=== PATIENT | female | born 1985 | race Caucasian/White ===

== ENCOUNTER 2016-06-05 04:33 | Inpatient (IN) ==
[2016-06-05] MEDS ORDERED: Acetaminophen 325 MG TABLET PO ONE (04:44)
[2016-06-05] MEDS ORDERED: 0.9 % Sodium Chloride 1,000 ML IVC ONE ×2 (04:44→07:28)
[2016-06-05 04:54] LABS: Basophils # 0.1 K/mcL (0.0-0.2); Basophils % 0.6 %; Eosinophils % 0.2 %; Hematocrit 38.6 % (35.3-44.9); Hemoglobin 12.6 g/dL (11.5-15.4); Immature Granulocytes % 1.6 % (0-4); Lymphocytes # 2.2 K/mcL (0.6-4.6); Lymphocytes % 21.2 %; Mean Corpuscular HGB Conc 32.6 g/dL (31.6-35.5); Mean Corpuscular Hemoglobin 31.1 pg (28.0-33.3); Mean Corpuscular Volume 95.3 fL (83.0-100.0); Mean Platelet Volume 9.2 fL (9.4-12.4); Monocytes # 0.6 K/mcL (0.0-1.3); Monocytes % 5.5 %; Neutrophils # 7.3 K/mcL (1.6-8.9); Platelet Count 260 K/mcL (140-400); Red Blood Count 4.05 M/mcL (3.82-4.97); Red Cell Distribution Width 15.5 % (11.5-14.5); Segmented Neutrophils % 70.9 %
[2016-06-05] MEDS ORDERED: Ipratropium/Albuterol Neb 3 ML IH ONE (04:54)
[2016-06-05 05:07] LABS: Alanine Aminotransferase 18 Units/L (0-55); Albumin 2.6 g/dL (3.5-5.0); Albumin/Globulin Ratio 0.6 (1.1-2.2); Alkaline Phosphatase 59 Units/L (38-126); Aspartate Amino Transferase 16 Units/L (5-34); BUN/Creatinine Ratio 14 (6-26); Bilirubin,Direct 0.2 mg/dL (0.0-0.5); Bilirubin,Total 0.2 mg/dL (0.2-1.2); Blood Urea Nitrogen 11 mg/dL (7-20); Calcium 8.3 mg/dL (8.6-10.8); Carbon Dioxide 30 mEq/L (19-29); Chloride 105 mEq/L (98-109); Globulin 4.3 g/dL (2.4-3.5); Glucose 148 mg/dL (70-99); Osmolality,Calculated 296 (280-300); Potassium 4.2 mEq/L (3.5-4.5); Sodium 142 mEq/L (136-145); Total Protein 6.9 g/dL (6.0-8.3); eGFR For African Americans > 60 (> 60); eGFR For Non-African Americans > 60 (> 60)
[2016-06-05] MEDS ORDERED: Azithromycin 500 MG in D5% in Water 250 ML IVPB ONE (05:22)
--- NOTE | 2016-06-05 05:33 | Emergency Department Note ---
Disposition Clinical Impression: Hypoxia, Down syndrome Pneumonia Qualifiers: Pneumonia type: due to unspecified organism Laterality: unspecified laterality Lung location: unspecified part of lung Qualified Code(s): J18.9 - Pneumonia, unspecified organism Disposition: Admitted As Inpatient Abdominal Pain HPI - General Chief Complaint: ED Abdominal Pain Stated Complaint: Abd Pain/SOB Time Seen by Provider: 06/05/16 05:29 Source: patient Mode of arrival: ambulatory Limitations: no limitations Nursing Notes Reviewed: Yes Vital Signs Reviewed: Yes - History of Present Illness HPI Narrative: 31 year old female with downs syndrome and mother at bedside states that she has been treating fevers of 101F at home and dusty is goes to adult daycare. Dusty states that she has been complaining of upper abodminal pain and woke up at 0300 crying and complaining of pain. Upon arrival to the home, EMS states her pulse ox was in the lows 80s and she was tachycaardic. Dusty has not vomitted, and is not complaing of chest pain. Mother staes that last time she presented like this is was pneumonia and did not need admission to the hospital then. Upon arrival here she is on a non-rebreather and in the uppper 90s but appears to be in respirtaory distress, tachypneic and tachycardic. Mulu mother states that she has been couhgin but has had difficulty coughing anything up. Pain Scale: 4 - Related Data Home Medications Medication Instructions Recorded Confirmed Citalopram [CeleXA] 40 mg PO DAILY 10/12/14 06/05/16 CloNIDine HCl [CloNIDine HCl] 0.1 mg PO BID 10/12/14 06/05/16 Divalproex (12 HR) [Depakote (12 500 mg PO BID 10/12/14 06/05/16 HR)] Fluticasone Propionate Nasal 1 spray NS BID 10/12/14 06/05/16 [Flonase] Multivitamin [Flintstones] 1 tab PO DAILY 10/12/14 06/05/16 Nystatin POWDER [Nystop] 1 appl TP BID PRN 10/12/14 06/05/16 Hydrocortisone [Anusol-Hc] 1 appl TP BID PRN 06/05/16 06/05/16 Ketoconazole 2% CRM [Nizoral Cream] 1 appl TP BID PRN 06/05/16 06/05/16 Ketoconazole Shampoo [Nizoral 1 appl TP QWEEK 06/05/16 06/05/16 Shampoo] Levothyroxine Sodium [Levo-T] 75 mcg PO DAILY 06/05/16 06/05/16 Allergies Allergy/AdvReac Type Severity Reaction Status Date / Time No Known Allergies Allergy Verified 10/12/14 15:50 Constitutional: Reports: fever, chills, weakness. Denies: weight change Eyes: Denies: eye pain, eye discharge, vision change ENT ED: Denies: ear pain, throat pain, dental pain, hearing loss, epistaxis, congestion, dysphagia Cardiovascular: Reports: palpitations. Denies: chest pain, dyspnea on exertion , edema, syncope Respiratory: Reports: cough, dyspnea, wheezes. Denies: hemoptysis, stridor Gastrointestinal: Reports: abdominal pain, nausea. Denies: vomiting, diarrhea, constipation, hematemesis, melena, hematochezia Genitourinary: Denies: dysuria, frequency, hematuria, discharge Musculoskeletal: Denies: back pain, neck pain, arthralgia, myalgia Integumentary: Denies: rash, abrasion, lesions Neurological: Denies: headache, weakness, numbness, paresthesias, confusion, abnormal gait, vertigo Psychiatric: Denies: anxiety, depression, suicidal thoughts, homicidal thoughts , auditory hallucinations, visual hallucinations Endocrine: Denies: fatigue Hematological/Lymphatic: Denies: easy bleeding, easy bruising Allergic/Immunologic: Denies: facial swelling, urticaria Abdominal Pain PMH - Past Medical History Medical history: Reports: no medical history, thyroid disease Female Surgical History: Reports: no surgical history Psychiatric history: Reports: no psych history - Social History Smoking status: Never smoker Alcohol use: Reports: none Drug use: Reports: none Physical Exam - General Limitations: other (down syndrome) General appearance: alert - Head Head exam: atraumatic, normocephalic, normal inspection - Eye Eye exam: Present: normal appearance, PERRL, EOMI - Expanded Eye Exam Pupils: Left: reactive - ENT ENT exam: normal exam, normal oropharynx, mucous membranes moist - Expanded ENT Exam External ear exam: Present: normal external inspection Mouth exam: Present: normal external inspection Teeth exam: Present: normal inspection Throat exam: Present: normal inspection - Neck Neck exam: Present: normal inspection, full ROM, trachea midline - Chest Chest inspection: Present: normal inspection, symmetric chest wall rise - Respiratory Respiratory exam: Present: respiratory distress, wheezes - Cardiovascular Cardiovascular exam: Present: normal rhythm, tachycardia, normal heart sounds - Abdominal Exam Abdominal exam: Present: soft, Non-Tender. Absent: tenderness, distention, guarding, rebound, rigidity - Extremities Exam Extremities exam: Present: normal inspection, full ROM. Absent: tenderness, pedal edema - Expanded Upper Extremity Exam Shoulder exam: Present: normal inspection, full ROM Arm exam: Present: normal inspection, full ROM Elbow exam: Present: normal inspection, full ROM Forearm/Wrist exam: Present: normal inspection, full ROM Hand exam: Present: normal inspection, full ROM Vascular exam: Normal: capillary refill, radial pulse - Expanded Lower Extremity Exam Hip/Pelvis exam: Present: normal inspection, full ROM Upper leg exam: Present: normal inspection, full ROM Knee exam: Present: normal inspection, full ROM Lower leg exam: Present: normal inspection, full ROM Ankle exam: Present: normal inspection, full ROM Foot/toe exam: Present: normal inspection, full ROM Neurovascular/Tendon exam: Absent: motor deficit, sensory deficit, tendon deficit - Back Exam Back exam: Present: normal inspection, full ROM. Absent: tenderness - Neurological Exam Neurological exam: Present: alert, oriented X3 - Expanded Neurological Exam Patient oriented to: Present: person, place, time Coma Scale Eye Opening: Spontaneous Coma Scale Motor Response: Obeys Commands Coma Scale Verbal Response: Oriented Coma Scale Total: 15 - Psychiatric Psychiatric exam: Present: normal affect, normal mood - Skin Skin exam: Present: warm, dry, intact, normal color Course Course Narrative: we will place patient on bipap in addition to treat with brathing treatments and start with empiric ABX for pnuemoina. Vital Signs Temperature 101.6 F H 06/05/16 04:36 Pulse Rate 115 06/05/16 04:36 Respiratory Rate 18 06/05/16 04:36 Blood Pressure 107/97 06/05/16 04:36 O2 Sat by Pulse Oximetry 91 06/05/16 04:36 Temperature 97.7 F 06/05/16 21:05 Pulse Rate 93 06/05/16 21:05 Respiratory Rate 18 06/05/16 21:05 Blood Pressure 100/55 06/05/16 21:05 O2 Sat by Pulse Oximetry 96 06/05/16 21:05 Oxygen Delivery Oxygen Delivery Non Rebreather Mask Abdominal Pain - Lab Data Result diagrams: 06/05/16 04:45 06/05/16 04:45 Lab Results 06/05/16 06/05/16 06/05/16 Range/Units 04:45 04:45 04:45 WBC 10.4 (4.3-11.1) K/mcL RBC 4.05 (3.82-4.97) M/mcL Hgb 12.6 (11.5-15.4) g/dL Hct 38.6 (35.3-44.9) % MCV 95.3 (83.0-100.0) fL MCH 31.1 (28.0-33.3) pg MCHC 32.6 (31.6-35.5) g/dL RDW 15.5 H (11.5-14.5) % Plt Count 260 (140-400) K/mcL MPV 9.2 L (9.4-12.4) fL Immature Gran % 1.6 (0-4) % Seg Neutrophils % 70.9 % Lymphocytes % 21.2 % Monocytes % 5.5 % Eosinophils % 0.2 % Basophils % 0.6 % Neutrophils # 7.3 (1.6-8.9) K/mcL Lymphocytes # 2.2 (0.6-4.6) K/mcL Monocytes # 0.6 (0.0-1.3) K/mcL Eosinophils # 0.0 (0.0-0.6) K/mcL Basophils # 0.1 (0.0-0.2) K/mcL VBG pH (7.32-7.42) pH Units VBG pCO2 (41-51) mmHg VBG pO2 (25-40) mmHg VBG HCO3 (21-27) mEq/L Sodium 142 (136-145) mEq/L Potassium 4.2 (3.5-4.5) mEq/L Chloride 105 (98-109) mEq/L Carbon Dioxide 30 H (19-29) mEq/L BUN 11 (7-20) mg/dL Creatinine 0.80 (0.57-1.11) mg/dL Est GFR ( Amer) > 60 (> 60) Est GFR (Non-Af Amer) > 60 (> 60) BUN/Creatinine Ratio 14 (6-26) Glucose 148 H (70-99) mg/dL Calculated Osmolality 296 (280-300) Lactic Acid 1.5 (0.5-2.2) mmol/L Calcium 8.3 L (8.6-10.8) mg/dL Total Bilirubin 0.2 (0.2-1.2) mg/dL Direct Bilirubin 0.2 (0.0-0.5) mg/dL Indirect Bilirubin 0.0 (0.0-1.2) mg/dL AST 16 (5-34) Units/L ALT 18 (0-55) Units/L Alkaline Phosphatase 59 (38-126) Units/L Troponin I (0-0.03) ng/mL B-Natriuretic Peptide (0-100) pg/mL Serum Total Protein 6.9 (6.0-8.3) g/dL Albumin 2.6 L (3.5-5.0) g/dL Globulin 4.3 H (2.4-3.5) g/dL Albumin/Globulin Ratio 0.6 L (1.1-2.2) Urine Color (Yellow) Urine Clarity (Clear) Urine pH (5.0-8.0) pH Units Ur Specific [place] (1.010-1.025) Urine Protein (Neg-Trace) mg/dL Urine Glucose (UA) (Normal) mg/dL Urine Ketones (Negative) mg/dL Urine Blood (Negative) Urine Nitrite (Negative) Urine Bilirubin (Negative) Urine Urobilinogen (Normal) mg/dL Ur Leukocyte Esterase (Negative) Urine Microscopic RBC (0-3) per hpf Urine Microscopic WBC (0-3) per hpf Ur Squamous Epith Cells (None-Few) per lpf Urine Bacteria (None-Few) per hpf Hyaline Casts (None-Few) per lpf Ur Culture Indicated? (NO) 06/05/16 06/05/16 06/05/16 Range/Units 04:45 04:45 06:06 WBC (4.3-11.1) K/mcL RBC (3.82-4.97) M/mcL Hgb (11.5-15.4) g/dL Hct (35.3-44.9) % MCV (83.0-100.0) fL MCH (28.0-33.3) pg MCHC (31.6-35.5) g/dL RDW (11.5-14.5) % Plt Count (140-400) K/mcL MPV (9.4-12.4) fL Immature Gran % (0-4) % Seg Neutrophils % % Lymphocytes % % Monocytes % % Eosinophils % % Basophils % % Neutrophils # (1.6-8.9) K/mcL Lymphocytes # (0.6-4.6) K/mcL Monocytes # (0.0-1.3) K/mcL Eosinophils # (0.0-0.6) K/mcL Basophils # (0.0-0.2) K/mcL VBG pH 7.48 H (7.32-7.42) pH Units VBG pCO2 37 L (41-51) mmHg VBG pO2 167 H (25-40) mmHg VBG HCO3 27.6 H (21-27) mEq/L Sodium (136-145) mEq/L Potassium (3.5-4.5) mEq/L Chloride (98-109) mEq/L Carbon Dioxide (19-29) mEq/L BUN (7-20) mg/dL Creatinine (0.57-1.11) mg/dL Est GFR ( Amer) (> 60) Est GFR (Non-Af Amer) (> 60) BUN/Creatinine Ratio (6-26) Glucose (70-99) mg/dL Calculated Osmolality (280-300) Lactic Acid (0.5-2.2) mmol/L Calcium (8.6-10.8) mg/dL Total Bilirubin (0.2-1.2) mg/dL Direct Bilirubin (0.0-0.5) mg/dL Indirect Bilirubin (0.0-1.2) mg/dL AST (5-34) Units/L ALT (0-55) Units/L Alkaline Phosphatase (38-126) Units/L Troponin I 0.02 (0-0.03) ng/mL B-Natriuretic Peptide 66 (0-100) pg/mL Serum Total Protein (6.0-8.3) g/dL Albumin (3.5-5.0) g/dL Globulin (2.4-3.5) g/dL Albumin/Globulin Ratio (1.1-2.2) Urine Color (Yellow) Urine Clarity (Clear) Urine pH (5.0-8.0) pH Units Ur Specific [place] (1.010-1.025) Urine Protein (Neg-Trace) mg/dL Urine Glucose (UA) (Normal) mg/dL Urine Ketones (Negative) mg/dL Urine Blood (Negative) Urine Nitrite (Negative) Urine Bilirubin (Negative) Urine Urobilinogen (Normal) mg/dL Ur Leukocyte Esterase (Negative) Urine Microscopic RBC (0-3) per hpf Urine Microscopic WBC (0-3) per hpf Ur Squamous Epith Cells (None-Few) per lpf Urine Bacteria (None-Few) per hpf Hyaline Casts (None-Few) per lpf Ur Culture Indicated? (NO) 06/05/16 Range/Units 07:16 WBC (4.3-11.1) K/mcL RBC (3.82-4.97) M/mcL Hgb (11.5-15.4) g/dL Hct (35.3-44.9) % MCV (83.0-100.0) fL MCH (28.0-33.3) pg MCHC (31.6-35.5) g/dL RDW (11.5-14.5) % Plt Count (140-400) K/mcL MPV (9.4-12.4) fL Immature Gran % (0-4) % Seg Neutrophils % % Lymphocytes % % Monocytes % % Eosinophils % % Basophils % % Neutrophils # (1.6-8.9) K/mcL Lymphocytes # (0.6-4.6) K/mcL Monocytes # (0.0-1.3) K/mcL Eosinophils # (0.0-0.6) K/mcL Basophils # (0.0-0.2) K/mcL VBG pH (7.32-7.42) pH Units VBG pCO2 (41-51) mmHg VBG pO2 (25-40) mmHg VBG HCO3 (21-27) mEq/L Sodium (136-145) mEq/L Potassium (3.5-4.5) mEq/L Chloride (98-109) mEq/L Carbon Dioxide (19-29) mEq/L BUN (7-20) mg/dL Creatinine (0.57-1.11) mg/dL Est GFR ( Amer) (> 60) Est GFR (Non-Af Amer) (> 60) BUN/Creatinine Ratio (6-26) Glucose (70-99) mg/dL Calculated Osmolality (280-300) Lactic Acid (0.5-2.2) mmol/L Calcium (8.6-10.8) mg/dL Total Bilirubin (0.2-1.2) mg/dL Direct Bilirubin (0.0-0.5) mg/dL Indirect Bilirubin (0.0-1.2) mg/dL AST (5-34) Units/L ALT (0-55) Units/L Alkaline Phosphatase (38-126) Units/L Troponin I (0-0.03) ng/mL B-Natriuretic Peptide (0-100) pg/mL Serum Total Protein (6.0-8.3) g/dL Albumin (3.5-5.0) g/dL Globulin (2.4-3.5) g/dL Albumin/Globulin Ratio (1.1-2.2) Urine Color Yellow (Yellow) Urine Clarity Clear (Clear) Urine pH 5.5 (5.0-8.0) pH Units Ur Specific [place] > 1.030 H (1.010-1.025) Urine Protein 30 H (Neg-Trace) mg/dL Urine Glucose (UA) Normal (Normal) mg/dL Urine Ketones Negative (Negative) mg/dL Urine Blood Negative (Negative) Urine Nitrite Negative (Negative) Urine Bilirubin Negative (Negative) Urine Urobilinogen Normal (Normal) mg/dL Ur Leukocyte Esterase Negative (Negative) Urine Microscopic RBC 0-3 (0-3) per hpf Urine Microscopic WBC 3-5 H (0-3) per hpf Ur Squamous Epith Cells Many H (None-Few) per lpf Urine Bacteria Few (None-Few) per hpf Hyaline Casts None Seen (None-Few) per lpf Ur Culture Indicated? NO (NO) - EKG Data EKG attestation: Yes I reviewed and interpreted this EKG. EKG results narrative: sinus tachycardia with rate of 114. NO STEMI. normal intervals. no old ekg. 0440 Critical Care Time Critical Care Time: Yes Total Critical Care Time: 35 Attestation: The high probability of a clinically significant, sudden or life threatening deterioration of the [resp] system(s) required my full and direct attention, intervention and personal management. The aggregate critical care time was [35] minutes. This time is in addition to time spent performing reported procedures but includes the following: [X] Data Review and interpretation [X] Patient assessment and monitoring of vital signs [X] Documentation [X] Medication orders and management Attestation Statement - Attestation Attestation: I personally examined this patient and my medical decision-making was reviewed with the ED Resident Physician, Dr. Zamora. I agree with the documented findings , disposition and treatment plan as described except to the extent set forth below. She is a 31-year-old white female with a history of Down syndrome who presents to the emergency department by EMS today for respiratory distress. Patient was found at home significantly hypoxic with difficulty breathing and a history of gradually worsening URI symptoms cough over the past 48 hours. Patient has no significant pulmonary or cardiac history. Pt has not had any recent infections or treatment with antibiotics as an outpatient. Patient had a portable chest x-ray shot on arrival to the ED as we were obtaining IV access and administering supplement oxygen by nonrebreather, which showed extensive bilateral infiltrates. Patient was placed on BiPAP due to ongoing hypoxia and is tolerating this well and significant improvement in her oxygen saturation at this time. Patient's labs were obtained cultures were obtained, IV antibiotics were initiated for community-acquired pneumonia. Remainder of labs including troponin and BNP are negative. Patient does have a mild elevation in her blood sugar at 148. At this time patient is doing well on BiPAP in condition and improved at this point and will admit the patient to the ICU for continued close evaluation and management.
[2016-06-05 06:11] LABS: VBG HCO3 27.6 mEq/L (21-27); VBG PH 7.48 pH Units (7.32-7.42)
[2016-06-05 07:24] LABS: Bilirubin,Urine Negative (Negative); Blood,Urine Negative (Negative); Clarity,Urine Clear (Clear); Color,Urine Yellow (Yellow); Glucose,Urine (UA) Normal (Normal); Ketones,Urine Negative (Negative); Leukocyte Esterase,Urine Negative (Negative); Nitrite,Urine Negative (Negative); PH,Urine 5.5 pH Units (5.0-8.0); Protein,Urine 30 mg/dL (Neg-Trace); Specific Gravity,Urine > 1.030 (1.010-1.025); Urobilinogen,Urine Normal (Normal)
--- NOTE | 2016-06-05 07:25 | Emergency Department Note ---
Disposition Clinical Impression: Hypoxia, Pneumonia, Down syndrome Disposition: Admitted As Inpatient General Adult HPI - General Chief complaint: ED Abdominal Pain Stated complaint: Abd Pain/SOB Source: patient Mode of arrival: ambulatory Limitations: other (down syndrome) Nursing Notes Reviewed: Yes Vital Signs Reviewed: Yes - History of Present Illness HPI Narrative: This is a continuation of the prior documentation. Please refer to prior providers note for complete history and physical. Pain Scale: 4 - Related Data Home Medications Medication Instructions Recorded Confirmed Citalopram [CeleXA] 40 mg PO DAILY 10/12/14 06/05/16 CloNIDine HCl [CloNIDine HCl] 0.1 mg PO BID 10/12/14 06/05/16 Divalproex (12 HR) [Depakote (12 500 mg PO BID 10/12/14 06/05/16 HR)] Fluticasone Propionate Nasal 1 spray NS BID 10/12/14 06/05/16 [Flonase] Multivitamin [Flintstones] 1 tab PO DAILY 10/12/14 06/05/16 Nystatin POWDER [Nystop] 1 appl TP BID PRN 10/12/14 06/05/16 Hydrocortisone [Anusol-Hc] 1 appl TP BID PRN 06/05/16 06/05/16 Ketoconazole 2% CRM [Nizoral Cream] 1 appl TP BID PRN 06/05/16 06/05/16 Ketoconazole Shampoo [Nizoral 1 appl TP QWEEK 06/05/16 06/05/16 Shampoo] Levothyroxine Sodium [Levo-T] 75 mcg PO DAILY 06/05/16 06/05/16 Allergies Allergy/AdvReac Type Severity Reaction Status Date / Time No Known Allergies Allergy Verified 10/12/14 15:50 Constitutional: Reports: fever, chills, weakness. Denies: weight change Eyes: Denies: eye pain, eye discharge, vision change ENT ED: Denies: ear pain, throat pain, dental pain, hearing loss, epistaxis, congestion, dysphagia Cardiovascular: Reports: palpitations. Denies: chest pain, dyspnea on exertion , edema, syncope Respiratory: Reports: cough, dyspnea, wheezes. Denies: hemoptysis, stridor Gastrointestinal: Reports: abdominal pain, nausea. Denies: vomiting, diarrhea, constipation, hematemesis, melena, hematochezia Genitourinary: Denies: dysuria, frequency, hematuria, discharge Musculoskeletal: Denies: back pain, neck pain, arthralgia, myalgia Integumentary: Denies: rash, abrasion, lesions Neurological: Denies: headache, weakness, numbness, paresthesias, confusion, abnormal gait, vertigo Psychiatric: Denies: anxiety, depression, suicidal thoughts, homicidal thoughts , auditory hallucinations, visual hallucinations Endocrine: Denies: fatigue Hematological/Lymphatic: Denies: easy bleeding, easy bruising Allergic/Immunologic: Denies: facial swelling, urticaria Past Medical History - Past Medical History Medical history: Reports: no medical history, thyroid disease Surgical history: Reports: other Psychiatric history: Reports: no psych history - Social History Smoking Status: Never smoker Smokeless Tobacco Status: No Alcohol use: Reports: none Drug use: Reports: none Physical Exam - General Limitations: other (down syndrome) General appearance: alert Course Course Narrative: Patient seen and examined upon arrival. Workup initiated by prior provider. Patient is a 31-year-old female with history of Down syndrome who this morning with abdominal pain. Patient history is provided by the mother bedside. Has been spiking fevers to 101. Clinically similar to prior symptoms when she was diagnosed with pneumonia. - Reevaluation(s) Reevaluation #1: Patient seen and examined. Patient's BiPAP was removed and the patient's oxygen saturation dropped into the upper 70s or 80s. Patient's does not appear to be in respiratory distress. Patient is mildly tachycardic. Given the patient's chest x-ray findings and her hypoxia and persistent tachycardia the patient will get a CTA of the chest prior to admission to the hospitalist service. Time: 07:33 Vital Signs Temperature 101.6 F H 06/05/16 04:36 Pulse Rate 115 06/05/16 04:36 Respiratory Rate 18 06/05/16 04:36 Blood Pressure 107/97 06/05/16 04:36 O2 Sat by Pulse Oximetry 91 06/05/16 04:36 Temperature 100.0 F H 06/05/16 06:19 Pulse Rate 99 06/05/16 10:11 Respiratory Rate 24 06/05/16 07:37 Blood Pressure 108/63 06/05/16 10:11 O2 Sat by Pulse Oximetry 86 06/05/16 10:11 Oxygen Delivery Oxygen Delivery Nasal Cannula Medical Decision Making - Lab Data Result diagrams: 06/05/16 04:45 06/05/16 04:45 Lab Results 06/05/16 06/05/16 06/05/16 Range/Units 04:45 04:45 04:45 WBC 10.4 (4.3-11.1) K/mcL RBC 4.05 (3.82-4.97) M/mcL Hgb 12.6 (11.5-15.4) g/dL Hct 38.6 (35.3-44.9) % MCV 95.3 (83.0-100.0) fL MCH 31.1 (28.0-33.3) pg MCHC 32.6 (31.6-35.5) g/dL RDW 15.5 H (11.5-14.5) % Plt Count 260 (140-400) K/mcL MPV 9.2 L (9.4-12.4) fL Immature Gran % 1.6 (0-4) % Seg Neutrophils % 70.9 % Lymphocytes % 21.2 % Monocytes % 5.5 % Eosinophils % 0.2 % Basophils % 0.6 % Neutrophils # 7.3 (1.6-8.9) K/mcL Lymphocytes # 2.2 (0.6-4.6) K/mcL Monocytes # 0.6 (0.0-1.3) K/mcL Eosinophils # 0.0 (0.0-0.6) K/mcL Basophils # 0.1 (0.0-0.2) K/mcL VBG pH (7.32-7.42) pH Units VBG pCO2 (41-51) mmHg VBG pO2 (25-40) mmHg VBG HCO3 (21-27) mEq/L Sodium 142 (136-145) mEq/L Potassium 4.2 (3.5-4.5) mEq/L Chloride 105 (98-109) mEq/L Carbon Dioxide 30 H (19-29) mEq/L BUN 11 (7-20) mg/dL Creatinine 0.80 (0.57-1.11) mg/dL Est GFR ( Amer) > 60 (> 60) Est GFR (Non-Af Amer) > 60 (> 60) BUN/Creatinine Ratio 14 (6-26) Glucose 148 H (70-99) mg/dL Calculated Osmolality 296 (280-300) Lactic Acid 1.5 (0.5-2.2) mmol/L Calcium 8.3 L (8.6-10.8) mg/dL Total Bilirubin 0.2 (0.2-1.2) mg/dL Direct Bilirubin 0.2 (0.0-0.5) mg/dL Indirect Bilirubin 0.0 (0.0-1.2) mg/dL AST 16 (5-34) Units/L ALT 18 (0-55) Units/L Alkaline Phosphatase 59 (38-126) Units/L Troponin I (0-0.03) ng/mL B-Natriuretic Peptide (0-100) pg/mL Serum Total Protein 6.9 (6.0-8.3) g/dL Albumin 2.6 L (3.5-5.0) g/dL Globulin 4.3 H (2.4-3.5) g/dL Albumin/Globulin Ratio 0.6 L (1.1-2.2) Urine Color (Yellow) Urine Clarity (Clear) Urine pH (5.0-8.0) pH Units Ur Specific [place] (1.010-1.025) Urine Protein (Neg-Trace) mg/dL Urine Glucose (UA) (Normal) mg/dL Urine Ketones (Negative) mg/dL Urine Blood (Negative) Urine Nitrite (Negative) Urine Bilirubin (Negative) Urine Urobilinogen (Normal) mg/dL Ur Leukocyte Esterase (Negative) Urine Microscopic RBC (0-3) per hpf Urine Microscopic WBC (0-3) per hpf Ur Squamous Epith Cells (None-Few) per lpf Urine Bacteria (None-Few) per hpf Hyaline Casts (None-Few) per lpf Ur Culture Indicated? (NO) 06/05/16 06/05/16 06/05/16 Range/Units 04:45 04:45 06:06 WBC (4.3-11.1) K/mcL RBC (3.82-4.97) M/mcL Hgb (11.5-15.4) g/dL Hct (35.3-44.9) % MCV (83.0-100.0) fL MCH (28.0-33.3) pg MCHC (31.6-35.5) g/dL RDW (11.5-14.5) % Plt Count (140-400) K/mcL MPV (9.4-12.4) fL Immature Gran % (0-4) % Seg Neutrophils % % Lymphocytes % % Monocytes % % Eosinophils % % Basophils % % Neutrophils # (1.6-8.9) K/mcL Lymphocytes # (0.6-4.6) K/mcL Monocytes # (0.0-1.3) K/mcL Eosinophils # (0.0-0.6) K/mcL Basophils # (0.0-0.2) K/mcL VBG pH 7.48 H (7.32-7.42) pH Units VBG pCO2 37 L (41-51) mmHg VBG pO2 167 H (25-40) mmHg VBG HCO3 27.6 H (21-27) mEq/L Sodium (136-145) mEq/L Potassium (3.5-4.5) mEq/L Chloride (98-109) mEq/L Carbon Dioxide (19-29) mEq/L BUN (7-20) mg/dL Creatinine (0.57-1.11) mg/dL Est GFR ( Amer) (> 60) Est GFR (Non-Af Amer) (> 60) BUN/Creatinine Ratio (6-26) Glucose (70-99) mg/dL Calculated Osmolality (280-300) Lactic Acid (0.5-2.2) mmol/L Calcium (8.6-10.8) mg/dL Total Bilirubin (0.2-1.2) mg/dL Direct Bilirubin (0.0-0.5) mg/dL Indirect Bilirubin (0.0-1.2) mg/dL AST (5-34) Units/L ALT (0-55) Units/L Alkaline Phosphatase (38-126) Units/L Troponin I 0.02 (0-0.03) ng/mL B-Natriuretic Peptide 66 (0-100) pg/mL Serum Total Protein (6.0-8.3) g/dL Albumin (3.5-5.0) g/dL Globulin (2.4-3.5) g/dL Albumin/Globulin Ratio (1.1-2.2) Urine Color (Yellow) Urine Clarity (Clear) Urine pH (5.0-8.0) pH Units Ur Specific [place] (1.010-1.025) Urine Protein (Neg-Trace) mg/dL Urine Glucose (UA) (Normal) mg/dL Urine Ketones (Negative) mg/dL Urine Blood (Negative) Urine Nitrite (Negative) Urine Bilirubin (Negative) Urine Urobilinogen (Normal) mg/dL Ur Leukocyte Esterase (Negative) Urine Microscopic RBC (0-3) per hpf Urine Microscopic WBC (0-3) per hpf Ur Squamous Epith Cells (None-Few) per lpf Urine Bacteria (None-Few) per hpf Hyaline Casts (None-Few) per lpf Ur Culture Indicated? (NO) 06/05/16 Range/Units 07:16 WBC (4.3-11.1) K/mcL RBC (3.82-4.97) M/mcL Hgb (11.5-15.4) g/dL Hct (35.3-44.9) % MCV (83.0-100.0) fL MCH (28.0-33.3) pg MCHC (31.6-35.5) g/dL RDW (11.5-14.5) % Plt Count (140-400) K/mcL MPV (9.4-12.4) fL Immature Gran % (0-4) % Seg Neutrophils % % Lymphocytes % % Monocytes % % Eosinophils % % Basophils % % Neutrophils # (1.6-8.9) K/mcL Lymphocytes # (0.6-4.6) K/mcL Monocytes # (0.0-1.3) K/mcL Eosinophils # (0.0-0.6) K/mcL Basophils # (0.0-0.2) K/mcL VBG pH (7.32-7.42) pH Units VBG pCO2 (41-51) mmHg VBG pO2 (25-40) mmHg VBG HCO3 (21-27) mEq/L Sodium (136-145) mEq/L Potassium (3.5-4.5) mEq/L Chloride (98-109) mEq/L Carbon Dioxide (19-29) mEq/L BUN (7-20) mg/dL Creatinine (0.57-1.11) mg/dL Est GFR ( Amer) (> 60) Est GFR (Non-Af Amer) (> 60) BUN/Creatinine Ratio (6-26) Glucose (70-99) mg/dL Calculated Osmolality (280-300) Lactic Acid (0.5-2.2) mmol/L Calcium (8.6-10.8) mg/dL Total Bilirubin (0.2-1.2) mg/dL Direct Bilirubin (0.0-0.5) mg/dL Indirect Bilirubin (0.0-1.2) mg/dL AST (5-34) Units/L ALT (0-55) Units/L Alkaline Phosphatase (38-126) Units/L Troponin I (0-0.03) ng/mL B-Natriuretic Peptide (0-100) pg/mL Serum Total Protein (6.0-8.3) g/dL Albumin (3.5-5.0) g/dL Globulin (2.4-3.5) g/dL Albumin/Globulin Ratio (1.1-2.2) Urine Color Yellow (Yellow) Urine Clarity Clear (Clear) Urine pH 5.5 (5.0-8.0) pH Units Ur Specific [place] > 1.030 H (1.010-1.025) Urine Protein 30 H (Neg-Trace) mg/dL Urine Glucose (UA) Normal (Normal) mg/dL Urine Ketones Negative (Negative) mg/dL Urine Blood Negative (Negative) Urine Nitrite Negative (Negative) Urine Bilirubin Negative (Negative) Urine Urobilinogen Normal (Normal) mg/dL Ur Leukocyte Esterase Negative (Negative) Urine Microscopic RBC 0-3 (0-3) per hpf Urine Microscopic WBC 3-5 H (0-3) per hpf Ur Squamous Epith Cells Many H (None-Few) per lpf Urine Bacteria Few (None-Few) per hpf Hyaline Casts None Seen (None-Few) per lpf Ur Culture Indicated? NO (NO) S.B.A.R. - S.B.A.RPauline Situation: Demographics Background: Presenting Complaint Assessment: Vital Signs, Course and respsone to treatment, Exam Concerns, Patient/Family Expectation Recommendation: Barrier(s) to disposition, Recommendation based on pending studies, treatments, or consults S.B.A.R. Report Given to: Dr. Dale ArmstrongAMarycruz Repor Time: 07:32 Attestation Statement - Attestation Attestation: I examined this patient and my medical decision-making was reviewed with the AUTOMOTIVE DESIGN DRAFTER/PA/Advanced Practice Nurse/Resident Physician. I agree with the documented findings, disposition and treatment plan as described except to the extent set forth below. Patient signed out pending admission. We elected to check a CTA which shows multifocal airspace disease. Patient is admitted. 30 minutes of critical care exclusive of separately billable procedures.
[2016-06-05 07:27] LABS: Bacteria,Urine Few per hpf (None-Few); Hyaline Casts,Urine None Seen per lpf (None-Few); RBC,Urine 0-3 per hpf (0-3); Squamous Epithelial Cell,Urine Many per lpf (None-Few)
[2016-06-05] MEDS ORDERED: Naloxone 0.4 MG/ML INJ IVP PRN (07:43)
--- NOTE | 2016-06-05 09:34 | Internal Med History&Physical ---
Date of Encounter: 06/05/16 Time of Encounter: 08:10 Assessment and Plan (1) Multifocal pneumonia Current visit: Yes Status: Acute Patient with bilateral multifocal pneumonia. Will admit inpatient. IV antibiotics. Follow blood cultures and sputum cultures. High risk for complications including ARDS. (2) Acute respiratory failure with hypoxia Current visit: Yes Status: Acute Due to multifocal pneumonia. Continue O2 supplementation to keep sats greater than 88%. BiPAP as needed. Respiratory therapy consult. (3) Pneumonia Current visit: Yes Status: Suspected Community-acquired. Will treat with Rocephin and azithromycin. Follow blood cultures. High risk for complications. Qualifiers: Pneumonia type: due to Pneumococcus Laterality: bilateral Lung location: unspecified part of lung Qualified Code(s): J13 - Pneumonia due to Streptococcus pneumoniae (4) Down syndrome Current visit: Yes Status: Chronic (5) Sepsis Current visit: Yes Status: Suspected From pneumonia. Lactic acid within normal limits Qualifiers: Sepsis type: Pneumococcus Qualified Code(s): A40.3 - Sepsis due to Streptococcus pneumoniae Internal Medicine - H&P: HPI Chief complaint: Shortness of breath and cough Admitted From: Emergency Dept Plans for Post Hospital Care: Home History of present illness: Ms. Gilmore is a 31 year old female with history of Down syndrome and congenital heart disease associated with that presented to the ER complaining of shortness of breath and cough going on for about 3 days. She has had decrease in appetite and malaise. The patient's mother is at bedside and has provided much of the history. She has had similar kind of symptoms during her prior bouts of pneumonia. She was never hospitalized for pneumonia but received antibiotics as outpatient for that. She has fever at home. Denies any chest pain. No nausea or vomiting. No hemoptysis. Patient does complain of some stomach pain, 4 out of 10 in severity. No aggravating or relieving factors. It is intermittent. Nonradiating. According to the ER records, the patient was hypoxic when the EMS arrived and tachycardic. Past Med Surg Social Fam HX - Past Medical History Attestation: Yes The following information was validated with the patient. Source: old records reviewed, obtained from family Medical history: thyroid disease, other (Down syndrome) Psychiatric history: no psych history - Past Surgical History Surgical History: other - Social History Smoking Status: Never smoker Smokeless Tobacco Status: No Alcohol use: none Drug use: none Internal Medicine - H&P: Meds Citalopram [CeleXA] 40 mg PO DAILY 10/12/14 [History] CloNIDine HCl [CloNIDine HCl] 0.1 mg PO BID 10/12/14 [History] Divalproex (12 HR) [Depakote (12 HR)] 500 mg PO BID 10/12/14 [History] Fluticasone Propionate Nasal [Flonase] 1 spray NS BID 10/12/14 [History] Multivitamin [Flintstones] 1 tab PO DAILY 10/12/14 [History] Nystatin POWDER [Nystop] 1 appl TP BID PRN 10/12/14 [History] Hydrocortisone [Anusol-Hc] 1 appl TP BID PRN 06/05/16 [History] Ketoconazole 2% CRM [Nizoral Cream] 1 appl TP BID PRN 06/05/16 [History] Ketoconazole Shampoo [Nizoral Shampoo] 1 appl TP QWEEK 06/05/16 [History] Levothyroxine Sodium [Levo-T] 75 mcg PO DAILY 06/05/16 [History] Allergies No Known Allergies Allergy (Verified 10/12/14 15:50) All Systems PM: A 10-system review of systems was performed and is negative for pertinent findings except as documented above in the HPI. - Constitutional Constitutional: fever(s), malaise, no chills, no night sweats - EENT Eyes: no change in vision, no discharge, no pain, no photophobia Ears: no ear discharge, no ear pain, no tinnitus Nose, mouth and throat: no dysphagia, no nasal discharge, no neck pain, no sore throat - Cardiovascular Cardiovascular ROS IM: no chest pain, no diaphoresis, no dyspnea, no lightheadedness, no palpitations, no syncope - Respiratory Respiratory: cough, dyspnea, no hemoptysis, no wheezing, no excessive phlegm production - Gastrointestinal Gastrointestinal: abdominal pain, no diarrhea, no hematemesis, no hematochezia, no melena, no nausea, no vomiting - Genitourinary Genitourinary: no change in urinary stream, no dysuria, no flank pain, no hematuria - Musculoskeletal Musculoskeletal ROS IM: no numbness, no tingling - Integumentary Integumentary IM: no rash, no unusual bruising - Neurological Neurological ROS: no confusion, no convulsions, no focal weakness, no numbness, no tingling, no tremor(s) - Hematologic/Lymphatic Hematologic/Lymphatic: no easy bruising - Constitutional Vitals: Temp Pulse Resp BP Pulse Ox 100.0 F H 101 24 96/62 87 06/05/16 06:19 06/05/16 08:35 06/05/16 07:37 06/05/16 08:35 06/05/16 08:35 General appearance: Present: cooperative, pleasant, no acute distress, answers questions appropriately Exam: Patient is awake and alert - Head Head exam: Present: atraumatic - Eye Eye exam: Present: EOMI, PERRL, conjuntiva pink, sclera anicteric - Neck Neck exam general surgery: Present: supple, trachea midline. Absent: lymphadenopathy - Respiratory Respiratory exam: Absent: accessory muscle use, rales, rhonchi, wheezes Additional comments: Coarse breath sounds bilaterally - Cardiovascular Cardiovascular exam: Present: RRR, +S1, +S2. Absent: diastolic murmur, gallop, rubs, systolic murmur - GI/Abdominal GI/Abdominal exam: Present: normal bowel sounds, soft, no peritoneal signs. Absent: distended, tenderness - Extremities Exam Extremities exam: Present: warm, radial pulses palpable and symetrical. Absent : calf tenderness, cyanotic, pedal edema - Neurological Exam Neurological exam: Present: alert, no focal deficits, strengths equal and symetr throughout. Absent: facial droop, speech deficit - Skin Skin exam: Present: dry, intact Internal Med - H&P Results - Labs CBC & Chem 7: 06/05/16 04:45 06/05/16 04:45 Labs: Short CBC 06/05/16 Range/Units 04:45 WBC 10.4 (4.3-11.1) K/mcL Hgb 12.6 (11.5-15.4) g/dL Hct 38.6 (35.3-44.9) % Plt Count 260 (140-400) K/mcL Neutrophils # 7.3 (1.6-8.9) K/mcL BMP 06/05/16 04:45 Sodium 142 Potassium 4.2 Chloride 105 Carbon Dioxide 30 H BUN 11 Creatinine 0.80 Glucose 148 H Calcium 8.3 L Cardiac Enzymes 06/05/16 Range/Units 04:45 Troponin I 0.02 (0-0.03) ng/mL Liver Function 06/05/16 Range/Units 04:45 Total Bilirubin 0.2 (0.2-1.2) mg/dL Direct Bilirubin 0.2 (0.0-0.5) mg/dL AST 16 (5-34) Units/L ALT 18 (0-55) Units/L Alkaline Phosphatase 59 (38-126) Units/L Albumin 2.6 L (3.5-5.0) g/dL Urine 06/05/16 Range/Units 07:16 Urine Color Yellow (Yellow) Urine Clarity Clear (Clear) Urine pH 5.5 (5.0-8.0) pH Units Ur Specific [place] > 1.030 H (1.010-1.025) Urine Protein 30 H (Neg-Trace) mg/dL Urine Glucose (UA) Normal (Normal) mg/dL - ABG Interpretation ABG results: 06/05/16 06:06 VBG pH 7.48 H VBG pCO2 37 L VBG pO2 167 H VBG HCO3 27.6 H - Impressions ITS Impressions Chest X-Ray 06/05/16 04:40 IMPRESSION: Bilateral airspace disease, either pneumonia or pulmonary edema D/ / Mauro Orantes MD / Mauro Orantes MD Interpreting Provider: Mauro Orantes MD Chest CTA 06/05/16 07:30 IMPRESSION: 1. No evidence of pulmonary embolism. 2. Extensive multifocal bilateral pneumonia. Continued radiographic follow-up is recommended. 3. Mediastinal lymphadenopathy is likely reactive in nature from pneumonia. 4. Fatty infiltration of the liver. D/ / Feliz Howard MD / Feliz Howard MD Interpreting Provider: Feliz Howard MD - Attending Attestation This document has been at least partially created by [employer] recognition technology by Dr. Hunter. Errors in grammar, wording or other phrases may exist. If errors are found after the documentation is signed, they will be addressed individually in the addendum section of this document when appropriate.
[2016-06-05] MEDS ORDERED: Ketoconazole 2% CRM 15 GM TUBE TP PRN (09:46)
[2016-06-05] MEDS ORDERED: Hydrocortisone Rectal 2.5% CRM 28 GM TUBE RC PRN (09:46)
[2016-06-05] MEDS ORDERED: Nystatin POWDER 30 GM BOTTLE TP PRN (09:46)
[2016-06-05] MEDS: 0.9 % Sodium Chloride 1,000 ML IVC SCH ×2 (14:00→23:19)
[2016-06-05 15:37] LABS: Adenovirus Not Detected (Not Detect); Bordetella Pertussis Not Detected (Not Detect); Chlamydophila pneumoniae Not Detected (Not Detect); Coronavirus 229E Not Detected (Not Detect); Coronavirus HKU1 Not Detected (Not Detect); Coronavirus NL63 Not Detected (Not Detect); Coronavirus OC43 Not Detected (Not Detect); Human Metapneumovirus ***DETECTED*** (Not Detect); Human Rhinovirus/Enterovirus Not Detected (Not Detect); Influenza A Subtype 2009 H1 Not Detected (Not Detect); Influenza A Untypeable Not Detected (Not Detect); Influenza B Not Detected (Not Detect); Mycoplasma pneumoniae Not Detected (Not Detect); Parainfluenza Virus 1 Not Detected (Not Detect); Parainfluenza Virus 2 Not Detected (Not Detect); Parainfluenza Virus 3 Not Detected (Not Detect); Parainfluenza Virus 4 Not Detected (Not Detect); Respiratory Syncytial Virus Not Detected (Not Detect)
[2016-06-05] MEDS: *HR* Heparin 5,000 UNIT/ML VIAL SQ SCH (18:20)
--- NOTE | 2016-06-05 18:39 | Electrocardiograph Report ---
[address] [address] Test Date: 2016-06-05 Pat Name: Carina Gilmore Department: 102 Room: 2N3 Gender: F Solution Lead: Sammy : 1985 Requested By: Michael Parker Order Number: [id number] Reading MD: Hussain Mack MD Measurements Intervals [place] Rate: 114 P: 55 SC: 108 QRS: 42 QRSD: 90 T: 20 QT: 330 QTc: 397 Interpretive Statements SINUS TACHYCARDIA WITH SHORT SC INTERVAL BASELINE ARTIFACT Electronically Signed On 06-05-2016 18:38:24 EDT by Hussain Mack MD
[2016-06-05] MEDS: Divalproex (12 HR) 500 MG TABLET PO SCH (19:59)
[2016-06-05] MEDS: Fluticasone Propionate Nasal 50 MCG/SPRAY BOTTLE NS SCH (20:02)
[2016-06-06] MEDS: *HR* LORazepam 2 MG/ML VIAL IVP PRN ×2 (02:13→23:32)
--- NOTE | 2016-06-06 03:10 | Event Note ---
<Jonas Merritt - Last Filed: 06/06/16 06:32> Date of Encounter: 06/06/16 Time of Encounter: 01:30 Page concerning agitated patient, refusing to wear oxygen, o2 60-70% Down Syndrome Patient yelling loudly in anger, she want to go home. Mother at bedside.States this is normal when she gets agitated and she is upset being here. Mother would like something "to calm her down". While on Room air, Patient sitting up in bed, normal breathing, no signs of respiratory distress- lips and finger tips normal color, lungs have mild wheezing, RR 16, non labored , heart RRR, no murmurs. Spoke with patient, able to get her to wear Nasal canella briefly. Because of cardiac history and no signs of respiratory distress despite finger 02 monitor 60-70% (patient refuses to have it placed for another reading) ativan ordered. Patient later removed NC and refused to put it back on and started acting agitated. Again, reevaluation showed no respiratory distress. .5mg Ativan ordered and administered. Patient still agitated. Roughly 30-45min later, Patient calmed down, agreed to wear oxygen and is now resting comfortably in bed. BMP showed hyperkalemia (hemolysis?)-redrawing. Not enough blood for CBC. Instructed that if patient becomes too agitated to hold off on redrawing blood labs. [place] it was more important to have patient compliant with abx, oxygen, etc. <Abelino Diamond - Last Filed: 06/12/16 01:20> Date of Encounter: 06/06/16 My signature below is to certify that this patient is under my care and that I, or the Resident Physician, Dr. Merritt, working with me, has had a face-to- face encounter with this patient.
[2016-06-06] MEDS: Ipratropium/Albuterol Neb 3 ML IH SCH ×6 (04:09→23:06)
[2016-06-06 05:26] LABS: BUN/Creatinine Ratio 12 (6-26); Blood Urea Nitrogen 7 mg/dL (7-20); Carbon Dioxide 22 mEq/L (19-29); Chloride 110 mEq/L (98-109); Glucose 115 mg/dL (70-99); Osmolality,Calculated 289 (280-300); Potassium 5.2 mEq/L (3.5-4.5); Sodium 140 mEq/L (136-145); eGFR For African Americans > 60 (> 60); eGFR For Non-African Americans > 60 (> 60)
[2016-06-06] MEDS: *HR* Heparin 5,000 UNIT/ML VIAL SQ SCH ×2 (06:22→18:47)
[2016-06-06] MEDS: Multivit/Ca/Min/Fe/FA 1 TAB TABLET PO SCH (08:46)
[2016-06-06] MEDS: Divalproex (12 HR) 500 MG TABLET PO SCH ×2 (08:46→19:44)
[2016-06-06] MEDS: Fluticasone Propionate Nasal 50 MCG/SPRAY BOTTLE NS SCH ×2 (09:00→23:46)
[2016-06-06] MEDS: 0.9 % Sodium Chloride 1,000 ML IVC SCH ×2 (09:30→19:43)
[2016-06-06] MEDS: Acetaminophen 325 MG TABLET PO PRN ×2 (09:31→19:44)
[2016-06-06] MEDS: Azithromycin 500 MG in D5% in Water 250 ML IVPB SCH (09:31)
[2016-06-06 09:56] LABS: Basophils # 0.1 K/mcL (0.0-0.2); Basophils % 0.5 %; Eosinophils % 0.3 %; Hematocrit 35.3 % (35.3-44.9); Hemoglobin 11.4 g/dL (11.5-15.4); Immature Granulocytes % 1.7 % (0-4); Immature Platelets 6.7 % (1.1-6.1); Lymphocytes # 2.2 K/mcL (0.6-4.6); Lymphocytes % 20.8 %; Mean Corpuscular HGB Conc 32.3 g/dL (31.6-35.5); Mean Corpuscular Hemoglobin 31.2 pg (28.0-33.3); Mean Corpuscular Volume 96.7 fL (83.0-100.0); Mean Platelet Volume 10.7 fL (9.4-12.4); Monocytes # 0.5 K/mcL (0.0-1.3); Monocytes % 4.4 %; Neutrophils # 7.7 K/mcL (1.6-8.9); Platelet Count 216 K/mcL (140-400); Red Blood Count 3.65 M/mcL (3.82-4.97); Red Cell Distribution Width 15.7 % (11.5-14.5); Segmented Neutrophils % 72.3 %
[2016-06-06 11:34] LABS: Platelet Estimate Normal (Normal); Reactive Lymphocytes Present (Not Present)
[2016-06-06] MEDS ORDERED: Hydrocortisone Rectal 2.5% CRM 28 GM TUBE RC PRN (14:53)
--- NOTE | 2016-06-06 18:16 | Internal Med Progress Note ---
Date of Encounter: 06/06/16 Time of Encounter: 18:12 - Assessment and plan (1) Multifocal pneumonia Current Visit: Yes Status: Acute Assessment and plan: Noted that patient has a multifocal pneumonia. Oxygen requirement is presently stable. Patient is on Ventimask. Patient refuses/not cooperative with keeping the Ventimask. Ceftriaxone/azithromycin: Day 2 (2) Pneumonia Current Visit: Yes Status: Suspected Assessment and plan: In the pneumonia gets worse then we will transfer patient to ICU. Qualifiers: Pneumonia type: due to Pneumococcus Laterality: bilateral Lung location: unspecified part of lung Qualified Code(s): J13 - Pneumonia due to Streptococcus pneumoniae (3) Down syndrome Current Visit: Yes Status: Chronic Assessment and plan: Known to have Down syndrome. Family at bedside. - Subjective Interval history: Seen and examined. Chart reviewed. Patient is comfortably sitting in the bed. Patient has occasional short of breath. Patient denies chest pain, palpitation, dizziness, abdominal pain and diarrhea - Constitutional Vitals: Temp Pulse Resp BP Pulse Ox 97.4 F L 102 20 80/64 92 06/06/16 15:00 06/06/16 15:00 06/06/16 16:22 06/06/16 15:00 06/06/16 16:22 General appearance: Present: cooperative, pleasant, no acute distress, answers questions appropriately - Head Head exam: Present: atraumatic, normocephalic - Eye Eye exam: Present: PERRL, conjuntiva pink, sclera anicteric Pupils: Present: PERRL - Neck Neck exam general surgery: Present: supple, trachea midline. Absent: lymphadenopathy - Respiratory Respiratory exam: Present: CTAB. Absent: accessory muscle use, rales, rhonchi, wheezes - Cardiovascular Cardiovascular exam: Present: RRR, +S1, +S2. Absent: diastolic murmur, gallop, rubs, systolic murmur - GI/Abdominal GI/Abdominal exam: Present: normal bowel sounds, soft, no peritoneal signs. Absent: distended, tenderness - Extremities Exam Extremities exam: Present: warm, radial pulses palpable and symetrical. Absent : calf tenderness, cyanotic, pedal edema - Neurological Exam Neurological exam: Present: CN II-XII intact, oriented X3, no focal deficits. Absent: pronater drift, facial droop, speech deficit - Skin Skin exam: Present: dry, intact Internal Medicine: Result - Labs CBC & Chem 7: 06/06/16 09:32 06/06/16 10:20 Labs: Short CBC 06/06/16 Range/Units 09:32 WBC 10.6 (4.3-11.1) K/mcL Hgb 11.4 L (11.5-15.4) g/dL Hct 35.3 (35.3-44.9) % Plt Count 216 (140-400) K/mcL Neutrophils # 7.7 (1.6-8.9) K/mcL BMP 06/06/16 06/06/16 04:57 10:20 Sodium 140 Potassium 5.2 H D 4.8 H Chloride 110 H Carbon Dioxide 22 BUN 7 Creatinine 0.59 Glucose 115 H Calcium 8.0 L Consult Discharge Plan - Plan Referrals: Manish Sheth MD [Primary Care Provider] -
[2016-06-07] MEDS: Ipratropium/Albuterol Neb 3 ML IH SCH ×6 (03:25→19:54)
[2016-06-07] MEDS ORDERED: *HR* LORazepam 2 MG/ML VIAL IVP PRN ×3 (05:17→07:00)
[2016-06-07] MEDS ORDERED: Acetaminophen 650 MG RECTAL SUPP RC PRN (05:47)
[2016-06-07] MEDS ORDERED: Ondansetron 4 MG/2 ML VIAL IVP PRN (05:47)
[2016-06-07] MEDS ORDERED: *HR* Morphine 2 MG/ML SYRINGE IVP PRN ×2 (05:47→07:05)
[2016-06-07] MEDS ORDERED: *HR* LORazepam 2 MG/ML VIAL ONE (06:10)
[2016-06-07 06:20] LABS: ABG Base Excess 4.7 mEq/L (-2.0 to 3.0); ABG HCO3 30.8 mEQ/L (21-27); ABG Oxygen Saturation 88 % (95-98); ABG PCO2 52 mmHg (35-45); ABG PH 7.38 pH Units (7.32-7.45); ABG PO2 56 mmHg (85-104); ABG TCO2 32.4 mEq/L (20-26)
[2016-06-07 06:21] LABS: Blood Gas FiO2 100 %
[2016-06-07] MEDS ORDERED: *HR* LORazepam 2 MG/ML VIAL IVP ONE (06:33)
[2016-06-07 06:34] LABS: Basophils # 0.1 K/mcL (0.0-0.2); Basophils % 0.9 %; Eosinophils % 0.3 %; Hematocrit 33.9 % (35.3-44.9); Hemoglobin 10.6 g/dL (11.5-15.4); Immature Granulocytes % 4.2 % (0-4); Lymphocytes # 1.9 K/mcL (0.6-4.6); Lymphocytes % 16.5 %; Mean Corpuscular HGB Conc 31.3 g/dL (31.6-35.5); Mean Corpuscular Hemoglobin 30.7 pg (28.0-33.3); Mean Corpuscular Volume 98.3 fL (83.0-100.0); Mean Platelet Volume 10.2 fL (9.4-12.4); Monocytes # 0.6 K/mcL (0.0-1.3); Monocytes % 5.2 %; Neutrophils # 8.5 K/mcL (1.6-8.9); Nucleated Red Blood Cells 0.3 /100 WBC (0); Platelet Count 255 K/mcL (140-400); Red Blood Count 3.45 M/mcL (3.82-4.97); Red Cell Distribution Width 15.6 % (11.5-14.5); Segmented Neutrophils % 72.9 %
--- NOTE | 2016-06-07 06:34 | Event Note ---
<Jonas Merritt - Last Filed: 06/07/16 09:48> Date of Encounter: 06/07/16 Time of Encounter: 06:34 Acute on Chronic respiratory failure requiring bipap and possible intubation Transfer to the ICU for management. Paged that the patient was in respiratory distress. Increase RR and oxygen saturation declining. 31F, Downs Syndrome, admitted for bilateral pneumonia. Patient has been on non rebreather for >24 hours. Choice was made to put patient on bipap. However, patient refused and would not wear bipap. Thought was to place patient in restraints and put on bipap. Mother refused. Throughout course patient became increasing fatigue. RR >40 with signs of fatigue. At one point 02 stats <40 when patient removed non rebreather. Extensive amount of time in discussion with mother to place patient in restraint vs intubation-knowning that Downs patients have a more difficult time being extubated and often times require a trach. Mother refused to make decision and "have to wait on my to make the decision". Father not present and had to drive to [place]. Patient continued to have increase work of breathing. ABG obtained showing compensation, but increase CO2 and decreased O2. Patient becoming more somnolent, falling asleep while sitting up and showing increasing signs of fatigue. Decision made to place patient in ICU. Father eventually showed up and treatment options discussed at great length with the attending. Patient requires more one on one attention due to her mental status/Downs syndrome and unable to comprehend the necessity of bipap/keep the non rebreather on. Patient would become agitated, confused and would yell loudly. Throughout course would require healthcare professionals to hold her hand and involving much of the staff on 2NE. Patient would benefit from ICU admission and possible intubation based on increasing CO2 , decrease O2, worrisome CXR of bilateral pneumonia, poor O2 saturation, one on one attention and non compliance with current medical management. <Abelino Diamond - Last Filed: 06/12/16 05:56> Date of Encounter: 06/07/16 The patient was visited and interviewed and examined in the company of her parents. I examined this patient and my medical decision-making was reviewed with the Resident Physician, Dr. Jonas Geosling. For this encounter, I have reviewed the documentation, treatment plan, and medical decision making. I have had face to face time with this patient. I agree with the documented findings, disposition and treatment plan as described.
[2016-06-07 06:37] LABS: INR 1.2; Prothrombin Time 12.9 Seconds (9.4-12.1)
[2016-06-07 06:50] LABS: Alanine Aminotransferase 23 Units/L (0-55); Albumin 2.2 g/dL (3.5-5.0); Albumin/Globulin Ratio 0.5 (1.1-2.2); Alkaline Phosphatase 61 Units/L (38-126); Aspartate Amino Transferase 20 Units/L (5-34); BUN/Creatinine Ratio 8 (6-26); Bilirubin,Total 0.3 mg/dL (0.2-1.2); Calcium 8.2 mg/dL (8.6-10.8); Carbon Dioxide 26 mEq/L (19-29); Chloride 108 mEq/L (98-109); Globulin 4.5 g/dL (2.4-3.5); Glucose 112 mg/dL (70-99); Osmolality,Calculated 294 (280-300); Phosphorous 2.7 mg/dL (2.3-4.7); Potassium 4.8 mEq/L (3.5-4.5); Sodium 143 mEq/L (136-145); Total Protein 6.7 g/dL (6.0-8.3); eGFR For African Americans > 60 (> 60); eGFR For Non-African Americans > 60 (> 60)
[2016-06-07 06:51] LABS: Blood Urea Nitrogen 5 mg/dL (7-20)
[2016-06-07] MEDS ORDERED: Albuterol 2.5 MG/3 ML NEBULIZER IH PRN (07:00)
[2016-06-07] MEDS ORDERED: Benzonatate 100 MG CAPSULE PO PRN (07:06)
[2016-06-07] MEDS ORDERED: Dexmedetomidine HCl 400 MCG/100 ML MLS IVC ONE (08:38)
[2016-06-07] MEDS ORDERED: *HR* Midazolam HCl 5 MG/5 ML VIAL IVP ONE ×2 (08:57→12:15)
[2016-06-07] MEDS ORDERED: *HR* Rocuronium Bromide 100 MG/10 ML VIAL IVC ONE (08:57)
[2016-06-07] MEDS ORDERED: *HR* Midazolam HCl 2 MG/2 ML VIAL IV ONE (08:57)
[2016-06-07] MEDS ORDERED: *HR* Etomidate 20 MG/10 ML AMPUL IVP ONE ×2 (08:57→12:14)
[2016-06-07] MEDS: Piperacillin/Tazobactam 3.375 GM in D5% in Water (Mini-Bag+) 100 ML IVPB SCH (09:04)
[2016-06-07] MEDS: Pantoprazole 40 MG VIAL IVPB SCH (09:06)
[2016-06-07] MEDS: Metoclopramide 10 MG/2 ML VIAL IVP SCH (09:06)
[2016-06-07] MEDS: Azithromycin 500 MG in D5% in Water 250 ML IVPB SCH (09:06)
[2016-06-07] MEDS: 0.9 % Sodium Chloride 1,000 ML IVC SCH (09:07)
[2016-06-07] MEDS: Dexmedetomidine HCl 400 MCG/100 ML MLS IVC SCH (10:00)
[2016-06-07] MEDS: Furosemide 40 MG/4 ML VIAL IVP SCH ×2 (10:17→17:51)
[2016-06-07] MEDS ORDERED: 0.9 % Sodium Chloride 500 ML ONE (10:53)
[2016-06-07] MEDS: FentaNYL (PF) 1,000 MCG in 0.9 % Sodium Chloride 80 ML IVC SCH (11:25)
[2016-06-07] MEDS: Vecuronium 50 MG in 0.9 % Sodium Chloride 150 ML IVC SCH ×2 (11:30→19:34)
[2016-06-07] MEDS ORDERED: *HR* Rocuronium Bromide 50 MG/5 ML VIAL IVP ONE (12:15)
--- NOTE | 2016-06-07 13:19 | Procedure Note ---
Date of procedure: 06/07/16 Pre-op diagnosis: acute respiratory failure Post-op diagnosis: same Procedure: A time-out was completed verifying correct patient, procedure, site, positioning , and equipment. The patient was placed in a flat position. Sedation was obtained using Versed 7mg, Etomidate 20mg, and already running Precedex drip at 0.35mcg/min. The patient was on BiPap prior to intubation. The Glidescope with MAC 3 blade was used and inserted into the oropharynx with posteriorly directed cricoid pressure at which time there was a Grade 3 view of the vocal cords. A 7.0-faroese endotracheal tube was inserted and visualized going through the vocal cords. The stylette was removed. Colorimetric change was visualized on the CO2 meter. Breath sounds were heard in both lung pierre with no epigastric sounds. The endotracheal tube was placed at 22 cm, measured at the lip. Dr. Cameron was present for the entire procedure. A chest x-ray was ordered to assess for pneumothorax and verify endotrachealtube placement. No pneumothorax was seen. ET tube was seen in the right mainstem bronchus, withdrawn 3cm. ARDS network lung protective ventilator settings: Predicted body weight = 45.5 + 2.5[59-60] = 43 kg Tidal volume = 6 mL/kg * 43kg = 258 mL Note: Ventilator's lowest tidal volume is 300mL; will use 300mL tidal volume. Estimated Blood Loss: 3mL The patient tolerated the procedure well and there were no complications. Anesthesia: IV sedation Surgeon: Palomo Mabry Estimated blood loss (cc): 3 IV fluids (cc): 0 Urine output (cc): 0 Pathology: none sent Condition: critical Disposition: ICU
--- NOTE | 2016-06-07 13:33 | Procedure Note ---
Date of procedure: 06/07/16 Pre-op diagnosis: hypotension, difficult venous access Post-op diagnosis: same Procedure: A time-out was completed verifying correct patient, procedure, site, positioning , and equipment. The patient was placed in a dependent position appropriate for central line placement based on the right IJ vein to be cannulated. The patient s right neck and shoulder were prepped and draped in sterile fashion. No lidocaine was used as patient was sedated and ventilated. Prior to placement, each lumen of the catheter was evacuated of air and flushed with sterile saline. Venous access was visualized under ultrasound. Wire placement was confirmed under ultrasound. A triple lumen 9Fr catheter was introduced into the the right internal jugular vein using the Seldinger technique. The catheter was threaded smoothly over the guide wire and appropriate blood return was obtained. The catheter was then sutured in place to the skin and a sterile dressing applied. Perfusion to the extremity distal to the point of catheter insertion was checked and found to be adequate. Dr. Cameron was present for the entire procedure. Post-procedure x-ray confirmed appropriate placement and the line was cleared for use by nursing. Estimated Blood Loss: 5mL The patient tolerated the procedure well and there were no complications. Anesthesia: IV sedation Surgeon: Palomo Mabry Estimated blood loss (cc): 5 IV fluids (cc): 0 Urine output (cc): 0 Pathology: none sent Condition: stable Disposition: ICU
--- NOTE | 2016-06-07 13:36 | Procedure Note ---
Date of procedure: 06/07/16 Pre-op diagnosis: Hypotension, difficult achieving reliable non-invasive BP measurements Post-op diagnosis: same Procedure: A time-out was completed verifying correct patient, procedure, site, positioning , and equipment. The patients right inguinal crease was prepped and draped in sterile fashion. Under ultrasound guidance, an 18g Arrow arterial line was introduced into the right femoral artery. Guide wire location confirmed to be in the arterial lumen under ultrasound. The catheter was threaded over the guide wire and the needle was removed with appropriate pulsatile blood return. The catheter was then sutured in place to the skin and a sterile dressing applied. Perfusion to the extremity distal to the point of catheter insertion was checked and found to be adequate. Dr. Cameron was present for the entire procedure. Estimated Blood Loss: 3mL The patient tolerated the procedure well and there were no complications. Anesthesia: IV sedation Surgeon: Palomo Mabry Wet Process Operator: Loy Cameron Estimated blood loss (cc): 3 IV fluids (cc): 0 Urine output (cc): 0 Pathology: none sent Condition: stable Disposition: ICU
[2016-06-07 13:39] LABS: ABG Base Excess 2.6 mEq/L (-2.0 to 3.0); ABG HCO3 31.9 mEQ/L (21-27); ABG Oxygen Saturation 90 % (95-98); ABG PH 7.22 pH Units (7.32-7.45); ABG PO2 69 mmHg (85-104); ABG TCO2 34.3 mEq/L (20-26)
[2016-06-07 13:40] LABS: ABG PCO2 78 mmHg (35-45)
[2016-06-07 13:41] LABS: Blood Gas FiO2 100 %; Blood Gas Respiration Rate 18; Blood Gas VT 300 cc
[2016-06-07 13:42] LABS: Blood Gas PEEP 12 cm H2O
--- NOTE | 2016-06-07 13:49 | Pulmonology Consult Note ---
<Palomo Mabry - Last Filed: 06/07/16 13:52> Date of Encounter: 06/07/16 Time of Encounter: 09:00 Assessment and Plan (1) Acute respiratory failure with hypoxia and hypercapnia Current Visit: Yes Status: Acute 1. Acute respiratory failure with hypoxia and hypercapnia Suspected secondary to community acquired pneumonia. Patient has not been hospitalized, per [facility] records, in 2+ years. Intubated 06/07/16 Right IJ central line 06/07/16 Right femoral arterial line 06/07/16 2. Adult respiratory distress syndrome - Follow ARDS protocol - Prone patient 3. Sepsis 4. Pneumonia 5. Obesity 6. Down syndrome (2) ARDS (adult respiratory distress syndrome) Current Visit: Yes Status: Acute (3) Sepsis Current Visit: Yes Status: Suspected Qualifiers: Sepsis type: Pneumococcus Qualified Code(s): A40.3 - Sepsis due to Streptococcus pneumoniae (4) Pneumonia Current Visit: Yes Status: Acute Qualifiers: Pneumonia type: due to unspecified organism Laterality: unspecified laterality Lung location: unspecified part of lung Qualified Code(s): J18.9 - Pneumonia, unspecified organism (5) Obesity Current Visit: Yes Status: Acute (6) Down syndrome Current Visit: Yes Status: Chronic History of Present Illness Consult date: 06/07/16 Requesting physician: Ladarius Hunter Reason for consult: dyspnea Chief complaint: watson History of present illness: Ms. Gilmore, a 31yo female, presented to the ICU from the general medical floor. Believed to have acute respiratory failure and sepsis from community acquired pneumonia. Hx down syndrome. Patient was initially DNI however parents changed code status to full code. Patient was intermittently on BiPap while on the general medical floor without improvement and with continued deterioration. Once in the ICU, a precedex drip was started and BiPap continued while we prepared for intubation. Patient subsequently intubated with ventilator management following ARDS network ventilatory recommendations. Because of her difficult peripheral venous access, a right IJ central line was placed. Because of her body habitus, non-invasive blood pressure monitoring was unreliable; a femoral arterial line was placed. Past Med Surg Social Fam HX - Past Medical History Medical history: no medical history, thyroid disease Psychiatric history: no psych history - Past Surgical History Surgical History: other - Social History Smoking Status: Never smoker Smokeless Tobacco Status: No Alcohol use: none Drug use: none - Family History Mother Living Status: Still Living Hx Family Cardiac Disorders: Yes (HTN) Medications and Allergies Citalopram [CeleXA] 40 mg PO DAILY 10/12/14 [History] CloNIDine HCl [CloNIDine HCl] 0.1 mg PO BID 10/12/14 [History] Divalproex (12 HR) [Depakote (12 HR)] 500 mg PO BID 10/12/14 [History] Fluticasone Propionate Nasal [Flonase] 1 spray NS BID 10/12/14 [History] Multivitamin [Flintstones] 1 tab PO DAILY 10/12/14 [History] Nystatin POWDER [Nystop] 1 appl TP BID PRN 10/12/14 [History] Hydrocortisone [Anusol-Hc] 1 appl TP BID PRN 06/05/16 [History] Ketoconazole 2% CRM [Nizoral Cream] 1 appl TP BID PRN 06/05/16 [History] Ketoconazole Shampoo [Nizoral Shampoo] 1 appl TP QWEEK 06/05/16 [History] Levothyroxine Sodium [Levo-T] 75 mcg PO DAILY 06/05/16 [History] Allergies No Known Allergies Allergy (Verified 10/12/14 15:50) ROS unobtainable: due to endotracheal tube All Systems: A 10-system review of systems was performed and is negative for pertinent findings except as documented above in the HPI. Physical Examination Vital Signs: Vital Signs, Last 4 Hours Resp BP Pulse Ox 06/07/16 13:38 18 111/62 96 06/07/16 09:47 87 General appearance: no acute distress, other (intubated, sedated) Eyes: nonicteric ENT: oropharynx moist Neck: supple Effort: mildly labored Auscultation: bilateral: diminished breath sounds, rales Cardiovascular: other (tachycardic) Gastrointestinal: normoactive bowel sounds, soft, non-tender, non-distended, other (obesity) Integumentary: normal Extremities: no cyanosis, no edema, no clubbing, pink and warm, pulses normal Musculoskeletal: no deformities pupils equal and round Ventilator Settings Ventilator Settings: Ventilator Settings, Last 8 Hours Ventilator Mode VC+ Ventilator Tidal Volume 300 Setting Ventilator Respiratory Rate 18 Setting Actual Respiratory Rate 18 Positive End Expiratory 12 Pressure Peak Inspiratory Airway 34 Pressure Results - Laboratory Findings CBC and BMP: 06/07/16 06:22 06/07/16 06:22 ABG ABG pH 7.22 pH Units (7.32-7.45) L 06/07/16 13:15 ABG pCO2 78 mmHg (35-45) H* 06/07/16 13:15 ABG pO2 69 mmHg (85-104) L 06/07/16 13:15 ABG O2 Saturation 90 % (95-98) L 06/07/16 13:15 PT/INR, D-dimer PT 12.9 Seconds (9.4-12.1) H 06/07/16 06:22 Abnormal lab findings: Abnormal lab results WBC 11.7 K/mcL (4.3-11.1) H 06/07/16 06:22 RBC 3.45 M/mcL (3.82-4.97) L 06/07/16 06:22 Hgb 10.6 g/dL (11.5-15.4) L 06/07/16 06:22 Hct 33.9 % (35.3-44.9) L 06/07/16 06:22 MCHC 31.3 g/dL (31.6-35.5) L 06/07/16 06:22 RDW 15.6 % (11.5-14.5) H 06/07/16 06:22 Immature Gran % 4.2 % (0-4) H 06/07/16 06:22 Nucleated RBCs/100 WBC 0.3 /100 WBC (0) H 06/07/16 06:22 Reactive Lymphocytes Present (Not Present) A 06/06/16 09:32 Immature Plt Fraction 6.7 % (1.1-6.1) H 06/06/16 09:32 PT 12.9 Seconds (9.4-12.1) H 06/07/16 06:22 ABG pH 7.22 pH Units (7.32-7.45) L 06/07/16 13:15 ABG pCO2 78 mmHg (35-45) H* 06/07/16 13:15 ABG pO2 69 mmHg (85-104) L 06/07/16 13:15 ABG HCO3 31.9 mEQ/L (21-27) H 06/07/16 13:15 ABG Total CO2 34.3 mEq/L (20-26) H 06/07/16 13:15 ABG O2 Saturation 90 % (95-98) L 06/07/16 13:15 VBG pH 7.48 pH Units (7.32-7.42) H 06/05/16 06:06 VBG pCO2 37 mmHg (41-51) L 06/05/16 06:06 VBG pO2 167 mmHg (25-40) H 06/05/16 06:06 VBG HCO3 27.6 mEq/L (21-27) H 06/05/16 06:06 Potassium 4.8 mEq/L (3.5-4.5) H 06/07/16 06:22 BUN 5 mg/dL (7-20) L 06/07/16 06:22 Glucose 112 mg/dL (70-99) H 06/07/16 06:22 POC Glucose 114 (58-89) H 06/07/16 07:15 Calcium 8.2 mg/dL (8.6-10.8) L 06/07/16 06:22 Albumin 2.2 g/dL (3.5-5.0) L 06/07/16 06:22 Globulin 4.5 g/dL (2.4-3.5) H 06/07/16 06:22 Albumin/Globulin Ratio 0.5 (1.1-2.2) L 06/07/16 06:22 Ur Specific [place] > 1.030 (1.010-1.025) H 06/05/16 07:16 Urine Protein 30 mg/dL (Neg-Trace) H 06/05/16 07:16 Urine Microscopic WBC 3-5 per hpf (0-3) H 06/05/16 07:16 Ur Squamous Epith Cells Many per lpf (None-Few) H 06/05/16 07:16 Human Metapneumovirus DETECTED (Not Detect) A 06/05/16 14:08 - Diagnostic Findings Chest x-ray: report reviewed, image reviewed CT scan - chest: report reviewed, image reviewed - Clinical Findings Intake & Output: Intake & Output 06/06/16 06/07/16 06/07/16 23:59 07:59 15:59 Intake Total 0 / 0 1000 / 1000 250 / 250 Output Total 0 / 0 Balance 0 / 0 1000 / 1000 250 / 250 Weight 103.6 kg Consult Discharge Plan - Plan Referrals: Manish Sheth MD [Primary Care Provider] - <Loy Cameron M - Last Filed: 06/07/16 13:57> Date of Encounter: 06/07/16 All Systems: A 10-system review of systems was performed and is negative for pertinent findings except as documented above in the HPI. Physical Examination Vital Signs: Vital Signs, Last 4 Hours Resp BP Pulse Ox 06/07/16 13:38 18 111/62 96 Ventilator Settings Ventilator Settings: Ventilator Settings, Last 8 Hours Ventilator Mode VC+ Ventilator Tidal Volume 300 Setting Ventilator Respiratory Rate 18 Setting Actual Respiratory Rate 18 Positive End Expiratory 12 Pressure Peak Inspiratory Airway 34 Pressure Results - Laboratory Findings CBC and BMP: 06/07/16 06:22 06/07/16 06:22 ABG ABG pH 7.22 pH Units (7.32-7.45) L 06/07/16 13:15 ABG pCO2 78 mmHg (35-45) H* 06/07/16 13:15 ABG pO2 69 mmHg (85-104) L 06/07/16 13:15 ABG O2 Saturation 90 % (95-98) L 06/07/16 13:15 PT/INR, D-dimer PT 12.9 Seconds (9.4-12.1) H 06/07/16 06:22 Abnormal lab findings: Abnormal lab results WBC 11.7 K/mcL (4.3-11.1) H 06/07/16 06:22 RBC 3.45 M/mcL (3.82-4.97) L 06/07/16 06:22 Hgb 10.6 g/dL (11.5-15.4) L 06/07/16 06:22 Hct 33.9 % (35.3-44.9) L 06/07/16 06:22 MCHC 31.3 g/dL (31.6-35.5) L 06/07/16 06:22 RDW 15.6 % (11.5-14.5) H 06/07/16 06:22 Immature Gran % 4.2 % (0-4) H 06/07/16 06:22 Nucleated RBCs/100 WBC 0.3 /100 WBC (0) H 06/07/16 06:22 Reactive Lymphocytes Present (Not Present) A 06/06/16 09:32 Immature Plt Fraction 6.7 % (1.1-6.1) H 06/06/16 09:32 PT 12.9 Seconds (9.4-12.1) H 06/07/16 06:22 ABG pH 7.22 pH Units (7.32-7.45) L 06/07/16 13:15 ABG pCO2 78 mmHg (35-45) H* 06/07/16 13:15 ABG pO2 69 mmHg (85-104) L 06/07/16 13:15 ABG HCO3 31.9 mEQ/L (21-27) H 06/07/16 13:15 ABG Total CO2 34.3 mEq/L (20-26) H 06/07/16 13:15 ABG O2 Saturation 90 % (95-98) L 06/07/16 13:15 VBG pH 7.48 pH Units (7.32-7.42) H 06/05/16 06:06 VBG pCO2 37 mmHg (41-51) L 06/05/16 06:06 VBG pO2 167 mmHg (25-40) H 06/05/16 06:06 VBG HCO3 27.6 mEq/L (21-27) H 06/05/16 06:06 Potassium 4.8 mEq/L (3.5-4.5) H 06/07/16 06:22 BUN 5 mg/dL (7-20) L 06/07/16 06:22 Glucose 112 mg/dL (70-99) H 06/07/16 06:22 POC Glucose 114 (58-89) H 06/07/16 07:15 Calcium 8.2 mg/dL (8.6-10.8) L 06/07/16 06:22 Albumin 2.2 g/dL (3.5-5.0) L 06/07/16 06:22 Globulin 4.5 g/dL (2.4-3.5) H 06/07/16 06:22 Albumin/Globulin Ratio 0.5 (1.1-2.2) L 06/07/16 06:22 Ur Specific [place] > 1.030 (1.010-1.025) H 06/05/16 07:16 Urine Protein 30 mg/dL (Neg-Trace) H 06/05/16 07:16 Urine Microscopic WBC 3-5 per hpf (0-3) H 06/05/16 07:16 Ur Squamous Epith Cells Many per lpf (None-Few) H 06/05/16 07:16 Human Metapneumovirus DETECTED (Not Detect) A 06/05/16 14:08 - Clinical Findings Intake & Output: Intake & Output 06/06/16 06/07/16 06/07/16 23:59 07:59 15:59 Intake Total 0 / 0 1000 / 1000 250 / 250 Output Total 0 / 0 Balance 0 / 0 1000 / 1000 250 / 250 Weight 103.6 kg
--- NOTE | 2016-06-07 13:55 | Event Note ---
Date of Encounter: 06/07/16 Time of Encounter: 13:43 Patient examined, chart all data reviewed as well as recent imaging studies of the chest. This 31-year-old female with Down's syndrome and who is morbidly obese (suspect has hypoventilation syndrome and obstructive sleep apnea) was admitted to the hospital with cough, breathlessness, questionable fever. Evaluation disclosed the presence of bilateral infiltrates which in tempo with the patient's symptoms and in tempo with severe hypoxia suggested severe community-acquired pneumonia and concurrent ARDS. Reportedly, the patient was managed on monitored nursing floor utilizing intermittently noninvasive ventilatory support (poorly tolerated). Apparently her CODE STATUS was that of "not to be intubated" however the family changed their preferences regarding her level of care and hence the patient was transferred to the medical intensive care unit. Initially, the patient was placed on noninvasive ventilatory support which was augmented with use of Precedex infusion and sedatives (to enhance her tolerance). In spite of high FiO2 support, the patient's saturation values only approximated 87-90% and given the work of breathing as well as perceived difficulty with airway control, the patient subsequently underwent intubation. Examination reveals a morbidly obese female she was moderately tachypneic and tachycardic at the time of initial evaluation, vitals were reviewed. Head normocephalic. Conjunctiva were clear. Oral pharyngeal exam could not be performed due to the presence of mask device. Neck exam abundant soft tissue structures no obvious jugular venous prominence although limited by the soft tissue structure presence. Chest exam abundant soft tissue structures mild use of accessory respiratory muscles crackles noted throughout all lung zones. Cardiac exam regular rate and rhythm P2 component mildly extenuated. Abdomen soft all sounds central obesity. Extremities were warm to touch pulses were intact. Cyanosis not noted. No obvious neurologic deficits. Follow-up chest imaging studies reviewed notable for progressive infiltrates throughout all lung zones in comparison to her initial imaging study. The initial imaging study which also included a CT scan of the chest was notable for since of multifocal infiltrates throughout all lung zones, absence of thromboembolic disease, cardiomegaly and enlargement right heart structures suggestive of possible pulmonary hypertension. No obvious identifiable pathogen from evaluation of microbiological data. Raf initial arterial blood gas revealed severe hypoxemia and hypercapnia. Based upon the pH the hypercapnia is chronic. Note normal liver and renal function. Impressions #1 acute respiratory failure with profound hypoxia and U on chronic hypercapnia. #2 ARDS secondary to severe community-acquired pneumonia #3 obesity probable hypoventilation syndrome with evidence of pulmonary hypertension #4 Down syndrome. Given the magnitude of respiratory failure, the patient underwent intubation and mechnaical ventilatory support. She will receive high level sedation and neuromuscular blockade as well as ventilation via ARDS network protocol. Continue antibiotics directed toward community-acquired pathogens. Steroids will be provided for lung injury-ARDS secondary to severe community-acquired pneumonia. Fluids will be minimized and diuretics will be provided via conservative fluid management for ARDS. Continue DVT and ulcer prophylaxis. Both the mother and father were updated. I suggested that the patient's mortality approximates 50% based upon the severity of respiratory failure and lung injury. Is conceivable that should she survive respiratory failure she may at some point into the future regaining pre-spittle functionality.
[2016-06-07 14:20] LABS: Bilirubin,Urine Negative (Negative); Blood,Urine Negative (Negative); Clarity,Urine Clear (Clear); Color,Urine Yellow (Yellow); Glucose,Urine (UA) Normal (Normal); Ketones,Urine Negative (Negative); Leukocyte Esterase,Urine Negative (Negative); Nitrite,Urine Negative (Negative); Protein,Urine Negative (Neg-Trace); Specific Gravity,Urine 1.007 (1.010-1.025); Urobilinogen,Urine Normal (Normal)
[2016-06-07] MEDS: Vitamin B Complex/Vit C/Vit E 1 EACH TABLET PO SCH (14:57)
[2016-06-07] MEDS: Docusate Oral Soln 100 MG/10 ML UDC GTUBE SCH ×2 (14:57→20:29)
[2016-06-07] MEDS: Multivit/Ca/Min/Fe/FA 1 TAB TABLET PO SCH (14:57)
[2016-06-07] MEDS: Divalproex (12 HR) 500 MG TABLET PO SCH (14:57)
[2016-06-07] MEDS: Nystatin SUSP 5 ML UD.LIQ PO SCH ×4 (14:57→20:31)
[2016-06-07] MEDS ORDERED: Acetylcysteine 10% 2 ML INHSOL IH SCH (15:00)
[2016-06-07] MEDS: methylPREDNISolone 125 MG/2 ML VIAL IVP SCH ×3 (15:11→23:17)
[2016-06-07 17:25] LABS: Adenovirus Not Detected (Not Detect); Bordetella Pertussis Not Detected (Not Detect); Chlamydophila pneumoniae Not Detected (Not Detect); Coronavirus 229E Not Detected (Not Detect); Coronavirus HKU1 Not Detected (Not Detect); Coronavirus NL63 Not Detected (Not Detect); Coronavirus OC43 Not Detected (Not Detect); Human Metapneumovirus ***DETECTED*** (Not Detect); Human Rhinovirus/Enterovirus Not Detected (Not Detect); Influenza A Subtype 2009 H1 Not Detected (Not Detect); Influenza A Untypeable Not Detected (Not Detect); Influenza B Not Detected (Not Detect); Mycoplasma pneumoniae Not Detected (Not Detect); Parainfluenza Virus 1 Not Detected (Not Detect); Parainfluenza Virus 2 Not Detected (Not Detect); Parainfluenza Virus 3 Not Detected (Not Detect); Parainfluenza Virus 4 Not Detected (Not Detect); Respiratory Syncytial Virus Not Detected (Not Detect)
[2016-06-07] MEDS: Valproic Acid INJ 500 MG in 0.9 % Sodium Chloride 100 ML IVPB SCH (20:29)
[2016-06-08] MEDS: Ipratropium/Albuterol Neb 3 ML IH SCH ×6 (00:07→19:55)
[2016-06-08] MEDS: Dexmedetomidine HCl 400 MCG/100 ML MLS IVC SCH ×2 (01:06→22:50)
[2016-06-08 03:32] LABS: Basophils % 0.3 %; Hematocrit 31.6 % (35.3-44.9); Hemoglobin 9.9 g/dL (11.5-15.4); Immature Granulocytes % 4.1 % (0-4); Immature Platelets 5.8 % (1.1-6.1); Mean Corpuscular HGB Conc 31.3 g/dL (31.6-35.5); Mean Corpuscular Hemoglobin 30.7 pg (28.0-33.3); Mean Corpuscular Volume 98.1 fL (83.0-100.0); Mean Platelet Volume 9.7 fL (9.4-12.4); Monocytes # 0.1 K/mcL (0.0-1.3); Monocytes % 1.4 %; Neutrophils # 8.6 K/mcL (1.6-8.9); Nucleated Red Blood Cells 0.3 /100 WBC (0); Platelet Count 326 K/mcL (140-400); Red Blood Count 3.22 M/mcL (3.82-4.97); Red Cell Distribution Width 15.7 % (11.5-14.5); Segmented Neutrophils % 84.2 %
[2016-06-08 03:38] LABS: Magnesium 1.7 mg/dL (1.6-2.6)
[2016-06-08 03:43] LABS: BUN/Creatinine Ratio 18 (6-26); Blood Urea Nitrogen 12 mg/dL (7-20); Calcium 8.3 mg/dL (8.6-10.8); Carbon Dioxide 31 mEq/L (19-29); Chloride 103 mEq/L (98-109); Glucose 140 mg/dL (70-99); Osmolality,Calculated 298 (280-300); Potassium 4.5 mEq/L (3.5-4.5); Sodium 143 mEq/L (136-145); eGFR For African Americans > 60 (> 60); eGFR For Non-African Americans > 60 (> 60)
[2016-06-08 04:03] LABS: Platelet Estimate Normal (Normal)
[2016-06-08 04:05] LABS: Thyroid Stimulating Hormone 0.769 mcIU/mL (0.350-4.840)
[2016-06-08 05:06] LABS: ABG Base Excess 6.1 mEq/L (-2.0 to 3.0); ABG HCO3 34.7 mEQ/L (21-27); ABG Oxygen Saturation 91 % (95-98); ABG PCO2 69 mmHg (35-45); ABG PH 7.31 pH Units (7.32-7.45); ABG PO2 68 mmHg (85-104); ABG TCO2 36.8 mEq/L (20-26); Blood Gas FiO2 60 %
[2016-06-08] MEDS: Levothyroxine Sodium 100 MCG VIAL IV SCH (05:33)
[2016-06-08] MEDS: methylPREDNISolone 125 MG/2 ML VIAL IVP SCH ×3 (05:34→18:16)
[2016-06-08] MEDS: Vecuronium 50 MG in 0.9 % Sodium Chloride 150 ML IVC SCH ×3 (05:34→23:30)
[2016-06-08] MEDS: *HR* Enoxaparin 40 MG/0.4 ML SYRINGE SQ SCH (05:34)
[2016-06-08] MEDS: Azithromycin 500 MG in D5% in Water 250 ML IVPB SCH (08:16)
[2016-06-08] MEDS: Furosemide 40 MG/4 ML VIAL IVP SCH ×2 (08:16→18:16)
[2016-06-08] MEDS: Pantoprazole 40 MG VIAL IVPB SCH (08:16)
[2016-06-08] MEDS: Docusate Oral Soln 100 MG/10 ML UDC GTUBE SCH ×2 (08:17→20:14)
[2016-06-08] MEDS: Nystatin SUSP 5 ML UD.LIQ PO SCH ×4 (08:17→20:14)
[2016-06-08] MEDS: Multivit/Ca/Min/Fe/FA 1 TAB TABLET PO SCH (08:18)
[2016-06-08] MEDS: Vitamin B Complex/Vit C/Vit E 1 EACH TABLET PO SCH (08:18)
[2016-06-08] MEDS: Valproic Acid INJ 500 MG in 0.9 % Sodium Chloride 100 ML IVPB SCH ×2 (08:23→20:14)
--- NOTE | 2016-06-08 09:20 | Pulmonology Progress Note ---
Date of Encounter: 06/08/16 Time of Encounter: 07:45 Assessment and Plan (1) Acute respiratory failure with hypoxia and hypercapnia Current Visit: Yes Status: Acute Acute respiratory failure with hypoxia hypercapnia in this individual is secondary to severe community-acquired pneumonia subsequent development of ARDS given hypercapnia noted from arterial blood gas and relatively preserved pH, the patient likely has hypoventilation syndrome as well. Continue ARDS network ventilator protocol, pronation, high-level sedation and neuromuscular blockade. Antibiotic therapy for community-acquired directed pathogen to be continued at this time as well in spite of the fact cultures are negative as well as systemic steroids to hasten recovery from ARDS.. Continue DVT ulcer prophylaxis. Trophic tube feeds will be initiated today. Patient suffers from life-threatening respiratory failure due to ARDS, requires high level care. Today's management required 35 minutes of critical care time devoted to the bedside evaluation and treatment of ARDS. Code(s): J96.01 - Acute respiratory failure with hypoxia; J96.02 - Acute respiratory failure with hypercapnia SNOMED Code(s): 11384045, [id number] Subjective Principal diagnosis: Acute respiratory failure with hypoxia, ARDS secondary to severe community- Interval history: Patient is currently intubated sedated and receiving neuromuscular blockade. The patient continues to require high-level ventilatory support and is tolerating pronation while, no reduction in FiO2 requirements. Plateau pressures approximating 28 cm of water pressure. Hemodynamics urine output are all acceptable. No acute overnight issues were reported. 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) Auscultation: bilateral: diminished breath sounds (Bilateral crackles) Cardiovascular: regular rate and rhythm Gastrointestinal: normoactive bowel sounds, non-distended, other (Central obesity) Integumentary: normal Extremities: no cyanosis, no edema Musculoskeletal: no deformities other (Sedated, neuromuscular paralytic agent.) Ventilator Settings Ventilator Settings: Ventilator Settings, Last 8 Hours Ventilator Mode VC+ Ventilator Mode VC+ Ventilator Mode VC+ Ventilator Mode VC+ Ventilator Mode VC+ Ventilator Mode VC+ Ventilator Mode VC+ Ventilator Mode VC+ Ventilator Mode VC+ Ventilator Mode VC+ Ventilator Mode VC+ Ventilator Mode VC+ Ventilator Tidal Volume 300 Setting Ventilator Tidal Volume 300 Setting Ventilator Tidal Volume 300 Setting Ventilator Tidal Volume 300 Setting Ventilator Tidal Volume 300 Setting Ventilator Tidal Volume 300 Setting Ventilator Tidal Volume 300 Setting Ventilator Tidal Volume 300 Setting Ventilator Tidal Volume 300 Setting Ventilator Tidal Volume 300 Setting Ventilator Tidal Volume 300 Setting Ventilator Tidal Volume 300 Setting Ventilator Respiratory Rate 18 Setting Ventilator Respiratory Rate 18 Setting Ventilator Respiratory Rate 18 Setting Ventilator Respiratory Rate 18 Setting Ventilator Respiratory Rate 18 Setting Ventilator Respiratory Rate 18 Setting Ventilator Respiratory Rate 18 Setting Ventilator Respiratory Rate 18 Setting Ventilator Respiratory Rate 18 Setting Ventilator Respiratory Rate 18 Setting Ventilator Respiratory Rate 18 Setting Ventilator Respiratory Rate 18 Setting Actual Respiratory Rate 18 Actual Respiratory Rate 18 Actual Respiratory Rate 18 Actual Respiratory Rate 18 Actual Respiratory Rate 18 Actual Respiratory Rate 18 Actual Respiratory Rate 18 Actual Respiratory Rate 18 Actual Respiratory Rate 18 Actual Respiratory Rate 18 Actual Respiratory Rate 18 Positive End Expiratory 12 Pressure Positive End Expiratory 12 Pressure Positive End Expiratory 12 Pressure Positive End Expiratory 12 Pressure Positive End Expiratory 12 Pressure Positive End Expiratory 12 Pressure Positive End Expiratory 12 Pressure Positive End Expiratory 12 Pressure Positive End Expiratory 12 Pressure Positive End Expiratory 12 Pressure Positive End Expiratory 12 Pressure Positive End Expiratory 12 Pressure Peak Inspiratory Airway 30 Pressure Peak Inspiratory Airway 30 Pressure Peak Inspiratory Airway 30 Pressure Peak Inspiratory Airway 30 Pressure Peak Inspiratory Airway 30 Pressure Peak Inspiratory Airway 30 Pressure Peak Inspiratory Airway 30 Pressure Peak Inspiratory Airway 30 Pressure Peak Inspiratory Airway 30 Pressure Peak Inspiratory Airway 30 Pressure Peak Inspiratory Airway 31 Pressure Results - Laboratory Findings CBC and BMP: 06/08/16 03:22 06/08/16 03:22 ABG ABG pH 7.31 pH Units (7.32-7.45) L 06/08/16 04:56 ABG pCO2 69 mmHg (35-45) H 06/08/16 04:56 ABG pO2 68 mmHg (85-104) L 06/08/16 04:56 ABG O2 Saturation 91 % (95-98) L 06/08/16 04:56 PT/INR, D-dimer PT 12.9 Seconds (9.4-12.1) H 06/07/16 06:22 Abnormal lab findings: Abnormal lab results RBC 3.22 M/mcL (3.82-4.97) L 06/08/16 03:22 Hgb 9.9 g/dL (11.5-15.4) L 06/08/16 03:22 Hct 31.6 % (35.3-44.9) L 06/08/16 03:22 MCHC 31.3 g/dL (31.6-35.5) L 06/08/16 03:22 RDW 15.7 % (11.5-14.5) H 06/08/16 03:22 Immature Gran % 4.1 % (0-4) H 06/08/16 03:22 Nucleated RBCs/100 WBC 0.3 /100 WBC (0) H 06/08/16 03:22 Reactive Lymphocytes Present (Not Present) A 06/06/16 09:32 PT 12.9 Seconds (9.4-12.1) H 06/07/16 06:22 ABG pH 7.31 pH Units (7.32-7.45) L 06/08/16 04:56 ABG pCO2 69 mmHg (35-45) H 06/08/16 04:56 ABG pO2 68 mmHg (85-104) L 06/08/16 04:56 ABG HCO3 34.7 mEQ/L (21-27) H 06/08/16 04:56 ABG Total CO2 36.8 mEq/L (20-26) H 06/08/16 04:56 ABG O2 Saturation 91 % (95-98) L 06/08/16 04:56 ABG Base Excess 6.1 mEq/L (-2.0 to 3.0) H 06/08/16 04:56 VBG pH 7.48 pH Units (7.32-7.42) H 06/05/16 06:06 VBG pCO2 37 mmHg (41-51) L 06/05/16 06:06 VBG pO2 167 mmHg (25-40) H 06/05/16 06:06 VBG HCO3 27.6 mEq/L (21-27) H 06/05/16 06:06 Carbon Dioxide 31 mEq/L (19-29) H 06/08/16 03:22 Glucose 140 mg/dL (70-99) H 06/08/16 03:22 POC Glucose 114 (58-89) H 06/07/16 07:15 Calcium 8.3 mg/dL (8.6-10.8) L 06/08/16 03:22 Albumin 2.2 g/dL (3.5-5.0) L 06/07/16 06:22 Globulin 4.5 g/dL (2.4-3.5) H 06/07/16 06:22 Albumin/Globulin Ratio 0.5 (1.1-2.2) L 06/07/16 06:22 Ur Specific [place] 1.007 (1.010-1.025) L 06/07/16 14:00 Urine Microscopic WBC 3-5 per hpf (0-3) H 06/05/16 07:16 Ur Squamous Epith Cells Many per lpf (None-Few) H 06/05/16 07:16 Human Metapneumovirus DETECTED (Not Detect) A 06/07/16 16:05 - Microbiology Findings Microbiology Findings: Microbiology, Last 48 Hours 06/07/16 14:13 Influenza Types A,B Antigen (RAGHAVENDRA) - Final Nasopharyngeal - Clinical Findings Intake & Output: Intake & Output 06/07/16 06/08/16 06/08/16 23:59 07:59 15:59 Intake Total 255 / 255 150 / 150 Output Total 775 / 775 200 / 200 Balance -520 / -520 -50 / -50 Weight 102.5 kg - VTE Documentation of Mechanical Device: Graduated compression elastic hosiery Consult Discharge Plan - Plan Referrals: Manish Sheth MD [Primary Care Provider] -
[2016-06-08] MEDS: FentaNYL (PF) 1,000 MCG in 0.9 % Sodium Chloride 80 ML IVC SCH ×2 (09:51→23:29)
[2016-06-08] MEDS: Piperacillin/Tazobactam 3.375 GM in D5% in Water (Mini-Bag+) 100 ML IVPB SCH (19:24)
[2016-06-08] MEDS: *HR* Heparin 5,000 UNIT/ML VIAL SQ SCH (19:24)
[2016-06-08] MEDS: Fluticasone Propionate Nasal 50 MCG/SPRAY BOTTLE NS SCH (19:25)
[2016-06-08] MEDS: Metoclopramide 10 MG/2 ML VIAL IVP SCH (19:25)
[2016-06-09] MEDS: Ipratropium/Albuterol Neb 3 ML IH SCH ×7 (00:06→23:39)
[2016-06-09] MEDS: methylPREDNISolone 125 MG/2 ML VIAL IVP SCH ×2 (00:16→05:52)
[2016-06-09 04:01] LABS: Basophils % 0.1 %; Hematocrit 29.5 % (35.3-44.9); Hemoglobin 9.5 g/dL (11.5-15.4); Immature Granulocytes % 4.8 % (0-4); Lymphocytes % 5.7 %; Mean Corpuscular HGB Conc 32.2 g/dL (31.6-35.5); Mean Corpuscular Hemoglobin 31.4 pg (28.0-33.3); Mean Corpuscular Volume 97.4 fL (83.0-100.0); Monocytes % 3.3 %; Nucleated Red Blood Cells 0.4 /100 WBC (0); Platelet Count 376 K/mcL (140-400); Red Blood Count 3.03 M/mcL (3.82-4.97); Red Cell Distribution Width 15.9 % (11.5-14.5); Segmented Neutrophils % 86.1 %
[2016-06-09 04:04] LABS: Monocytes # 0.6 K/mcL (0.0-1.3); Neutrophils # 14.3 K/mcL (1.6-8.9)
[2016-06-09 04:25] LABS: BUN/Creatinine Ratio 25 (6-26); Blood Urea Nitrogen 16 mg/dL (7-20); Calcium 8.5 mg/dL (8.6-10.8); Carbon Dioxide 36 mEq/L (19-29); Chloride 100 mEq/L (98-109); Glucose 145 mg/dL (70-99); Osmolality,Calculated 302 (280-300); Sodium 144 mEq/L (136-145); eGFR For African Americans > 60 (> 60); eGFR For Non-African Americans > 60 (> 60)
[2016-06-09] MEDS: *HR* Enoxaparin 40 MG/0.4 ML SYRINGE SQ SCH (05:51)
[2016-06-09] MEDS: Levothyroxine Sodium 100 MCG VIAL IV SCH (05:51)
[2016-06-09] MEDS: Multivit/Ca/Min/Fe/FA 1 TAB TABLET PO SCH (08:36)
[2016-06-09] MEDS: Furosemide 40 MG/4 ML VIAL IVP SCH ×2 (08:36→17:30)
[2016-06-09] MEDS: Nystatin SUSP 5 ML UD.LIQ PO SCH ×4 (08:36→20:09)
[2016-06-09] MEDS: Docusate Oral Soln 100 MG/10 ML UDC GTUBE SCH ×2 (08:36→20:10)
[2016-06-09] MEDS: Vitamin B Complex/Vit C/Vit E 1 EACH TABLET PO SCH (08:36)
[2016-06-09] MEDS: Azithromycin 500 MG in D5% in Water 250 ML IVPB SCH (08:36)
[2016-06-09] MEDS: Pantoprazole 40 MG VIAL IVPB SCH (08:36)
[2016-06-09] MEDS: Valproic Acid INJ 500 MG in 0.9 % Sodium Chloride 100 ML IVPB SCH ×2 (10:17→20:36)
[2016-06-09] MEDS: FentaNYL (PF) 1,000 MCG in 0.9 % Sodium Chloride 80 ML IVC SCH ×2 (10:18→20:18)
--- NOTE | 2016-06-09 10:52 | Pulmonology Progress Note ---
Date of Encounter: 06/09/16 Time of Encounter: 10:47 Assessment and Plan (1) Acute respiratory failure with hypoxia and hypercapnia Current Visit: Yes Status: Acute Acute respiratory failure with hypoxia hypercapnia in this individual is secondary to severe community-acquired pneumonia subsequent development of ARDS. Given hypercapnia noted from arterial blood gas and relatively preserved pH, the patient likely has hypoventilation syndrome as well. Continue ARDS network ventilator protocol, pronation, high-level sedation and neuromuscular blockade. Antibiotic therapy for community-acquired directed pathogen to be continued at this time as well in spite of the fact cultures are negative (complete 7-8 day course). Continue systemic steroids to hasten recovery from CAP associated ARDS. Continue DVT ulcer prophylaxis. Trophic tube feeds will be initiated today. Patient suffers from life-threatening respiratory failure due to ARDS, requires high level care. Today's management required 38 minutes of critical care time devoted to the bedside evaluation and treatment of ARDS. Code(s): J96.01 - Acute respiratory failure with hypoxia; J96.02 - Acute respiratory failure with hypercapnia SNOMED Code(s): 20969345, [id number] Subjective Principal diagnosis: Acute respiratory failure with hypoxia, ARDS secondary to severe community- Interval history: Patient is currently intubated sedated and receiving neuromuscular blockade. The patient continues to require high-level ventilatory support and is tolerating pronation while, and note reduction of FiO2 requirements over the past 36 hours. Plateau pressures approximating 28-30 cm of water pressure. Hemodynamics urine output are all acceptable. No acute overnight issues were reported. Tolerant of trophic tube feedings. Objective PUL Vital signs: Last Vital Signs Temp 98.4 F 06/09/16 07:00 Pulse 88 06/09/16 10:00 Resp 18 06/09/16 10:00 BP 135/84 06/09/16 10:00 Pulse Ox 94 06/09/16 10:00 General appearance: other Eyes: nonicteric ENT: other (Orally intubated) Auscultation: bilateral: diminished breath sounds (Bilateral coarse rhonchi with inspiration) Cardiovascular: regular rate and rhythm Gastrointestinal: normoactive bowel sounds, non-distended, other (Central obesity) Integumentary: normal Extremities: edema (Trace leg edema) Musculoskeletal: no deformities unable to assess due to mental status Right IJ CVC, right femoral arterial line Ventilator Settings Ventilator Settings: Ventilator Settings, Last 8 Hours Ventilator Mode VC+ Ventilator Mode VC+ Ventilator Mode VC+ Ventilator Mode VC+ Ventilator Mode VC+ Ventilator Mode VC+ Ventilator Mode VC+ Ventilator Mode VC+ Ventilator Mode VC+ Ventilator Tidal Volume 300 Setting Ventilator Tidal Volume 300 Setting Ventilator Tidal Volume 300 Setting Ventilator Tidal Volume 300 Setting Ventilator Tidal Volume 300 Setting Ventilator Tidal Volume 300 Setting Ventilator Tidal Volume 300 Setting Ventilator Tidal Volume 300 Setting Ventilator Tidal Volume 300 Setting Ventilator Respiratory Rate 18 Setting Ventilator Respiratory Rate 18 Setting Ventilator Respiratory Rate 18 Setting Ventilator Respiratory Rate 18 Setting Ventilator Respiratory Rate 18 Setting Ventilator Respiratory Rate 18 Setting Ventilator Respiratory Rate 18 Setting Ventilator Respiratory Rate 18 Setting Ventilator Respiratory Rate 18 Setting Actual Respiratory Rate 18 Actual Respiratory Rate 18 Actual Respiratory Rate 18 Actual Respiratory Rate 18 Actual Respiratory Rate 18 Actual Respiratory Rate 18 Actual Respiratory Rate 23 Actual Respiratory Rate 24 Actual Respiratory Rate 18 Positive End Expiratory 12 Pressure Positive End Expiratory 12 Pressure Positive End Expiratory 12 Pressure Positive End Expiratory 12 Pressure Positive End Expiratory 12 Pressure Positive End Expiratory 12 Pressure Positive End Expiratory 12 Pressure Positive End Expiratory 12 Pressure Positive End Expiratory 12 Pressure Peak Inspiratory Airway 29 Pressure Peak Inspiratory Airway 29 Pressure Peak Inspiratory Airway 29 Pressure Peak Inspiratory Airway 36 Pressure Peak Inspiratory Airway 29 Pressure Peak Inspiratory Airway 29 Pressure Peak Inspiratory Airway 28 Pressure Peak Inspiratory Airway 28 Pressure Peak Inspiratory Airway 29 Pressure Results - Laboratory Findings CBC and BMP: 06/09/16 03:45 06/09/16 03:45 ABG ABG pH 7.31 pH Units (7.32-7.45) L 06/08/16 04:56 ABG pCO2 69 mmHg (35-45) H 06/08/16 04:56 ABG pO2 68 mmHg (85-104) L 06/08/16 04:56 ABG O2 Saturation 91 % (95-98) L 06/08/16 04:56 PT/INR, D-dimer PT 12.9 Seconds (9.4-12.1) H 06/07/16 06:22 Abnormal lab findings: Abnormal lab results WBC 16.6 K/mcL (4.3-11.1) H D 06/09/16 03:45 RBC 3.03 M/mcL (3.82-4.97) L 06/09/16 03:45 Hgb 9.5 g/dL (11.5-15.4) L 06/09/16 03:45 Hct 29.5 % (35.3-44.9) L 06/09/16 03:45 RDW 15.9 % (11.5-14.5) H 06/09/16 03:45 Immature Gran % 4.8 % (0-4) H 06/09/16 03:45 Neutrophils # 14.3 K/mcL (1.6-8.9) H 06/09/16 03:45 Nucleated RBCs/100 WBC 0.4 /100 WBC (0) H 06/09/16 03:45 Reactive Lymphocytes Present (Not Present) A 06/06/16 09:32 PT 12.9 Seconds (9.4-12.1) H 06/07/16 06:22 ABG pH 7.31 pH Units (7.32-7.45) L 06/08/16 04:56 ABG pCO2 69 mmHg (35-45) H 06/08/16 04:56 ABG pO2 68 mmHg (85-104) L 06/08/16 04:56 ABG HCO3 34.7 mEQ/L (21-27) H 06/08/16 04:56 ABG Total CO2 36.8 mEq/L (20-26) H 06/08/16 04:56 ABG O2 Saturation 91 % (95-98) L 06/08/16 04:56 ABG Base Excess 6.1 mEq/L (-2.0 to 3.0) H 06/08/16 04:56 VBG pH 7.48 pH Units (7.32-7.42) H 06/05/16 06:06 VBG pCO2 37 mmHg (41-51) L 06/05/16 06:06 VBG pO2 167 mmHg (25-40) H 06/05/16 06:06 VBG HCO3 27.6 mEq/L (21-27) H 06/05/16 06:06 Carbon Dioxide 36 mEq/L (19-29) H 06/09/16 03:45 Glucose 145 mg/dL (70-99) H 06/09/16 03:45 POC Glucose 114 (58-89) H 06/07/16 07:15 Calculated Osmolality 302 (280-300) H 06/09/16 03:45 Calcium 8.5 mg/dL (8.6-10.8) L 06/09/16 03:45 Albumin 2.2 g/dL (3.5-5.0) L 06/07/16 06:22 Globulin 4.5 g/dL (2.4-3.5) H 06/07/16 06:22 Albumin/Globulin Ratio 0.5 (1.1-2.2) L 06/07/16 06:22 Ur Specific [place] 1.007 (1.010-1.025) L 06/07/16 14:00 Urine Microscopic WBC 3-5 per hpf (0-3) H 06/05/16 07:16 Ur Squamous Epith Cells Many per lpf (None-Few) H 06/05/16 07:16 Human Metapneumovirus DETECTED (Not Detect) A 06/07/16 16:05 - Microbiology Findings Microbiology Findings: Microbiology, Last 48 Hours 06/07/16 14:13 Influenza Types A,B Antigen (RAGHAVENDRA) - Final Nasopharyngeal - Clinical Findings Intake & Output: Intake & Output 06/08/16 06/09/16 06/09/16 23:59 07:59 15:59 Intake Total 451 / 451 229 / 229 159 / 159 Output Total 750 / 750 350 / 350 200 / 200 Balance -299 / -299 -121 / -121 -41 / -41 Weight 99 kg - VTE Documentation of Mechanical Device: Graduated compression elastic hosiery Consult Discharge Plan - Plan Referrals: Manish Sheth MD [Primary Care Provider] -
[2016-06-09] MEDS: MethylPREDNISolone 40 MG/ML VIAL IVP SCH ×3 (12:17→23:33)
[2016-06-09] MEDS: Vecuronium 50 MG in 0.9 % Sodium Chloride 150 ML IVC SCH ×2 (12:47→22:50)
[2016-06-09] MEDS: Dexmedetomidine HCl 400 MCG/100 ML MLS IVC SCH (19:43)
[2016-06-10] MEDS: FentaNYL (PF) 1,000 MCG in 0.9 % Sodium Chloride 80 ML IVC SCH ×4 (02:59→20:41)
[2016-06-10] MEDS: Ipratropium/Albuterol Neb 3 ML IH SCH ×5 (03:48→20:46)
[2016-06-10] MEDS: Vecuronium 50 MG in 0.9 % Sodium Chloride 150 ML IVC SCH ×2 (04:16→09:34)
[2016-06-10] MEDS: MethylPREDNISolone 40 MG/ML VIAL IVP SCH ×3 (05:15→17:03)
[2016-06-10] MEDS: Levothyroxine Sodium 100 MCG VIAL IV SCH (05:15)
[2016-06-10] MEDS: *HR* Enoxaparin 40 MG/0.4 ML SYRINGE SQ SCH (05:15)
[2016-06-10 07:27] LABS: Hematocrit 31.3 % (35.3-44.9); Hemoglobin 9.8 g/dL (11.5-15.4); Immature Platelets 4.8 % (1.1-6.1); Mean Corpuscular HGB Conc 31.3 g/dL (31.6-35.5); Mean Corpuscular Hemoglobin 30.5 pg (28.0-33.3); Mean Corpuscular Volume 97.5 fL (83.0-100.0); Mean Platelet Volume 9.4 fL (9.4-12.4); Nucleated Red Blood Cells 0.4 /100 WBC (0); Platelet Count 499 K/mcL (140-400); Red Blood Count 3.21 M/mcL (3.82-4.97); Red Cell Distribution Width 16.4 % (11.5-14.5)
[2016-06-10 07:31] LABS: ABG Base Excess 21.7 mEq/L (-2.0 to 3.0); ABG HCO3 49.9 mEQ/L (21-27); ABG Oxygen Saturation 92 % (95-98); ABG PH 7.42 pH Units (7.32-7.45); ABG PO2 63 mmHg (85-104); ABG TCO2 52.3 mEq/L (20-26)
[2016-06-10 07:33] LABS: ABG PCO2 77 mmHg (35-45); Blood Gas FiO2 50 %
[2016-06-10 07:38] LABS: BUN/Creatinine Ratio 29 (6-26); Blood Urea Nitrogen 18 mg/dL (7-20); Calcium 8.4 mg/dL (8.6-10.8); Chloride 100 mEq/L (98-109); Glucose 166 mg/dL (70-99); Osmolality,Calculated 312 (280-300); Potassium 4.1 mEq/L (3.5-4.5); Sodium 148 mEq/L (136-145); eGFR For African Americans > 60 (> 60); eGFR For Non-African Americans > 60 (> 60)
[2016-06-10 07:41] LABS: Carbon Dioxide 42 mEq/L (19-29)
[2016-06-10] MEDS: Nystatin SUSP 5 ML UD.LIQ PO SCH ×4 (08:11→21:18)
[2016-06-10] MEDS: Multivit/Ca/Min/Fe/FA 1 TAB TABLET PO SCH (08:11)
[2016-06-10] MEDS: Docusate Oral Soln 100 MG/10 ML UDC GTUBE SCH ×2 (08:11→21:18)
[2016-06-10] MEDS: Pantoprazole 40 MG VIAL IVPB SCH (08:11)
[2016-06-10] MEDS: Furosemide 40 MG/4 ML VIAL IVP SCH ×2 (08:11→16:56)
[2016-06-10] MEDS: Vitamin B Complex/Vit C/Vit E 1 EACH TABLET PO SCH (08:11)
[2016-06-10] MEDS: Azithromycin 500 MG in D5% in Water 250 ML IVPB SCH (08:12)
[2016-06-10] MEDS: Valproic Acid INJ 500 MG in 0.9 % Sodium Chloride 100 ML IVPB SCH ×2 (08:15→21:27)
[2016-06-10 08:19] LABS: Lymphocytes # 1.8 K/mcL (0.6-4.6); Neutrophils # 16.2 K/mcL (1.6-8.9)
[2016-06-10 08:20] LABS: Macrocytosis Present (Not Present); Platelet Estimate Normal (Normal); Polychromasia 1+ (Not Present); Reactive Lymphocytes Present (Not Present)
[2016-06-10 08:33] LABS: Magnesium 2.4 mg/dL (1.6-2.6)
--- NOTE | 2016-06-10 09:25 | Pulmonology Progress Note ---
<Helder sEcoto - Last Filed: 06/10/16 09:22> Date of Encounter: 06/10/16 Time of Encounter: 08:30 Assessment and Plan (1) Acute respiratory failure with hypoxia and hypercapnia Current Visit: Yes Status: Acute Suspected secondary to community acquired pneumonia likely with hypoventilation syndrome in addition. Patient has ARDS and is in ARDS network ventilator protocol. Continuing to require 50% FiO2 for adequate oxygenation. On Azithromycin Day #5, continue for 7 day course. On Ceftriaxone Day #2, continue for 7 day course. At this time cultures are negative for bacteria. Was found to be positive for human metapneumovirus. Will continue antibiotics to complete course. Continue Duo Nebs Q4hrs. Continue solumedrol 40mg. (2) Pneumonia Current Visit: Yes Status: Acute Serology positive for human metapneumovirus. Will continue antibiotics at this time due to severity of patient's illness. Blood cultures demonstrated no growth. No sputum culture was able to be collected. Urine was negative for legionella antigen and streptococcus pneumoniae antigen. Qualifiers: Pneumonia type: due to unspecified organism Laterality: unspecified laterality Lung location: unspecified part of lung Qualified Code(s): J18.9 - Pneumonia, unspecified organism (3) ARDS (adult respiratory distress syndrome) Current Visit: Yes Status: Acute Follow ARDS protocol Continue patient in prone position. (4) DVT prophylaxis Current Visit: Yes Status: Acute On lovenox. Protonix for GI prophylaxis. Subjective Principal diagnosis: Acute respiratory failure with hypoxia, ARDS secondary to severe community- Interval history: The patient was seen and examined. No acute events overnight. Continues to be sedated in prone position on a vent. Tube feeds are being tolerated well. Currently requiring 50% FiO2 at this time. Objective PUL Vital signs: Last Vital Signs Temp 98.9 F 06/10/16 07:00 Pulse 89 06/10/16 09:00 Resp 18 06/10/16 09:13 BP 127/72 06/10/16 09:13 Pulse Ox 94 06/10/16 09:13 General appearance: other (sedated and on a vent) ENT: other (orally intubated) Auscultation: bilateral: diminished breath sounds, rhonchi Cardiovascular: regular rate and rhythm (exam limited due to prone position) Gastrointestinal: normoactive bowel sounds Integumentary: normal Extremities: no cyanosis unable to assess due to mental status Ventilator Settings Ventilator Settings: Ventilator Settings, Last 8 Hours Ventilator Mode VC+ Ventilator Mode VC+ Ventilator Mode VC+ Ventilator Mode VC+ Ventilator Mode VC+ Ventilator Mode VC+ Ventilator Mode VC+ Ventilator Mode VC+ Ventilator Mode VC+ Ventilator Mode VC+ Ventilator Mode VC+ Ventilator Mode VC+ Ventilator Tidal Volume 300 Setting Ventilator Tidal Volume 300 Setting Ventilator Tidal Volume 300 Setting Ventilator Tidal Volume 300 Setting Ventilator Tidal Volume 300 Setting Ventilator Tidal Volume 300 Setting Ventilator Tidal Volume 300 Setting Ventilator Tidal Volume 300 Setting Ventilator Tidal Volume 300 Setting Ventilator Tidal Volume 300 Setting Ventilator Tidal Volume 300 Setting Ventilator Tidal Volume 300 Setting Ventilator Respiratory Rate 18 Setting Ventilator Respiratory Rate 18 Setting Ventilator Respiratory Rate 18 Setting Ventilator Respiratory Rate 18 Setting Ventilator Respiratory Rate 18 Setting Ventilator Respiratory Rate 18 Setting Ventilator Respiratory Rate 18 Setting Ventilator Respiratory Rate 18 Setting Ventilator Respiratory Rate 18 Setting Ventilator Respiratory Rate 18 Setting Ventilator Respiratory Rate 18 Setting Ventilator Respiratory Rate 18 Setting Actual Respiratory Rate 18 Actual Respiratory Rate 18 Actual Respiratory Rate 18 Actual Respiratory Rate 18 Actual Respiratory Rate 18 Actual Respiratory Rate 18 Actual Respiratory Rate 18 Actual Respiratory Rate 18 Actual Respiratory Rate 18 Actual Respiratory Rate 18 Actual Respiratory Rate 18 Positive End Expiratory 12 Pressure Positive End Expiratory 12 Pressure Positive End Expiratory 12 Pressure Positive End Expiratory 12 Pressure Positive End Expiratory 12 Pressure Positive End Expiratory 12 Pressure Positive End Expiratory 12 Pressure Positive End Expiratory 12 Pressure Positive End Expiratory 12 Pressure Positive End Expiratory 12 Pressure Positive End Expiratory 12 Pressure Positive End Expiratory 12 Pressure Peak Inspiratory Airway 29 Pressure Peak Inspiratory Airway 29 Pressure Peak Inspiratory Airway 28 Pressure Peak Inspiratory Airway 30 Pressure Peak Inspiratory Airway 30 Pressure Peak Inspiratory Airway 30 Pressure Peak Inspiratory Airway 29 Pressure Peak Inspiratory Airway 29 Pressure Peak Inspiratory Airway 30 Pressure Peak Inspiratory Airway 31 Pressure Peak Inspiratory Airway 30 Pressure Results - Laboratory Findings CBC and BMP: 06/10/16 07:18 06/10/16 07:18 ABG ABG pH 7.42 pH Units (7.32-7.45) 06/10/16 07:20 ABG pCO2 77 mmHg (35-45) H* 06/10/16 07:20 ABG pO2 63 mmHg (85-104) L 06/10/16 07:20 ABG O2 Saturation 92 % (95-98) L 06/10/16 07:20 PT/INR, D-dimer PT 12.9 Seconds (9.4-12.1) H 06/07/16 06:22 Abnormal lab findings: Abnormal lab results WBC 18.0 K/mcL (4.3-11.1) H 06/10/16 07:18 RBC 3.21 M/mcL (3.82-4.97) L 06/10/16 07:18 Hgb 9.8 g/dL (11.5-15.4) L 06/10/16 07:18 Hct 31.3 % (35.3-44.9) L 06/10/16 07:18 MCHC 31.3 g/dL (31.6-35.5) L 06/10/16 07:18 RDW 16.4 % (11.5-14.5) H 06/10/16 07:18 Plt Count 499 K/mcL (140-400) H 06/10/16 07:18 Neutrophils # 16.2 K/mcL (1.6-8.9) H 06/10/16 07:18 Nucleated RBCs/100 WBC 0.4 /100 WBC (0) H 06/10/16 07:18 Reactive Lymphocytes Present (Not Present) A 06/10/16 07:18 Polychromasia 1+ (Not Present) A 06/10/16 07:18 Macrocytosis Present (Not Present) A 06/10/16 07:18 PT 12.9 Seconds (9.4-12.1) H 06/07/16 06:22 ABG pCO2 77 mmHg (35-45) H* 06/10/16 07:20 ABG pO2 63 mmHg (85-104) L 06/10/16 07:20 ABG HCO3 49.9 mEQ/L (21-27) H 06/10/16 07:20 ABG Total CO2 52.3 mEq/L (20-26) H 06/10/16 07:20 ABG O2 Saturation 92 % (95-98) L 06/10/16 07:20 ABG Base Excess 21.7 mEq/L (-2.0 to 3.0) H 06/10/16 07:20 VBG pH 7.48 pH Units (7.32-7.42) H 06/05/16 06:06 VBG pCO2 37 mmHg (41-51) L 06/05/16 06:06 VBG pO2 167 mmHg (25-40) H 06/05/16 06:06 VBG HCO3 27.6 mEq/L (21-27) H 06/05/16 06:06 Sodium 148 mEq/L (136-145) H 06/10/16 07:18 Carbon Dioxide 42 mEq/L (19-29) H* 06/10/16 07:18 BUN/Creatinine Ratio 29 (6-26) H 06/10/16 07:18 Glucose 166 mg/dL (70-99) H 06/10/16 07:18 POC Glucose 171 (58-89) H 06/09/16 23:14 Calculated Osmolality 312 (280-300) H 06/10/16 07:18 Calcium 8.4 mg/dL (8.6-10.8) L 06/10/16 07:18 Albumin 2.2 g/dL (3.5-5.0) L 06/07/16 06:22 Globulin 4.5 g/dL (2.4-3.5) H 06/07/16 06:22 Albumin/Globulin Ratio 0.5 (1.1-2.2) L 06/07/16 06:22 Ur Specific [place] 1.007 (1.010-1.025) L 06/07/16 14:00 Urine Microscopic WBC 3-5 per hpf (0-3) H 06/05/16 07:16 Ur Squamous Epith Cells Many per lpf (None-Few) H 06/05/16 07:16 Human Metapneumovirus DETECTED (Not Detect) A 06/07/16 16:05 - Clinical Findings Intake & Output: Intake & Output 06/09/16 06/10/16 06/10/16 23:59 07:59 15:59 Intake Total 643 / 643 448 / 448 200 / 200 Output Total 1300 / 1300 300 / 300 Balance -657 / -657 148 / 148 200 / 200 - VTE Documentation of Mechanical Device: Graduated compression elastic hosiery Consult Discharge Plan - Plan Referrals: Manish Sheth MD [Primary Care Provider] - <Hector Ignacio - Last Filed: 06/10/16 12:54> Date of Encounter: 06/10/16 Objective PUL Vital signs: Last Vital Signs Temp 98.9 F 06/10/16 07:00 Pulse 87 06/10/16 10:00 Resp 18 06/10/16 10:00 BP 125/72 06/10/16 10:00 Pulse Ox 94 06/10/16 10:00 Ventilator Settings Ventilator Settings: Ventilator Settings, Last 8 Hours Ventilator Mode VC+ Ventilator Mode VC+ Ventilator Mode VC+ Ventilator Mode VC+ Ventilator Mode VC+ Ventilator Mode VC+ Ventilator Mode VC+ Ventilator Mode VC+ Ventilator Mode VC+ Ventilator Mode VC+ Ventilator Mode VC+ Ventilator Mode VC+ Ventilator Tidal Volume 300 Setting Ventilator Tidal Volume 300 Setting Ventilator Tidal Volume 300 Setting Ventilator Tidal Volume 300 Setting Ventilator Tidal Volume 300 Setting Ventilator Tidal Volume 300 Setting Ventilator Tidal Volume 300 Setting Ventilator Tidal Volume 300 Setting Ventilator Tidal Volume 300 Setting Ventilator Tidal Volume 300 Setting Ventilator Tidal Volume 300 Setting Ventilator Tidal Volume 300 Setting Ventilator Respiratory Rate 18 Setting Ventilator Respiratory Rate 18 Setting Ventilator Respiratory Rate 18 Setting Ventilator Respiratory Rate 18 Setting Ventilator Respiratory Rate 18 Setting Ventilator Respiratory Rate 18 Setting Ventilator Respiratory Rate 18 Setting Ventilator Respiratory Rate 18 Setting Ventilator Respiratory Rate 18 Setting Ventilator Respiratory Rate 18 Setting Ventilator Respiratory Rate 18 Setting Ventilator Respiratory Rate 18 Setting Actual Respiratory Rate 18 Actual Respiratory Rate 18 Actual Respiratory Rate 18 Actual Respiratory Rate 18 Actual Respiratory Rate 18 Actual Respiratory Rate 18 Actual Respiratory Rate 18 Actual Respiratory Rate 18 Actual Respiratory Rate 18 Actual Respiratory Rate 18 Actual Respiratory Rate 18 Positive End Expiratory 12 Pressure Positive End Expiratory 12 Pressure Positive End Expiratory 12 Pressure Positive End Expiratory 12 Pressure Positive End Expiratory 12 Pressure Positive End Expiratory 12 Pressure Positive End Expiratory 12 Pressure Positive End Expiratory 12 Pressure Positive End Expiratory 12 Pressure Positive End Expiratory 12 Pressure Positive End Expiratory 12 Pressure Positive End Expiratory 12 Pressure Peak Inspiratory Airway 29 Pressure Peak Inspiratory Airway 29 Pressure Peak Inspiratory Airway 29 Pressure Peak Inspiratory Airway 28 Pressure Peak Inspiratory Airway 30 Pressure Peak Inspiratory Airway 30 Pressure Peak Inspiratory Airway 30 Pressure Peak Inspiratory Airway 29 Pressure Peak Inspiratory Airway 29 Pressure Peak Inspiratory Airway 30 Pressure Peak Inspiratory Airway 31 Pressure Results - Laboratory Findings CBC and BMP: 06/10/16 07:18 06/10/16 07:18 ABG ABG pH 7.42 pH Units (7.32-7.45) 06/10/16 07:20 ABG pCO2 77 mmHg (35-45) H* 06/10/16 07:20 ABG pO2 63 mmHg (85-104) L 06/10/16 07:20 ABG O2 Saturation 92 % (95-98) L 06/10/16 07:20 PT/INR, D-dimer PT 12.9 Seconds (9.4-12.1) H 06/07/16 06:22 Abnormal lab findings: Abnormal lab results WBC 18.0 K/mcL (4.3-11.1) H 06/10/16 07:18 RBC 3.21 M/mcL (3.82-4.97) L 06/10/16 07:18 Hgb 9.8 g/dL (11.5-15.4) L 06/10/16 07:18 Hct 31.3 % (35.3-44.9) L 06/10/16 07:18 MCHC 31.3 g/dL (31.6-35.5) L 06/10/16 07:18 RDW 16.4 % (11.5-14.5) H 06/10/16 07:18 Plt Count 499 K/mcL (140-400) H 06/10/16 07:18 Neutrophils # 16.2 K/mcL (1.6-8.9) H 06/10/16 07:18 Nucleated RBCs/100 WBC 0.4 /100 WBC (0) H 06/10/16 07:18 Reactive Lymphocytes Present (Not Present) A 06/10/16 07:18 Polychromasia 1+ (Not Present) A 06/10/16 07:18 Macrocytosis Present (Not Present) A 06/10/16 07:18 PT 12.9 Seconds (9.4-12.1) H 06/07/16 06:22 ABG pCO2 77 mmHg (35-45) H* 06/10/16 07:20 ABG pO2 63 mmHg (85-104) L 06/10/16 07:20 ABG HCO3 49.9 mEQ/L (21-27) H 06/10/16 07:20 ABG Total CO2 52.3 mEq/L (20-26) H 06/10/16 07:20 ABG O2 Saturation 92 % (95-98) L 06/10/16 07:20 ABG Base Excess 21.7 mEq/L (-2.0 to 3.0) H 06/10/16 07:20 VBG pH 7.48 pH Units (7.32-7.42) H 06/05/16 06:06 VBG pCO2 37 mmHg (41-51) L 06/05/16 06:06 VBG pO2 167 mmHg (25-40) H 06/05/16 06:06 VBG HCO3 27.6 mEq/L (21-27) H 06/05/16 06:06 Sodium 148 mEq/L (136-145) H 06/10/16 07:18 Carbon Dioxide 42 mEq/L (19-29) H* 06/10/16 07:18 BUN/Creatinine Ratio 29 (6-26) H 06/10/16 07:18 Glucose 166 mg/dL (70-99) H 06/10/16 07:18 POC Glucose 171 (58-89) H 06/09/16 23:14 Calculated Osmolality 312 (280-300) H 06/10/16 07:18 Calcium 8.4 mg/dL (8.6-10.8) L 06/10/16 07:18 Albumin 2.2 g/dL (3.5-5.0) L 06/07/16 06:22 Globulin 4.5 g/dL (2.4-3.5) H 06/07/16 06:22 Albumin/Globulin Ratio 0.5 (1.1-2.2) L 06/07/16 06:22 Ur Specific [place] 1.007 (1.010-1.025) L 06/07/16 14:00 Urine Microscopic WBC 3-5 per hpf (0-3) H 06/05/16 07:16 Ur Squamous Epith Cells Many per lpf (None-Few) H 06/05/16 07:16 Human Metapneumovirus DETECTED (Not Detect) A 06/07/16 16:05 - Clinical Findings Intake & Output: Intake & Output 06/09/16 06/10/16 06/10/16 23:59 07:59 15:59 Intake Total 643 / 643 448 / 448 755 / 755 Output Total 1300 / 1300 300 / 300 1000 / 1000 Balance -657 / -657 148 / 148 -245 / -245 - Attending Attestation I examined this patient and my medical decision-making was reviewed with the SECOND CRUSHER/PA/Advanced Practice Nurse/Resident Physician. I agree with the documented findings, disposition and treatment plan as described except to the extent set forth below. I spent 37min of Critical Care time with this patient. It involved decision making of high complexity to assess, manipulate, and support vital organ system failure and/or to prevent further life threatening deterioration of the patient' s condition. The time involved in the performance of separately reportable procedures was not counted toward critical care time. Patient seen and examined at bedside Labs, radiology, chart personally reviewed. All lines examined without evidence of infection. Neuropsych: Sedated +NMB. PEERL today. History of Trisomy 21. Cont deep sedation while on NMB per TOF Pulm: Acute on chronic hypoxic hypercapnic respiratory failure with community- acquired pneumonia leading to ARDS with refractory hypoxemia patient has been prone but P/F ratio has improved markedly. plan to place patient supine today reevaluate ventilator settings can adjust PEEP and FiO2 accordingly if favorable parameters will stop neuromuscular blockade. Continue low tidal volume ventilatory strategy per ARDSnet protocol with low idal volume ventilation and permissive hypercapnea. Peak assist/plateau airway pressures are acceptable today. Steroids have been given as part of treatment of severe community-acquired pneumonia Cards: No evidence of shock continue to monitor goal MAP greater than 60 FEN-GI: GI prophylaxis given. Advance Enteral nutrition. Renal: No TANNER good UOP continue to monitor daily metabolic profile ID: Sepsis from Lung source. Metapneumovirus + which likely has led to bacterial coinfection She is being covered for CAP organisms and is improving. will treat for total of 7 days. Heme/Onc: DVT prophylaxis given Endo: Glucose monitored Integ/MSK: Skin care per ICU protocol to prevent ulcers CODE: Full Code.
[2016-06-10] MEDS: Chlorhexidine Rinse 15 ML MOUTHWASH MM SCH ×2 (14:01→21:18)
[2016-06-10] MEDS: Lacri-Lube 3.5 GM TUBE BOTH EYES SCH ×2 (14:01→21:18)
[2016-06-10 14:10] LABS: ABG HCO3 48.9 mEQ/L (21-27); ABG Oxygen Saturation 96 % (95-98); ABG PH 7.44 pH Units (7.32-7.45); ABG PO2 76 mmHg (85-104); ABG TCO2 51.1 mEq/L (20-26); Blood Gas FiO2 50 %
[2016-06-10 14:12] LABS: ABG PCO2 72 mmHg (35-45)
[2016-06-10] MEDS: Dexmedetomidine HCl 400 MCG/100 ML MLS IVC SCH (16:56)
[2016-06-10] MEDS: Insulin LISPRO 300 UNITS/3 ML VIAL SQ SCH (17:04)
[2016-06-11] MEDS: Ipratropium/Albuterol Neb 3 ML IH SCH ×6 (00:04→19:57)
[2016-06-11] MEDS: MethylPREDNISolone 40 MG/ML VIAL IVP SCH ×4 (00:48→18:20)
[2016-06-11] MEDS: Acetaminophen 325 MG TABLET PO PRN (00:49)
[2016-06-11] MEDS: Insulin LISPRO 300 UNITS/3 ML VIAL SQ SCH ×4 (01:51→18:20)
[2016-06-11] MEDS: FentaNYL (PF) 1,000 MCG in 0.9 % Sodium Chloride 80 ML IVC SCH ×2 (03:02→07:50)
[2016-06-11 03:56] LABS: Hematocrit 33.5 % (35.3-44.9); Hemoglobin 10.6 g/dL (11.5-15.4); Mean Corpuscular HGB Conc 31.6 g/dL (31.6-35.5); Mean Corpuscular Hemoglobin 31.1 pg (28.0-33.3); Mean Corpuscular Volume 98.2 fL (83.0-100.0); Mean Platelet Volume 10.1 fL (9.4-12.4); Nucleated Red Blood Cells 1.5 /100 WBC (0); Platelet Count 525 K/mcL (140-400); Red Blood Count 3.41 M/mcL (3.82-4.97); Red Cell Distribution Width 16.8 % (11.5-14.5)
[2016-06-11 03:58] LABS: BUN/Creatinine Ratio 33 (6-26); Blood Urea Nitrogen 23 mg/dL (7-20); Calcium 8.1 mg/dL (8.6-10.8); Chloride 96 mEq/L (98-109); Glucose 188 mg/dL (70-99); Osmolality,Calculated 315 (280-300); Potassium 3.8 mEq/L (3.5-4.5); Sodium 148 mEq/L (136-145); eGFR For African Americans > 60 (> 60); eGFR For Non-African Americans > 60 (> 60)
[2016-06-11 04:01] LABS: Carbon Dioxide 44 mEq/L (19-29)
[2016-06-11 04:27] LABS: ABG Base Excess 27.1 mEq/L (-2.0 to 3.0); ABG HCO3 56.4 mEQ/L (21-27); ABG Oxygen Saturation 94 % (95-98); ABG PH 7.43 pH Units (7.32-7.45); ABG PO2 69 mmHg (85-104)
[2016-06-11 04:28] LABS: Blood Gas FiO2 50 %
[2016-06-11 04:29] LABS: ABG PCO2 85 mmHg (35-45)
[2016-06-11 04:42] LABS: Magnesium 2.4 mg/dL (1.6-2.6)
[2016-06-11 05:08] LABS: Eosinophils # 0.2 K/mcL (0.0-0.6); Lymphocytes # 2.2 K/mcL (0.6-4.6); Monocytes # 1.3 K/mcL (0.0-1.3); Neutrophils # 17.8 K/mcL (1.6-8.9)
[2016-06-11 05:10] LABS: Platelet Estimate Increased (Normal)
[2016-06-11] MEDS: *HR* Enoxaparin 40 MG/0.4 ML SYRINGE SQ SCH (06:26)
[2016-06-11] MEDS: Levothyroxine Sodium 100 MCG VIAL IV SCH (06:26)
[2016-06-11] MEDS ORDERED: 0.9 % Sodium Chloride 1,000 ML IVC ONE (08:13)
[2016-06-11] MEDS: Nystatin SUSP 5 ML UD.LIQ PO SCH ×4 (08:47→21:22)
[2016-06-11] MEDS: Docusate Oral Soln 100 MG/10 ML UDC GTUBE SCH ×2 (08:47→21:22)
[2016-06-11] MEDS: Vitamin B Complex/Vit C/Vit E 1 EACH TABLET PO SCH (08:48)
[2016-06-11] MEDS: Pantoprazole 40 MG VIAL IVPB SCH (08:48)
[2016-06-11] MEDS: Azithromycin 500 MG in D5% in Water 250 ML IVPB SCH (08:48)
[2016-06-11] MEDS: Multivit/Ca/Min/Fe/FA 1 TAB TABLET PO SCH (08:48)
[2016-06-11] MEDS: Chlorhexidine Rinse 15 ML MOUTHWASH MM SCH ×2 (08:48→21:22)
--- NOTE | 2016-06-11 09:04 | Pulmonology Progress Note ---
<Helder Escoto - Last Filed: 06/11/16 11:01> Date of Encounter: 06/11/16 Time of Encounter: 08:20 Assessment and Plan (1) Acute respiratory failure with hypoxia and hypercapnia Current Visit: Yes Status: Acute Suspected secondary to community acquired pneumonia likely with hypoventilation syndrome in addition. Patient has ARDS and is in ARDS network ventilator protocol. She was put back into a supine position yesterday afternoon. Fevers overnight with elevated WBC this morning. Continuing to require 50% FiO2 for adequate oxygenation. On Azithromycin Day #7. Discontinued. On Ceftriaxone Day #7. Discontinued. At this time cultures are negative for bacteria. Was found to be positive for human metapneumovirus. Will continue antibiotics to complete course. Add Zosyn Day #1 to broaden coverage in the setting of fevers and increasing WBCs. Vancomycin Day #1 added. Pending repeat cultures will adjust antibiotics appropriately. Continue Duo Nebs Q4hrs. Continue solumedrol 20mg Q6H. Cultures include repeat sputum, bloodx2, and urine cultures. (2) Pneumonia Current Visit: Yes Status: Acute Serology positive for human metapneumovirus. Will continue antibiotics at this time due to severity of patient's illness. Blood cultures demonstrated no growth. No sputum culture was able to be collected. Urine was negative for legionella antigen and streptococcus pneumoniae antigen. Qualifiers: Pneumonia type: due to unspecified organism Laterality: unspecified laterality Lung location: unspecified part of lung Qualified Code(s): J18.9 - Pneumonia, unspecified organism (3) ARDS (adult respiratory distress syndrome) Current Visit: Yes Status: Acute Follow ARDS protocol for ventilator settings. Patient was returned to supine position. (4) DVT prophylaxis Current Visit: Yes Status: Acute On lovenox. Protonix for GI prophylaxis. (5) Alkalosis Current Visit: Yes Status: Acute The patient had a contraction alkalosis and was bolused [id number] of NS. Subjective Principal diagnosis: Acute respiratory failure with hypoxia, ARDS secondary to severe community- Interval history: The patient was seen and examined. No acute events overnight. The patient did develop a fever of 101.3 overnight. Continues to be sedated and ventilated with stable oxygen requirement. Tube feeds are being tolerated well. Currently requiring 50% FiO2 at this time. Objective PUL Vital signs: Last Vital Signs Temp 101.2 F H 06/11/16 07:45 Pulse 134 06/11/16 08:29 Resp 19 06/11/16 07:50 BP 114/61 06/11/16 06:08 Pulse Ox 93 06/11/16 07:50 General appearance: other (sedated and ventilated) Eyes: nonicteric ENT: oropharynx moist Effort: other (on a vent) Auscultation: bilateral: rales (scattered) Cardiovascular: regular rate and rhythm (tachycardic) Gastrointestinal: normoactive bowel sounds, soft, non-distended Integumentary: normal Extremities: no cyanosis other (unable to assess due to sedation) Ventilator Settings Ventilator Settings: Ventilator Settings, Last 8 Hours Ventilator Mode VC+ Ventilator Mode VC+ Ventilator Mode VC+ Ventilator Mode VC+ Ventilator Mode VC+ Ventilator Mode VC+ Ventilator Tidal Volume 300 Setting Ventilator Tidal Volume 300 Setting Ventilator Tidal Volume 300 Setting Ventilator Tidal Volume 300 Setting Ventilator Tidal Volume 300 Setting Ventilator Tidal Volume 300 Setting Ventilator Respiratory Rate 18 Setting Ventilator Respiratory Rate 18 Setting Ventilator Respiratory Rate 18 Setting Ventilator Respiratory Rate 18 Setting Ventilator Respiratory Rate 18 Setting Ventilator Respiratory Rate 18 Setting Actual Respiratory Rate 18 Actual Respiratory Rate 18 Actual Respiratory Rate 18 Actual Respiratory Rate 18 Actual Respiratory Rate 21 Positive End Expiratory 12 Pressure Positive End Expiratory 12 Pressure Positive End Expiratory 12 Pressure Positive End Expiratory 12 Pressure Positive End Expiratory 12 Pressure Positive End Expiratory 12 Pressure Peak Inspiratory Airway 28 Pressure Peak Inspiratory Airway 28 Pressure Peak Inspiratory Airway 24 Pressure Peak Inspiratory Airway 35 Pressure Peak Inspiratory Airway 22 Pressure Results - Laboratory Findings CBC and BMP: 06/11/16 03:35 06/11/16 03:35 ABG ABG pH 7.43 pH Units (7.32-7.45) 06/11/16 04:17 ABG pCO2 85 mmHg (35-45) H* 06/11/16 04:17 ABG pO2 69 mmHg (85-104) L 06/11/16 04:17 ABG O2 Saturation 94 % (95-98) L 06/11/16 04:17 PT/INR, D-dimer PT 12.9 Seconds (9.4-12.1) H 06/07/16 06:22 Abnormal lab findings: Abnormal lab results WBC 22.3 K/mcL (4.3-11.1) H 06/11/16 03:35 RBC 3.41 M/mcL (3.82-4.97) L 06/11/16 03:35 Hgb 10.6 g/dL (11.5-15.4) L 06/11/16 03:35 Hct 33.5 % (35.3-44.9) L 06/11/16 03:35 RDW 16.8 % (11.5-14.5) H 06/11/16 03:35 Plt Count 525 K/mcL (140-400) H 06/11/16 03:35 Metamyelocytes % 1.0 % (0) H 06/11/16 03:35 Myelocytes % 2.0 % (0) H 06/11/16 03:35 Neutrophils # 17.8 K/mcL (1.6-8.9) H 06/11/16 03:35 Nucleated RBCs/100 WBC 1.5 /100 WBC (0) H 06/11/16 03:35 Reactive Lymphocytes Present (Not Present) A 06/10/16 07:18 Platelet Estimate Increased (Normal) H 06/11/16 03:35 Polychromasia 1+ (Not Present) A 06/10/16 07:18 Macrocytosis Present (Not Present) A 06/10/16 07:18 PT 12.9 Seconds (9.4-12.1) H 06/07/16 06:22 ABG pCO2 85 mmHg (35-45) H* 06/11/16 04:17 ABG pO2 69 mmHg (85-104) L 06/11/16 04:17 ABG HCO3 56.4 mEQ/L (21-27) H 06/11/16 04:17 ABG Total CO2 59.0 mEq/L (20-26) H 06/11/16 04:17 ABG O2 Saturation 94 % (95-98) L 06/11/16 04:17 ABG Base Excess 27.1 mEq/L (-2.0 to 3.0) H 06/11/16 04:17 VBG pH 7.48 pH Units (7.32-7.42) H 06/05/16 06:06 VBG pCO2 37 mmHg (41-51) L 06/05/16 06:06 VBG pO2 167 mmHg (25-40) H 06/05/16 06:06 VBG HCO3 27.6 mEq/L (21-27) H 06/05/16 06:06 Sodium 148 mEq/L (136-145) H 06/11/16 03:35 Chloride 96 mEq/L (98-109) L 06/11/16 03:35 Carbon Dioxide 44 mEq/L (19-29) H* 06/11/16 03:35 BUN 23 mg/dL (7-20) H 06/11/16 03:35 BUN/Creatinine Ratio 33 (6-26) H 06/11/16 03:35 Glucose 188 mg/dL (70-99) H 06/11/16 03:35 POC Glucose 179 (58-89) H 06/11/16 04:40 Calculated Osmolality 315 (280-300) H 06/11/16 03:35 Calcium 8.1 mg/dL (8.6-10.8) L 06/11/16 03:35 Albumin 2.2 g/dL (3.5-5.0) L 06/07/16 06:22 Globulin 4.5 g/dL (2.4-3.5) H 06/07/16 06:22 Albumin/Globulin Ratio 0.5 (1.1-2.2) L 06/07/16 06:22 Ur Specific [place] 1.007 (1.010-1.025) L 06/07/16 14:00 Urine Microscopic WBC 3-5 per hpf (0-3) H 06/05/16 07:16 Ur Squamous Epith Cells Many per lpf (None-Few) H 06/05/16 07:16 Human Metapneumovirus DETECTED (Not Detect) A 06/07/16 16:05 - Microbiology Findings Microbiology Findings: Microbiology, Last 48 Hours 06/10/16 02:35 Sputum Culture - Preliminary Sputum - Clinical Findings Intake & Output: Intake & Output 06/10/16 06/11/16 06/11/16 23:59 07:59 15:59 Intake Total 420 / 420 385 / 385 200 / 200 Output Total 1850 / 1850 350 / 350 Balance -1430 / -1430 35 / 35 200 / 200 Weight 102.5 kg - VTE Documentation of Mechanical Device: Graduated compression elastic hosiery Consult Discharge Plan - Plan Referrals: Manish Sheth MD [Primary Care Provider] - <Hector Ignacio W - Last Filed: 06/11/16 13:10> Date of Encounter: 06/11/16 Objective PUL Vital signs: Last Vital Signs Temp 100.4 F H 06/11/16 12:03 Pulse 125 06/11/16 12:02 Resp 20 06/11/16 12:02 BP 140/74 06/11/16 12:02 Pulse Ox 94 06/11/16 12:02 Ventilator Settings Ventilator Settings: Ventilator Settings, Last 8 Hours Ventilator Mode VC+ Ventilator Mode VC+ Ventilator Mode VC+ Ventilator Mode VC+ Ventilator Mode VC+ Ventilator Mode VC+ Ventilator Mode VC+ Ventilator Mode VC+ Ventilator Mode VC+ Ventilator Tidal Volume 300 Setting Ventilator Tidal Volume 300 Setting Ventilator Tidal Volume 300 Setting Ventilator Tidal Volume 300 Setting Ventilator Tidal Volume 300 Setting Ventilator Tidal Volume 300 Setting Ventilator Tidal Volume 300 Setting Ventilator Tidal Volume 300 Setting Ventilator Tidal Volume 300 Setting Ventilator Respiratory Rate 18 Setting Ventilator Respiratory Rate 18 Setting Ventilator Respiratory Rate 18 Setting Ventilator Respiratory Rate 18 Setting Ventilator Respiratory Rate 18 Setting Ventilator Respiratory Rate 18 Setting Ventilator Respiratory Rate 18 Setting Ventilator Respiratory Rate 18 Setting Ventilator Respiratory Rate 18 Setting Actual Respiratory Rate 20 Actual Respiratory Rate 20 Actual Respiratory Rate 20 Actual Respiratory Rate 20 Actual Respiratory Rate 20 Actual Respiratory Rate 20 Actual Respiratory Rate 18 Actual Respiratory Rate 18 Actual Respiratory Rate 18 Positive End Expiratory 10 Pressure Positive End Expiratory 10 Pressure Positive End Expiratory 10 Pressure Positive End Expiratory 12 Pressure Positive End Expiratory 12 Pressure Positive End Expiratory 12 Pressure Positive End Expiratory 12 Pressure Positive End Expiratory 12 Pressure Positive End Expiratory 12 Pressure Peak Inspiratory Airway 26 Pressure Peak Inspiratory Airway 26 Pressure Peak Inspiratory Airway 26 Pressure Peak Inspiratory Airway 28 Pressure Peak Inspiratory Airway 28 Pressure Peak Inspiratory Airway 26 Pressure Peak Inspiratory Airway 28 Pressure Peak Inspiratory Airway 28 Pressure Peak Inspiratory Airway 24 Pressure Results - Laboratory Findings CBC and BMP: 06/11/16 03:35 06/11/16 03:35 ABG ABG pH 7.43 pH Units (7.32-7.45) 06/11/16 04:17 ABG pCO2 85 mmHg (35-45) H* 06/11/16 04:17 ABG pO2 69 mmHg (85-104) L 06/11/16 04:17 ABG O2 Saturation 94 % (95-98) L 06/11/16 04:17 PT/INR, D-dimer PT 12.9 Seconds (9.4-12.1) H 06/07/16 06:22 Abnormal lab findings: Abnormal lab results WBC 22.3 K/mcL (4.3-11.1) H 06/11/16 03:35 RBC 3.41 M/mcL (3.82-4.97) L 06/11/16 03:35 Hgb 10.6 g/dL (11.5-15.4) L 06/11/16 03:35 Hct 33.5 % (35.3-44.9) L 06/11/16 03:35 RDW 16.8 % (11.5-14.5) H 06/11/16 03:35 Plt Count 525 K/mcL (140-400) H 06/11/16 03:35 Metamyelocytes % 1.0 % (0) H 06/11/16 03:35 Myelocytes % 2.0 % (0) H 06/11/16 03:35 Neutrophils # 17.8 K/mcL (1.6-8.9) H 06/11/16 03:35 Nucleated RBCs/100 WBC 1.5 /100 WBC (0) H 06/11/16 03:35 Reactive Lymphocytes Present (Not Present) A 06/10/16 07:18 Platelet Estimate Increased (Normal) H 06/11/16 03:35 Polychromasia 1+ (Not Present) A 06/10/16 07:18 Macrocytosis Present (Not Present) A 06/10/16 07:18 PT 12.9 Seconds (9.4-12.1) H 06/07/16 06:22 ABG pCO2 85 mmHg (35-45) H* 06/11/16 04:17 ABG pO2 69 mmHg (85-104) L 06/11/16 04:17 ABG HCO3 56.4 mEQ/L (21-27) H 06/11/16 04:17 ABG Total CO2 59.0 mEq/L (20-26) H 06/11/16 04:17 ABG O2 Saturation 94 % (95-98) L 06/11/16 04:17 ABG Base Excess 27.1 mEq/L (-2.0 to 3.0) H 06/11/16 04:17 VBG pH 7.48 pH Units (7.32-7.42) H 06/05/16 06:06 VBG pCO2 37 mmHg (41-51) L 06/05/16 06:06 VBG pO2 167 mmHg (25-40) H 06/05/16 06:06 VBG HCO3 27.6 mEq/L (21-27) H 06/05/16 06:06 Sodium 148 mEq/L (136-145) H 06/11/16 03:35 Chloride 96 mEq/L (98-109) L 06/11/16 03:35 Carbon Dioxide 44 mEq/L (19-29) H* 06/11/16 03:35 BUN 23 mg/dL (7-20) H 06/11/16 03:35 BUN/Creatinine Ratio 33 (6-26) H 06/11/16 03:35 Glucose 188 mg/dL (70-99) H 06/11/16 03:35 POC Glucose 196 (58-89) H 06/11/16 11:31 Calculated Osmolality 315 (280-300) H 06/11/16 03:35 Calcium 8.1 mg/dL (8.6-10.8) L 06/11/16 03:35 Albumin 2.2 g/dL (3.5-5.0) L 06/07/16 06:22 Globulin 4.5 g/dL (2.4-3.5) H 06/07/16 06:22 Albumin/Globulin Ratio 0.5 (1.1-2.2) L 06/07/16 06:22 Urine Clarity Cloudy (Clear) A 06/11/16 12:15 Ur Specific [place] 1.026 (1.010-1.025) H 06/11/16 12:15 Urine Protein 30 mg/dL (Neg-Trace) H 06/11/16 12:15 Urine Blood Large (Negative) H 06/11/16 12:15 Urine Microscopic RBC 50-100 per hpf (0-3) H 06/11/16 12:15 Urine Microscopic WBC 3-5 per hpf (0-3) H 06/11/16 12:15 Ur Squamous Epith Cells Many per lpf (None-Few) H 06/11/16 12:15 Human Metapneumovirus DETECTED (Not Detect) A 06/07/16 16:05 - Microbiology Findings Microbiology Findings: Microbiology, Last 48 Hours 06/10/16 02:35 Sputum Culture - Preliminary Sputum - Clinical Findings Intake & Output: Intake & Output 06/10/16 06/11/16 06/11/16 23:59 07:59 15:59 Intake Total 420 / 420 385 / 385 500 / 500 Output Total 1850 / 1850 350 / 350 250 / 250 Balance -1430 / -1430 35 / 35 250 / 250 Weight 102.5 kg - Attending Attestation I examined this patient and my medical decision-making was reviewed with the CRUTCHER HELPER/PA/Advanced Practice Nurse/Resident Physician. I agree with the documented findings, disposition and treatment plan as described except to the extent set forth below. Patient seen and examined at bedside Labs, radiology, chart personally reviewed. All lines examined without evidence of infection. Neuropsych: Sedated on vent. awkes today and opens eyes and moves all exts. History of Trisomy 21. cont daily sedation holiday. Pulm: Acute on chronic hypoxic hypercapnic respiratory failure with community- acquired pneumonia leading to ARDS. Supine now and NMB lifted. accepatble O2/ Ventilation on 50% and 10 of PEEP. Cards: No evidence of shock continue to monitor goal MAP greater than 60 FEN-GI: GI prophylaxis given. Cont Enteral nutrition. Start Bowel regimen. Renal: Contraction alkalosis replace fluids today. Monitor UOP. ID: Sepsis from Lung source (Metapneumovirus) + which likely has led to bacterial coinfection She has been covered for CAP organism but Pyrexia overnight and WBC continues to climb. Broad cultures pending including for line infection, UTI. No changes in vent makes VAP much less likely. ABx esclated to cover for HAP organisms. Heme/Onc: DVT prophylaxis given Endo: Glucose monitored Integ/MSK: Skin care per ICU protocol to prevent ulcers CODE: Full Code.
[2016-06-11] MEDS ORDERED: Vancomycin 1,500 MG in D5% in Water 250 ML IVPB SCH (12:00)
[2016-06-11 12:46] LABS: Bilirubin,Urine Negative (Negative); Blood,Urine Large (Negative); Clarity,Urine Cloudy (Clear); Color,Urine Yellow (Yellow); Glucose,Urine (UA) Normal (Normal); Ketones,Urine Negative (Negative); Leukocyte Esterase,Urine Negative (Negative); Nitrite,Urine Negative (Negative); Protein,Urine 30 mg/dL (Neg-Trace); Specific Gravity,Urine 1.026 (1.010-1.025); Urobilinogen,Urine Normal (Normal)
[2016-06-11 12:48] LABS: Bacteria,Urine None Seen per hpf (None-Few); Hyaline Casts,Urine None Seen per lpf (None-Few); RBC,Urine 50-100 per hpf (0-3); Squamous Epithelial Cell,Urine Many per lpf (None-Few)
[2016-06-11 12:56] LABS: Transitional Epi Cells,Urine Present per hpf (None-Few)
[2016-06-11] MEDS: Valproic Acid INJ 500 MG in 0.9 % Sodium Chloride 100 ML IVPB SCH ×2 (13:00→21:22)
[2016-06-11] MEDS ORDERED: Vancomycin 2,000 MG in D5% in Water 500 ML IVPB ONE (13:00)
[2016-06-11] MEDS: Lacri-Lube 3.5 GM TUBE BOTH EYES SCH ×2 (13:02→21:23)
[2016-06-11] MEDS: Dexmedetomidine HCl 400 MCG/100 ML MLS IVC SCH (13:16)
[2016-06-11] MEDS: Piperacillin/Tazobactam 3.375 GM in D5% in Water (Mini-Bag+) 100 ML IVPB SCH ×2 (14:20→21:21)
[2016-06-11] MEDS: FentaNYL (PF) 3,000 MCG in 0.9 % Sodium Chloride 240 ML IVC SCH (14:29)
[2016-06-11] MEDS: 0.9 % Sodium Chloride 1,000 ML IVC SCH (18:18)
[2016-06-11 22:47] LABS: Mean Corpuscular HGB Conc 31.6 g/dL (31.6-35.5); Mean Corpuscular Hemoglobin 31.4 pg (28.0-33.3); Mean Corpuscular Volume 99.4 fL (83.0-100.0)
[2016-06-11 22:49] LABS: Hematocrit 32.6 % (35.3-44.9); Hemoglobin 10.3 g/dL (11.5-15.4); Immature Platelets 3.6 % (1.1-6.1); Mean Platelet Volume 9.9 fL (9.4-12.4); Nucleated Red Blood Cells 1.2 /100 WBC (0); Platelet Count 542 K/mcL (140-400); Red Blood Count 3.28 M/mcL (3.82-4.97)
[2016-06-11 22:59] LABS: BUN/Creatinine Ratio 26 (6-26); Blood Urea Nitrogen 17 mg/dL (7-20); Calcium 7.9 mg/dL (8.6-10.8); Chloride 98 mEq/L (98-109); Glucose 168 mg/dL (70-99); Osmolality,Calculated 303 (280-300); Potassium 4.5 mEq/L (3.5-4.5); Sodium 144 mEq/L (136-145); eGFR For African Americans > 60 (> 60); eGFR For Non-African Americans > 60 (> 60)
[2016-06-11 23:07] LABS: Carbon Dioxide 40 mEq/L (19-29)
[2016-06-11 23:14] LABS: Anisocytosis 1+ (Not Present); Lymphocytes # 2.2 K/mcL (0.6-4.6); Monocytes # 1.1 K/mcL (0.0-1.3); Neutrophils # 22.7 K/mcL (1.6-8.9); Platelet Estimate Increased (Normal); Polychromasia 1+ (Not Present)
[2016-06-11 23:15] LABS: Hypochromasia Present (Not Present)
[2016-06-12] MEDS: Ipratropium/Albuterol Neb 3 ML IH SCH ×6 (00:24→19:58)
[2016-06-12] MEDS: MethylPREDNISolone 40 MG/ML VIAL IVP SCH ×2 (00:34→06:29)
[2016-06-12] MEDS: Vancomycin 1,500 MG in D5% in Water 250 ML IVPB SCH ×2 (00:37→14:08)
[2016-06-12] MEDS: Insulin LISPRO 300 UNITS/3 ML VIAL SQ SCH ×4 (00:37→18:12)
[2016-06-12 05:02] LABS: Hemoglobin 10.5 g/dL (11.5-15.4); Platelet Count 478 K/mcL (140-400)
[2016-06-12 05:03] LABS: Hematocrit 33.3 % (35.3-44.9); Mean Corpuscular HGB Conc 31.5 g/dL (31.6-35.5); Mean Corpuscular Hemoglobin 31.3 pg (28.0-33.3); Mean Corpuscular Volume 99.1 fL (83.0-100.0); Mean Platelet Volume 9.8 fL (9.4-12.4); Nucleated Red Blood Cells 1.3 /100 WBC (0); Red Blood Count 3.36 M/mcL (3.82-4.97); Red Cell Distribution Width 16.8 % (11.5-14.5)
[2016-06-12 05:14] LABS: Albumin 2.1 g/dL (3.5-5.0); BUN/Creatinine Ratio 25 (6-26); Blood Urea Nitrogen 16 mg/dL (7-20); Calcium 7.8 mg/dL (8.6-10.8); Carbon Dioxide 38 mEq/L (19-29); Chloride 98 mEq/L (98-109); Glucose 155 mg/dL (70-99); Osmolality,Calculated 300 (280-300); Phosphorous 2.2 mg/dL (2.3-4.7); Potassium 4.5 mEq/L (3.5-4.5); Sodium 143 mEq/L (136-145); eGFR For African Americans > 60 (> 60); eGFR For Non-African Americans > 60 (> 60)
[2016-06-12 06:22] LABS: Lymphocytes # 5.7 K/mcL (0.6-4.6); Monocytes # 1.1 K/mcL (0.0-1.3); Neutrophils # 21.7 K/mcL (1.6-8.9)
[2016-06-12 06:24] LABS: Platelet Estimate Increased (Normal); Polychromasia 1+ (Not Present); Reactive Lymphocytes Present (Not Present); Smudge Cells Present (Not Present)
[2016-06-12 06:25] LABS: Anisocytosis 1+ (Not Present)
[2016-06-12] MEDS: Piperacillin/Tazobactam 3.375 GM in D5% in Water (Mini-Bag+) 100 ML IVPB SCH ×3 (06:28→20:15)
[2016-06-12] MEDS: Levothyroxine Sodium 100 MCG VIAL IV SCH (06:29)
[2016-06-12] MEDS: *HR* Enoxaparin 40 MG/0.4 ML SYRINGE SQ SCH (06:29)
[2016-06-12] MEDS: Dexmedetomidine HCl 400 MCG/100 ML MLS IVC SCH ×3 (06:50→16:29)
[2016-06-12] MEDS: Pantoprazole 40 MG VIAL IVPB SCH (07:35)
[2016-06-12] MEDS: Docusate Oral Soln 100 MG/10 ML UDC GTUBE SCH ×2 (07:35→21:32)
[2016-06-12] MEDS: Nystatin SUSP 5 ML UD.LIQ PO SCH ×4 (07:35→21:32)
[2016-06-12] MEDS: Chlorhexidine Rinse 15 ML MOUTHWASH MM SCH ×2 (07:35→21:32)
[2016-06-12] MEDS: Vitamin B Complex/Vit C/Vit E 1 EACH TABLET PO SCH (07:35)
[2016-06-12] MEDS: Lacri-Lube 3.5 GM TUBE BOTH EYES SCH ×2 (07:36→21:34)
[2016-06-12] MEDS: Multivit/Ca/Min/Fe/FA 1 TAB TABLET PO SCH (07:37)
[2016-06-12 07:47] LABS: ABG Base Excess 17.7 mEq/L (-2.0 to 3.0); ABG HCO3 45.4 mEQ/L (21-27); ABG Oxygen Saturation 94 % (95-98); ABG PH 7.42 pH Units (7.32-7.45); ABG PO2 68 mmHg (85-104); ABG TCO2 47.5 mEq/L (20-26)
[2016-06-12 07:48] LABS: Blood Gas FiO2 50 %
[2016-06-12 07:49] LABS: ABG PCO2 70 mmHg (35-45)
[2016-06-12] MEDS: FentaNYL (PF) 3,000 MCG in 0.9 % Sodium Chloride 240 ML IVC SCH (07:57)
[2016-06-12] MEDS: 0.9 % Sodium Chloride 1,000 ML IVC SCH (07:58)
--- NOTE | 2016-06-12 08:01 | Pulmonology Progress Note ---
<Helder Escoto - Last Filed: 06/12/16 11:10> Date of Encounter: 06/12/16 Time of Encounter: 08:01 Assessment and Plan (1) Acute respiratory failure with hypoxia and hypercapnia Current Visit: Yes Status: Acute Suspected secondary to community acquired pneumonia likely with hypoventilation syndrome in addition. Patient has ARDS and is in ARDS network ventilator protocol. She was put back into a supine position yesterday afternoon. Fevers overnight with elevated WBC this morning. Continuing to require 50% FiO2 for adequate oxygenation. At this time cultures are negative for bacteria. Was found to be positive for human metapneumovirus. Will continue antibiotics to complete course. Continue Zosyn Day #2. Continue Vancomycin Day #2. Continue Duo Nebs Q4hrs. Solumedrol 20mg Q6H has been discontinued. Urine culture is negative. Sputum culture demonstrates yeast. Blood cultures pending. Bowel regimen has been started. (2) Pneumonia Current Visit: Yes Status: Acute Serology positive for human metapneumovirus. Will continue antibiotics at this time due to severity of patient's illness with increasing WBC and intermittent fevers. Blood cultures demonstrated no growth. Redrawn 06/11. Pending results. Sputum culture demonstrated yeast. Urine was negative for legionella antigen and streptococcus pneumoniae antigen. Qualifiers: Pneumonia type: due to unspecified organism Laterality: unspecified laterality Lung location: unspecified part of lung Qualified Code(s): J18.9 - Pneumonia, unspecified organism (3) ARDS (adult respiratory distress syndrome) Current Visit: Yes Status: Acute Follow ARDS protocol for ventilator settings. (4) DVT prophylaxis Current Visit: Yes Status: Acute On lovenox. Protonix for GI prophylaxis. (5) Leukocytosis Current Visit: Yes Status: Acute Unclear source at this time. Rise in lympocytes over the past 4 days. Differential includes AML in the setting of patient with Down's Syndrome. Called the pathologist to discuss findings. Dr. Parker in pathology reports findings are more consistent with reactive findings and she does not note any blasts and therefore AML is very unlikely. Lines do not demonstrate signs of infection. Will obtain contrast CT of chest, abdomen, and pelvis to assess for source. Qualifiers: Leukocytosis type: lymphocytosis Qualified Code(s): D72.820 - Lymphocytosis (symptomatic) Subjective Principal diagnosis: Acute respiratory failure with hypoxia, ARDS secondary to severe community- Interval history: The patient was seen and examined. Fevers have stopped at 5AM this morning. Was febrile through most of yesterday. Continues to be sedated and ventilated with stable oxygen requirement. Tube feeds are being tolerated well. Currently requiring 50% FiO2 at this time. Objective PUL Vital signs: Last Vital Signs Temp 98.9 F 06/12/16 04:59 Pulse 112 06/12/16 06:00 Resp 27 06/12/16 07:27 BP 163/94 06/12/16 07:27 Pulse Ox 93 06/12/16 07:27 General appearance: other (sedated on a vent, opens eyes briefly during examination) Eyes: nonicteric ENT: oropharynx moist Effort: other (on a vent) Auscultation: bilateral: diminished breath sounds (at lung bases) Cardiovascular: regular rate and rhythm (tachycardic) Gastrointestinal: normoactive bowel sounds, soft, non-tender, non-distended Integumentary: normal Extremities: no cyanosis other (unable to assess due to sedation) Ventilator Settings Ventilator Settings: Ventilator Settings, Last 8 Hours Ventilator Mode VC+ Ventilator Mode VC+ Ventilator Mode VC+ Ventilator Mode VC+ Ventilator Mode VC+ Ventilator Tidal Volume 300 Setting Ventilator Tidal Volume 300 Setting Ventilator Tidal Volume 300 Setting Ventilator Tidal Volume 300 Setting Ventilator Tidal Volume 300 Setting Ventilator Respiratory Rate 18 Setting Ventilator Respiratory Rate 18 Setting Ventilator Respiratory Rate 18 Setting Ventilator Respiratory Rate 18 Setting Ventilator Respiratory Rate 18 Setting Actual Respiratory Rate 27 Actual Respiratory Rate 22 Actual Respiratory Rate 20 Actual Respiratory Rate 18 Actual Respiratory Rate 19 Positive End Expiratory 10 Pressure Positive End Expiratory 10 Pressure Positive End Expiratory 10 Pressure Positive End Expiratory 10 Pressure Positive End Expiratory 10 Pressure Peak Inspiratory Airway 20 Pressure Peak Inspiratory Airway 24 Pressure Peak Inspiratory Airway 29 Pressure Peak Inspiratory Airway 27 Pressure Peak Inspiratory Airway 27 Pressure Results - Laboratory Findings CBC and BMP: 06/12/16 04:50 06/12/16 04:50 ABG ABG pH 7.42 pH Units (7.32-7.45) 06/12/16 07:35 ABG pCO2 70 mmHg (35-45) H* 06/12/16 07:35 ABG pO2 68 mmHg (85-104) L 06/12/16 07:35 ABG O2 Saturation 94 % (95-98) L 06/12/16 07:35 PT/INR, D-dimer PT 12.9 Seconds (9.4-12.1) H 06/07/16 06:22 Abnormal lab findings: Abnormal lab results WBC 28.5 K/mcL (4.3-11.1) H 06/12/16 04:50 RBC 3.36 M/mcL (3.82-4.97) L 06/12/16 04:50 Hgb 10.5 g/dL (11.5-15.4) L 06/12/16 04:50 Hct 33.3 % (35.3-44.9) L 06/12/16 04:50 MCHC 31.5 g/dL (31.6-35.5) L 06/12/16 04:50 RDW 16.8 % (11.5-14.5) H 06/12/16 04:50 Plt Count 478 K/mcL (140-400) H 06/12/16 04:50 Band Neutrophils % 6.0 % (0-4) H 06/12/16 04:50 Metamyelocytes % 1.0 % (0) H 06/11/16 03:35 Myelocytes % 6.0 % (0) H 06/11/16 22:35 Neutrophils # 21.7 K/mcL (1.6-8.9) H 06/12/16 04:50 Lymphocytes # 5.7 K/mcL (0.6-4.6) H 06/12/16 04:50 Nucleated RBCs/100 WBC 1.3 /100 WBC (0) H 06/12/16 04:50 Reactive Lymphocytes Present (Not Present) A 06/12/16 04:50 Smudge Cells Present (Not Present) A 06/12/16 04:50 Platelet Estimate Increased (Normal) H 06/12/16 04:50 Polychromasia 1+ (Not Present) A 06/12/16 04:50 Hypochromasia Present (Not Present) A 06/11/16 22:35 Anisocytosis 1+ (Not Present) A 06/12/16 04:50 Macrocytosis Present (Not Present) A 06/10/16 07:18 PT 12.9 Seconds (9.4-12.1) H 06/07/16 06:22 ABG pCO2 70 mmHg (35-45) H* 06/12/16 07:35 ABG pO2 68 mmHg (85-104) L 06/12/16 07:35 ABG HCO3 45.4 mEQ/L (21-27) H 06/12/16 07:35 ABG Total CO2 47.5 mEq/L (20-26) H 06/12/16 07:35 ABG O2 Saturation 94 % (95-98) L 06/12/16 07:35 ABG Base Excess 17.7 mEq/L (-2.0 to 3.0) H 06/12/16 07:35 VBG pH 7.48 pH Units (7.32-7.42) H 06/05/16 06:06 VBG pCO2 37 mmHg (41-51) L 06/05/16 06:06 VBG pO2 167 mmHg (25-40) H 06/05/16 06:06 VBG HCO3 27.6 mEq/L (21-27) H 06/05/16 06:06 Carbon Dioxide 38 mEq/L (19-29) H 06/12/16 04:50 Glucose 155 mg/dL (70-99) H 06/12/16 04:50 POC Glucose 160 (58-89) H 06/12/16 04:32 Calcium 7.8 mg/dL (8.6-10.8) L 06/12/16 04:50 Phosphorus 2.2 mg/dL (2.3-4.7) L 06/12/16 04:50 Albumin 2.1 g/dL (3.5-5.0) L 06/12/16 04:50 Globulin 4.5 g/dL (2.4-3.5) H 06/07/16 06:22 Albumin/Globulin Ratio 0.5 (1.1-2.2) L 06/07/16 06:22 Urine Clarity Cloudy (Clear) A 06/11/16 12:15 Ur Specific White 1.026 (1.010-1.025) H 06/11/16 12:15 Urine Protein 30 mg/dL (Neg-Trace) H 06/11/16 12:15 Urine Blood Large (Negative) H 06/11/16 12:15 Urine Microscopic RBC 50-100 per hpf (0-3) H 06/11/16 12:15 Urine Microscopic WBC 3-5 per hpf (0-3) H 06/11/16 12:15 Ur Squamous Epith Cells Many per lpf (None-Few) H 06/11/16 12:15 Human Metapneumovirus DETECTED (Not Detect) A 06/07/16 16:05 - Microbiology Findings Microbiology Findings: Microbiology, Last 48 Hours 06/10/16 02:35 Sputum Culture - Preliminary Sputum Yeast Species - Clinical Findings Intake & Output: Intake & Output 06/11/16 06/12/16 06/12/16 23:59 07:59 15:59 Intake Total 2310 / 2310 1750 / 1750 Output Total 350 / 350 600 / 600 Balance 1959 / 1959 1150 / 1150 Weight 103.419 kg - VTE Documentation of Mechanical Device: Graduated compression elastic hosiery Consult Discharge Plan - Plan Referrals: Manish Sheth MD [Primary Care Provider] - <Hector Ignacio W - Last Filed: 06/12/16 12:20> Date of Encounter: 06/12/16 Objective PUL Vital signs: Last Vital Signs Temp 100.7 F H 06/12/16 08:21 Pulse 91 06/12/16 11:00 Resp 20 06/12/16 11:15 BP 108/68 06/12/16 11:15 Pulse Ox 99 06/12/16 11:15 Ventilator Settings Ventilator Settings: Ventilator Settings, Last 8 Hours Ventilator Mode VC+ Ventilator Mode VC+ Ventilator Mode VC+ Ventilator Mode VC+ Ventilator Mode VC+ Ventilator Mode VC+ Ventilator Mode VC+ Ventilator Mode VC+ Ventilator Mode VC+ Ventilator Tidal Volume 300 Setting Ventilator Tidal Volume 300 Setting Ventilator Tidal Volume 300 Setting Ventilator Tidal Volume 300 Setting Ventilator Tidal Volume 300 Setting Ventilator Tidal Volume 300 Setting Ventilator Tidal Volume 300 Setting Ventilator Tidal Volume 300 Setting Ventilator Tidal Volume 300 Setting Ventilator Respiratory Rate 18 Setting Ventilator Respiratory Rate 18 Setting Ventilator Respiratory Rate 18 Setting Ventilator Respiratory Rate 18 Setting Ventilator Respiratory Rate 18 Setting Ventilator Respiratory Rate 18 Setting Ventilator Respiratory Rate 18 Setting Ventilator Respiratory Rate 18 Setting Ventilator Respiratory Rate 18 Setting Actual Respiratory Rate 19 Actual Respiratory Rate 19 Actual Respiratory Rate 20 Actual Respiratory Rate 20 Actual Respiratory Rate 20 Actual Respiratory Rate 27 Actual Respiratory Rate 27 Actual Respiratory Rate 22 Positive End Expiratory 5 Pressure Positive End Expiratory 5 Pressure Positive End Expiratory 8 Pressure Positive End Expiratory 8 Pressure Positive End Expiratory 8 Pressure Positive End Expiratory 10 Pressure Positive End Expiratory 8 Pressure Positive End Expiratory 10 Pressure Positive End Expiratory 10 Pressure Peak Inspiratory Airway 18 Pressure Peak Inspiratory Airway 18 Pressure Peak Inspiratory Airway 23 Pressure Peak Inspiratory Airway 23 Pressure Peak Inspiratory Airway 23 Pressure Peak Inspiratory Airway 20 Pressure Peak Inspiratory Airway 20 Pressure Peak Inspiratory Airway 24 Pressure Results - Laboratory Findings CBC and BMP: 06/12/16 04:50 06/12/16 04:50 ABG ABG pH 7.42 pH Units (7.32-7.45) 06/12/16 07:35 ABG pCO2 70 mmHg (35-45) H* 06/12/16 07:35 ABG pO2 68 mmHg (85-104) L 06/12/16 07:35 ABG O2 Saturation 94 % (95-98) L 06/12/16 07:35 PT/INR, D-dimer PT 12.9 Seconds (9.4-12.1) H 06/07/16 06:22 Abnormal lab findings: Abnormal lab results WBC 28.5 K/mcL (4.3-11.1) H 06/12/16 04:50 RBC 3.36 M/mcL (3.82-4.97) L 06/12/16 04:50 Hgb 10.5 g/dL (11.5-15.4) L 06/12/16 04:50 Hct 33.3 % (35.3-44.9) L 06/12/16 04:50 MCHC 31.5 g/dL (31.6-35.5) L 06/12/16 04:50 RDW 16.8 % (11.5-14.5) H 06/12/16 04:50 Plt Count 478 K/mcL (140-400) H 06/12/16 04:50 Band Neutrophils % 6.0 % (0-4) H 06/12/16 04:50 Metamyelocytes % 1.0 % (0) H 06/11/16 03:35 Myelocytes % 6.0 % (0) H 06/11/16 22:35 Neutrophils # 21.7 K/mcL (1.6-8.9) H 06/12/16 04:50 Lymphocytes # 5.7 K/mcL (0.6-4.6) H 06/12/16 04:50 Nucleated RBCs/100 WBC 1.3 /100 WBC (0) H 06/12/16 04:50 Reactive Lymphocytes Present (Not Present) A 06/12/16 04:50 Smudge Cells Present (Not Present) A 06/12/16 04:50 Platelet Estimate Increased (Normal) H 06/12/16 04:50 Polychromasia 1+ (Not Present) A 06/12/16 04:50 Hypochromasia Present (Not Present) A 06/11/16 22:35 Anisocytosis 1+ (Not Present) A 06/12/16 04:50 Macrocytosis Present (Not Present) A 06/10/16 07:18 PT 12.9 Seconds (9.4-12.1) H 06/07/16 06:22 ABG pCO2 70 mmHg (35-45) H* 06/12/16 07:35 ABG pO2 68 mmHg (85-104) L 06/12/16 07:35 ABG HCO3 45.4 mEQ/L (21-27) H 06/12/16 07:35 ABG Total CO2 47.5 mEq/L (20-26) H 06/12/16 07:35 ABG O2 Saturation 94 % (95-98) L 06/12/16 07:35 ABG Base Excess 17.7 mEq/L (-2.0 to 3.0) H 06/12/16 07:35 VBG pH 7.48 pH Units (7.32-7.42) H 06/05/16 06:06 VBG pCO2 37 mmHg (41-51) L 06/05/16 06:06 VBG pO2 167 mmHg (25-40) H 06/05/16 06:06 VBG HCO3 27.6 mEq/L (21-27) H 06/05/16 06:06 Carbon Dioxide 38 mEq/L (19-29) H 06/12/16 04:50 Glucose 155 mg/dL (70-99) H 06/12/16 04:50 POC Glucose 160 (58-89) H 06/12/16 04:32 Calcium 7.8 mg/dL (8.6-10.8) L 06/12/16 04:50 Phosphorus 2.2 mg/dL (2.3-4.7) L 06/12/16 04:50 Albumin 2.1 g/dL (3.5-5.0) L 06/12/16 04:50 Globulin 4.5 g/dL (2.4-3.5) H 06/07/16 06:22 Albumin/Globulin Ratio 0.5 (1.1-2.2) L 06/07/16 06:22 Urine Clarity Cloudy (Clear) A 06/11/16 12:15 Ur Specific White 1.026 (1.010-1.025) H 06/11/16 12:15 Urine Protein 30 mg/dL (Neg-Trace) H 06/11/16 12:15 Urine Blood Large (Negative) H 06/11/16 12:15 Urine Microscopic RBC 50-100 per hpf (0-3) H 06/11/16 12:15 Urine Microscopic WBC 3-5 per hpf (0-3) H 06/11/16 12:15 Ur Squamous Epith Cells Many per lpf (None-Few) H 06/11/16 12:15 Human Metapneumovirus DETECTED (Not Detect) A 06/07/16 16:05 - Microbiology Findings Microbiology Findings: Microbiology, Last 48 Hours 06/10/16 02:35 Sputum Culture - Preliminary Sputum Yeast Species - Clinical Findings Intake & Output: Intake & Output 06/11/16 06/12/16 06/12/16 23:59 07:59 15:59 Intake Total 2310 / 2310 1750 / 1750 200 / 200 Output Total 350 / 350 600 / 600 200 / 200 Balance 1959 / 1960 1150 / 1150 0 / 0 Weight 103.419 kg - Attending Attestation I examined this patient and my medical decision-making was reviewed with the [employer]/PA/Advanced Practice Nurse/Resident Physician. I agree with the documented findings, disposition and treatment plan as described except to the extent set forth below. Patient seen and examined at bedside Labs, radiology, chart personally reviewed. All lines examined without evidence of infection. Neuropsych: Sedated on vent. Follows simple commands. History of Trisomy 21. cont daily sedation holiday. Pulm: Acute on chronic hypoxic hypercapnic respiratory failure with community- acquired pneumonia leading to ARDS. Acceptable oxygenation/ventilation on 50% fio2 and PEEP 5. Cards: No evidence of shock continue to monitor goal MAP greater than 60 FEN-GI: GI prophylaxis given. Cont Enteral nutrition. Start Bowel regimen. Renal: Contraction alkalosis improving continue fluids today. She is having appropriate UOP. ID: Persistent leukocytosis despite broadening antibiotics yesterday cultures as far nondiagnostic she does have a sputum culture with yeast growing which is likely contaminant do not feel obligated to treat for this at this time will send patient for CT chest abdomen pelvis to rule out occult infection or possibility of colitis although patient does not have any diarrhea Heme/Onc: DVT prophylaxis given Endo: Glucose monitored stop steroids Integ/MSK: Skin care per ICU protocol to prevent ulcers CODE: Full Code.
[2016-06-12] MEDS: Sennosides/Docusate Sodium TABLET PO SCH ×2 (11:33→21:32)
[2016-06-12] MEDS: Valproic Acid INJ 500 MG in 0.9 % Sodium Chloride 100 ML IVPB SCH ×2 (12:47→21:34)
[2016-06-12] MEDS: MetroNIDAZOLE 500 MG/100 ML 500 MG/100 ML BAG IVPB SCH (16:28)
[2016-06-12 16:42] LABS: Cryptosporidium by PCR Not detected (Not detect); Cyclospora cayetanensis PCR Not detected (Not detect); E. coli O157 by PCR Not detected (Not detect); Entamoeba histolytica PCR Not detected (Not detect); Enteroaggregative E.coli(EAEC) Not detected (Not detect); Enteropathogenic E.coli(EPEC) Not detected (Not detect); Enterotoxigenic E.coli (ETEC) Not detected (Not detect); Giardia lamblia PCR Not detected (Not detect); Plesiomonas shigelloides PCR Not detected (Not detect); Salmonella PCR Not detected (Not detect); Shig/EnteroinvasiveE coli EIEC Not detected (Not detect); Shigalike tox-prod E coli STEC Not detected (Not detect); Vibrio PCR Not detected (Not detect); Vibrio cholerae PCR Not detected (Not detect); Yersinia enterocolitica PCR Not detected (Not detect)
[2016-06-12 16:43] LABS: Adenovirus F 40/41 PCR Not detected (Not detect); Astrovirus PCR Not detected (Not detect); Norovirus GI/GII PCR Not detected (Not detect); Rotavirus A PCR Not detected (Not detect); Sapovirus PCR Not detected (Not detect)
[2016-06-12] MEDS: Vecuronium 50 MG in 0.9 % Sodium Chloride 150 ML IVC SCH (20:20)
[2016-06-13] MEDS: Dexmedetomidine HCl 400 MCG/100 ML MLS IVC SCH ×5 (00:12→23:45)
[2016-06-13] MEDS: MetroNIDAZOLE 500 MG/100 ML 500 MG/100 ML BAG IVPB SCH ×4 (00:12→23:45)
[2016-06-13] MEDS: Ipratropium/Albuterol Neb 3 ML IH SCH ×6 (00:12→19:55)
[2016-06-13] MEDS: Insulin LISPRO 300 UNITS/3 ML VIAL SQ SCH ×5 (00:13→23:46)
[2016-06-13] MEDS: Vancomycin 1,500 MG in D5% in Water 250 ML IVPB SCH (03:52)
[2016-06-13 03:54] LABS: ABG Base Excess 17.9 mEq/L (-2.0 to 3.0); ABG HCO3 44.8 mEQ/L (21-27); ABG Oxygen Saturation 95 % (95-98); ABG PCO2 66 mmHg (35-45); ABG PH 7.44 pH Units (7.32-7.45); ABG PO2 75 mmHg (85-104); ABG TCO2 46.8 mEq/L (20-26)
[2016-06-13 03:56] LABS: Blood Gas FiO2 60 %
[2016-06-13] MEDS ORDERED: Vancomycin 1,750 MG in D5% in Water 500 ML IVPB SCH (04:00)
[2016-06-13] MEDS: Piperacillin/Tazobactam 3.375 GM in D5% in Water (Mini-Bag+) 100 ML IVPB SCH ×3 (04:15→20:08)
[2016-06-13 04:24] LABS: Basophils # 0.1 K/mcL (0.0-0.2); Basophils % 0.4 %; Eosinophils % 0.1 %; Hematocrit 31.7 % (35.3-44.9); Hemoglobin 9.8 g/dL (11.5-15.4); Lymphocytes # 2.7 K/mcL (0.6-4.6); Lymphocytes % 16.3 %; Mean Corpuscular HGB Conc 30.9 g/dL (31.6-35.5); Mean Corpuscular Hemoglobin 30.2 pg (28.0-33.3); Mean Corpuscular Volume 97.5 fL (83.0-100.0); Mean Platelet Volume 9.6 fL (9.4-12.4); Monocytes # 1.3 K/mcL (0.0-1.3); Monocytes % 7.6 %; Platelet Count 371 K/mcL (140-400); Red Blood Count 3.25 M/mcL (3.82-4.97); Red Cell Distribution Width 16.3 % (11.5-14.5); Segmented Neutrophils % 64.6 %
[2016-06-13 04:29] LABS: Neutrophils # 10.9 K/mcL (1.6-8.9)
[2016-06-13 04:34] LABS: BUN/Creatinine Ratio 24 (6-26); Blood Urea Nitrogen 15 mg/dL (7-20); Calcium 7.6 mg/dL (8.6-10.8); Carbon Dioxide 38 mEq/L (19-29); Chloride 98 mEq/L (98-109); Glucose 124 mg/dL (70-99); Osmolality,Calculated 294 (280-300); Potassium 4.4 mEq/L (3.5-4.5); Sodium 141 mEq/L (136-145); eGFR For African Americans > 60 (> 60); eGFR For Non-African Americans > 60 (> 60)
[2016-06-13 04:56] LABS: Platelet Estimate Normal (Normal)
[2016-06-13 04:57] LABS: Anisocytosis 1+ (Not Present); Polychromasia 1+ (Not Present)
[2016-06-13] MEDS: FentaNYL (PF) 3,000 MCG in 0.9 % Sodium Chloride 240 ML IVC SCH ×2 (06:35→20:09)
[2016-06-13] MEDS: *HR* Enoxaparin 40 MG/0.4 ML SYRINGE SQ SCH (06:35)
[2016-06-13] MEDS: Levothyroxine Sodium 100 MCG VIAL IV SCH (06:35)
[2016-06-13 07:13] LABS: Campylobacter by PCR Not detected (Not detect)
[2016-06-13] MEDS ORDERED: Aminoglycoside Consult 1 EACH MC ONE (07:41)
[2016-06-13] MEDS: Valproic Acid INJ 500 MG in 0.9 % Sodium Chloride 100 ML IVPB SCH ×2 (08:50→20:30)
[2016-06-13] MEDS: Docusate Oral Soln 100 MG/10 ML UDC GTUBE SCH ×2 (08:51→20:31)
[2016-06-13] MEDS: Pantoprazole 40 MG VIAL IVPB SCH (08:51)
[2016-06-13] MEDS: Chlorhexidine Rinse 15 ML MOUTHWASH MM SCH ×2 (08:51→20:30)
[2016-06-13] MEDS: Nystatin SUSP 5 ML UD.LIQ PO SCH ×4 (08:51→20:30)
[2016-06-13] MEDS: Vitamin B Complex/Vit C/Vit E 1 EACH TABLET PO SCH (08:51)
[2016-06-13] MEDS: Multivit/Ca/Min/Fe/FA 1 TAB TABLET PO SCH (08:52)
[2016-06-13] MEDS: Lacri-Lube 3.5 GM TUBE BOTH EYES SCH ×2 (08:52→20:31)
[2016-06-13] MEDS: Sennosides/Docusate Sodium TABLET PO SCH ×2 (08:52→20:31)
[2016-06-13] MEDS ORDERED: 0.9 % Sodium Chloride 1,000 ML IVC ONE (10:52)
--- NOTE | 2016-06-13 11:23 | Pulmonology Progress Note ---
<Helder Escoto - Last Filed: 06/13/16 12:58> Date of Encounter: 06/13/16 Time of Encounter: 08:15 Assessment and Plan (1) Acute respiratory failure with hypoxia and hypercapnia Current Visit: Yes Status: Acute Suspected secondary to community acquired pneumonia likely with hypoventilation syndrome in addition. Patient has ARDS and is in ARDS network ventilator protocol. Continued fevers overnight and this morning. WBCs are improving 28.5 > 16.8 Requiring 60% FiO2 for adequate oxygenation. At this time cultures are negative for bacteria. Was found to be positive for human metapneumovirus. Continue Zosyn Day #3. Metronidazole Day # 2. Vancomycin discontinued. Continue Duo Nebs Q4hrs. Urine culture is negative. Sputum culture demonstrates yeast. Blood cultures pending. Bowel regimen has been started. (2) Pneumonia Current Visit: Yes Status: Acute Serology positive for human metapneumovirus. Will continue antibiotics at this time due to severity of patient's illness with increasing WBC and intermittent fevers. Blood cultures demonstrated no growth. Redrawn 06/11. Pending results: preliminary reports demonstrate no growth. Sputum culture demonstrated yeast. Urine was negative for legionella antigen and streptococcus pneumoniae antigen. Qualifiers: Pneumonia type: due to unspecified organism Laterality: unspecified laterality Lung location: unspecified part of lung Qualified Code(s): J18.9 - Pneumonia, unspecified organism (3) ARDS (adult respiratory distress syndrome) Current Visit: Yes Status: Acute Follow ARDS protocol for ventilator settings. (4) DVT prophylaxis Current Visit: Yes Status: Acute On lovenox. Protonix for GI prophylaxis. (5) Colitis Current Visit: Yes Status: Acute Found on abdominal and pelvic CT yesterday. Unknown etiology at this time. C. Diff testing is negative. The patient was started on Flagyl yesterday afternoon. Continue flagyl Day #2. (6) Leukocytosis Current Visit: Yes Status: Acute Improving. CT demonstrated colitis with gallbladder wall thickening as well. See plan above. Qualifiers: Leukocytosis type: lymphocytosis Qualified Code(s): D72.820 - Lymphocytosis (symptomatic) Subjective Principal diagnosis: Acute respiratory failure with hypoxia, ARDS secondary to severe community- Interval history: The patient was seen and examined. The patient was once again febrile overnight and this morning, although cultures continue to be negative. She awakens briefly in the room and is able to follow some commands. Continues to be sedated and ventilated with stable oxygen requirement. Tube feeds are being tolerated well. Currently requiring 60% FiO2 at this time. Objective PUL Vital signs: Last Vital Signs Temp 100.1 F H 06/13/16 08:00 Pulse 93 06/13/16 11:00 Resp 21 06/13/16 11:12 BP 96/56 06/13/16 11:12 Pulse Ox 95 06/13/16 11:12 General appearance: other (sedated and on a vent) Eyes: nonicteric ENT: oropharynx dry Effort: other (on a vent) Auscultation: bilateral: rales (at lung bases) Cardiovascular: regular rate and rhythm Gastrointestinal: hypoactive bowel sounds, soft, non-tender, non-distended Integumentary: normal Extremities: no cyanosis Musculoskeletal: no deformities other (unable to assess due to sedation) Ventilator Settings Ventilator Settings: Ventilator Settings, Last 8 Hours Ventilator Mode VC+ Ventilator Mode VC+ Ventilator Mode VC+ Ventilator Mode VC+ Ventilator Mode VC+ Ventilator Mode VC+ Ventilator Mode VC+ Ventilator Mode VC+ Ventilator Mode VC+ Ventilator Mode VC+ Ventilator Mode VC+ Ventilator Tidal Volume 300 Setting Ventilator Tidal Volume 300 Setting Ventilator Tidal Volume 300 Setting Ventilator Tidal Volume 300 Setting Ventilator Tidal Volume 300 Setting Ventilator Tidal Volume 300 Setting Ventilator Tidal Volume 300 Setting Ventilator Tidal Volume 300 Setting Ventilator Tidal Volume 300 Setting Ventilator Tidal Volume 300 Setting Ventilator Tidal Volume 300 Setting Ventilator Respiratory Rate 18 Setting Ventilator Respiratory Rate 18 Setting Ventilator Respiratory Rate 18 Setting Ventilator Respiratory Rate 18 Setting Ventilator Respiratory Rate 18 Setting Ventilator Respiratory Rate 18 Setting Ventilator Respiratory Rate 18 Setting Ventilator Respiratory Rate 18 Setting Ventilator Respiratory Rate 18 Setting Ventilator Respiratory Rate 18 Setting Ventilator Respiratory Rate 18 Setting Actual Respiratory Rate 19 Actual Respiratory Rate 20 Actual Respiratory Rate 22 Actual Respiratory Rate 22 Actual Respiratory Rate 18 Actual Respiratory Rate 20 Actual Respiratory Rate 24 Actual Respiratory Rate 24 Actual Respiratory Rate 18 Actual Respiratory Rate 18 Positive End Expiratory 7 Pressure Positive End Expiratory 7 Pressure Positive End Expiratory 7 Pressure Positive End Expiratory 7 Pressure Positive End Expiratory 7 Pressure Positive End Expiratory 7 Pressure Positive End Expiratory 7 Pressure Positive End Expiratory 7 Pressure Positive End Expiratory 7 Pressure Positive End Expiratory 7 Pressure Positive End Expiratory 7 Pressure Peak Inspiratory Airway 13 Pressure Peak Inspiratory Airway 13 Pressure Peak Inspiratory Airway 15 Pressure Peak Inspiratory Airway 14 Pressure Peak Inspiratory Airway 25 Pressure Peak Inspiratory Airway 12 Pressure Peak Inspiratory Airway 14 Pressure Peak Inspiratory Airway 13 Pressure Peak Inspiratory Airway 18 Pressure Peak Inspiratory Airway 29 Pressure Results - Laboratory Findings CBC and BMP: 06/13/16 03:55 06/13/16 03:55 ABG ABG pH 7.44 pH Units (7.32-7.45) 06/13/16 03:46 ABG pCO2 66 mmHg (35-45) H 06/13/16 03:46 ABG pO2 75 mmHg (85-104) L 06/13/16 03:46 ABG O2 Saturation 95 % (95-98) 06/13/16 03:46 PT/INR, D-dimer PT 12.9 Seconds (9.4-12.1) H 06/07/16 06:22 Abnormal lab findings: Abnormal lab results WBC 16.8 K/mcL (4.3-11.1) H 06/13/16 03:55 RBC 3.25 M/mcL (3.82-4.97) L 06/13/16 03:55 Hgb 9.8 g/dL (11.5-15.4) L 06/13/16 03:55 Hct 31.7 % (35.3-44.9) L 06/13/16 03:55 MCHC 30.9 g/dL (31.6-35.5) L 06/13/16 03:55 RDW 16.3 % (11.5-14.5) H 06/13/16 03:55 Immature Gran % 11.0 % (0-4) H 06/13/16 03:55 Band Neutrophils % 6.0 % (0-4) H 06/12/16 04:50 Metamyelocytes % 1.0 % (0) H 06/11/16 03:35 Myelocytes % 6.0 % (0) H 06/11/16 22:35 Neutrophils # 10.9 K/mcL (1.6-8.9) H 06/13/16 03:55 Nucleated RBCs/100 WBC 2.0 /100 WBC (0) H 06/13/16 03:55 Reactive Lymphocytes Present (Not Present) A 06/12/16 04:50 Smudge Cells Present (Not Present) A 06/12/16 04:50 Polychromasia 1+ (Not Present) A 06/13/16 03:55 Hypochromasia Present (Not Present) A 06/11/16 22:35 Anisocytosis 1+ (Not Present) A 06/13/16 03:55 Macrocytosis Present (Not Present) A 06/10/16 07:18 PT 12.9 Seconds (9.4-12.1) H 06/07/16 06:22 ABG pCO2 66 mmHg (35-45) H 06/13/16 03:46 ABG pO2 75 mmHg (85-104) L 06/13/16 03:46 ABG HCO3 44.8 mEQ/L (21-27) H 06/13/16 03:46 ABG Total CO2 46.8 mEq/L (20-26) H 06/13/16 03:46 ABG Base Excess 17.9 mEq/L (-2.0 to 3.0) H 06/13/16 03:46 VBG pH 7.48 pH Units (7.32-7.42) H 06/05/16 06:06 VBG pCO2 37 mmHg (41-51) L 06/05/16 06:06 VBG pO2 167 mmHg (25-40) H 06/05/16 06:06 VBG HCO3 27.6 mEq/L (21-27) H 06/05/16 06:06 Carbon Dioxide 38 mEq/L (19-29) H 06/13/16 03:55 Glucose 124 mg/dL (70-99) H 06/13/16 03:55 POC Glucose 134 (58-89) H 06/13/16 11:15 Calcium 7.6 mg/dL (8.6-10.8) L 06/13/16 03:55 Phosphorus 2.2 mg/dL (2.3-4.7) L 06/12/16 04:50 Albumin 2.1 g/dL (3.5-5.0) L 06/12/16 04:50 Globulin 4.5 g/dL (2.4-3.5) H 06/07/16 06:22 Albumin/Globulin Ratio 0.5 (1.1-2.2) L 06/07/16 06:22 Urine Clarity Cloudy (Clear) A 06/11/16 12:15 Ur Specific Mccammon 1.026 (1.010-1.025) H 06/11/16 12:15 Urine Protein 30 mg/dL (Neg-Trace) H 06/11/16 12:15 Urine Blood Large (Negative) H 06/11/16 12:15 Urine Microscopic RBC 50-100 per hpf (0-3) H 06/11/16 12:15 Urine Microscopic WBC 3-5 per hpf (0-3) H 06/11/16 12:15 Ur Squamous Epith Cells Many per lpf (None-Few) H 06/11/16 12:15 Human Metapneumovirus DETECTED (Not Detect) A 06/07/16 16:05 - Microbiology Findings Microbiology Findings: Microbiology, Last 48 Hours 06/11/16 11:59 Blood Culture - Preliminary Peripheral Venipuncture No growth. 06/11/16 11:50 Blood Culture - Preliminary Peripheral Venipuncture No growth. 06/10/16 02:35 Sputum Culture - Preliminary Sputum Yeast Species - Clinical Findings Intake & Output: Intake & Output 06/12/16 06/13/16 06/13/16 23:59 07:59 15:59 Intake Total 1655 / 1655 1410 / 1410 205 / 205 Output Total 325 / 325 375 / 375 Balance 1330 / 1330 1035 / 1035 205 / 205 Weight 108.3 kg - VTE Documentation of Mechanical Device: Graduated compression elastic hosiery Consult Discharge Plan - Plan Referrals: Manish Sheth MD [Primary Care Provider] - <Hector Ignacio - Last Filed: 06/13/16 13:30> Date of Encounter: 06/13/16 Objective PUL Vital signs: Last Vital Signs Temp 99.4 F 06/13/16 12:00 Pulse 99 06/13/16 13:00 Resp 24 06/13/16 13:00 BP 104/64 06/13/16 13:00 Pulse Ox 96 06/13/16 13:00 Ventilator Settings Ventilator Settings: Ventilator Settings, Last 8 Hours Ventilator Mode VC+ Ventilator Mode VC+ Ventilator Mode VC+ Ventilator Mode VC+ Ventilator Mode VC+ Ventilator Mode VC+ Ventilator Mode VC+ Ventilator Mode VC+ Ventilator Mode VC+ Ventilator Mode VC+ Ventilator Tidal Volume 300 Setting Ventilator Tidal Volume 300 Setting Ventilator Tidal Volume 300 Setting Ventilator Tidal Volume 300 Setting Ventilator Tidal Volume 300 Setting Ventilator Tidal Volume 300 Setting Ventilator Tidal Volume 300 Setting Ventilator Tidal Volume 300 Setting Ventilator Tidal Volume 300 Setting Ventilator Tidal Volume 300 Setting Ventilator Respiratory Rate 18 Setting Ventilator Respiratory Rate 18 Setting Ventilator Respiratory Rate 18 Setting Ventilator Respiratory Rate 18 Setting Ventilator Respiratory Rate 18 Setting Ventilator Respiratory Rate 18 Setting Ventilator Respiratory Rate 18 Setting Ventilator Respiratory Rate 18 Setting Ventilator Respiratory Rate 18 Setting Ventilator Respiratory Rate 18 Setting Actual Respiratory Rate 24 Actual Respiratory Rate 24 Actual Respiratory Rate 19 Actual Respiratory Rate 20 Actual Respiratory Rate 22 Actual Respiratory Rate 22 Actual Respiratory Rate 18 Actual Respiratory Rate 20 Actual Respiratory Rate 24 Actual Respiratory Rate 24 Positive End Expiratory 7 Pressure Positive End Expiratory 7 Pressure Positive End Expiratory 7 Pressure Positive End Expiratory 7 Pressure Positive End Expiratory 7 Pressure Positive End Expiratory 7 Pressure Positive End Expiratory 7 Pressure Positive End Expiratory 7 Pressure Positive End Expiratory 7 Pressure Positive End Expiratory 7 Pressure Peak Inspiratory Airway 15 Pressure Peak Inspiratory Airway 13 Pressure Peak Inspiratory Airway 13 Pressure Peak Inspiratory Airway 13 Pressure Peak Inspiratory Airway 15 Pressure Peak Inspiratory Airway 14 Pressure Peak Inspiratory Airway 25 Pressure Peak Inspiratory Airway 12 Pressure Peak Inspiratory Airway 14 Pressure Peak Inspiratory Airway 13 Pressure Results - Laboratory Findings CBC and BMP: 06/13/16 03:55 06/13/16 03:55 ABG ABG pH 7.44 pH Units (7.32-7.45) 06/13/16 03:46 ABG pCO2 66 mmHg (35-45) H 06/13/16 03:46 ABG pO2 75 mmHg (85-104) L 06/13/16 03:46 ABG O2 Saturation 95 % (95-98) 06/13/16 03:46 PT/INR, D-dimer PT 12.9 Seconds (9.4-12.1) H 06/07/16 06:22 Abnormal lab findings: Abnormal lab results WBC 16.8 K/mcL (4.3-11.1) H 06/13/16 03:55 RBC 3.25 M/mcL (3.82-4.97) L 06/13/16 03:55 Hgb 9.8 g/dL (11.5-15.4) L 06/13/16 03:55 Hct 31.7 % (35.3-44.9) L 06/13/16 03:55 MCHC 30.9 g/dL (31.6-35.5) L 06/13/16 03:55 RDW 16.3 % (11.5-14.5) H 06/13/16 03:55 Immature Gran % 11.0 % (0-4) H 06/13/16 03:55 Band Neutrophils % 6.0 % (0-4) H 06/12/16 04:50 Metamyelocytes % 1.0 % (0) H 06/11/16 03:35 Myelocytes % 6.0 % (0) H 06/11/16 22:35 Neutrophils # 10.9 K/mcL (1.6-8.9) H 06/13/16 03:55 Nucleated RBCs/100 WBC 2.0 /100 WBC (0) H 06/13/16 03:55 Reactive Lymphocytes Present (Not Present) A 06/12/16 04:50 Smudge Cells Present (Not Present) A 06/12/16 04:50 Polychromasia 1+ (Not Present) A 06/13/16 03:55 Hypochromasia Present (Not Present) A 06/11/16 22:35 Anisocytosis 1+ (Not Present) A 06/13/16 03:55 Macrocytosis Present (Not Present) A 06/10/16 07:18 PT 12.9 Seconds (9.4-12.1) H 06/07/16 06:22 ABG pCO2 66 mmHg (35-45) H 06/13/16 03:46 ABG pO2 75 mmHg (85-104) L 06/13/16 03:46 ABG HCO3 44.8 mEQ/L (21-27) H 06/13/16 03:46 ABG Total CO2 46.8 mEq/L (20-26) H 06/13/16 03:46 ABG Base Excess 17.9 mEq/L (-2.0 to 3.0) H 06/13/16 03:46 VBG pH 7.48 pH Units (7.32-7.42) H 06/05/16 06:06 VBG pCO2 37 mmHg (41-51) L 06/05/16 06:06 VBG pO2 167 mmHg (25-40) H 06/05/16 06:06 VBG HCO3 27.6 mEq/L (21-27) H 06/05/16 06:06 Carbon Dioxide 38 mEq/L (19-29) H 06/13/16 03:55 Glucose 124 mg/dL (70-99) H 06/13/16 03:55 POC Glucose 134 (58-89) H 06/13/16 11:15 Calcium 7.6 mg/dL (8.6-10.8) L 06/13/16 03:55 Phosphorus 2.2 mg/dL (2.3-4.7) L 06/12/16 04:50 Albumin 2.1 g/dL (3.5-5.0) L 06/12/16 04:50 Globulin 4.5 g/dL (2.4-3.5) H 06/07/16 06:22 Albumin/Globulin Ratio 0.5 (1.1-2.2) L 06/07/16 06:22 Urine Clarity Cloudy (Clear) A 06/11/16 12:15 Ur Specific Mccammon 1.026 (1.010-1.025) H 06/11/16 12:15 Urine Protein 30 mg/dL (Neg-Trace) H 06/11/16 12:15 Urine Blood Large (Negative) H 06/11/16 12:15 Urine Microscopic RBC 50-100 per hpf (0-3) H 06/11/16 12:15 Urine Microscopic WBC 3-5 per hpf (0-3) H 06/11/16 12:15 Ur Squamous Epith Cells Many per lpf (None-Few) H 06/11/16 12:15 Human Metapneumovirus DETECTED (Not Detect) A 06/07/16 16:05 - Microbiology Findings Microbiology Findings: Microbiology, Last 48 Hours 06/11/16 11:59 Blood Culture - Preliminary Peripheral Venipuncture No growth. 06/11/16 11:50 Blood Culture - Preliminary Peripheral Venipuncture No growth. 06/10/16 02:35 Sputum Culture - Preliminary Sputum Yeast Species - Clinical Findings Intake & Output: Intake & Output 06/12/16 06/13/16 06/13/16 23:59 07:59 15:59 Intake Total 1655 / 1655 1410 / 1410 913 / 913 Output Total 325 / 325 375 / 375 75 / 75 Balance 1330 / 1330 1035 / 1035 838 / 838 Weight 108.3 kg - Attending Attestation I examined this patient and my medical decision-making was reviewed with the AMUSEMENT CENTRE MANAGER/PA/Advanced Practice Nurse/Resident Physician. I agree with the documented findings, disposition and treatment plan as described except to the extent set forth below. Patient seen and examined at bedside Labs, radiology, chart personally reviewed. All lines examined without evidence of infection. Neuropsych: She continues to display significant agitation while intubated requiring sedation (although more calm today) Cont to wean narcotics. recedex added for agitation. Off Benzo. Follows simple commands. History of Trisomy 21. Cont daily sedation holiday. Pulm: Acute on chronic hypoxic hypercapnic respiratory failure with community- acquired pneumonia leading to ARDS. Acceptable oxygenation/ventilation slight increase in Fio2 % to 50%. Will start diuresis as able Cards: Maps remained above 60 but she is overall borderline hypotensive suspect medication effect as sepsis appears to be improving FEN-GI: CT abdomen notable for colitis C. difficile negative started on Flagyl 3 times a day. GI prophylaxis given. Cont Enteral nutrition. Cont Bowel regimen (had BM overnight). CT scan and right upper quadrant ultrasound suggestive of mild gallbladder wall thickening without evidence of acute cholecystitis we will continue to monitor Renal: Contraction alkalosis improving continue fluids today. She is having appropriate UOP. ID: Persistent leukocytosis but markedly downtrended overnight. treating for HAP organsims and Colitis with Pip/Tazo and Flagyl. Stop Vanc today as cultures negative x 48hours consider stopping PiP/tazo in next 24 hours based upon clinical course Heme/Onc: DVT prophylaxis given Endo: Glucose monitored stop steroids Integ/MSK: Skin care per ICU protocol to prevent ulcers CODE: Full Code. Mother and father updated at bedside
[2016-06-13] MEDS ORDERED: Furosemide 20 MG/2 ML VIAL IVP ONE (15:40)
[2016-06-14] MEDS: Ipratropium/Albuterol Neb 3 ML IH SCH ×7 (00:30→23:36)
[2016-06-14] MEDS: Dexmedetomidine HCl 400 MCG/100 ML MLS IVC SCH ×5 (03:37→19:17)
[2016-06-14] MEDS: Piperacillin/Tazobactam 3.375 GM in D5% in Water (Mini-Bag+) 100 ML IVPB SCH (03:37)
[2016-06-14 03:56] LABS: Hematocrit 32.5 % (35.3-44.9); Hemoglobin 10.5 g/dL (11.5-15.4); Lymphocytes # 1.7 K/mcL (0.6-4.6); Mean Corpuscular HGB Conc 32.3 g/dL (31.6-35.5); Mean Corpuscular Hemoglobin 31.3 pg (28.0-33.3); Mean Platelet Volume 9.6 fL (9.4-12.4); Nucleated Red Blood Cells 0.5 /100 WBC (0); Platelet Count 331 K/mcL (140-400); Red Blood Count 3.35 M/mcL (3.82-4.97); Red Cell Distribution Width 16.2 % (11.5-14.5)
[2016-06-14] MEDS ORDERED: Furosemide 40 MG/4 ML VIAL IVP ONE (04:00)
[2016-06-14 04:07] LABS: Calcium 7.6 mg/dL (8.6-10.8); Potassium 4.6 mEq/L (3.5-4.5)
[2016-06-14 04:08] LABS: Albumin 1.7 g/dL (3.5-5.0); Calcium 7.6 mg/dL (8.6-10.8); Phosphorous 7.2 mg/dL (2.3-4.7); Potassium 4.6 mEq/L (3.5-4.5)
[2016-06-14 04:30] LABS: Basophilic Stippling 2+ (Not Present); Large Platelets Present (Not Present); Monocytes # 0.6 K/mcL (0.0-1.3); Neutrophils # 11.6 K/mcL (1.6-8.9); Platelet Estimate Normal (Normal); Polychromasia 2+ (Not Present)
[2016-06-14] MEDS: Levothyroxine Sodium 100 MCG VIAL IV SCH (06:00)
[2016-06-14] MEDS: Insulin LISPRO 300 UNITS/3 ML VIAL SQ SCH ×3 (06:01→18:16)
[2016-06-14] MEDS: *HR* Enoxaparin 40 MG/0.4 ML SYRINGE SQ SCH (06:01)
[2016-06-14 07:53] LABS: ABG Base Excess 12.4 mEq/L (-2.0 to 3.0); ABG HCO3 38.2 mEQ/L (21-27); ABG Oxygen Saturation 98 % (95-98); ABG PCO2 55 mmHg (35-45); ABG PH 7.45 pH Units (7.32-7.45); ABG PO2 93 mmHg (85-104); ABG TCO2 39.9 mEq/L (20-26)
[2016-06-14 07:54] LABS: Blood Gas FiO2 70 %
--- NOTE | 2016-06-14 08:22 | Pulmonology Progress Note ---
<Helder Escoto - Last Filed: 06/14/16 11:02> Date of Encounter: 06/14/16 Time of Encounter: 07:40 Assessment and Plan (1) Acute respiratory failure with hypoxia and hypercapnia Current Visit: Yes Status: Acute Suspected secondary to community acquired pneumonia likely with hypoventilation syndrome in addition. Patient has ARDS and is in ARDS network ventilator protocol. Worsening breath sounds today. WBCs are improving 28.5 > 16.8 > 14.5 Requiring 70% FiO2 for adequate oxygenation this AM, now back to 60% FiO2 at 10: 30AM. At this time cultures are negative for bacteria. Was found to be positive for human metapneumovirus. Discontinued Zosyn on Day #4. Switch to Cefepime 5/5 is Day #1. Metronidazole Day # 3. Continue Duo Nebs Q4hrs. Urine culture is negative. Sputum culture demonstrates tru albicans. Blood cultures pending, preliminary shows no growth. Chest Xray 06/14: Diffuse bilateral airspace disease, similar in appearance to previous studies. Stable appearance of the support apparatus. Bowel regimen has been started. (2) Pneumonia Current Visit: Yes Status: Acute Serology positive for human metapneumovirus. Will continue antibiotics at this time. Blood cultures demonstrated no growth. Redrawn 06/11. Pending results: preliminary reports demonstrate no growth. Sputum culture demonstrated tru albicans Urine was negative for legionella antigen and streptococcus pneumoniae antigen. Qualifiers: Pneumonia type: due to unspecified organism Laterality: unspecified laterality Lung location: unspecified part of lung Qualified Code(s): J18.9 - Pneumonia, unspecified organism (3) ARDS (adult respiratory distress syndrome) Current Visit: Yes Status: Acute Follow ARDS protocol for ventilator settings. (4) DVT prophylaxis Current Visit: Yes Status: Acute Lovenox discontinued. Heparin SQ in the setting of TANNER. Protonix for GI prophylaxis. (5) Colitis Current Visit: Yes Status: Acute Found on abdominal and pelvic CT yesterday. Unknown etiology at this time. C. Diff testing is negative. The patient was started on Flagyl yesterday afternoon. Continue flagyl Day #3 (6) TANNER (acute kidney injury) Current Visit: Yes Status: Acute The patient was given lasix yesterday while on vancomycin and zosyn. Vancomycin has been discontinued yesterday. Zosyn discontinued and switched to cefepime. 500ml bolus given. IV maintenance fluids at 100mls/hr. Subjective Principal diagnosis: Acute respiratory failure with hypoxia, ARDS secondary to severe community- Interval history: The patient was seen and examined. The patient has not had any repeat fevers overnight. She did have one brief episode of hypoxia and needed to be increased to 70% FiO2 for adequate oxygenation. Continues to be sedated and ventilated with stable oxygen requirement. Tube feeds are being tolerated well. Objective PUL Vital signs: Last Vital Signs Temp 99.3 F 06/14/16 07:37 Pulse 91 06/14/16 08:00 Resp 23 06/14/16 08:00 BP 94/53 06/14/16 08:00 Pulse Ox 93 06/14/16 08:00 General appearance: other (sedated and on a vent) Eyes: nonicteric ENT: oropharynx moist Auscultation: bilateral: rales, rhonchi Cardiovascular: regular rate and rhythm Gastrointestinal: normoactive bowel sounds, soft, non-distended Integumentary: normal Extremities: no cyanosis Musculoskeletal: no deformities other (unable to assess due to sedation) Ventilator Settings Ventilator Settings: Ventilator Settings, Last 8 Hours Ventilator Mode VC+ Ventilator Mode VC+ Ventilator Mode VC+ Ventilator Mode VC+ Ventilator Mode VC+ Ventilator Mode VC+ Ventilator Mode VC+ Ventilator Mode VC+ Ventilator Tidal Volume 300 Setting Ventilator Tidal Volume 300 Setting Ventilator Tidal Volume 300 Setting Ventilator Tidal Volume 300 Setting Ventilator Tidal Volume 300 Setting Ventilator Tidal Volume 300 Setting Ventilator Tidal Volume 300 Setting Ventilator Tidal Volume 300 Setting Ventilator Respiratory Rate 18 Setting Ventilator Respiratory Rate 18 Setting Ventilator Respiratory Rate 18 Setting Ventilator Respiratory Rate 18 Setting Ventilator Respiratory Rate 18 Setting Ventilator Respiratory Rate 18 Setting Ventilator Respiratory Rate 18 Setting Ventilator Respiratory Rate 18 Setting Actual Respiratory Rate 23 Actual Respiratory Rate 23 Actual Respiratory Rate 18 Actual Respiratory Rate 21 Actual Respiratory Rate 18 Actual Respiratory Rate 19 Actual Respiratory Rate 23 Actual Respiratory Rate 23 Positive End Expiratory 8 Pressure Positive End Expiratory 8 Pressure Positive End Expiratory 7 Pressure Positive End Expiratory 7 Pressure Positive End Expiratory 7 Pressure Positive End Expiratory 7 Pressure Positive End Expiratory 7 Pressure Positive End Expiratory 7 Pressure Peak Inspiratory Airway 15 Pressure Peak Inspiratory Airway 19 Pressure Peak Inspiratory Airway 32 Pressure Peak Inspiratory Airway 13 Pressure Peak Inspiratory Airway 24 Pressure Peak Inspiratory Airway 13 Pressure Peak Inspiratory Airway 13 Pressure Peak Inspiratory Airway 12 Pressure Results - Laboratory Findings CBC and BMP: 06/14/16 03:45 06/14/16 03:45 ABG ABG pH 7.45 pH Units (7.32-7.45) 06/14/16 07:40 ABG pCO2 55 mmHg (35-45) H 06/14/16 07:40 ABG pO2 93 mmHg (85-104) 06/14/16 07:40 ABG O2 Saturation 98 % (95-98) 06/14/16 07:40 PT/INR, D-dimer PT 12.9 Seconds (9.4-12.1) H 06/07/16 06:22 Abnormal lab findings: Abnormal lab results WBC 14.5 K/mcL (4.3-11.1) H 06/14/16 03:45 RBC 3.35 M/mcL (3.82-4.97) L 06/14/16 03:45 Hgb 10.5 g/dL (11.5-15.4) L 06/14/16 03:45 Hct 32.5 % (35.3-44.9) L 06/14/16 03:45 RDW 16.2 % (11.5-14.5) H 06/14/16 03:45 Immature Gran % 11.0 % (0-4) H 06/13/16 03:55 Metamyelocytes % 2.0 % (0) H 06/14/16 03:45 Myelocytes % 2.0 % (0) H 06/14/16 03:45 Neutrophils # 11.6 K/mcL (1.6-8.9) H 06/14/16 03:45 Nucleated RBCs/100 WBC 0.5 /100 WBC (0) H 06/14/16 03:45 Reactive Lymphocytes Present (Not Present) A 06/12/16 04:50 Smudge Cells Present (Not Present) A 06/12/16 04:50 Large Platelets Present (Not Present) A 06/14/16 03:45 Polychromasia 2+ (Not Present) A 06/14/16 03:45 Hypochromasia Present (Not Present) A 06/11/16 22:35 Basophilic Stippling 2+ (Not Present) A 06/14/16 03:45 Anisocytosis 1+ (Not Present) A 06/13/16 03:55 Macrocytosis Present (Not Present) A 06/10/16 07:18 PT 12.9 Seconds (9.4-12.1) H 06/07/16 06:22 ABG pCO2 55 mmHg (35-45) H 06/14/16 07:40 ABG HCO3 38.2 mEQ/L (21-27) H 06/14/16 07:40 ABG Total CO2 39.9 mEq/L (20-26) H 06/14/16 07:40 ABG Base Excess 12.4 mEq/L (-2.0 to 3.0) H 06/14/16 07:40 VBG pH 7.48 pH Units (7.32-7.42) H 06/05/16 06:06 VBG pCO2 37 mmHg (41-51) L 06/05/16 06:06 VBG pO2 167 mmHg (25-40) H 06/05/16 06:06 VBG HCO3 27.6 mEq/L (21-27) H 06/05/16 06:06 Potassium 4.6 mEq/L (3.5-4.5) H 06/14/16 03:45 Chloride 97 mEq/L (98-109) L 06/14/16 03:45 Carbon Dioxide 34 mEq/L (19-29) H 06/14/16 03:45 BUN 34 mg/dL (7-20) H 06/14/16 03:45 Creatinine 1.86 mg/dL (0.57-1.11) H 06/14/16 03:45 Est GFR ( Amer) 38 (> 60) L 06/14/16 03:45 Est GFR (Non-Af Amer) 32 (> 60) L 06/14/16 03:45 Glucose 146 mg/dL (70-99) H 06/14/16 03:45 POC Glucose 145 (58-89) H 06/14/16 05:56 Calculated Osmolality 302 (280-300) H 06/14/16 03:45 Calcium 7.6 mg/dL (8.6-10.8) L 06/14/16 03:45 Phosphorus 7.2 mg/dL (2.3-4.7) H D 06/14/16 03:45 Albumin 1.7 g/dL (3.5-5.0) L 06/14/16 03:45 Globulin 4.5 g/dL (2.4-3.5) H 06/07/16 06:22 Albumin/Globulin Ratio 0.5 (1.1-2.2) L 06/07/16 06:22 Urine Clarity Cloudy (Clear) A 06/11/16 12:15 Ur Specific [place] 1.026 (1.010-1.025) H 06/11/16 12:15 Urine Protein 30 mg/dL (Neg-Trace) H 06/11/16 12:15 Urine Blood Large (Negative) H 06/11/16 12:15 Urine Microscopic RBC 50-100 per hpf (0-3) H 06/11/16 12:15 Urine Microscopic WBC 3-5 per hpf (0-3) H 06/11/16 12:15 Ur Squamous Epith Cells Many per lpf (None-Few) H 06/11/16 12:15 Human Metapneumovirus DETECTED (Not Detect) A 06/07/16 16:05 - Microbiology Findings Microbiology Findings: Microbiology, Last 48 Hours 06/10/16 02:35 Sputum Culture - Final Sputum Tru albicans 06/11/16 11:59 Blood Culture - Preliminary Peripheral Venipuncture No growth. 06/11/16 11:50 Blood Culture - Preliminary Peripheral Venipuncture No growth. - Clinical Findings Intake & Output: Intake & Output 06/13/16 06/14/16 06/14/16 23:59 07:59 15:59 Intake Total 1318 / 1318 335 / 335 Output Total 2250 / 2250 600 / 600 Balance -932 / -932 -265 / -265 Weight 109 kg - VTE Documentation of Mechanical Device: Graduated compression elastic hosiery Consult Discharge Plan - Plan Referrals: Manish Sheth MD [Primary Care Provider] - <Hector Ignacio W - Last Filed: 06/14/16 12:14> Date of Encounter: 06/14/16 Objective PUL Vital signs: Last Vital Signs Temp 99.3 F 06/14/16 07:37 Pulse 91 06/14/16 08:00 Resp 23 06/14/16 08:00 BP 94/53 06/14/16 08:00 Pulse Ox 93 06/14/16 08:00 Ventilator Settings Ventilator Settings: Ventilator Settings, Last 8 Hours Ventilator Mode VC+ Ventilator Mode VC+ Ventilator Mode VC+ Ventilator Mode VC+ Ventilator Mode VC+ Ventilator Mode VC+ Ventilator Mode VC+ Ventilator Mode VC+ Ventilator Tidal Volume 300 Setting Ventilator Tidal Volume 300 Setting Ventilator Tidal Volume 300 Setting Ventilator Tidal Volume 300 Setting Ventilator Tidal Volume 300 Setting Ventilator Tidal Volume 300 Setting Ventilator Tidal Volume 300 Setting Ventilator Tidal Volume 300 Setting Ventilator Respiratory Rate 18 Setting Ventilator Respiratory Rate 18 Setting Ventilator Respiratory Rate 18 Setting Ventilator Respiratory Rate 18 Setting Ventilator Respiratory Rate 18 Setting Ventilator Respiratory Rate 18 Setting Ventilator Respiratory Rate 18 Setting Ventilator Respiratory Rate 18 Setting Actual Respiratory Rate 23 Actual Respiratory Rate 23 Actual Respiratory Rate 18 Actual Respiratory Rate 21 Actual Respiratory Rate 18 Actual Respiratory Rate 19 Actual Respiratory Rate 23 Positive End Expiratory 8 Pressure Positive End Expiratory 7 Pressure Positive End Expiratory 8 Pressure Positive End Expiratory 7 Pressure Positive End Expiratory 7 Pressure Positive End Expiratory 7 Pressure Positive End Expiratory 7 Pressure Positive End Expiratory 7 Pressure Peak Inspiratory Airway 15 Pressure Peak Inspiratory Airway 19 Pressure Peak Inspiratory Airway 32 Pressure Peak Inspiratory Airway 13 Pressure Peak Inspiratory Airway 24 Pressure Peak Inspiratory Airway 13 Pressure Peak Inspiratory Airway 13 Pressure Results - Laboratory Findings CBC and BMP: 06/14/16 03:45 06/14/16 03:45 ABG ABG pH 7.45 pH Units (7.32-7.45) 06/14/16 07:40 ABG pCO2 55 mmHg (35-45) H 06/14/16 07:40 ABG pO2 93 mmHg (85-104) 06/14/16 07:40 ABG O2 Saturation 98 % (95-98) 06/14/16 07:40 PT/INR, D-dimer PT 12.9 Seconds (9.4-12.1) H 06/07/16 06:22 Abnormal lab findings: Abnormal lab results WBC 14.5 K/mcL (4.3-11.1) H 06/14/16 03:45 RBC 3.35 M/mcL (3.82-4.97) L 06/14/16 03:45 Hgb 10.5 g/dL (11.5-15.4) L 06/14/16 03:45 Hct 32.5 % (35.3-44.9) L 06/14/16 03:45 RDW 16.2 % (11.5-14.5) H 06/14/16 03:45 Immature Gran % 11.0 % (0-4) H 06/13/16 03:55 Metamyelocytes % 2.0 % (0) H 06/14/16 03:45 Myelocytes % 2.0 % (0) H 06/14/16 03:45 Neutrophils # 11.6 K/mcL (1.6-8.9) H 06/14/16 03:45 Nucleated RBCs/100 WBC 0.5 /100 WBC (0) H 06/14/16 03:45 Reactive Lymphocytes Present (Not Present) A 06/12/16 04:50 Smudge Cells Present (Not Present) A 06/12/16 04:50 Large Platelets Present (Not Present) A 06/14/16 03:45 Polychromasia 2+ (Not Present) A 06/14/16 03:45 Hypochromasia Present (Not Present) A 06/11/16 22:35 Basophilic Stippling 2+ (Not Present) A 06/14/16 03:45 Anisocytosis 1+ (Not Present) A 06/13/16 03:55 Macrocytosis Present (Not Present) A 06/10/16 07:18 PT 12.9 Seconds (9.4-12.1) H 06/07/16 06:22 ABG pCO2 55 mmHg (35-45) H 06/14/16 07:40 ABG HCO3 38.2 mEQ/L (21-27) H 06/14/16 07:40 ABG Total CO2 39.9 mEq/L (20-26) H 06/14/16 07:40 ABG Base Excess 12.4 mEq/L (-2.0 to 3.0) H 06/14/16 07:40 VBG pH 7.48 pH Units (7.32-7.42) H 06/05/16 06:06 VBG pCO2 37 mmHg (41-51) L 06/05/16 06:06 VBG pO2 167 mmHg (25-40) H 06/05/16 06:06 VBG HCO3 27.6 mEq/L (21-27) H 06/05/16 06:06 Potassium 4.6 mEq/L (3.5-4.5) H 06/14/16 03:45 Chloride 97 mEq/L (98-109) L 06/14/16 03:45 Carbon Dioxide 34 mEq/L (19-29) H 06/14/16 03:45 BUN 34 mg/dL (7-20) H 06/14/16 03:45 Creatinine 1.86 mg/dL (0.57-1.11) H 06/14/16 03:45 Est GFR ( Amer) 38 (> 60) L 06/14/16 03:45 Est GFR (Non-Af Amer) 32 (> 60) L 06/14/16 03:45 Glucose 146 mg/dL (70-99) H 06/14/16 03:45 POC Glucose 145 (58-89) H 06/14/16 05:56 Calculated Osmolality 302 (280-300) H 06/14/16 03:45 Calcium 7.6 mg/dL (8.6-10.8) L 06/14/16 03:45 Phosphorus 7.2 mg/dL (2.3-4.7) H D 06/14/16 03:45 Albumin 1.7 g/dL (3.5-5.0) L 06/14/16 03:45 Globulin 4.5 g/dL (2.4-3.5) H 06/07/16 06:22 Albumin/Globulin Ratio 0.5 (1.1-2.2) L 06/07/16 06:22 Urine Clarity Cloudy (Clear) A 06/11/16 12:15 Ur Specific [place] 1.026 (1.010-1.025) H 06/11/16 12:15 Urine Protein 30 mg/dL (Neg-Trace) H 06/11/16 12:15 Urine Blood Large (Negative) H 06/11/16 12:15 Urine Microscopic RBC 50-100 per hpf (0-3) H 06/11/16 12:15 Urine Microscopic WBC 3-5 per hpf (0-3) H 06/11/16 12:15 Ur Squamous Epith Cells Many per lpf (None-Few) H 06/11/16 12:15 Human Metapneumovirus DETECTED (Not Detect) A 06/07/16 16:05 - Microbiology Findings Microbiology Findings: Microbiology, Last 48 Hours 06/10/16 02:35 Sputum Culture - Final Sputum Tru albicans 06/11/16 11:59 Blood Culture - Preliminary Peripheral Venipuncture No growth. 06/11/16 11:50 Blood Culture - Preliminary Peripheral Venipuncture No growth. - Clinical Findings Intake & Output: Intake & Output 06/13/16 06/14/16 06/14/16 23:59 07:59 15:59 Intake Total 1318 / 1318 335 / 335 200 / 200 Output Total 2250 / 2250 600 / 600 Balance -932 / -932 -265 / -265 200 / 200 Weight 109 kg - Attending Attestation I examined this patient and my medical decision-making was reviewed with the JACKAROO/PA/Advanced Practice Nurse/Resident Physician. I agree with the documented findings, disposition and treatment plan as described except to the extent set forth below. Patient seen and examined at bedside Labs, radiology, chart personally reviewed. All lines examined without evidence of infection. Neuropsych: She continues to display significant agitation but overall seation requirements have come down. Continue daily sedation holiday Pulm: Acute on chronic hypoxic hypercapnic respiratory failure with community- acquired pneumonia leading to ARDS. Acceptable oxygenation/ventilation slight increase acceptable oxygenation on FiO2 60% and 8 of PEEP. Her x-ray notable for bilateral airspace disease but no change Cards: Borderline hypotensive but MAP remain greater than 60 FEN-GI: Continue enteral nutrition patient continues to have bowel movements with scheduled bowel regimen which we will back off at this time C. difficile negative Renal: Attempted diuresis for continued pulmonary edema and slight worsening of ventilator however creatinine increased markedly is likely met multifactorial including nephrotoxic medications, and diuresis will give small fluid challenge and start maintenance crystalloid infusion recheck imaging renal function replace lytes per protocol ID: Persistent leukocytosis trending down switched to cefepime and continue Flagyl. Heme/Onc: DVT prophylaxis given Endo: Glucose monitored Integ/MSK: Skin care per ICU protocol to prevent ulcers CODE: Full Code.
[2016-06-14] MEDS: Docusate Oral Soln 100 MG/10 ML UDC GTUBE SCH ×2 (08:23→20:29)
[2016-06-14] MEDS: Chlorhexidine Rinse 15 ML MOUTHWASH MM SCH ×2 (08:23→20:28)
[2016-06-14] MEDS: MetroNIDAZOLE 500 MG/100 ML 500 MG/100 ML BAG IVPB SCH ×3 (08:23→23:58)
[2016-06-14] MEDS: Valproic Acid INJ 500 MG in 0.9 % Sodium Chloride 100 ML IVPB SCH ×2 (08:23→20:27)
[2016-06-14] MEDS: Sennosides/Docusate Sodium TABLET PO SCH (08:25)
[2016-06-14] MEDS: Lacri-Lube 3.5 GM TUBE BOTH EYES SCH ×2 (08:25→20:30)
[2016-06-14] MEDS: Pantoprazole 40 MG VIAL IVPB SCH (08:25)
[2016-06-14] MEDS: Nystatin SUSP 5 ML UD.LIQ PO SCH ×4 (08:25→20:28)
[2016-06-14] MEDS: Multivit/Ca/Min/Fe/FA 1 TAB TABLET PO SCH (08:26)
[2016-06-14] MEDS: Vitamin B Complex/Vit C/Vit E 1 EACH TABLET PO SCH (08:26)
[2016-06-14] MEDS ORDERED: 0.9 % Sodium Chloride 500 ML IVC ONE (09:56)
[2016-06-14] MEDS ORDERED: Sennosides/Docusate Sodium TABLET PO PRN (10:42)
[2016-06-14] MEDS: 0.9 % Sodium Chloride 1,000 ML IVC SCH ×2 (11:38→21:51)
[2016-06-14] MEDS: Cefepime HCl 2,000 MG in D5% in Water (Mini-Bag+) 100 ML IVPB SCH (18:10)
[2016-06-14] MEDS: *HR* Heparin 5,000 UNIT/ML VIAL SQ SCH (18:12)
[2016-06-15] MEDS: Insulin LISPRO 300 UNITS/3 ML VIAL SQ SCH ×4 (00:04→18:56)
[2016-06-15] MEDS: Dexmedetomidine HCl 400 MCG/100 ML MLS IVC SCH ×5 (00:20→22:43)
[2016-06-15] MEDS: FentaNYL (PF) 3,000 MCG in 0.9 % Sodium Chloride 240 ML IVC SCH (01:37)
[2016-06-15] MEDS: Ipratropium/Albuterol Neb 3 ML IH SCH ×6 (03:43→23:39)
[2016-06-15 04:00] LABS: Basophils % 0.2 %; Eosinophils # 0.2 K/mcL (0.0-0.6); Eosinophils % 1.6 %; Hematocrit 29.3 % (35.3-44.9); Hemoglobin 9.4 g/dL (11.5-15.4); Immature Granulocytes % 4.5 % (0-4); Lymphocytes # 1.4 K/mcL (0.6-4.6); Lymphocytes % 10.8 %; Mean Corpuscular HGB Conc 32.1 g/dL (31.6-35.5); Mean Corpuscular Hemoglobin 30.7 pg (28.0-33.3); Mean Corpuscular Volume 95.8 fL (83.0-100.0); Mean Platelet Volume 10.2 fL (9.4-12.4); Monocytes # 1.2 K/mcL (0.0-1.3); Monocytes % 9.3 %; Neutrophils # 9.4 K/mcL (1.6-8.9); Nucleated Red Blood Cells 0.2 /100 WBC (0); Platelet Count 299 K/mcL (140-400); Red Blood Count 3.06 M/mcL (3.82-4.97); Red Cell Distribution Width 16.8 % (11.5-14.5); Segmented Neutrophils % 73.6 %
[2016-06-15 04:22] LABS: Calcium 7.3 mg/dL (8.6-10.8); Magnesium 2.1 mg/dL (1.6-2.6); Phosphorous 7.4 mg/dL (2.3-4.7); Potassium 5.3 mEq/L (3.5-4.5)
[2016-06-15 04:24] LABS: Albumin 1.5 g/dL (3.5-5.0)
[2016-06-15] MEDS: Cefepime HCl 2,000 MG in D5% in Water (Mini-Bag+) 100 ML IVPB SCH (05:36)
[2016-06-15] MEDS: *HR* Heparin 5,000 UNIT/ML VIAL SQ SCH ×2 (05:36→17:07)
[2016-06-15] MEDS: Levothyroxine Sodium 100 MCG VIAL IV SCH (06:07)
[2016-06-15] MEDS: Nystatin SUSP 5 ML UD.LIQ PO SCH ×4 (08:04→20:27)
[2016-06-15] MEDS: Chlorhexidine Rinse 15 ML MOUTHWASH MM SCH ×2 (08:04→20:27)
[2016-06-15] MEDS: Docusate Oral Soln 100 MG/10 ML UDC GTUBE SCH ×2 (08:04→20:27)
[2016-06-15] MEDS: Vitamin B Complex/Vit C/Vit E 1 EACH TABLET PO SCH (08:05)
[2016-06-15] MEDS: Valproic Acid INJ 500 MG in 0.9 % Sodium Chloride 100 ML IVPB SCH ×2 (08:05→20:26)
[2016-06-15] MEDS: Multivit/Ca/Min/Fe/FA 1 TAB TABLET PO SCH (08:05)
[2016-06-15] MEDS: MetroNIDAZOLE 500 MG/100 ML 500 MG/100 ML BAG IVPB SCH ×2 (08:05→17:07)
[2016-06-15] MEDS: Pantoprazole 40 MG VIAL IVPB SCH (08:05)
[2016-06-15] MEDS: Lacri-Lube 3.5 GM TUBE BOTH EYES SCH ×2 (08:06→20:27)
--- NOTE | 2016-06-15 08:16 | Pulmonology Progress Note ---
<Helder Escoto - Last Filed: 06/15/16 08:22> Date of Encounter: 06/15/16 Time of Encounter: 07:45 Assessment and Plan (1) Acute respiratory failure with hypoxia and hypercapnia Current Visit: Yes Status: Acute Suspected secondary to community acquired pneumonia likely with hypoventilation syndrome in addition. Patient has ARDS and is in ARDS network ventilator protocol. Worsening breath sounds today. WBCs are improving 28.5 > 16.8 > 14.5 > 12.8 Continuing to require 60% FiO2 for adequate oxygenation. At this time cultures are negative for bacteria. Was found to be positive for human metapneumovirus. Discontinued Zosyn on Day #4. Cefepime Day #2. Metronidazole Day # 4. Continue Duo Nebs Q4hrs. Urine culture is negative. Sputum culture demonstrates tru albicans. Blood cultures pending, preliminary shows no growth. The patient is on day #8 of intubation. She may possibly need a tracheostomy. Will discuss with family members when they are present. Chest Xray 5/: Diffuse bilateral airspace disease, similar in appearance to previous studies. Stable appearance of the support apparatus. Bowel regimen switched to PRN. (2) Pneumonia Current Visit: Yes Status: Acute Serology positive for human metapneumovirus. Will continue antibiotics at this time. Blood cultures demonstrated no growth. Redrawn /. Results: preliminary reports demonstrate no growth. Sputum culture demonstrated tru albicans Urine was negative for legionella antigen and streptococcus pneumoniae antigen. Qualifiers: Pneumonia type: due to unspecified organism Laterality: unspecified laterality Lung location: unspecified part of lung Qualified Code(s): J18.9 - Pneumonia, unspecified organism (3) ARDS (adult respiratory distress syndrome) Current Visit: Yes Status: Acute Follow ARDS protocol for ventilator settings. (4) DVT prophylaxis Current Visit: Yes Status: Acute Heparin SQ Protonix for GI prophylaxis. (5) Colitis Current Visit: Yes Status: Acute Found on abdominal and pelvic CT yesterday. Unknown etiology at this time. C. Diff testing is negative. Continue flagyl Day #4 (6) TANNER (acute kidney injury) Current Visit: Yes Status: Acute The patient was given lasix 5/ while on vancomycin and zosyn. She also had a CT with contrast on 06/12. Worsening renal function 0.63 > 1.86 > 2.79 Vancomycin has been discontinued 5/4. Zosyn discontinued and switched to cefepime 06/14. Nephrology has been consulted. Subjective Principal diagnosis: Acute respiratory failure with hypoxia, ARDS secondary to severe community- Interval history: The patient was seen and examined. The patient had low grade fevers of 100.2 this morning. She is currently on day 8 of being intubated and ventilated. Continues to be sedated and ventilated with stable oxygen requirement. Tube feeds are being tolerated well. Objective PUL Vital signs: Last Vital Signs Temp 100 F H 06/15/16 07:47 Pulse 99 06/15/16 07:00 Resp 23 06/15/16 06:01 BP 105/69 06/15/16 06:01 Pulse Ox 100 06/15/16 06:01 General appearance: other (sedated and on a vent. Will awaken briefly during examination) Eyes: nonicteric ENT: oropharynx moist Effort: other (on a vent) Auscultation: bilateral: rales, other (crackles at lung bases) Cardiovascular: regular rate and rhythm Gastrointestinal: normoactive bowel sounds, soft, non-distended Integumentary: normal Extremities: no cyanosis other (unable to assess due to sedation) Ventilator Settings Ventilator Settings: Ventilator Settings, Last 8 Hours Ventilator Mode VC+ Ventilator Mode VC+ Ventilator Mode VC+ Ventilator Mode VC+ Ventilator Mode VC+ Ventilator Mode VC+ Ventilator Mode VC+ Ventilator Mode VC+ Ventilator Mode VC+ Ventilator Tidal Volume 300 Setting Ventilator Tidal Volume 300 Setting Ventilator Tidal Volume 300 Setting Ventilator Tidal Volume 300 Setting Ventilator Tidal Volume 300 Setting Ventilator Tidal Volume 300 Setting Ventilator Tidal Volume 300 Setting Ventilator Tidal Volume 300 Setting Ventilator Tidal Volume 300 Setting Ventilator Respiratory Rate 18 Setting Ventilator Respiratory Rate 18 Setting Ventilator Respiratory Rate 18 Setting Ventilator Respiratory Rate 18 Setting Ventilator Respiratory Rate 18 Setting Ventilator Respiratory Rate 18 Setting Ventilator Respiratory Rate 18 Setting Ventilator Respiratory Rate 18 Setting Ventilator Respiratory Rate 18 Setting Actual Respiratory Rate 23 Actual Respiratory Rate 24 Actual Respiratory Rate 24 Actual Respiratory Rate 24 Actual Respiratory Rate 16 Actual Respiratory Rate 24 Actual Respiratory Rate 24 Actual Respiratory Rate 23 Actual Respiratory Rate 23 Positive End Expiratory 8 Pressure Positive End Expiratory 8 Pressure Positive End Expiratory 8 Pressure Positive End Expiratory 8 Pressure Positive End Expiratory 8 Pressure Positive End Expiratory 8 Pressure Positive End Expiratory 8 Pressure Positive End Expiratory 8 Pressure Positive End Expiratory 8 Pressure Peak Inspiratory Airway 23 Pressure Peak Inspiratory Airway 20 Pressure Peak Inspiratory Airway 19 Pressure Peak Inspiratory Airway 27 Pressure Peak Inspiratory Airway 21 Pressure Peak Inspiratory Airway 23 Pressure Peak Inspiratory Airway 24 Pressure Peak Inspiratory Airway 23 Pressure Peak Inspiratory Airway 20 Pressure Results - Laboratory Findings CBC and BMP: 06/15/16 03:15 06/15/16 03:15 ABG ABG pH 7.45 pH Units (7.32-7.45) 06/14/16 07:40 ABG pCO2 55 mmHg (35-45) H 06/14/16 07:40 ABG pO2 93 mmHg (85-104) 06/14/16 07:40 ABG O2 Saturation 98 % (95-98) 06/14/16 07:40 PT/INR, D-dimer PT 12.9 Seconds (9.4-12.1) H 06/07/16 06:22 Abnormal lab findings: Abnormal lab results WBC 12.8 K/mcL (4.3-11.1) H 06/15/16 03:15 RBC 3.06 M/mcL (3.82-4.97) L 06/15/16 03:15 Hgb 9.4 g/dL (11.5-15.4) L 06/15/16 03:15 Hct 29.3 % (35.3-44.9) L 06/15/16 03:15 RDW 16.8 % (11.5-14.5) H 06/15/16 03:15 Immature Gran % 4.5 % (0-4) H 06/15/16 03:15 Metamyelocytes % 2.0 % (0) H 06/14/16 03:45 Myelocytes % 2.0 % (0) H 06/14/16 03:45 Neutrophils # 9.4 K/mcL (1.6-8.9) H 06/15/16 03:15 Nucleated RBCs/100 WBC 0.2 /100 WBC (0) H 06/15/16 03:15 Reactive Lymphocytes Present (Not Present) A 06/12/16 04:50 Smudge Cells Present (Not Present) A 06/12/16 04:50 Large Platelets Present (Not Present) A 06/14/16 03:45 Polychromasia 2+ (Not Present) A 06/14/16 03:45 Hypochromasia Present (Not Present) A 06/11/16 22:35 Basophilic Stippling 2+ (Not Present) A 06/14/16 03:45 Anisocytosis 1+ (Not Present) A 06/13/16 03:55 Macrocytosis Present (Not Present) A 06/10/16 07:18 PT 12.9 Seconds (9.4-12.1) H 06/07/16 06:22 ABG pCO2 55 mmHg (35-45) H 06/14/16 07:40 ABG HCO3 38.2 mEQ/L (21-27) H 06/14/16 07:40 ABG Total CO2 39.9 mEq/L (20-26) H 06/14/16 07:40 ABG Base Excess 12.4 mEq/L (-2.0 to 3.0) H 06/14/16 07:40 VBG pH 7.48 pH Units (7.32-7.42) H 06/05/16 06:06 VBG pCO2 37 mmHg (41-51) L 06/05/16 06:06 VBG pO2 167 mmHg (25-40) H 06/05/16 06:06 VBG HCO3 27.6 mEq/L (21-27) H 06/05/16 06:06 Potassium 5.3 mEq/L (3.5-4.5) H 06/15/16 03:15 Carbon Dioxide 31 mEq/L (19-29) H 06/15/16 03:15 BUN 45 mg/dL (7-20) H D 06/15/16 03:15 Creatinine 2.79 mg/dL (0.57-1.11) H 06/15/16 03:15 Est GFR ( Amer) 24 (> 60) L 06/15/16 03:15 Est GFR (Non-Af Amer) 20 (> 60) L 06/15/16 03:15 Glucose 111 mg/dL (70-99) H 06/15/16 03:15 POC Glucose 136 (58-89) H 06/15/16 05:55 Calculated Osmolality 302 (280-300) H 06/15/16 03:15 Calcium 7.3 mg/dL (8.6-10.8) L 06/15/16 03:15 Phosphorus 7.4 mg/dL (2.3-4.7) H 06/15/16 03:15 Albumin 1.5 g/dL (3.5-5.0) L 06/15/16 03:15 Globulin 4.5 g/dL (2.4-3.5) H 06/07/16 06:22 Albumin/Globulin Ratio 0.5 (1.1-2.2) L 06/07/16 06:22 Urine Clarity Cloudy (Clear) A 06/11/16 12:15 Ur Specific [place] 1.026 (1.010-1.025) H 06/11/16 12:15 Urine Protein 30 mg/dL (Neg-Trace) H 06/11/16 12:15 Urine Blood Large (Negative) H 06/11/16 12:15 Urine Microscopic RBC 50-100 per hpf (0-3) H 06/11/16 12:15 Urine Microscopic WBC 3-5 per hpf (0-3) H 06/11/16 12:15 Ur Squamous Epith Cells Many per lpf (None-Few) H 06/11/16 12:15 Human Metapneumovirus DETECTED (Not Detect) A 06/07/16 16:05 - Microbiology Findings Microbiology Findings: Microbiology, Last 48 Hours 06/14/16 16:05 Sputum Culture - Preliminary Sputum 06/10/16 02:35 Sputum Culture - Final Sputum Tru albicans 06/11/16 11:59 Blood Culture - Preliminary Peripheral Venipuncture No growth. 06/11/16 11:50 Blood Culture - Preliminary Peripheral Venipuncture No growth. - Clinical Findings Intake & Output: Intake & Output 06/14/16 06/15/16 06/15/16 23:59 07:59 15:59 Intake Total 1617 / 1617 1321 / 1321 Output Total 300 / 300 900 / 900 Balance 1317 / 1317 421 / 421 Weight 110.2 kg - VTE Documentation of Mechanical Device: Graduated compression elastic hosiery Consult Discharge Plan - Plan Referrals: Manish Sheth MD [Primary Care Provider] - <Hector Ignacio - Last Filed: 06/15/16 12:17> Date of Encounter: 06/15/16 Objective PUL Vital signs: Last Vital Signs Temp 102.4 F H 06/15/16 11:53 Pulse 110 06/15/16 10:00 Resp 24 06/15/16 10:00 BP 126/83 06/15/16 10:00 Pulse Ox 94 06/15/16 10:00 Ventilator Settings Ventilator Settings: Ventilator Settings, Last 8 Hours Ventilator Mode VC+ Ventilator Mode VC+ Ventilator Mode VC+ Ventilator Mode VC+ Ventilator Mode VC+ Ventilator Mode VC+ Ventilator Mode VC+ Ventilator Mode VC+ Ventilator Tidal Volume 300 Setting Ventilator Tidal Volume 300 Setting Ventilator Tidal Volume 300 Setting Ventilator Tidal Volume 300 Setting Ventilator Tidal Volume 300 Setting Ventilator Tidal Volume 300 Setting Ventilator Tidal Volume 300 Setting Ventilator Tidal Volume 300 Setting Ventilator Respiratory Rate 18 Setting Ventilator Respiratory Rate 18 Setting Ventilator Respiratory Rate 18 Setting Ventilator Respiratory Rate 18 Setting Ventilator Respiratory Rate 18 Setting Ventilator Respiratory Rate 18 Setting Ventilator Respiratory Rate 18 Setting Ventilator Respiratory Rate 18 Setting Actual Respiratory Rate 24 Actual Respiratory Rate 26 Actual Respiratory Rate 24 Actual Respiratory Rate 22 Actual Respiratory Rate 25 Actual Respiratory Rate 23 Actual Respiratory Rate 24 Actual Respiratory Rate 24 Positive End Expiratory 8 Pressure Positive End Expiratory 8 Pressure Positive End Expiratory 8 Pressure Positive End Expiratory 8 Pressure Positive End Expiratory 8 Pressure Positive End Expiratory 8 Pressure Positive End Expiratory 8 Pressure Positive End Expiratory 8 Pressure Peak Inspiratory Airway 20 Pressure Peak Inspiratory Airway 18 Pressure Peak Inspiratory Airway 17 Pressure Peak Inspiratory Airway 15 Pressure Peak Inspiratory Airway 22 Pressure Peak Inspiratory Airway 23 Pressure Peak Inspiratory Airway 20 Pressure Peak Inspiratory Airway 19 Pressure Results - Laboratory Findings CBC and BMP: 06/15/16 03:15 06/15/16 03:15 ABG ABG pH 7.45 pH Units (7.32-7.45) 06/14/16 07:40 ABG pCO2 55 mmHg (35-45) H 06/14/16 07:40 ABG pO2 93 mmHg (85-104) 06/14/16 07:40 ABG O2 Saturation 98 % (95-98) 06/14/16 07:40 PT/INR, D-dimer PT 12.9 Seconds (9.4-12.1) H 06/07/16 06:22 Abnormal lab findings: Abnormal lab results WBC 12.8 K/mcL (4.3-11.1) H 06/15/16 03:15 RBC 3.06 M/mcL (3.82-4.97) L 06/15/16 03:15 Hgb 9.4 g/dL (11.5-15.4) L 06/15/16 03:15 Hct 29.3 % (35.3-44.9) L 06/15/16 03:15 RDW 16.8 % (11.5-14.5) H 06/15/16 03:15 Immature Gran % 4.5 % (0-4) H 06/15/16 03:15 Metamyelocytes % 2.0 % (0) H 06/14/16 03:45 Myelocytes % 2.0 % (0) H 06/14/16 03:45 Neutrophils # 9.4 K/mcL (1.6-8.9) H 06/15/16 03:15 Nucleated RBCs/100 WBC 0.2 /100 WBC (0) H 06/15/16 03:15 Reactive Lymphocytes Present (Not Present) A 06/12/16 04:50 Smudge Cells Present (Not Present) A 06/12/16 04:50 Large Platelets Present (Not Present) A 06/14/16 03:45 Polychromasia 2+ (Not Present) A 06/14/16 03:45 Hypochromasia Present (Not Present) A 06/11/16 22:35 Basophilic Stippling 2+ (Not Present) A 06/14/16 03:45 Anisocytosis 1+ (Not Present) A 06/13/16 03:55 Macrocytosis Present (Not Present) A 06/10/16 07:18 PT 12.9 Seconds (9.4-12.1) H 06/07/16 06:22 ABG pCO2 55 mmHg (35-45) H 06/14/16 07:40 ABG HCO3 38.2 mEQ/L (21-27) H 06/14/16 07:40 ABG Total CO2 39.9 mEq/L (20-26) H 06/14/16 07:40 ABG Base Excess 12.4 mEq/L (-2.0 to 3.0) H 06/14/16 07:40 VBG pH 7.48 pH Units (7.32-7.42) H 06/05/16 06:06 VBG pCO2 37 mmHg (41-51) L 06/05/16 06:06 VBG pO2 167 mmHg (25-40) H 06/05/16 06:06 VBG HCO3 27.6 mEq/L (21-27) H 06/05/16 06:06 Potassium 5.3 mEq/L (3.5-4.5) H 06/15/16 03:15 Carbon Dioxide 31 mEq/L (19-29) H 06/15/16 03:15 BUN 45 mg/dL (7-20) H D 06/15/16 03:15 Creatinine 2.79 mg/dL (0.57-1.11) H 06/15/16 03:15 Est GFR ( Amer) 24 (> 60) L 06/15/16 03:15 Est GFR (Non-Af Amer) 20 (> 60) L 06/15/16 03:15 Glucose 111 mg/dL (70-99) H 06/15/16 03:15 POC Glucose 125 (58-89) H 06/15/16 11:38 Calculated Osmolality 302 (280-300) H 06/15/16 03:15 Calcium 7.3 mg/dL (8.6-10.8) L 06/15/16 03:15 Phosphorus 7.4 mg/dL (2.3-4.7) H 06/15/16 03:15 Albumin 1.5 g/dL (3.5-5.0) L 06/15/16 03:15 Globulin 4.5 g/dL (2.4-3.5) H 06/07/16 06:22 Albumin/Globulin Ratio 0.5 (1.1-2.2) L 06/07/16 06:22 Urine Clarity Cloudy (Clear) A 06/11/16 12:15 Ur Specific [place] 1.026 (1.010-1.025) H 06/11/16 12:15 Urine Protein 30 mg/dL (Neg-Trace) H 06/11/16 12:15 Urine Blood Large (Negative) H 06/11/16 12:15 Urine Microscopic RBC 50-100 per hpf (0-3) H 06/11/16 12:15 Urine Microscopic WBC 3-5 per hpf (0-3) H 06/11/16 12:15 Ur Squamous Epith Cells Many per lpf (None-Few) H 06/11/16 12:15 Human Metapneumovirus DETECTED (Not Detect) A 06/07/16 16:05 - Microbiology Findings Microbiology Findings: Microbiology, Last 48 Hours 06/14/16 16:05 Sputum Culture - Preliminary Sputum 06/10/16 02:35 Sputum Culture - Final Sputum Tru albicans 06/11/16 11:59 Blood Culture - Preliminary Peripheral Venipuncture No growth. 05/02/17 11:50 Blood Culture - Preliminary Peripheral Venipuncture No growth. - Clinical Findings Intake & Output: Intake & Output 06/14/16 06/15/16 06/15/16 23:59 07:59 15:59 Intake Total 1617 / 1617 2221 / 2221 395 / 395 Output Total 300 / 300 900 / 900 500 / 500 Balance 1317 / 1317 1321 / 1321 -105 / -105 Weight 110.2 kg - Attending Attestation I examined this patient and my medical decision-making was reviewed with the NEUROLOGICAL SURGEON/PA/Advanced Practice Nurse/Resident Physician. I agree with the documented findings, disposition and treatment plan as described except to the extent set forth below. Patient seen and examined at bedside Labs, radiology, chart personally reviewed. All lines examined without evidence of infection. Neuropsych: She continues to display significant agitation off sedation we will continue to limit use of benzodiazepines as possible started Seroquel daily sedation holiday. Pulm: Acute on chronic hypoxic hypercapnic respiratory failure with community- acquired pneumonia leading to ARDS. Acceptable oxygenation/ventilation on FiO2 60% and 8 of PEEP. Her x-ray notable for bilateral airspace disease but no change. Likely component of pulmonary edema but holding diuresis for kidney injury Cards: MAP better today heart rate controlled FEN-GI: Continue enteral nutrition Renal: Creatinine doubled again overnight this acute kidney injury is multifactorial including contrast-induced nephropathy mildly hyperkalemic rechecking electrolytes this afternoon. nephrology consulted. urine output remains middling. ID: Persistent leukocytosis trending down switched to cefepime and continue Flagyl. Stop Cefepime tomorrow. Treat for colitis for 10days Heme/Onc: DVT prophylaxis given Endo: Glucose monitored Integ/MSK: Skin care per ICU protocol to prevent ulcers CODE: Full Code. I spoke with the family for approximately 15 minutes with bedside ICU nurse Mr. Oropeza. I explained the impediments to liberation from the ventilator including her mental status slight increase in oxygen requirement and acute kidney injury.That she has been on ventilator now for over a week do her best to liberate but consideration of tracheostomy is not out of the question. However with her underlying mental status as it is I suspect this would have poor toleration for the patient. Her family (mother and father) were given a chance to ask questions and questions were answered.
--- NOTE | 2016-06-15 08:37 | Electrocardiograph Report ---
[place] [id number] Test Date: 2016-06-14 Pat Name: Carina Gilmore Department: 109 Room: [facility] Gender: F [employer]: ARMINDA : 1985 Requested By: Hector Ignacio Order Number: [id number] Reading MD: Elan Monge DO Measurements Intervals [place] Rate: 102 P: 56 ME: 111 QRS: 49 QRSD: 89 T: 38 QT: 345 QTc: 404 Interpretive Statements SINUS TACHYCARDIA WITH SHORT ME INTERVAL Electronically Signed On 06-15-2016 8:36:40 EDT by Elan Monge DO
--- NOTE | 2016-06-15 11:16 | Nephrology Consult Note ---
Date of Encounter: 06/15/16 Time of Encounter: 10:29 Assessment and Plan (1) TANNER (acute kidney injury) Current Visit: Yes Status: Acute 1. TANNER sec to combination of IV contrast, borderline low BP in the setting of pneumonia and ARDS. IV vancomycin has been DC'd. Appears slightly dehydrated. Start gentle IV hydration. Patient is nonoliguric. Continue to monitor renal panel. Check UA, uric acid and total CK level 2. Hyperkalemia and hyperphosphatemia. Change oxipa to renal formula. 3. Bilateral pneumonia, ARDS, Obesity hypoventilation syndrome History of Present Illness - Chief Complaint TANNER - History of Present Illness 31-year-old female with h/o Down syndrome, congenital heart disease was admitted on 05/2015 with shortness of breath and cough of 3 days' duration Noted to be hypoxic, tachycardic required non invasive ventilation. Chest x- ray bilateral airspace disease. CTA 05/2015; no evidence of PE, bilateral multifocal pneumonia, mediastinal lymphadenopathy. ceftriaxone and Zithromax were started. Has worsening hypoxic and hypercarbic resp failure, required intubation and transfer to ICU for further management. Vancomycin and Zosyn were added. Currently on cefepime and metronidazole. Thought to have ARDS from pneumonia and possible underlying obesity hypoventilation syndrome. Serum white count had increased to 28 four days ago. There is concern for abscess. CT chest and abdomen with IV contrast 06/12; bilateral pulm infiltrative changes slightly decreased. fatty infiltration of liver, gallbladder wall thickening vs pericystic fluid, thickening of cecum and ascending colon, no obvious abscess On admission Serum creatinine was 0.8 on admission. UA significant for 30 mg/ dl of protein. Creatinine increased to 1. 8 yesterday and 2.7 today. Serum potassium is 5.3. phosphatase 87.4. Had received a dose of Lasix 2 days ago. BP was borderline low yesterday with systolic in 90s. She received a bolus of normal saline, then 100 mL per hour that was discontinued today morning. In the last couple of days white count is slowly improving, FiO2 requirement has reduced to 60%. Serology is positive for human meta-Pneumovirus. Sputum culture positive for Clari. serum eosnophil count is nl. Past Med Surg Social Fam HX - Past Medical History Medical history: no medical history, thyroid disease Psychiatric history: no psych history - Past Surgical History Surgical History: other - Social History Smoking Status: Never smoker Smokeless Tobacco Status: No Alcohol use: none Drug use: none - Family History Mother Living Status: Still Living Hx Family Cardiac Disorders: Yes (HTN) Medications and Allergies Citalopram [CeleXA] 40 mg PO DAILY 10/12/14 [History] CloNIDine HCl [CloNIDine HCl] 0.1 mg PO BID 10/12/14 [History] Divalproex (12 HR) [Depakote (12 HR)] 500 mg PO BID 10/12/14 [History] Fluticasone Propionate Nasal [Flonase] 1 spray NS BID 10/12/14 [History] Multivitamin [Flintstones] 1 tab PO DAILY 10/12/14 [History] Nystatin POWDER [Nystop] 1 appl TP BID PRN 10/12/14 [History] Hydrocortisone [Anusol-Hc] 1 appl TP BID PRN 06/05/16 [History] Ketoconazole 2% CRM [Nizoral Cream] 1 appl TP BID PRN 06/05/16 [History] Ketoconazole Shampoo [Nizoral Shampoo] 1 appl TP QWEEK 06/05/16 [History] Levothyroxine Sodium [Levo-T] 75 mcg PO DAILY 06/05/16 [History] Allergies No Known Allergies Allergy (Verified 10/12/14 15:50) Exam - Vital Signs Vital signs: Initial Vital Signs Temp Pulse Resp BP Pulse Ox 101.6 F H 115 18 107/97 91 06/05/16 04:36 06/05/16 04:36 06/05/16 04:36 06/05/16 04:36 06/05/16 04:36 Vital Signs - Last 8 Hours Temp Pulse Resp BP Pulse Ox 06/15/16 10:00 110 24 126/83 94 06/15/16 09:00 102 24 108/57 94 06/15/16 08:00 102 23 103/64 93 06/15/16 07:47 100 F H 06/15/16 07:19 25 103/64 100 06/15/16 07:00 99 06/15/16 06:01 99 23 105/69 100 06/15/16 05:45 24 110/63 100 06/15/16 05:19 103 22 96/62 97 06/15/16 05:16 100.2 F H 06/15/16 04:12 105 24 108/64 96 06/15/16 03:43 26 105/66 98 06/15/16 03:20 98 28 100/66 98 Intake and Output 06/14/16 06/15/16 06/15/16 23:59 07:59 15:59 Intake Total 1617 / 1617 2221 / 2221 295 / 295 Output Total 300 / 300 900 / 900 Balance 1317 / 1317 1321 / 1321 295 / 295 Intake: IV Fluids 1405 / 1405 1352 / 1352 128 / 128 0.9 % Sodium Chloride 1, 1000 / 1000 900 / 900 000 ML @ 100 mls/hr IVC . Q10H [facility] Rx#:[id number] PRECEDEX 400 mcg In 100 100 / 100 200 / 200 ml @ 0.2 MCG/KG/HR 5.18 mls/hr IVC .[id number] [facility] Rx#:[id number] FentaNYL (PF) 3,000 MCG 100 / 100 60 / 60 In 0.9 % Sodium Chloride 240 ML @ 50 MCG/HR 5 mls/ hr IVC [facility] Rx#: [id number] Versed 50 MG In 0.9 % 52 / 52 68 / 68 Sodium Chloride 90 ML @ 2 MG/HR 4 mls/hr IVC [facility] Rx#:[id number] Maxipime 2,000 MG In 100 / 100 Dextrose 5% (Minibag+) 100 ML 100 ML @ 200 mls/ hr IVPB Q12HR [facility] Rx#: [id number] Flagyl Premix 500 MG/100 100 / 100 100 / 100 ML 500 mg In 100 ml @ 100 mls/hr IVPB Q8HR [facility] Rx# :[id number] Depacon 500 MG In 0.9 % 105 / 105 Sodium Chloride 100 ML @ 105 mls/hr IVPB Q12H [facility] Rx#:[id number] Tube Feeding 212 / 212 369 / 369 167 / 167 Free Water 500 / 500 Output: Rectal Tube 100 / 100 300 / 300 Catheter 200 / 200 600 / 600 Other: Weight 110.2 kg Blood Glucose* 174 136 Patient Weight 06/15/16 23:59 Weight 110.2 kg - General Appearance Exam: Obese female, intubated and sedated Neck supple , no lymphadenopathy, no carotid bruit CVS; s1s2 present, regular, no murmurs RESP; bilateral coarse breath sounds ABD; distended, soft, NT, BS present, no organomegaly, no bruits EXT; trace edema, DP pulses palpable. [employer] TECH[employer]ICIAN; moving extremities spontaneously Results - Lab Results 06/15/16 03:15 06/15/16 03:15 Most recent lab results ABG pH 7.45 pH Units (7.32-7.45) 06/14/16 07:40 ABG pCO2 55 mmHg (35-45) H 06/14/16 07:40 ABG pO2 93 mmHg (85-104) 06/14/16 07:40 ABG HCO3 38.2 mEQ/L (21-27) H 06/14/16 07:40 ABG O2 Saturation 98 % (95-98) 06/14/16 07:40 Calcium 7.3 mg/dL (8.6-10.8) L 06/15/16 03:15 Phosphorus 7.4 mg/dL (2.3-4.7) H 06/15/16 03:15 Magnesium 2.1 mg/dL (1.6-2.6) 06/15/16 03:15 Consult Discharge Plan - Plan Referrals: Manish Sheth MD [Primary Care Provider] -
[2016-06-15] MEDS: Acetaminophen 325 MG TABLET PO PRN (12:02)
[2016-06-15 18:34] LABS: Uric Acid 6.6 mg/dL (2.6-6.0)
[2016-06-16] MEDS: MetroNIDAZOLE 500 MG/100 ML 500 MG/100 ML BAG IVPB SCH ×4 (00:05→23:43)
[2016-06-16] MEDS: Insulin LISPRO 300 UNITS/3 ML VIAL SQ SCH ×5 (00:05→23:44)
[2016-06-16 03:24] LABS: Basophils % 0.1 %; Eosinophils # 0.3 K/mcL (0.0-0.6); Eosinophils % 2.5 %; Hematocrit 27.6 % (35.3-44.9); Hemoglobin 8.8 g/dL (11.5-15.4); Immature Granulocytes % 4.2 % (0-4); Lymphocytes # 1.6 K/mcL (0.6-4.6); Lymphocytes % 14.9 %; Mean Corpuscular HGB Conc 31.9 g/dL (31.6-35.5); Mean Corpuscular Hemoglobin 30.7 pg (28.0-33.3); Mean Corpuscular Volume 96.2 fL (83.0-100.0); Mean Platelet Volume 10.2 fL (9.4-12.4); Monocytes # 1.1 K/mcL (0.0-1.3); Monocytes % 10.7 %; Neutrophils # 7.1 K/mcL (1.6-8.9); Platelet Count 247 K/mcL (140-400); Red Blood Count 2.87 M/mcL (3.82-4.97); Red Cell Distribution Width 17.1 % (11.5-14.5); Segmented Neutrophils % 67.6 %
[2016-06-16 03:35] LABS: Phosphorous 8.1 mg/dL (2.3-4.7); Potassium 5.2 mEq/L (3.5-4.5)
[2016-06-16 03:40] LABS: Calcium 7.9 mg/dL (8.6-10.8); Potassium 5.1 mEq/L (3.5-4.5)
[2016-06-16 03:44] LABS: Albumin 1.4 g/dL (3.5-5.0)
[2016-06-16] MEDS: Ipratropium/Albuterol Neb 3 ML IH SCH ×6 (03:52→23:39)
[2016-06-16] MEDS: Dexmedetomidine HCl 400 MCG/100 ML MLS IVC SCH ×4 (04:30→21:03)
[2016-06-16] MEDS: Cefepime HCl 2,000 MG in D5% in Water (Mini-Bag+) 100 ML IVPB SCH (06:00)
[2016-06-16] MEDS: Levothyroxine Sodium 100 MCG VIAL IV SCH (06:10)
[2016-06-16] MEDS: *HR* Heparin 5,000 UNIT/ML VIAL SQ SCH ×2 (06:10→17:57)
[2016-06-16] MEDS: Nystatin SUSP 5 ML UD.LIQ PO SCH ×4 (07:52→21:05)
[2016-06-16] MEDS: Multivit/Ca/Min/Fe/FA 1 TAB TABLET PO SCH (07:52)
[2016-06-16] MEDS: Vitamin B Complex/Vit C/Vit E 1 EACH TABLET PO SCH (07:52)
[2016-06-16] MEDS: Pantoprazole 40 MG VIAL IVPB SCH (07:52)
[2016-06-16] MEDS: Chlorhexidine Rinse 15 ML MOUTHWASH MM SCH ×2 (07:54→21:04)
[2016-06-16] MEDS: Docusate Oral Soln 100 MG/10 ML UDC GTUBE SCH ×2 (07:54→21:05)
[2016-06-16] MEDS: Lacri-Lube 3.5 GM TUBE BOTH EYES SCH ×2 (07:55→21:23)
--- NOTE | 2016-06-16 08:57 | Pulmonology Progress Note ---
<Helder Escoto - Last Filed: 06/16/16 09:55> Date of Encounter: 06/16/16 Time of Encounter: 08:15 Assessment and Plan (1) Acute respiratory failure with hypoxia and hypercapnia Current Visit: Yes Status: Acute Suspected secondary to community acquired pneumonia likely with hypoventilation syndrome in addition. Patient has ARDS and is in ARDS network ventilator protocol. Worsening breath sounds today. WBCs are improving 28.5 > 16.8 > 14.5 > 12.8 > 10.4 50% FiO2 for adequate oxygenation. At this time cultures are negative for bacteria. Was found to be positive for human metapneumovirus. Discontinued Zosyn on Day #4. Cefepime Day #3. Will discontinue today. Metronidazole Day # 5. Continue Duo Nebs Q4hrs. Urine culture is negative. Sputum culture demonstrates tru albicans. Blood cultures pending, preliminary shows no growth. The patient is on day #9 of intubation. She may possibly need a tracheostomy. Discussion yesterday was hopeful for extubation without need for tracheostomy. Chest Xray 5/: Diffuse bilateral airspace disease, similar in appearance to previous studies. Stable appearance of the support apparatus. (2) ARDS (adult respiratory distress syndrome) Current Visit: Yes Status: Acute Follow ARDS protocol for ventilator settings. (3) TANNER (acute kidney injury) Current Visit: Yes Status: Acute The patient was given lasix 5/4 while on vancomycin and zosyn. She also had a CT with contrast on 5/. Non-oliguric TANNER. 5/6 was 1300. Worsening renal function 0.63 > 1.86 > 2.79 > 3.42 Vancomycin has been discontinued /. Zosyn discontinued and switched to cefepime 5/5. Nephrology has been consulted. Renal function panels BID. (4) DVT prophylaxis Current Visit: Yes Status: Acute Heparin SQ Protonix for GI prophylaxis. (5) Colitis Current Visit: Yes Status: Acute Found on abdominal and pelvic CT yesterday. Unknown etiology at this time. C. Diff testing is negative. Continue flagyl Day #5 Subjective Principal diagnosis: Acute respiratory failure with hypoxia, ARDS secondary to severe community- Interval history: The patient was seen and examined. She is currently on day 9 of being intubated and ventilated. Continues to be sedated and ventilated with stable oxygen requirement. Tube feeds are being tolerated well. The patient is calm and will briefly awaken during examination. Objective PUL Vital signs: Last Vital Signs Temp 98.5 F 06/16/16 08:03 Pulse 89 06/16/16 08:22 Resp 20 06/16/16 08:22 BP 92/63 06/16/16 08:22 Pulse Ox 94 06/16/16 08:22 General appearance: other (sedated and on a vent. awakens briefly during exam) Eyes: nonicteric ENT: oropharynx moist Effort: normal Auscultation: bilateral: diminished breath sounds, wheezes (expiratory) Cardiovascular: regular rate and rhythm Gastrointestinal: normoactive bowel sounds, soft, non-distended (obese) Integumentary: normal Extremities: no cyanosis other (unable to assess due to sedation) Ventilator Settings Ventilator Settings: Ventilator Settings, Last 8 Hours Ventilator Mode VC+ Ventilator Mode VC+ Ventilator Mode VC+ Ventilator Mode VC+ Ventilator Mode VC+ Ventilator Mode VC+ Ventilator Mode VC+ Ventilator Mode VC+ Ventilator Mode VC+ Ventilator Mode VC+ Ventilator Tidal Volume 300 Setting Ventilator Tidal Volume 300 Setting Ventilator Tidal Volume 300 Setting Ventilator Tidal Volume 300 Setting Ventilator Tidal Volume 300 Setting Ventilator Tidal Volume 300 Setting Ventilator Tidal Volume 300 Setting Ventilator Tidal Volume 300 Setting Ventilator Tidal Volume 300 Setting Ventilator Tidal Volume 300 Setting Ventilator Respiratory Rate 18 Setting Ventilator Respiratory Rate 18 Setting Ventilator Respiratory Rate 18 Setting Ventilator Respiratory Rate 18 Setting Ventilator Respiratory Rate 18 Setting Ventilator Respiratory Rate 18 Setting Ventilator Respiratory Rate 18 Setting Ventilator Respiratory Rate 18 Setting Ventilator Respiratory Rate 21 Setting Ventilator Respiratory Rate 18 Setting Actual Respiratory Rate 21 Actual Respiratory Rate 22 Actual Respiratory Rate 23 Actual Respiratory Rate 17 Actual Respiratory Rate 17 Actual Respiratory Rate 23 Actual Respiratory Rate 21 Actual Respiratory Rate 21 Actual Respiratory Rate 19 Actual Respiratory Rate 21 Positive End Expiratory 8 Pressure Positive End Expiratory 8 Pressure Positive End Expiratory 8 Pressure Positive End Expiratory 8 Pressure Positive End Expiratory 8 Pressure Positive End Expiratory 8 Pressure Positive End Expiratory 8 Pressure Positive End Expiratory 8 Pressure Positive End Expiratory 8 Pressure Positive End Expiratory 8 Pressure Peak Inspiratory Airway 13 Pressure Peak Inspiratory Airway 17 Pressure Peak Inspiratory Airway 18 Pressure Peak Inspiratory Airway 15 Pressure Peak Inspiratory Airway 16 Pressure Peak Inspiratory Airway 15 Pressure Peak Inspiratory Airway 14 Pressure Peak Inspiratory Airway 13 Pressure Peak Inspiratory Airway 14 Pressure Results - Laboratory Findings CBC and BMP: 06/16/16 03:15 06/16/16 03:15 ABG ABG pH 7.45 pH Units (7.32-7.45) 06/14/16 07:40 ABG pCO2 55 mmHg (35-45) H 06/14/16 07:40 ABG pO2 93 mmHg (85-104) 06/14/16 07:40 ABG O2 Saturation 98 % (95-98) 06/14/16 07:40 PT/INR, D-dimer PT 12.9 Seconds (9.4-12.1) H 06/07/16 06:22 Abnormal lab findings: Abnormal lab results RBC 2.87 M/mcL (3.82-4.97) L 06/16/16 03:15 Hgb 8.8 g/dL (11.5-15.4) L 06/16/16 03:15 Hct 27.6 % (35.3-44.9) L 06/16/16 03:15 RDW 17.1 % (11.5-14.5) H 06/16/16 03:15 Immature Gran % 4.2 % (0-4) H 06/16/16 03:15 Metamyelocytes % 2.0 % (0) H 06/14/16 03:45 Myelocytes % 2.0 % (0) H 06/14/16 03:45 Nucleated RBCs/100 WBC 0.2 /100 WBC (0) H 06/15/16 03:15 Reactive Lymphocytes Present (Not Present) A 06/12/16 04:50 Smudge Cells Present (Not Present) A 06/12/16 04:50 Large Platelets Present (Not Present) A 06/14/16 03:45 Polychromasia 2+ (Not Present) A 06/14/16 03:45 Hypochromasia Present (Not Present) A 06/11/16 22:35 Basophilic Stippling 2+ (Not Present) A 06/14/16 03:45 Anisocytosis 1+ (Not Present) A 06/13/16 03:55 Macrocytosis Present (Not Present) A 06/10/16 07:18 PT 12.9 Seconds (9.4-12.1) H 06/07/16 06:22 ABG pCO2 55 mmHg (35-45) H 06/14/16 07:40 ABG HCO3 38.2 mEQ/L (21-27) H 06/14/16 07:40 ABG Total CO2 39.9 mEq/L (20-26) H 06/14/16 07:40 ABG Base Excess 12.4 mEq/L (-2.0 to 3.0) H 06/14/16 07:40 VBG pH 7.48 pH Units (7.32-7.42) H 06/05/16 06:06 VBG pCO2 37 mmHg (41-51) L 06/05/16 06:06 VBG pO2 167 mmHg (25-40) H 06/05/16 06:06 VBG HCO3 27.6 mEq/L (21-27) H 06/05/16 06:06 Potassium 5.2 mEq/L (3.5-4.5) H 06/16/16 03:15 Carbon Dioxide 31 mEq/L (19-29) H 06/16/16 03:15 BUN 53 mg/dL (7-20) H 06/16/16 03:15 Creatinine 3.42 mg/dL (0.57-1.11) H 06/16/16 03:15 Est GFR ( Amer) 19 (> 60) L 06/16/16 03:15 Est GFR (Non-Af Amer) 16 (> 60) L 06/16/16 03:15 Glucose 133 mg/dL (70-99) H 06/16/16 03:15 POC Glucose 152 (58-89) H 06/16/16 06:06 Calculated Osmolality 306 (280-300) H 06/16/16 03:15 Uric Acid 6.6 mg/dL (2.6-6.0) H 06/15/16 17:20 Calcium 8.0 mg/dL (8.6-10.8) L 06/16/16 03:15 Phosphorus 8.1 mg/dL (2.3-4.7) H 06/16/16 03:15 Albumin 1.4 g/dL (3.5-5.0) L 06/16/16 03:15 Globulin 4.5 g/dL (2.4-3.5) H 06/07/16 06:22 Albumin/Globulin Ratio 0.5 (1.1-2.2) L 06/07/16 06:22 Urine Clarity Cloudy (Clear) A 06/11/16 12:15 Ur Specific [place] 1.026 (1.010-1.025) H 06/11/16 12:15 Urine Protein 30 mg/dL (Neg-Trace) H 06/11/16 12:15 Urine Blood Large (Negative) H 06/11/16 12:15 Urine Microscopic RBC 50-100 per hpf (0-3) H 06/11/16 12:15 Urine Microscopic WBC 3-5 per hpf (0-3) H 06/11/16 12:15 Ur Squamous Epith Cells Many per lpf (None-Few) H 06/11/16 12:15 Human Metapneumovirus DETECTED (Not Detect) A 06/07/16 16:05 - Microbiology Findings Microbiology Findings: Microbiology, Last 48 Hours 06/14/16 16:05 Sputum Culture - Preliminary Sputum 06/10/16 02:35 Sputum Culture - Final Sputum Tru albicans - Clinical Findings Intake & Output: Intake & Output 06/15/16 06/16/16 06/16/16 23:59 07:59 15:59 Intake Total 891 / 891 395 / 395 50 / 50 Output Total 800 / 800 250 / 250 150 / 150 Balance 91 / 91 145 / 145 -100 / -100 Weight 114.6 kg - VTE Documentation of Mechanical Device: Graduated compression elastic hosiery Consult Discharge Plan - Plan Referrals: Manish Sheth MD [Primary Care Provider] - <Hector Ignacio W - Last Filed: 06/16/16 10:23> Date of Encounter: 06/16/16 Objective PUL Vital signs: Last Vital Signs Temp 98.5 F 06/16/16 08:03 Pulse 90 06/16/16 09:54 Resp 24 06/16/16 09:54 BP 93/58 06/16/16 09:54 Pulse Ox 93 06/16/16 09:54 Ventilator Settings Ventilator Settings: Ventilator Settings, Last 8 Hours Ventilator Mode VC+ Ventilator Mode VC+ Ventilator Mode VC+ Ventilator Mode VC+ Ventilator Mode VC+ Ventilator Mode VC+ Ventilator Mode VC+ Ventilator Mode VC+ Ventilator Tidal Volume 300 Setting Ventilator Tidal Volume 300 Setting Ventilator Tidal Volume 300 Setting Ventilator Tidal Volume 300 Setting Ventilator Tidal Volume 300 Setting Ventilator Tidal Volume 300 Setting Ventilator Tidal Volume 300 Setting Ventilator Tidal Volume 300 Setting Ventilator Respiratory Rate 18 Setting Ventilator Respiratory Rate 18 Setting Ventilator Respiratory Rate 18 Setting Ventilator Respiratory Rate 18 Setting Ventilator Respiratory Rate 18 Setting Ventilator Respiratory Rate 18 Setting Ventilator Respiratory Rate 18 Setting Ventilator Respiratory Rate 18 Setting Actual Respiratory Rate 29 Actual Respiratory Rate 21 Actual Respiratory Rate 22 Actual Respiratory Rate 23 Actual Respiratory Rate 17 Actual Respiratory Rate 17 Actual Respiratory Rate 23 Actual Respiratory Rate 21 Positive End Expiratory 8 Pressure Positive End Expiratory 8 Pressure Positive End Expiratory 8 Pressure Positive End Expiratory 8 Pressure Positive End Expiratory 8 Pressure Positive End Expiratory 8 Pressure Positive End Expiratory 8 Pressure Positive End Expiratory 8 Pressure Peak Inspiratory Airway 22 Pressure Peak Inspiratory Airway 13 Pressure Peak Inspiratory Airway 17 Pressure Peak Inspiratory Airway 18 Pressure Peak Inspiratory Airway 15 Pressure Peak Inspiratory Airway 16 Pressure Peak Inspiratory Airway 15 Pressure Results - Laboratory Findings CBC and BMP: 06/16/16 03:15 06/16/16 03:15 ABG ABG pH 7.45 pH Units (7.32-7.45) 06/14/16 07:40 ABG pCO2 55 mmHg (35-45) H 06/14/16 07:40 ABG pO2 93 mmHg (85-104) 06/14/16 07:40 ABG O2 Saturation 98 % (95-98) 06/14/16 07:40 PT/INR, D-dimer PT 12.9 Seconds (9.4-12.1) H 06/07/16 06:22 Abnormal lab findings: Abnormal lab results RBC 2.87 M/mcL (3.82-4.97) L 06/16/16 03:15 Hgb 8.8 g/dL (11.5-15.4) L 06/16/16 03:15 Hct 27.6 % (35.3-44.9) L 06/16/16 03:15 RDW 17.1 % (11.5-14.5) H 06/16/16 03:15 Immature Gran % 4.2 % (0-4) H 06/16/16 03:15 Metamyelocytes % 2.0 % (0) H 06/14/16 03:45 Myelocytes % 2.0 % (0) H 06/14/16 03:45 Nucleated RBCs/100 WBC 0.2 /100 WBC (0) H 06/15/16 03:15 Reactive Lymphocytes Present (Not Present) A 06/12/16 04:50 Smudge Cells Present (Not Present) A 06/12/16 04:50 Large Platelets Present (Not Present) A 06/14/16 03:45 Polychromasia 2+ (Not Present) A 06/14/16 03:45 Hypochromasia Present (Not Present) A 06/11/16 22:35 Basophilic Stippling 2+ (Not Present) A 06/14/16 03:45 Anisocytosis 1+ (Not Present) A 06/13/16 03:55 Macrocytosis Present (Not Present) A 06/10/16 07:18 PT 12.9 Seconds (9.4-12.1) H 06/07/16 06:22 ABG pCO2 55 mmHg (35-45) H 06/14/16 07:40 ABG HCO3 38.2 mEQ/L (21-27) H 06/14/16 07:40 ABG Total CO2 39.9 mEq/L (20-26) H 06/14/16 07:40 ABG Base Excess 12.4 mEq/L (-2.0 to 3.0) H 06/14/16 07:40 VBG pH 7.48 pH Units (7.32-7.42) H 06/05/16 06:06 VBG pCO2 37 mmHg (41-51) L 06/05/16 06:06 VBG pO2 167 mmHg (25-40) H 06/05/16 06:06 VBG HCO3 27.6 mEq/L (21-27) H 06/05/16 06:06 Potassium 5.2 mEq/L (3.5-4.5) H 06/16/16 03:15 Carbon Dioxide 31 mEq/L (19-29) H 06/16/16 03:15 BUN 53 mg/dL (7-20) H 06/16/16 03:15 Creatinine 3.42 mg/dL (0.57-1.11) H 06/16/16 03:15 Est GFR ( Amer) 19 (> 60) L 06/16/16 03:15 Est GFR (Non-Af Amer) 16 (> 60) L 06/16/16 03:15 Glucose 133 mg/dL (70-99) H 06/16/16 03:15 POC Glucose 152 (58-89) H 06/16/16 06:06 Calculated Osmolality 306 (280-300) H 06/16/16 03:15 Uric Acid 6.6 mg/dL (2.6-6.0) H 06/15/16 17:20 Calcium 8.0 mg/dL (8.6-10.8) L 06/16/16 03:15 Phosphorus 8.1 mg/dL (2.3-4.7) H 06/16/16 03:15 Albumin 1.4 g/dL (3.5-5.0) L 06/16/16 03:15 Globulin 4.5 g/dL (2.4-3.5) H 06/07/16 06:22 Albumin/Globulin Ratio 0.5 (1.1-2.2) L 06/07/16 06:22 Urine Clarity Cloudy (Clear) A 06/11/16 12:15 Ur Specific [place] 1.026 (1.010-1.025) H 06/11/16 12:15 Urine Protein 30 mg/dL (Neg-Trace) H 06/11/16 12:15 Urine Blood Large (Negative) H 06/11/16 12:15 Urine Microscopic RBC 50-100 per hpf (0-3) H 06/11/16 12:15 Urine Microscopic WBC 3-5 per hpf (0-3) H 06/11/16 12:15 Ur Squamous Epith Cells Many per lpf (None-Few) H 06/11/16 12:15 Human Metapneumovirus DETECTED (Not Detect) A 06/07/16 16:05 - Microbiology Findings Microbiology Findings: Microbiology, Last 48 Hours 06/14/16 16:05 Sputum Culture - Preliminary Sputum - Clinical Findings Intake & Output: Intake & Output 06/15/16 06/16/16 06/16/16 23:59 07:59 15:59 Intake Total 891 / 891 395 / 395 150 / 150 Output Total 800 / 800 250 / 250 150 / 150 Balance 91 / 91 145 / 145 0 / 0 Weight 114.6 kg - Attending Attestation I examined this patient and my medical decision-making was reviewed with the FINANCIAL REP/PA/Advanced Practice Nurse/Resident Physician. I agree with the documented findings, disposition and treatment plan as described except to the extent set forth below. Patient seen and examined at bedside Labs, radiology, chart personally reviewed. All lines examined without evidence of infection. Neuropsych: Continue Seroquel and Precedex for agitation we will attempt to avoid fentanyl and benzodiazepines as much as possible. Pulm: Acute on chronic hypoxic hypercapnic respiratory failure with community- acquired pneumonia leading to ARDS. Acceptable oxygenation/ventilation on FiO2 50% and 8 of PEEP. Suspect underlying pulmonary edema, holding diuresis s/t kidney injury. Holding SBT today because of mental status and ventilator requirements Cards: MAP better today heart rate controlled FEN-GI: Continue enteral nutrition. Patient continues to have frequent bowel movements likely from combination of colitis and aggressive bowel regimen prior to diagnosis with colitis Renal: Nonoliguric acute kidney injury likely secondary to contrast-induced nephropathy. Creatinine continues to worsen mild hyperkalemia but stable will check twice daily renal function panel no acute indication for dialysis nephrology has been consulted ID: Leukocytosis has resolved she has been treated for pneumonia for one week continue flagyl for colitis x 10days Heme/Onc: DVT prophylaxis given Endo: Glucose monitored Integ/MSK: Skin care per ICU protocol to prevent ulcers CODE: Full Code.
[2016-06-16] MEDS: Valproic Acid INJ 500 MG in 0.9 % Sodium Chloride 100 ML IVPB SCH ×2 (10:53→21:06)
--- NOTE | 2016-06-16 13:16 | Nephrology Progress Note ---
Date of Encounter: 06/16/16 Time of Encounter: 13:01 - Assessment and Plan (1) TANNER (acute kidney injury) Current Visit: Yes Status: Acute TANNER. has nonoliguric ATN sec to combination of IV contrast, borderline low BP in the setting of pneumonia. Had received a few doses of vancomycin. Serum cr continues to trend up. Has mild hyperkalemia and elevated phosphate. Start calcium acetate. monitor daily renal panel. Continue gentle IV hydration Starting allopurinol for hyperuricemia. UA is pending Discussed with mother at bedside. Subjective Principal diagnosis: Acute respiratory failure with hypoxia, ARDS secondary to severe community- Interval history: f/u for ARF. Had T max of 102.4 F, BP is borderline low with systolic in high 90s. FiO2 has decreased from 60% to 50%. Remains intubated and sedated. Mom at bedside Objective - Vital Signs Vital signs: Vital Signs Temp Pulse Resp BP Pulse Ox 06/16/16 12:12 98.9 F 06/16/16 11:36 84 18 89/56 96 06/16/16 11:35 18 96 06/16/16 10:44 89 25 97/53 93 06/16/16 09:54 90 24 93/58 93 06/16/16 09:13 24 94 06/16/16 08:22 89 20 92/63 94 06/16/16 08:03 98.5 F 06/16/16 07:34 20 99 06/16/16 06:14 89 22 107/54 94 06/16/16 05:35 23 95/61 96 06/16/16 05:13 87 22 103/61 95 06/16/16 04:00 98.2 F 83 17 99/69 100 06/16/16 03:52 23 97/66 99 06/16/16 03:23 87 21 100/67 99 06/16/16 02:06 83 21 91/50 97 06/16/16 01:40 19 93/54 99 06/16/16 01:07 88 23 92/60 98 06/16/16 00:06 85 22 95/59 99 06/15/16 23:43 98.3 F 85 18 91/49 97 06/15/16 23:40 21 91/49 98 06/15/16 22:00 91 20 95/58 97 05/06/17 21:38 25 117/77 97 06/15/16 21:00 94 21 98/74 96 06/15/16 20:00 98 22 111/68 95 06/15/16 19:47 21 117/65 97 06/15/16 19:40 99.4 F 94 20 117/65 97 06/15/16 18:00 96 20 114/67 96 06/15/16 17:33 24 114/74 98 06/15/16 17:00 103 20 114/74 96 06/15/16 16:00 104 20 112/69 96 06/15/16 15:23 100.7 F H 06/15/16 15:12 22 105/63 99 06/15/16 15:00 95 20 105/63 98 06/15/16 14:00 99.8 F H 98 20 105/63 98 06/15/16 13:26 21 126/83 98 Intake and Output 06/15/16 06/16/16 06/16/16 23:59 07:59 15:59 Intake Total 991 / 991 395 / 395 2056 / 2056 Output Total 800 / 800 250 / 250 350 / 350 Balance 191 / 191 145 / 145 1707 / 1707 Intake: IV Fluids 432 / 432 200 / 200 1200 / 1200 0.45% Sodium Chloride 1000 / 1000 1000 Ml 1000 Ml 1,000 ML @ 50 mls/hr IVC .Q20H [facility] Rx#:[id number] PRECEDEX 400 mcg In 100 200 / 200 100 / 100 100 / 100 ml @ 0.2 MCG/KG/HR 5.18 mls/hr IVC .[id number] [facility] Rx#:[id number] Versed 50 MG In 0.9 % 32 / 32 Sodium Chloride 90 ML @ 2 MG/HR 4 mls/hr IVC CONT [facility] Rx#:[id number] Flagyl Premix 500 MG/100 100 / 100 100 / 100 100 / 100 ML 500 mg In 100 ml @ 100 mls/hr IVPB Q8HR [facility] Rx# :[id number] Depacon 500 MG In 0.9 % 100 / 100 Sodium Chloride 100 ML @ 105 mls/hr IVPB Q12H [facility] Rx#:[id number] Tube Feeding 309 / 309 195 / 195 257 / 257 Free Water 250 / 250 300 / 300 Free Water Intake Amount 300 / 300 Output: Rectal Tube 400 / 400 150 / 150 0 / 0 Catheter 400 / 400 100 / 100 350 / 350 Other: Stool Consistency liquid Stool Color Brown Weight 114.6 kg Blood Glucose* 137 152 136 Patient Weight 06/16/16 23:59 Weight 114.6 kg - General Appearance Exam: CVS; s1s2 present, regular, no murmurs RESP; good air entry, coarse breath sounds ABD; soft, NT, BS present EXT; trace edema - Lab 06/16/16 03:15 06/16/16 03:15 Most recent lab results ABG pH 7.45 pH Units (7.32-7.45) 06/14/16 07:40 ABG pCO2 55 mmHg (35-45) H 06/14/16 07:40 ABG pO2 93 mmHg (85-104) 06/14/16 07:40 ABG HCO3 38.2 mEQ/L (21-27) H 06/14/16 07:40 ABG O2 Saturation 98 % (95-98) 06/14/16 07:40 Calcium 8.0 mg/dL (8.6-10.8) L 06/16/16 03:15 Phosphorus 8.1 mg/dL (2.3-4.7) H 06/16/16 03:15 Magnesium 2.1 mg/dL (1.6-2.6) 06/16/16 03:15 - VTE Documentation of Mechanical Device: Graduated compression elastic hosiery Consult Discharge Plan - Plan Referrals: Manish Sheth MD [Primary Care Provider] -
[2016-06-16] MEDS: Calcium Acetate 667 MG CAPSULE PO SCH (17:55)
[2016-06-16 18:27] LABS: Bilirubin,Urine Negative (Negative); Blood,Urine Large (Negative); Clarity,Urine Clear (Clear); Color,Urine Yellow (Yellow); Glucose,Urine (UA) Normal (Normal); Ketones,Urine Negative (Negative); Leukocyte Esterase,Urine Trace (Negative); Nitrite,Urine Negative (Negative); Protein,Urine 30 mg/dL (Neg-Trace); Urobilinogen,Urine Normal (Normal)
[2016-06-16 18:30] LABS: RBC,Urine 30-50 per hpf (0-3); WBC,Urine 0-3 per hpf (0-3)
[2016-06-16 18:31] LABS: Bacteria,Urine Few per hpf (None-Few)
[2016-06-16 19:20] LABS: Calcium 8.4 mg/dL (8.6-10.8); Phosphorous 7.9 mg/dL (2.3-4.7); Potassium 5.8 mEq/L (3.5-4.5)
[2016-06-16 19:21] LABS: Albumin 1.5 g/dL (3.5-5.0)
[2016-06-17] MEDS: Dexmedetomidine HCl 400 MCG/100 ML MLS IVC SCH ×5 (02:35→23:20)
[2016-06-17] MEDS: Ipratropium/Albuterol Neb 3 ML IH SCH ×6 (03:23→23:34)
[2016-06-17 03:55] LABS: Hematocrit 26.7 % (35.3-44.9); Hemoglobin 8.6 g/dL (11.5-15.4); Immature Platelets 7.1 % (1.1-6.1); Mean Corpuscular HGB Conc 32.2 g/dL (31.6-35.5); Mean Corpuscular Hemoglobin 30.8 pg (28.0-33.3); Mean Corpuscular Volume 95.7 fL (83.0-100.0); Mean Platelet Volume 10.3 fL (9.4-12.4); Platelet Count 281 K/mcL (140-400); Red Blood Count 2.79 M/mcL (3.82-4.97)
[2016-06-17 04:10] LABS: Calcium 8.5 mg/dL (8.6-10.8); Phosphorous 7.8 mg/dL (2.3-4.7); Potassium 5.7 mEq/L (3.5-4.5)
[2016-06-17 04:11] LABS: Albumin 1.4 g/dL (3.5-5.0)
[2016-06-17 04:34] LABS: Anisocytosis 1+ (Not Present); Eosinophils # 0.7 K/mcL (0.0-0.6); Lymphocytes # 1.2 K/mcL (0.6-4.6); Monocytes # 0.7 K/mcL (0.0-1.3); Neutrophils # 9.3 K/mcL (1.6-8.9); Platelet Estimate Normal (Normal)
[2016-06-17 04:35] LABS: Poikilocytosis 1+ (Not Present)
[2016-06-17] MEDS: Insulin LISPRO 300 UNITS/3 ML VIAL SQ SCH ×4 (04:50→23:39)
[2016-06-17] MEDS: Cefepime HCl 2,000 MG in D5% in Water (Mini-Bag+) 100 ML IVPB SCH (05:31)
[2016-06-17] MEDS: Levothyroxine Sodium 100 MCG VIAL IV SCH (05:32)
[2016-06-17] MEDS: *HR* Heparin 5,000 UNIT/ML VIAL SQ SCH ×2 (05:32→17:48)
[2016-06-17 08:04] LABS: ABG Base Excess 3.4 mEq/L (-2.0 to 3.0); ABG Oxygen Saturation 94 % (95-98); ABG PCO2 49 mmHg (35-45); ABG PH 7.38 pH Units (7.32-7.45); ABG PO2 73 mmHg (85-104); ABG TCO2 30.5 mEq/L (20-26)
[2016-06-17 08:08] LABS: Blood Gas FiO2 70 %
[2016-06-17] MEDS: FentaNYL (PF) 1,000 MCG in 0.9 % Sodium Chloride 80 ML IVC SCH (08:25)
[2016-06-17] MEDS ORDERED: Furosemide 80 MG in 0.9 % Sodium Chloride 50 ML IVPB ONE (08:54)
--- NOTE | 2016-06-17 08:54 | Nephrology Progress Note ---
Date of Encounter: 06/17/16 Time of Encounter: 08:51 - Assessment and Plan (1) TANNER (acute kidney injury) Current Visit: Yes Status: Acute Patient has acute kidney injury in the setting of respiratory failure hypotension and vancomycin. Her creatinine may be starting to reach a plateau. Her oxygen requirements are increasing. She has signs of volume overload on clinical exam. Going to discontinue her maintenance IV fluids. We will give her 1 dose of Lasix to try and increase her urine output. (2) Multifocal pneumonia Current Visit: Yes Status: Acute (3) Sepsis Current Visit: Yes Status: Suspected Qualifiers: Sepsis type: sepsis due to unspecified organism Qualified Code(s): A41.9 - Sepsis, unspecified organism (4) ARDS (adult respiratory distress syndrome) Current Visit: Yes Status: Acute Subjective Principal diagnosis: Acute respiratory failure with hypoxia, ARDS secondary to severe community- Interval history: The patient remained sedated on the ventilator. Her creatinine may be reaching a plateau. Urine output is recorded is approximately 1.5 L. Her FiO2 requirements are worsening. She is currently on 70% FiO2. Blood pressure is stable. She is not on any vasopressors. Objective - Vital Signs Vital signs: Vital Signs Temp Pulse Resp BP Pulse Ox 06/17/16 08:28 99.4 F 06/17/16 08:00 94 20 137/46 98 06/17/16 07:00 94 20 117/77 94 06/17/16 06:00 94 28 137/46 98 06/17/16 05:32 29 138/74 98 06/17/16 05:00 100 28 139/51 94 06/17/16 04:37 99.0 F 06/17/16 04:30 100 34 133/46 94 06/17/16 03:35 110 37 121/64 91 06/17/16 03:23 29 119/66 91 06/17/16 02:00 93 30 126/76 90 06/17/16 01:20 27 103/61 92 06/17/16 01:00 95 28 103/61 91 06/17/16 00:01 102 35 104/51 89 06/16/16 23:39 22 89/50 96 06/16/16 23:30 99.2 F 90 28 89/50 88 06/16/16 22:05 94 22 93/63 95 06/16/16 21:40 27 109/57 96 06/16/16 21:17 24 111/65 99 06/16/16 21:00 98 30 109/64 96 06/16/16 20:29 98.6 F 06/16/16 20:00 105 31 117/52 90 06/16/16 19:40 92 28 111/65 91 06/16/16 18:12 18 99 06/16/16 17:49 91 25 107/68 97 06/16/16 16:16 98 25 108/67 97 06/16/16 15:45 22 112/72 96 06/16/16 15:20 98.1 F 06/16/16 14:26 104 25 112/72 93 06/16/16 13:43 113 35 96/59 93 06/16/16 12:12 98.9 F 06/16/16 11:36 84 18 89/56 96 06/16/16 11:35 18 96 06/16/16 10:44 89 25 97/53 93 06/16/16 09:54 90 24 93/58 93 06/16/16 09:13 24 94 Intake and Output 06/16/16 06/17/16 06/17/16 23:59 07:59 15:59 Intake Total 1752 / 1752 659 / 659 384 / 384 Output Total 730 / 730 300 / 300 200 / 200 Balance 1022 / 1022 359 / 359 184 / 184 Intake: IV Fluids 405 / 405 500 / 500 384 / 384 0.45% Sodium Chloride 100 / 100 1000 Ml 1000 Ml 1,000 ML @ 50 mls/hr IVC .Q20H [facility] Rx#:[id number] PRECEDEX 400 mcg In 100 100 / 100 100 / 100 100 / 100 ml @ 0.2 MCG/KG/HR 5.18 mls/hr IVC .[id number] [facility] Rx#:[id number] FentaNYL (PF) 3,000 MCG 240 / 240 In 0.9 % Sodium Chloride 240 ML @ 50 MCG/HR 5 mls/ hr IVC CONT [facility] Rx#: [id number] Versed 50 MG In 0.9 % 100 / 100 100 / 100 44 / 44 Sodium Chloride 90 ML @ 2 MG/HR 4 mls/hr IVC CONT [facility] Rx#:[id number] Maxipime 2,000 MG In 100 / 100 Dextrose 5% (Minibag+) 100 ML 100 ML @ 200 mls/ hr IVPB Q24H [facility] Rx#: [id number] Flagyl Premix 500 MG/100 100 / 100 100 / 100 ML 500 mg In 100 ml @ 100 mls/hr IVPB Q8HR [facility] Rx# :[id number] Depacon 500 MG In 0.9 % 105 / 105 Sodium Chloride 100 ML @ 105 mls/hr IVPB Q12H [facility] Rx#:[id number] Tube Feeding 317 / 317 159 / 159 Free Water 530 / 530 Free Water Intake Amount 500 / 500 Output: Rectal Tube 150 / 150 0 / 0 Catheter 580 / 580 300 / 300 200 / 200 Other: Stool Color Brown Blood Glucose* 121 - General Appearance Exam: Patient is sedated on the ventilator. She is in no acute distress. Vital signs are stable. Lungs diminished breath sounds. Heart regular rate and rhythm. There is a 2/6 systolic ejection murmur. Abdomen is obese. Bowel sounds are present but diminished. Abdomen is soft. No guarding or rigidity. Patient has diffuse edema of the extremities. - Lab 06/17/16 03:40 06/17/16 03:40 Most recent lab results ABG pH 7.38 pH Units (7.32-7.45) 06/17/16 07:35 ABG pCO2 49 mmHg (35-45) H 06/17/16 07:35 ABG pO2 73 mmHg (85-104) L 06/17/16 07:35 ABG HCO3 29.0 mEQ/L (21-27) H 06/17/16 07:35 ABG O2 Saturation 94 % (95-98) L 06/17/16 07:35 Calcium 8.5 mg/dL (8.6-10.8) L 06/17/16 03:40 Phosphorus 7.8 mg/dL (2.3-4.7) H 06/17/16 03:40 Magnesium 2.1 mg/dL (1.6-2.6) 06/16/16 03:15 - VTE Documentation of Mechanical Device: Graduated compression elastic hosiery Consult Discharge Plan - Plan Referrals: Manish Sheth MD [Primary Care Provider] -
--- NOTE | 2016-06-17 09:47 | Pulmonology Progress Note ---
<Lizabeth Goldstein - Last Filed: 06/17/16 12:59> Date of Encounter: 06/17/16 Time of Encounter: 09:42 Assessment and Plan (1) Acute respiratory failure with hypoxia and hypercapnia Current Visit: Yes Status: Acute Patient with ARDS and acute respiratory failure requiring intubation most likely secondary to bilateraly community acquire pneumonia. Patient with increasing FiO2 requirement overnight - now at 70%. Breath sounds diminished bilaterally with expiratory wheezing. CXR today showed persistent BL perihilar airspace disease. Last ABG was 7.38/49/73/29/+3.4 Patient found to be positive for human metapneumovirus. Sputum cultures negative. WBC improving - 28.5 > 16.8 > 14.5 > 12.8 > 10.4 > 12.2. As cultures are negative, will stop cefepimine today. Patient received 4 days of Zosyn and 3 days of cefepimine for total of 7 days of antibiotics. As patient has been intubated for 10 days and is still requiring significant FiO2 and ventilatory settings, discussion with family needs to occur concerning goals of care and possible tracheostomy. Palliative consult placed. Will focus on diuresis to hopefully work towards extubation. 1. Continue ARDS ventilator protocol 2. Stop respiratory antibiotics today 3. Continue duonebs every 4 hours scheduled 4. Wean FiO2 as tolerated (2) ARDS (adult respiratory distress syndrome) Current Visit: Yes Status: Acute Patient with ARDS and acute respiratory failure requiring intubation most likely secondary to bilateraly community acquire pneumonia. Patient with increasing FiO2 requirement overnight - now at 70%. Breath sounds diminished bilaterally with expiratory wheezing. CXR today showed persistent BL perihilar airspace disease. Last ABG was 7.38/49/73/29/+3.4 1. Continue ARDS ventilator protocol 2. Stop respiratory antibiotics today 3. Continue duonebs every 4 hours scheduled 4. Wean FiO2 as tolerated (3) TANNER (acute kidney injury) Current Visit: Yes Status: Acute Patient with acute kidney injury in the setting of IV contrast and vancomycin. Renal function worsening 0.63 > 1.86 > 2.79 > 3.42 > 3.55 > 3.68. Patient continues to make urine. Nephrology consulted. Per their recommendation, maintance IVF were stopped and patient was given a dose of lasix for diuresis. 1. One dose of lasix 2. Follow urine output and kidney function (4) Hypotension Current Visit: Yes Status: Acute Patient with persistent hypotension. Today systolic blood pressure maintained in the 80s. Will continue to monitor. Patient may require pressors if blood pressure continues to drop with diuresis. Currently avoiding placement of any invasive a-line for blood pressure measurement at this time. 1. Monitor blood pressure Qualifiers: Hypotension type: unspecified hypotension type Qualified Code(s): I95.9 - Hypotension, unspecified (5) Colitis Current Visit: Yes Status: Acute Patient with diarrhea and colitis seen on CT abdomen/pelvis. C. diff toxin negative. She was started on Flagyl (day #6). Rectal tube is in place and diarrhea output is decreasing. 1. Maintian rectal tube and monitor output 2. Continue flagyl (day 6) 3. Monitor vital signs and WBC (6) Hyperkalemia Current Visit: Yes Status: Acute Potassium increasing, likely secondary to acute kidney injuryt. Potassium 5.7 today, stable form 5.8 yesterday. Will continue to monitor. (7) Hypoalbuminemia Current Visit: Yes Status: Acute Albumin 1.4. Nutrition consulted. Tube feeds tolerated at goal of 40 ml/hr. (8) Discussion about advance care planning held with family member Current Visit: Yes Status: Acute Family meeting with ICU team, nursing staff and palliative care team had today. Discussed with family that patient is very sick and not improving as we would have liked. Explained that we need to help her lung recover and are going to increase diuresis and that this might resulting in worsening kidney function, to the extent that patient might need dialysis. Discussed with family that patient has been intubated for 10 days and that we need to make some decisions concerning tracheostomy. Explained that with this patien,t tracheostomy would be very difficult and family is worried patient may pull tube out. ICU team did not recommend a tracheostomy going forward. Family voiced understanding of situation at this time. Will continue with diuresis and trying to wean ventilator towards extubation. Appreciate palliative consult. Patient will continue as full code at this time. (9) DVT prophylaxis Current Visit: Yes Status: Acute DVT prophylaxis with heparin and foot pumps. Neuro: - Intubated & sedated on versed, fentanyl, and precedex - Celexa 40mg daily, Seroquel 25mg QAM and 50mg QHS, and Valproic Acid for mood modulation Pulm: acute respiratory failure secondary to viral pneumonia - ARDS protocol - Wean FiO2 as tolerated - Continue Duonebs every 4 hours scheduled - Attempting to diuresis Cardiac: - Persistant hypotension - continue to monitor GI/fluids/electrolytes/hydration/GI ppx - OG tube in place with feeds at goal of 40l/hr - tolerating well - Maintenance fluids off per nephrology and patient given lasix to improve diuresis - Rectal tube in place - output decreasing - On Flagyl (day 6) for colitis - Protonix ppx Renal: acute kidney injury - Nephrology on board - Hold maintaince fluids and lasix given to improve diuresis ID: + human metapneumovirus - Blood cultures negative x 2, urine cultures negative - Patient recieved total of 7 days of respiratory antibiotics (3 days of zosyn and 4 days of cefepime) - On flagly (day 6) for colitis Heme/Onc: - DVT prophylaxis - heparin Endocrine: - Insulin sliding scale Lines: - Endotrachial tube - OG tube - Right internal jugular - Reed catheter Subjective Principal diagnosis: Acute respiratory failure, ARDS secondary community acquired pneumonia Interval history: Yesterday, after moving the patient, she had acute desaturation with difficulty improving saturation. FiO2 was increased from 50% to 70%. This morning, patient again desaturated after CXR and required brief increase in FiO2. Today, she is afebrile with stable vital signs. Patient remains intubated (day 10) and sedated. She opens eyes to voice but does not follow commands. Lungs are diminished bilaterally with expiratory wheezing. CXR this morning shows persistent bilateral airspace disease. Abdomen is distended, but soft to palpation. Patient has significant bilateral lower extremity edema. Objective PUL Vital signs: Last Vital Signs Temp 99.4 F 06/17/16 08:28 Pulse 93 06/17/16 09:00 Resp 18 06/17/16 09:00 BP 87/52 06/17/16 09:00 Pulse Ox 100 06/17/16 09:00 General appearance: no acute distress, other (opens eyes to voice) Eyes: nonicteric Effort: normal Auscultation: bilateral: diminished breath sounds, wheezes Cardiovascular: regular rate and rhythm Gastrointestinal: normoactive bowel sounds, soft, other (distended) Integumentary: normal Extremities: pink and warm, edema pupils equal and round, other (opens eyes to voice, does not follow commands) Ventilator Settings Ventilator Settings: Ventilator Settings, Last 8 Hours Ventilator Mode VC+ Ventilator Mode VC+ Ventilator Mode VC+ Ventilator Mode VC+ Ventilator Mode VC+ Ventilator Mode VC+ Ventilator Mode VC+ Ventilator Mode VC+ Ventilator Mode VC+ Ventilator Mode VC+ Ventilator Mode VC+ Ventilator Mode VC+ Ventilator Tidal Volume 300 Setting Ventilator Tidal Volume 300 Setting Ventilator Tidal Volume 300 Setting Ventilator Tidal Volume 300 Setting Ventilator Tidal Volume 300 Setting Ventilator Tidal Volume 300 Setting Ventilator Tidal Volume 300 Setting Ventilator Tidal Volume 300 Setting Ventilator Tidal Volume 300 Setting Ventilator Tidal Volume 300 Setting Ventilator Tidal Volume 300 Setting Ventilator Tidal Volume 300 Setting Ventilator Respiratory Rate 18 Setting Ventilator Respiratory Rate 18 Setting Ventilator Respiratory Rate 18 Setting Ventilator Respiratory Rate 18 Setting Ventilator Respiratory Rate 18 Setting Ventilator Respiratory Rate 18 Setting Ventilator Respiratory Rate 18 Setting Ventilator Respiratory Rate 18 Setting Ventilator Respiratory Rate 18 Setting Ventilator Respiratory Rate 18 Setting Ventilator Respiratory Rate 18 Setting Ventilator Respiratory Rate 18 Setting Actual Respiratory Rate 18 Actual Respiratory Rate 28 Actual Respiratory Rate 18 Actual Respiratory Rate 20 Actual Respiratory Rate 29 Actual Respiratory Rate 29 Actual Respiratory Rate 22 Actual Respiratory Rate 25 Actual Respiratory Rate 37 Actual Respiratory Rate 29 Actual Respiratory Rate 30 Positive End Expiratory 8 Pressure Positive End Expiratory 8 Pressure Positive End Expiratory 8 Pressure Positive End Expiratory 8 Pressure Positive End Expiratory 8 Pressure Positive End Expiratory 8 Pressure Positive End Expiratory 8 Pressure Positive End Expiratory 8 Pressure Positive End Expiratory 8 Pressure Positive End Expiratory 8 Pressure Positive End Expiratory 8 Pressure Positive End Expiratory 8 Pressure Peak Inspiratory Airway 16 Pressure Peak Inspiratory Airway 28 Pressure Peak Inspiratory Airway 16 Pressure Peak Inspiratory Airway 16 Pressure Peak Inspiratory Airway 25 Pressure Peak Inspiratory Airway 28 Pressure Peak Inspiratory Airway 28 Pressure Peak Inspiratory Airway 24 Pressure Peak Inspiratory Airway 25 Pressure Peak Inspiratory Airway 27 Pressure Peak Inspiratory Airway 28 Pressure Results - Laboratory Findings CBC and BMP: 06/17/16 03:40 06/17/16 03:40 ABG ABG pH 7.38 pH Units (7.32-7.45) 06/17/16 07:35 ABG pCO2 49 mmHg (35-45) H 06/17/16 07:35 ABG pO2 73 mmHg (85-104) L 06/17/16 07:35 ABG O2 Saturation 94 % (95-98) L 06/17/16 07:35 PT/INR, D-dimer PT 12.9 Seconds (9.4-12.1) H 06/07/16 06:22 Abnormal lab findings: Abnormal lab results WBC 12.2 K/mcL (4.3-11.1) H 06/17/16 03:40 RBC 2.79 M/mcL (3.82-4.97) L 06/17/16 03:40 Hgb 8.6 g/dL (11.5-15.4) L 06/17/16 03:40 Hct 26.7 % (35.3-44.9) L 06/17/16 03:40 RDW 17.0 % (11.5-14.5) H 06/17/16 03:40 Immature Gran % 4.2 % (0-4) H 06/16/16 03:15 Band Neutrophils % 6.0 % (0-4) H 06/17/16 03:40 Metamyelocytes % 2.0 % (0) H 06/14/16 03:45 Myelocytes % 2.0 % (0) H 06/17/16 03:40 Neutrophils # 9.3 K/mcL (1.6-8.9) H 06/17/16 03:40 Eosinophils # 0.7 K/mcL (0.0-0.6) H 06/17/16 03:40 Nucleated RBCs/100 WBC 0.2 /100 WBC (0) H 06/15/16 03:15 Reactive Lymphocytes Present (Not Present) A 06/12/16 04:50 Smudge Cells Present (Not Present) A 06/12/16 04:50 Large Platelets Present (Not Present) A 06/14/16 03:45 Immature Plt Fraction 7.1 % (1.1-6.1) H 06/17/16 03:40 Polychromasia 2+ (Not Present) A 06/14/16 03:45 Hypochromasia Present (Not Present) A 06/11/16 22:35 Poikilocytosis 1+ (Not Present) A 06/17/16 03:40 Basophilic Stippling 2+ (Not Present) A 06/14/16 03:45 Anisocytosis 1+ (Not Present) A 06/17/16 03:40 Macrocytosis Present (Not Present) A 06/10/16 07:18 PT 12.9 Seconds (9.4-12.1) H 06/07/16 06:22 ABG pCO2 49 mmHg (35-45) H 06/17/16 07:35 ABG pO2 73 mmHg (85-104) L 06/17/16 07:35 ABG HCO3 29.0 mEQ/L (21-27) H 06/17/16 07:35 ABG Total CO2 30.5 mEq/L (20-26) H 06/17/16 07:35 ABG O2 Saturation 94 % (95-98) L 06/17/16 07:35 ABG Base Excess 3.4 mEq/L (-2.0 to 3.0) H 06/17/16 07:35 VBG pH 7.48 pH Units (7.32-7.42) H 06/05/16 06:06 VBG pCO2 37 mmHg (41-51) L 06/05/16 06:06 VBG pO2 167 mmHg (25-40) H 06/05/16 06:06 VBG HCO3 27.6 mEq/L (21-27) H 06/05/16 06:06 Potassium 5.7 mEq/L (3.5-4.5) H 06/17/16 03:40 BUN 59 mg/dL (7-20) H 06/17/16 03:40 Creatinine 3.68 mg/dL (0.57-1.11) H 06/17/16 03:40 Est GFR ( Amer) 17 (> 60) L 06/17/16 03:40 Est GFR (Non-Af Amer) 14 (> 60) L 06/17/16 03:40 Glucose 122 mg/dL (70-99) H 06/17/16 03:40 POC Glucose 121 (58-89) H 06/16/16 23:31 Calculated Osmolality 304 (280-300) H 06/17/16 03:40 Uric Acid 6.6 mg/dL (2.6-6.0) H 06/15/16 17:20 Calcium 8.5 mg/dL (8.6-10.8) L 06/17/16 03:40 Phosphorus 7.8 mg/dL (2.3-4.7) H 06/17/16 03:40 Albumin 1.4 g/dL (3.5-5.0) L 06/17/16 03:40 Globulin 4.5 g/dL (2.4-3.5) H 06/07/16 06:22 Albumin/Globulin Ratio 0.5 (1.1-2.2) L 06/07/16 06:22 Ur Specimen Adequacy See below A 06/16/16 17:49 Urine Protein 30 mg/dL (Neg-Trace) H 06/16/16 17:49 Urine Blood Large (Negative) H 06/16/16 17:49 Ur Leukocyte Esterase Trace (Negative) H 06/16/16 17:49 Urine Microscopic RBC 30-50 per hpf (0-3) H 06/16/16 17:49 Ur Squamous Epith Cells Many per lpf (None-Few) H 06/11/16 12:15 Human Metapneumovirus DETECTED (Not Detect) A 06/07/16 16:05 - Microbiology Findings Microbiology Findings: Microbiology, Last 48 Hours 06/14/16 16:05 Sputum Culture - Final Sputum 06/11/16 11:59 Blood Culture - Final Peripheral Venipuncture No growth. 06/11/16 11:50 Blood Culture - Final Peripheral Venipuncture No growth. Blood cultures negative x 2. Urine culture negative. Sputum culture negative. + for human metapneumovirus. - Diagnostic Findings Chest x-ray: report reviewed, image reviewed - Clinical Findings Intake & Output: Intake & Output 06/16/16 06/17/16 06/17/16 23:59 07:59 15:59 Intake Total 1752 / 1752 659 / 659 384 / 384 Output Total 730 / 730 300 / 300 200 / 200 Balance 1022 / 1022 359 / 359 184 / 184 - VTE Documentation of Mechanical Device: Graduated compression elastic hosiery Consult Discharge Plan - Plan Referrals: Manish Sheth MD [Primary Care Provider] - <Abby Harry - Last Filed: 06/17/16 15:26> Date of Encounter: 06/17/16 Objective PUL Vital signs: Last Vital Signs Temp 99.6 F 06/17/16 12:31 Pulse 92 06/17/16 14:00 Resp 26 06/17/16 14:00 BP 83/45 06/17/16 14:00 Pulse Ox 90 06/17/16 14:00 Ventilator Settings Ventilator Settings: Ventilator Settings, Last 8 Hours Ventilator Mode VC+ Ventilator Mode VC+ Ventilator Mode VC+ Ventilator Mode VC+ Ventilator Mode VC+ Ventilator Mode VC+ Ventilator Mode VC+ Ventilator Mode VC+ Ventilator Mode VC+ Ventilator Tidal Volume 300 Setting Ventilator Tidal Volume 300 Setting Ventilator Tidal Volume 300 Setting Ventilator Tidal Volume 300 Setting Ventilator Tidal Volume 300 Setting Ventilator Tidal Volume 300 Setting Ventilator Tidal Volume 300 Setting Ventilator Tidal Volume 300 Setting Ventilator Tidal Volume 300 Setting Ventilator Respiratory Rate 18 Setting Ventilator Respiratory Rate 18 Setting Ventilator Respiratory Rate 18 Setting Ventilator Respiratory Rate 18 Setting Ventilator Respiratory Rate 18 Setting Ventilator Respiratory Rate 18 Setting Ventilator Respiratory Rate 18 Setting Ventilator Respiratory Rate 18 Setting Ventilator Respiratory Rate 18 Setting Actual Respiratory Rate 26 Actual Respiratory Rate 27 Actual Respiratory Rate 23 Actual Respiratory Rate 23 Actual Respiratory Rate 18 Actual Respiratory Rate 18 Actual Respiratory Rate 28 Actual Respiratory Rate 18 Positive End Expiratory 8 Pressure Positive End Expiratory 8 Pressure Positive End Expiratory 8 Pressure Positive End Expiratory 8 Pressure Positive End Expiratory 8 Pressure Positive End Expiratory 8 Pressure Positive End Expiratory 8 Pressure Positive End Expiratory 8 Pressure Positive End Expiratory 8 Pressure Peak Inspiratory Airway 16 Pressure Peak Inspiratory Airway 16 Pressure Peak Inspiratory Airway 16 Pressure Peak Inspiratory Airway 16 Pressure Peak Inspiratory Airway 16 Pressure Peak Inspiratory Airway 16 Pressure Peak Inspiratory Airway 28 Pressure Peak Inspiratory Airway 16 Pressure Results - Laboratory Findings CBC and BMP: 06/17/16 03:40 06/17/16 03:40 ABG ABG pH 7.38 pH Units (7.32-7.45) 06/17/16 07:35 ABG pCO2 49 mmHg (35-45) H 06/17/16 07:35 ABG pO2 73 mmHg (85-104) L 06/17/16 07:35 ABG O2 Saturation 94 % (95-98) L 06/17/16 07:35 PT/INR, D-dimer PT 12.9 Seconds (9.4-12.1) H 06/07/16 06:22 Abnormal lab findings: Abnormal lab results WBC 12.2 K/mcL (4.3-11.1) H 06/17/16 03:40 RBC 2.79 M/mcL (3.82-4.97) L 06/17/16 03:40 Hgb 8.6 g/dL (11.5-15.4) L 06/17/16 03:40 Hct 26.7 % (35.3-44.9) L 06/17/16 03:40 RDW 17.0 % (11.5-14.5) H 06/17/16 03:40 Immature Gran % 4.2 % (0-4) H 06/16/16 03:15 Band Neutrophils % 6.0 % (0-4) H 06/17/16 03:40 Metamyelocytes % 2.0 % (0) H 06/14/16 03:45 Myelocytes % 2.0 % (0) H 06/17/16 03:40 Neutrophils # 9.3 K/mcL (1.6-8.9) H 06/17/16 03:40 Eosinophils # 0.7 K/mcL (0.0-0.6) H 06/17/16 03:40 Nucleated RBCs/100 WBC 0.2 /100 WBC (0) H 06/15/16 03:15 Reactive Lymphocytes Present (Not Present) A 06/12/16 04:50 Smudge Cells Present (Not Present) A 06/12/16 04:50 Large Platelets Present (Not Present) A 06/14/16 03:45 Immature Plt Fraction 7.1 % (1.1-6.1) H 06/17/16 03:40 Polychromasia 2+ (Not Present) A 06/14/16 03:45 Hypochromasia Present (Not Present) A 06/11/16 22:35 Poikilocytosis 1+ (Not Present) A 06/17/16 03:40 Basophilic Stippling 2+ (Not Present) A 06/14/16 03:45 Anisocytosis 1+ (Not Present) A 06/17/16 03:40 Macrocytosis Present (Not Present) A 06/10/16 07:18 PT 12.9 Seconds (9.4-12.1) H 06/07/16 06:22 ABG pCO2 49 mmHg (35-45) H 06/17/16 07:35 ABG pO2 73 mmHg (85-104) L 06/17/16 07:35 ABG HCO3 29.0 mEQ/L (21-27) H 06/17/16 07:35 ABG Total CO2 30.5 mEq/L (20-26) H 06/17/16 07:35 ABG O2 Saturation 94 % (95-98) L 06/17/16 07:35 ABG Base Excess 3.4 mEq/L (-2.0 to 3.0) H 06/17/16 07:35 VBG pH 7.48 pH Units (7.32-7.42) H 06/05/16 06:06 VBG pCO2 37 mmHg (41-51) L 06/05/16 06:06 VBG pO2 167 mmHg (25-40) H 06/05/16 06:06 VBG HCO3 27.6 mEq/L (21-27) H 06/05/16 06:06 Potassium 5.7 mEq/L (3.5-4.5) H 06/17/16 03:40 BUN 59 mg/dL (7-20) H 06/17/16 03:40 Creatinine 3.68 mg/dL (0.57-1.11) H 06/17/16 03:40 Est GFR ( Amer) 17 (> 60) L 06/17/16 03:40 Est GFR (Non-Af Amer) 14 (> 60) L 06/17/16 03:40 Glucose 122 mg/dL (70-99) H 06/17/16 03:40 POC Glucose 133 (58-89) H 06/17/16 11:49 Calculated Osmolality 304 (280-300) H 06/17/16 03:40 Uric Acid 6.6 mg/dL (2.6-6.0) H 06/15/16 17:20 Calcium 8.5 mg/dL (8.6-10.8) L 06/17/16 03:40 Phosphorus 7.8 mg/dL (2.3-4.7) H 06/17/16 03:40 Albumin 1.4 g/dL (3.5-5.0) L 06/17/16 03:40 Globulin 4.5 g/dL (2.4-3.5) H 06/07/16 06:22 Albumin/Globulin Ratio 0.5 (1.1-2.2) L 06/07/16 06:22 Ur Specimen Adequacy See below A 06/16/16 17:49 Urine Protein 30 mg/dL (Neg-Trace) H 06/16/16 17:49 Urine Blood Large (Negative) H 06/16/16 17:49 Ur Leukocyte Esterase Trace (Negative) H 06/16/16 17:49 Urine Microscopic RBC 30-50 per hpf (0-3) H 06/16/16 17:49 Ur Squamous Epith Cells Many per lpf (None-Few) H 06/11/16 12:15 Human Metapneumovirus DETECTED (Not Detect) A 06/07/16 16:05 - Microbiology Findings Microbiology Findings: Microbiology, Last 48 Hours 06/14/16 16:05 Sputum Culture - Final Sputum 06/11/16 11:59 Blood Culture - Final Peripheral Venipuncture No growth. 06/11/16 11:50 Blood Culture - Final Peripheral Venipuncture No growth. - Clinical Findings Intake & Output: Intake & Output 06/16/16 06/17/16 06/17/16 23:59 07:59 15:59 Intake Total 1752 / 1752 659 / 659 1167 / 1167 Output Total 730 / 730 300 / 300 500 / 500 Balance 1022 / 1022 359 / 359 667 / 667 - Attending Attestation I examined this patient and my medical decision-making was reviewed with the DRYING ROOM OPERATOR/PA/Advanced Practice Nurse/Resident Physician. I agree with the documented findings, disposition and treatment plan as described except to the extent set forth below. Patient seen and examined. Labs, radiology, chart personally reviewed. Agree with resident's history and physical, assessment, plan with following comments: BATH MIXER: Patient doesn't follows commands, try to wean sedation as much as possible. Pulmonary: Patient is still requiring high FiO2 and lowest FiO2 to 70% with keeping PEEP at 8 at this time. Plateau pressure is less than 30 which is acceptable and there is no plan for spontaneous breathing trial. I had a family meeting with the parents in the presence of the nurses and the resident and we discussed potential need for tracheostomy and that is not my recommendation because of her agitation according to reports from the nurse and also consulted palliative care. At this time the primary focus with the diuresis and they understand there is possibility of kidney function could worsen and might need to be on dialysis. Cardiovascular: Hypertension could be secondary from Lasix and still recommend to continue that and if need vasopressors then will start her on pressors in order to diuresis. GI: Nutrition per dietary and GI prophylaxis per routine Heme: DVT prophylaxis per routine ID: Continue antibiotics and plan to de-escalation Renal; urine out put and renal funtion reviewed. Nephrology follow-up Endorcine: blood glucose is monitored Lines: all lines checked and no evidence of infections Skin: skin care to prevent pressure ulcers per nursing routine care I spent 35 min of Critical Care time with this patient. It involved decision making of high complexity to assess, manipulate, and support vital organ system failure and/or to prevent further life threatening deterioration of the patient' s condition. The time involved in the performance of separately reportable procedures was not counted toward critical care time.
[2016-06-17] MEDS: Chlorhexidine Rinse 15 ML MOUTHWASH MM SCH ×2 (09:54→19:38)
[2016-06-17] MEDS: Lacri-Lube 3.5 GM TUBE BOTH EYES SCH ×2 (09:54→20:05)
[2016-06-17] MEDS: Pantoprazole 40 MG VIAL IVPB SCH (09:54)
[2016-06-17] MEDS: Nystatin SUSP 5 ML UD.LIQ PO SCH (09:54)
[2016-06-17] MEDS: Docusate Oral Soln 100 MG/10 ML UDC GTUBE SCH (09:54)
[2016-06-17] MEDS: Valproic Acid INJ 500 MG in 0.9 % Sodium Chloride 100 ML IVPB SCH ×2 (09:55→20:04)
[2016-06-17] MEDS: MetroNIDAZOLE 500 MG/100 ML 500 MG/100 ML BAG IVPB SCH ×3 (09:55→23:20)
[2016-06-17] MEDS: Vitamin B Complex/Vit C/Vit E 1 EACH TABLET PO SCH (09:58)
[2016-06-17] MEDS: Calcium Acetate 667 MG CAPSULE PO SCH ×3 (09:58→17:49)
[2016-06-17] MEDS: Multivit/Ca/Min/Fe/FA 1 TAB TABLET PO SCH (09:58)
[2016-06-17] MEDS ORDERED: Docusate Oral Soln 100 MG/10 ML UDC GTUBE PRN (10:41)
--- NOTE | 2016-06-17 11:03 | Palliative - Consult Note ---
Date of Encounter: 06/17/16 Time of Encounter: 11:00 - Assessment and Plan (1) Goals of care, counseling/discussion Current Visit: Yes Status: Acute Assessment and plan: Goals of care discussion with the patient's family (mother Emerald "Fatou" and father Henry). Discussed hospital course and treatment plan. Reviewed [facility] plan of care. Dr. Harry present and leading conversation. Continue current course of care/treatment. Discussed risks/benefits of aggressive management (including pulmonary and renal function). Will continue to follow. (2) Down syndrome Current Visit: Yes Status: Chronic Assessment and plan: Family reports Ms. Gilmore attends [employer] 3 days a week (Friday, Friday, Friday). She is able to read and right. She enjoys [employer] music and surfing the internet. (3) Multifocal pneumonia Current Visit: Yes Status: Acute Assessment and plan: Per ICU team (4) ARDS (adult respiratory distress syndrome) Current Visit: Yes Status: Acute Assessment and plan: per ICU team (5) Agitation Current Visit: Yes Status: Acute Assessment and plan: sedation per ICU protocol. Currently on Fentanyl, Precedex, and Versed. Palliative-CN HPI - Data of Consult Patient: new to practice Consult date: 06/17/16 Requesting Physician: Michael Parker MD Primary Care Provider: Manish Sheth MD - Consult Narrative Palliative Care/Comfort Measures: Palliative care Reason for consult: Goals of care History of present illness: Ms. Gilmore is a 31 year old female with an extensive hospitalization. She has a history of Down syndrome. Ms. Gilmore presented to the emergency department with shortness of breath and cough. Initial workup revealed bilateral pneumonia. Patients respiratory status decompensated and required escalation of supplemental oxygen. Patient was unable to wear/tolerate BiPAP. She then required transfer to the intensive care unit where she was placed on mechanical ventilation due to decompensating respiratory status. She received treatments for severe community-acquired pneumonia and concurrent ARDS. Blood cultures have been negative, sputum culture positive for Clari albicans on 06/10/2016, and repeat sputum cultures negative on 06/14/2016. Flu swab negative. Respiratory infection panel positive for human metapneumo virus. Nephrology had been consult at for acute kidney injury. Unable to tolerate liberation from the ventilator due to persistent hypoxia and increased requirements of FiO2 and PEEP. The palliative care team was consulted given the extended length of stay and comorbidities. CC: Michael Parker MD Past Med Surg Social Fam HX - Past Medical History Source: obtained from family Medical history: thyroid disease, other (Down Syndrome) Psychiatric history: no psych history - Past Surgical History Surgical History: other - Social History Smoking Status: Never smoker Smokeless Tobacco Status: No Alcohol use: none Drug use: none - Family History Mother Living Status: Still Living Hx Family Cardiac Disorders: Yes (HTN) Medications and Allergies Citalopram [CeleXA] 40 mg PO DAILY 10/12/14 [History] CloNIDine HCl [CloNIDine HCl] 0.1 mg PO BID 10/12/14 [History] Divalproex (12 HR) [Depakote (12 HR)] 500 mg PO BID 10/12/14 [History] Fluticasone Propionate Nasal [Flonase] 1 spray NS BID 10/12/14 [History] Multivitamin [Flintstones] 1 tab PO DAILY 10/12/14 [History] Nystatin POWDER [Nystop] 1 appl TP BID PRN 10/12/14 [History] Hydrocortisone [Anusol-Hc] 1 appl TP BID PRN 06/05/16 [History] Ketoconazole 2% CRM [Nizoral Cream] 1 appl TP BID PRN 06/05/16 [History] Ketoconazole Shampoo [Nizoral Shampoo] 1 appl TP QWEEK 06/05/16 [History] Levothyroxine Sodium [Levo-T] 75 mcg PO DAILY 06/05/16 [History] Allergies No Known Allergies Allergy (Verified 10/12/14 15:50) ROS unobtainable: due to endotracheal tube, due to mental status Palliative Care-Exam - Constitutional Vitals: Temp Pulse Resp BP Pulse Ox 99.4 F 92 18 87/54 99 06/17/16 08:28 06/17/16 10:00 06/17/16 10:00 06/17/16 10:00 06/17/16 10:00 General appearance: Present: morbidly obese Exam: 31 year old female, intubated and sedated on mechanical ventilation. - Head Head Exam: Present: atraumatic - Eye Pupils: Present: PERRL - ENT ENT exam: Present: mucous membranes moist - Expanded Neck Exam Neck exam: Absent: tracheal deviation - Respiratory Respiratory exam: Present: tachypnea (respiratory rate 32). Absent: accessory muscle use, respiratory distress Additional comments: intubated, sedated, on mechanical ventilation - Cardiovascular Cardiovascular exam: Present: RRR - GI/Abdominal Exam GI/Abdominal exam: Present: normal bowel sounds. Absent: guarding, tenderness - Rectal Additional comments: fecal management system intact - Catheter Type: Urethral (Reed) - Expanded Upper Extremities Exam Hand wrist exam: Present: swelling - Expanded Lower Extremities Exam Lower Leg exam: Present: swelling - Neurological Exam Neurological exam: Absent: alert Additional comments: on sedation, PERRL - Psychiatric Psychiatric exam: Absent: agitated, anxious - Skin Skin exam: Present: dry, warm Internal Medicine - CN: Reslt - Labs CBC & Chem 7: 06/17/16 03:40 06/17/16 03:40 Labs: Short CBC 06/17/16 Range/Units 03:40 WBC 12.2 H (4.3-11.1) K/mcL Hgb 8.6 L (11.5-15.4) g/dL Hct 26.7 L (35.3-44.9) % Plt Count 281 (140-400) K/mcL Neutrophils # 9.3 H (1.6-8.9) K/mcL BMP 06/16/16 06/17/16 19:00 03:40 Sodium 138 138 Potassium 5.8 H 5.7 H Chloride 101 102 Carbon Dioxide 27 28 BUN 56 H 59 H Creatinine 3.55 H 3.68 H Glucose 126 H 122 H Calcium 8.4 L 8.5 L Liver Function 06/16/16 06/17/16 Range/Units 19:00 03:40 Albumin 1.5 L 1.4 L (3.5-5.0) g/dL Urine 06/16/16 Range/Units 17:49 Urine Color Yellow (Yellow) Urine Clarity Clear (Clear) Urine pH 6.0 (5.0-8.0) pH Units Ur Specific [place] 1.010 (1.010-1.025) Urine Protein 30 H (Neg-Trace) mg/dL Urine Glucose (UA) Normal (Normal) mg/dL - ABG Interpretation ABG results: ABG ABG pH 7.38 pH Units (7.32-7.45) 06/17/16 07:35 ABG pCO2 49 mmHg (35-45) H 06/17/16 07:35 ABG pO2 73 mmHg (85-104) L 06/17/16 07:35 ABG O2 Saturation 94 % (95-98) L 06/17/16 07:35 PT/INR, D-dimer PT 12.9 Seconds (9.4-12.1) H 06/07/16 06:22 - Impressions Impressions Chest X-Ray 06/17/16 07:37 IMPRESSION: The endotracheal tube tip projects over the lower thoracic trachea, approximately 1 cm above the level of the brandon. Consider retraction. Persistent bilateral perihilar airspace disease. D/ / Herb Jefferson MD / Herb Jefferson MD Interpreting Provider: Herb Jefferson MD Consult Discharge Plan - Plan Referrals: Manish Sheth MD [Primary Care Provider] - Palliative Quality Palliative Quality: Screen for Code Status: Yes, Screen for Goals of Care: Yes, Screen for Pain: NA, If Pain Regimen Started, Initiate Bowel Regimen: NA, Screen for Nausea/Vomitting: NA
[2016-06-17] MEDS ORDERED: Furosemide 40 MG/4 ML VIAL IVP ONE (21:16)
[2016-06-18] MEDS: FentaNYL (PF) 1,000 MCG in 0.9 % Sodium Chloride 80 ML IVC SCH ×5 (00:18→21:38)
[2016-06-18] MEDS: Ipratropium/Albuterol Neb 3 ML IH SCH ×6 (03:29→23:21)
[2016-06-18 03:42] LABS: Hematocrit 25.8 % (35.3-44.9); Hemoglobin 8.2 g/dL (11.5-15.4); Mean Corpuscular HGB Conc 31.8 g/dL (31.6-35.5); Mean Corpuscular Hemoglobin 30.6 pg (28.0-33.3); Mean Corpuscular Volume 96.3 fL (83.0-100.0); Mean Platelet Volume 10.7 fL (9.4-12.4); Platelet Count 266 K/mcL (140-400); Red Blood Count 2.68 M/mcL (3.82-4.97); Red Cell Distribution Width 16.7 % (11.5-14.5)
[2016-06-18 03:47] LABS: Ionized Calcium 1.19 mmol/L (1.15-1.35)
[2016-06-18 03:54] LABS: Magnesium 2.2 mg/dL (1.6-2.6); Phosphorous 8.8 mg/dL (2.3-4.7)
[2016-06-18 03:56] LABS: Potassium 5.9 mEq/L (3.5-4.5)
[2016-06-18 04:13] LABS: Eosinophils # 0.5 K/mcL (0.0-0.6); Lymphocytes # 2.1 K/mcL (0.6-4.6); Monocytes # 1.9 K/mcL (0.0-1.3); Neutrophils # 7.2 K/mcL (1.6-8.9); Platelet Estimate Normal (Normal)
[2016-06-18] MEDS: Insulin LISPRO 300 UNITS/3 ML VIAL SQ SCH ×3 (04:33→19:14)
[2016-06-18 04:49] LABS: ABG Base Excess 2.6 mEq/L (-2.0 to 3.0); ABG HCO3 28.3 mEQ/L (21-27); ABG Oxygen Saturation 93 % (95-98); ABG PCO2 49 mmHg (35-45); ABG PH 7.37 pH Units (7.32-7.45); ABG PO2 68 mmHg (85-104); ABG TCO2 29.8 mEq/L (20-26)
[2016-06-18 04:51] LABS: Blood Gas FiO2 85 %
[2016-06-18] MEDS: Levothyroxine Sodium 100 MCG VIAL IV SCH (04:51)
[2016-06-18] MEDS: *HR* Heparin 5,000 UNIT/ML VIAL SQ SCH ×2 (04:52→17:57)
[2016-06-18] MEDS: Dexmedetomidine HCl 400 MCG/100 ML MLS IVC SCH ×4 (05:24→21:38)
[2016-06-18] MEDS ORDERED: Furosemide 40 MG/4 ML VIAL IVP ONE (07:26)
--- NOTE | 2016-06-18 08:21 | Nephrology Progress Note ---
Date of Encounter: 06/18/16 Time of Encounter: 08:18 - Assessment and Plan (1) TANNER (acute kidney injury) Current Visit: Yes Status: Acute The patient has nonoliguric acute kidney injury which is progressive in the setting of respiratory failure hypotension possible ARDS pneumonia and/or sepsis. Even though the patient is nonoliguric she remains in positive fluid balance. Her FiO2 requirements are increasing. After discussion with Dr. Lee Martinez going to proceed with CVVH to assist with control of azotemia as well as volume removal. It is hoped that aggressive volume removal will improve the patient's respiratory status and lead to decreasing oxygen requirements. (2) Multifocal pneumonia Current Visit: Yes Status: Acute (3) Sepsis Current Visit: Yes Status: Suspected Qualifiers: Sepsis type: sepsis due to unspecified organism Qualified Code(s): A41.9 - Sepsis, unspecified organism (4) ARDS (adult respiratory distress syndrome) Current Visit: Yes Status: Acute Subjective Principal diagnosis: Acute respiratory failure, ARDS secondary community acquired pneumonia Interval history: The patient's overall clinical status is deteriorating. She has increasing oxygen requirements. Her creatinine is continuing to increase. Urine output is fair. She continues to exhibit signs of volume overload on physical exam. Fluid balance continues to be positive despite diuretics yesterday. Objective - Vital Signs Vital signs: Vital Signs Temp Pulse Resp BP Pulse Ox 06/18/16 08:00 18 85/45 93 06/18/16 07:54 98.7 F 06/18/16 06:06 80 29 85/51 90 06/18/16 05:35 30 90 06/18/16 05:00 80 26 90/75 91 06/18/16 04:00 80 25 92/52 93 06/18/16 03:24 27 94/50 93 06/18/16 03:20 98.3 F 80 20 94/53 94 06/18/16 02:00 82 28 89/54 89 06/18/16 01:20 28 90/52 89 06/18/16 01:00 86 27 90/52 88 06/18/16 00:00 90 28 95/56 89 06/17/16 23:34 32 100/54 89 06/17/16 23:21 99.2 F 88 30 91/50 91 06/17/16 21:55 94 28 96/54 90 06/17/16 21:45 28 98/53 89 06/17/16 21:00 93 29 89/50 89 06/17/16 20:28 100.7 F H 06/17/16 20:15 96 31 99/51 89 06/17/16 19:45 97 28 90/54 91 06/17/16 19:21 30 94/50 90 06/17/16 18:00 94 29 96/50 89 06/17/16 17:53 22 96/47 94 06/17/16 17:00 94 30 96/47 90 06/17/16 16:00 99.4 F 95 35 88/51 90 06/17/16 15:32 31 85/52 90 06/17/16 15:00 99.6 F 92 26 85/52 91 06/17/16 14:00 92 26 83/45 90 06/17/16 13:00 94 26 84/44 90 06/17/16 12:31 99.6 F 06/17/16 11:10 27 82/42 92 06/17/16 11:00 92 24 82/42 90 06/17/16 10:00 92 18 87/54 99 06/17/16 09:00 99.4 F 95 18 87/52 90 06/17/16 08:28 99.4 F Intake and Output 06/17/16 06/18/16 06/18/16 23:59 07:59 15:59 Intake Total 903 / 903 608.5 / 608.5 Output Total 850 / 850 650 / 650 Balance 53 / 53 -41.5 / -41.5 Intake: IV Fluids 461 / 461 448.5 / 448.5 PRECEDEX 400 mcg In 100 200 / 200 100 / 100 ml @ 0.2 MCG/KG/HR 5.18 mls/hr IVC .[id number] [facility] Rx#:[id number] FentaNYL (PF) 1,000 MCG 148.5 / 148.5 In 0.9 % Sodium Chloride 80 ML @ 50 MCG/HR 5 mls/ hr IVC CONT [facility] Rx#: [id number] Versed 50 MG In 0.9 % 56 / 56 100 / 100 Sodium Chloride 90 ML @ 2 MG/HR 4 mls/hr IVC CONT [facility] Rx#:[id number] Flagyl Premix 500 MG/100 100 / 100 100 / 100 ML 500 mg In 100 ml @ 100 mls/hr IVPB Q8HR [facility] Rx# :[id number] Depacon 500 MG In 0.9 % 105 / 105 Sodium Chloride 100 ML @ 105 mls/hr IVPB Q12H [facility] Rx#:[id number] Tube Feeding 442 / 442 160 / 160 Free Water 0 / 0 Free Water Intake Amount 0 / 0 0 / 0 Output: Rectal Tube 0 / 0 0 / 0 Catheter 850 / 850 650 / 650 Other: Blood Glucose* 112 - General Appearance Exam: Patient is sedated on the ventilator. She is in no acute distress. She appears to be resting comfortably. FiO2 is 90%. Lungs diminished breath sounds. Heart regular rate and rhythm. Abdomen is protuberant. Bowel sounds are diminished. Abdomen is soft. There is no guarding or rigidity. Lower extremities show approximately 2+ edema. - Lab 06/18/16 03:25 06/18/16 03:25 Most recent lab results ABG pH 7.37 pH Units (7.32-7.45) 06/18/16 04:40 ABG pCO2 49 mmHg (35-45) H 06/18/16 04:40 ABG pO2 68 mmHg (85-104) L 06/18/16 04:40 ABG HCO3 28.3 mEQ/L (21-27) H 06/18/16 04:40 ABG O2 Saturation 93 % (95-98) L 06/18/16 04:40 Calcium 9.0 mg/dL (8.6-10.8) 06/18/16 03:25 Phosphorus 8.8 mg/dL (2.3-4.7) H 06/18/16 03:25 Magnesium 2.2 mg/dL (1.6-2.6) 06/18/16 03:25 - VTE Documentation of Mechanical Device: Venous foot pump, device Consult Discharge Plan - Plan Referrals: Manish Sheth MD [Primary Care Provider] -
[2016-06-18] MEDS: Pantoprazole 40 MG VIAL IVPB SCH (08:34)
[2016-06-18] MEDS: Valproic Acid INJ 500 MG in 0.9 % Sodium Chloride 100 ML IVPB SCH ×2 (08:34→20:25)
[2016-06-18] MEDS: MetroNIDAZOLE 500 MG/100 ML 500 MG/100 ML BAG IVPB SCH ×2 (08:34→17:57)
[2016-06-18] MEDS: Vitamin B Complex/Vit C/Vit E 1 EACH TABLET PO SCH (08:35)
[2016-06-18] MEDS: Calcium Acetate 667 MG CAPSULE PO SCH (08:35)
[2016-06-18] MEDS: Multivit/Ca/Min/Fe/FA 1 TAB TABLET PO SCH (08:35)
[2016-06-18] MEDS: Chlorhexidine Rinse 15 ML MOUTHWASH MM SCH ×2 (08:35→20:24)
[2016-06-18] MEDS: Lacri-Lube 3.5 GM TUBE BOTH EYES SCH ×2 (08:36→20:26)
[2016-06-18] MEDS ORDERED: 0.9 % Sodium Chloride 500 ML ONE (12:46)
[2016-06-18] MEDS: Midazolam HCl 100 MG in 0.9 % Sodium Chloride 80 ML IVC SCH (14:08)
--- NOTE | 2016-06-18 14:09 | Event Note ---
Date of Encounter: 06/18/16 Time of Encounter: 14:05 Over last 12 hours, pt with increasing hypoxia and likely fluid overload and ventilatory requirements have increased. FIO2 100% with PEEP 10. CVVH will begin once dialysis line place. Arterial line will also be placed. Parents were in earlier, I missed them during my visit. Will f/u tomorrow.
[2016-06-18] MEDS: Calcium Gluconate 2,700 MG in PrismaSATE BGK 2/0 5,000 ML IVPB SCH ×4 (14:35→21:39)
--- NOTE | 2016-06-18 16:16 | Pulmonology Progress Note ---
<Lizabeth Goldstein - Last Filed: 06/18/16 19:01> Date of Encounter: 06/18/16 Time of Encounter: 16:16 Assessment and Plan (1) Acute respiratory failure with hypoxia and hypercapnia Current Visit: Yes Status: Acute Patient with ARDS and acute respiratory failure requiring intubation most likely secondary to bilateraly community acquire pneumonia. Patient with increasing FiO2 requirement overnight - now at 100%. Breath sounds diminished bilaterally with expiratory wheezing. CXR today showed persistent BL perihilar airspace disease. Patient found to be positive for human metapneumovirus. Sputum cultures negative. WBC improving.. As cultures are negative, antibiotics were stoped Patient received 4 days of Zosyn and 3 days of cefepimine for total of 7 days of antibiotics. As patient has been intubated for 11 days and is still requiring significant FiO2 and ventilatory settings, palliative consult was placed for help with family discussions. Concern is that patients respiratory status is not improving because of patients volume overload. As such will focus on pulling fluid off with CRRT in hopes that we can start to wean off the ventilator. 1. Continue ARDS ventilator protocol 2. Stop respiratory antibiotics today 3. Continue duonebs every 4 hours scheduled 4. Wean FiO2 as tolerated 5. Starting CRRT (2) ARDS (adult respiratory distress syndrome) Current Visit: Yes Status: Acute Patient with ARDS and acute respiratory failure requiring intubation most likely secondary to bilateraly community acquire pneumonia. Patient with increasing FiO2 requirement overnight - now at 100%. Breath sounds diminished bilaterally with expiratory wheezing. CXR today showed persistent BL perihilar airspace disease. 1. Continue ARDS ventilator protocol 2. Stop respiratory antibiotics today 3. Continue duonebs every 4 hours scheduled 4. Wean FiO2 as tolerated (3) TANNER (acute kidney injury) Current Visit: Yes Status: Acute Patient with acute kidney injury in the setting of IV contrast and vancomycin. Renal function worsening. Patient continues to make urine. Nephrology consulted. Starting CRRT today with goal of -100/hr fluid balance. 1. CRRT 2. Monitor kidney function (4) Hypotension Current Visit: Yes Status: Acute Patient with persistent hypotension. Today systolic blood pressure maintained in the 80s maintaining MAP >60. Will continue to monitor. Patient may require pressors if blood pressure continues to drop with diuresis. Attempted A-line placement today but was unsuccessful due to anatomy. 1. Monitor blood pressure Qualifiers: Hypotension type: unspecified hypotension type Qualified Code(s): I95.9 - Hypotension, unspecified (5) Colitis Current Visit: Yes Status: Acute Patient with diarrhea and colitis seen on CT abdomen/pelvis. C. diff toxin negative. She was started on Flagyl (day 08/19). Rectal tube is in place and diarrhea output is decreasing. 1. Maintian rectal tube and monitor output 2. Continue flagyl (day 08/19) 3. Monitor vital signs and WBC (6) Hyperkalemia Current Visit: Yes Status: Acute Potassium increasing, likely secondary to acute kidney injury. Starting CRRT today. Will continue to monitor (7) Hypoalbuminemia Current Visit: Yes Status: Acute Albumin 1.4. Nutrition consulted. Tube feeds tolerated at goal of 40 ml/hr. (8) DVT prophylaxis Current Visit: Yes Status: Acute DVT prophylaxis with heparin and foot pumps. Neuro: - Intubated & sedated on versed, fentanyl, and precedex - Celexa 40mg daily, Seroquel 25mg QAM and 50mg QHS, and Valproic Acid for mood modulation Pulm: acute respiratory failure secondary to viral pneumonia - ARDS protocol - Wean FiO2 as tolerated - Continue Duonebs every 4 hours scheduled - CRRT for diuresis Cardiac: - Persistant hypotension - goal to maintian MAP >60 GI/fluids/electrolytes/hydration/GI ppx - OG tube in place with feeds at goal of 40l/hr - tolerating well - Starting CRRTwith goal of -100/hr - Rectal tube in place - output decreasing - On Flagyl () for colitis - Protonix ppx Renal: acute kidney injury - Nephrology on board - Starting CRRT today ID: + human metapneumovirus - Blood cultures negative x 2, urine cultures negative - Patient recieved total of 7 days of respiratory antibiotics (3 days of zosyn and 4 days of cefepime) - On flagly (day 08/19) for colitis Heme/Onc: - DVT prophylaxis - heparin Endocrine: - Insulin sliding scale Lines: - Endotrachial tube - OG tube - Right internal jugular - Reed catheter - Right internal jugular dialysis catheter Subjective Principal diagnosis: Acute respiratory failure, ARDS secondary community acquired pneumonia Interval history: Overnight, patient had increasing oxygen requirement and FiO2 was increased to 100%. Today, she is afebrile. Blood pressure is low but MAP is maintained >60 thus far. Patient remains intubated (day 11) and sedated. She opens eyes to voice but does not follow commands. Lungs are diminished bilaterally with expiratory wheezing. CAbdomen is distended, but soft to palpation. Patient has significant bilateral lower extremity edema. Objective PUL Vital signs: Last Vital Signs Temp 98.5 F 06/18/16 12:00 Pulse 86 06/18/16 15:00 Resp 18 06/18/16 15:00 BP 92/47 06/18/16 15:00 Pulse Ox 96 06/18/16 15:00 General appearance: other (Intubated and sedated) Eyes: nonicteric ENT: other (ET tube in place) Effort: normal Auscultation: bilateral: diminished breath sounds, wheezes, rales Cardiovascular: regular rate and rhythm Gastrointestinal: other (distended but soft to palpation ) Integumentary: normal Extremities: no cyanosis, edema unable to assess due to mental status Ventilator Settings Ventilator Settings: Ventilator Settings, Last 8 Hours Ventilator Mode VC+ Ventilator Mode VC+ Ventilator Mode VC+ Ventilator Mode VC+ Ventilator Mode VC+ Ventilator Mode VC+ Ventilator Mode VC+ Ventilator Mode VC+ Ventilator Mode VC+ Ventilator Tidal Volume 300 Setting Ventilator Tidal Volume 300 Setting Ventilator Tidal Volume 300 Setting Ventilator Tidal Volume 300 Setting Ventilator Tidal Volume 300 Setting Ventilator Tidal Volume 300 Setting Ventilator Tidal Volume 300 Setting Ventilator Tidal Volume 300 Setting Ventilator Tidal Volume 300 Setting Ventilator Respiratory Rate 18 Setting Ventilator Respiratory Rate 18 Setting Ventilator Respiratory Rate 18 Setting Ventilator Respiratory Rate 18 Setting Ventilator Respiratory Rate 18 Setting Ventilator Respiratory Rate 18 Setting Ventilator Respiratory Rate 18 Setting Ventilator Respiratory Rate 18 Setting Ventilator Respiratory Rate 18 Setting Actual Respiratory Rate 18 Actual Respiratory Rate 30 Actual Respiratory Rate 18 Actual Respiratory Rate 28 Actual Respiratory Rate 18 Actual Respiratory Rate 31 Actual Respiratory Rate 28 Actual Respiratory Rate 28 Actual Respiratory Rate 28 Positive End Expiratory 10 Pressure Positive End Expiratory 10 Pressure Positive End Expiratory 10 Pressure Positive End Expiratory 10 Pressure Positive End Expiratory 10 Pressure Positive End Expiratory 10 Pressure Positive End Expiratory 10 Pressure Positive End Expiratory 10 Pressure Peak Inspiratory Airway 33 Pressure Peak Inspiratory Airway 29 Pressure Peak Inspiratory Airway 29 Pressure Peak Inspiratory Airway 29 Pressure Peak Inspiratory Airway 30 Pressure Peak Inspiratory Airway 24 Pressure Peak Inspiratory Airway 28 Pressure Peak Inspiratory Airway 28 Pressure Peak Inspiratory Airway 28 Pressure Results - Laboratory Findings CBC and BMP: 06/18/16 03:25 06/18/16 03:25 ABG ABG pH 7.37 pH Units (7.32-7.45) 06/18/16 04:40 ABG pCO2 49 mmHg (35-45) H 06/18/16 04:40 ABG pO2 68 mmHg (85-104) L 06/18/16 04:40 ABG O2 Saturation 93 % (95-98) L 06/18/16 04:40 PT/INR, D-dimer PT 12.9 Seconds (9.4-12.1) H 06/07/16 06:22 Abnormal lab findings: Abnormal lab results WBC 11.6 K/mcL (4.3-11.1) H 06/18/16 03:25 RBC 2.68 M/mcL (3.82-4.97) L 06/18/16 03:25 Hgb 8.2 g/dL (11.5-15.4) L 06/18/16 03:25 Hct 25.8 % (35.3-44.9) L 06/18/16 03:25 RDW 16.7 % (11.5-14.5) H 06/18/16 03:25 Immature Gran % 4.2 % (0-4) H 06/16/16 03:15 Band Neutrophils % 26.0 % (0-4) H 06/18/16 03:25 Metamyelocytes % 2.0 % (0) H 06/14/16 03:45 Myelocytes % 2.0 % (0) H 06/17/16 03:40 Monocytes # 1.9 K/mcL (0.0-1.3) H 06/18/16 03:25 Nucleated RBCs/100 WBC 0.2 /100 WBC (0) H 06/15/16 03:15 Reactive Lymphocytes Present (Not Present) A 06/12/16 04:50 Smudge Cells Present (Not Present) A 06/12/16 04:50 Large Platelets Present (Not Present) A 06/14/16 03:45 Immature Plt Fraction 7.1 % (1.1-6.1) H 06/17/16 03:40 Polychromasia 2+ (Not Present) A 06/14/16 03:45 Hypochromasia Present (Not Present) A 06/11/16 22:35 Poikilocytosis 1+ (Not Present) A 06/17/16 03:40 Basophilic Stippling 2+ (Not Present) A 06/14/16 03:45 Anisocytosis 1+ (Not Present) A 06/17/16 03:40 Macrocytosis Present (Not Present) A 06/10/16 07:18 PT 12.9 Seconds (9.4-12.1) H 06/07/16 06:22 ABG pCO2 49 mmHg (35-45) H 06/18/16 04:40 ABG pO2 68 mmHg (85-104) L 06/18/16 04:40 ABG HCO3 28.3 mEQ/L (21-27) H 06/18/16 04:40 ABG Total CO2 29.8 mEq/L (20-26) H 06/18/16 04:40 ABG O2 Saturation 93 % (95-98) L 06/18/16 04:40 VBG pH 7.48 pH Units (7.32-7.42) H 06/05/16 06:06 VBG pCO2 37 mmHg (41-51) L 06/05/16 06:06 VBG pO2 167 mmHg (25-40) H 06/05/16 06:06 VBG HCO3 27.6 mEq/L (21-27) H 06/05/16 06:06 Potassium 5.9 mEq/L (3.5-4.5) H 06/18/16 03:25 BUN 70 mg/dL (7-20) H 06/18/16 03:25 Creatinine 4.26 mg/dL (0.57-1.11) H 06/18/16 03:25 Est GFR ( Amer) 15 (> 60) L 06/18/16 03:25 Est GFR (Non-Af Amer) 12 (> 60) L 06/18/16 03:25 Glucose 110 mg/dL (70-99) H 06/18/16 03:25 POC Glucose 111 (58-89) H 06/18/16 13:53 Calculated Osmolality 307 (280-300) H 06/18/16 03:25 Uric Acid 6.6 mg/dL (2.6-6.0) H 06/15/16 17:20 Phosphorus 8.8 mg/dL (2.3-4.7) H 06/18/16 03:25 Albumin 1.4 g/dL (3.5-5.0) L 06/17/16 03:40 Globulin 4.5 g/dL (2.4-3.5) H 06/07/16 06:22 Albumin/Globulin Ratio 0.5 (1.1-2.2) L 06/07/16 06:22 Ur Specimen Adequacy See below A 06/16/16 17:49 Urine Protein 30 mg/dL (Neg-Trace) H 06/16/16 17:49 Urine Blood Large (Negative) H 06/16/16 17:49 Ur Leukocyte Esterase Trace (Negative) H 06/16/16 17:49 Urine Microscopic RBC 30-50 per hpf (0-3) H 06/16/16 17:49 Ur Squamous Epith Cells Many per lpf (None-Few) H 06/11/16 12:15 Human Metapneumovirus DETECTED (Not Detect) A 06/07/16 16:05 - Microbiology Findings Microbiology Findings: Microbiology, Last 48 Hours 06/14/16 16:05 Sputum Culture - Final Sputum 06/11/16 11:59 Blood Culture - Final Peripheral Venipuncture No growth. 06/11/16 11:50 Blood Culture - Final Peripheral Venipuncture No growth. - Diagnostic Findings Chest x-ray: report reviewed, image reviewed - Clinical Findings Intake & Output: Intake & Output 06/18/16 06/18/16 06/18/16 07:59 15:59 23:59 Intake Total 608.5 / 608.5 1518.5 / 1518.5 Output Total 650 / 650 350 / 350 Balance -41.5 / -41.5 1168.5 / 1168.5 - VTE Documentation of Mechanical Device: Venous foot pump, device Consult Discharge Plan - Plan Referrals: Manish Sheth MD [Primary Care Provider] - <Abby Harry - Last Filed: 06/18/16 21:25> Date of Encounter: 06/18/16 Objective PUL Vital signs: Last Vital Signs Temp 97.9 F 06/18/16 16:00 Pulse 75 06/18/16 19:00 Resp 22 06/18/16 21:11 BP 92/50 06/18/16 19:00 Pulse Ox 99 06/18/16 21:11 Ventilator Settings Ventilator Settings: Ventilator Settings, Last 8 Hours Ventilator Mode VC+ Ventilator Mode VC+ Ventilator Mode VC+ Ventilator Mode VC+ Ventilator Mode VC+ Ventilator Mode VC+ Ventilator Mode VC+ Ventilator Mode VC+ Ventilator Mode VC+ Ventilator Mode VC+ Ventilator Tidal Volume 300 Setting Ventilator Tidal Volume 300 Setting Ventilator Tidal Volume 300 Setting Ventilator Tidal Volume 300 Setting Ventilator Tidal Volume 300 Setting Ventilator Tidal Volume 300 Setting Ventilator Tidal Volume 300 Setting Ventilator Tidal Volume 300 Setting Ventilator Tidal Volume 300 Setting Ventilator Tidal Volume 300 Setting Ventilator Respiratory Rate 18 Setting Ventilator Respiratory Rate 18 Setting Ventilator Respiratory Rate 18 Setting Ventilator Respiratory Rate 18 Setting Ventilator Respiratory Rate 18 Setting Ventilator Respiratory Rate 18 Setting Ventilator Respiratory Rate 18 Setting Ventilator Respiratory Rate 18 Setting Ventilator Respiratory Rate 18 Setting Ventilator Respiratory Rate 18 Setting Actual Respiratory Rate 22 Actual Respiratory Rate 25 Actual Respiratory Rate 24 Actual Respiratory Rate 22 Actual Respiratory Rate 27 Actual Respiratory Rate 24 Actual Respiratory Rate 23 Actual Respiratory Rate 22 Actual Respiratory Rate 18 Actual Respiratory Rate 30 Positive End Expiratory 10 Pressure Positive End Expiratory 10 Pressure Positive End Expiratory 10 Pressure Positive End Expiratory 10 Pressure Positive End Expiratory 10 Pressure Positive End Expiratory 10 Pressure Positive End Expiratory 10 Pressure Positive End Expiratory 10 Pressure Positive End Expiratory 10 Pressure Positive End Expiratory 10 Pressure Peak Inspiratory Airway 18 Pressure Peak Inspiratory Airway 17 Pressure Peak Inspiratory Airway 25 Pressure Peak Inspiratory Airway 20 Pressure Peak Inspiratory Airway 17 Pressure Peak Inspiratory Airway 18 Pressure Peak Inspiratory Airway 17 Pressure Peak Inspiratory Airway 17 Pressure Peak Inspiratory Airway 33 Pressure Peak Inspiratory Airway 29 Pressure Results - Laboratory Findings CBC and BMP: 06/18/16 03:25 06/18/16 03:25 ABG ABG pH 7.37 pH Units (7.32-7.45) 06/18/16 04:40 ABG pCO2 49 mmHg (35-45) H 06/18/16 04:40 ABG pO2 68 mmHg (85-104) L 06/18/16 04:40 ABG O2 Saturation 93 % (95-98) L 06/18/16 04:40 PT/INR, D-dimer PT 12.9 Seconds (9.4-12.1) H 06/07/16 06:22 Abnormal lab findings: Abnormal lab results WBC 11.6 K/mcL (4.3-11.1) H 06/18/16 03:25 RBC 2.68 M/mcL (3.82-4.97) L 06/18/16 03:25 Hgb 8.2 g/dL (11.5-15.4) L 06/18/16 03:25 Hct 25.8 % (35.3-44.9) L 06/18/16 03:25 RDW 16.7 % (11.5-14.5) H 06/18/16 03:25 Immature Gran % 4.2 % (0-4) H 06/16/16 03:15 Band Neutrophils % 26.0 % (0-4) H 06/18/16 03:25 Metamyelocytes % 2.0 % (0) H 06/14/16 03:45 Myelocytes % 2.0 % (0) H 06/17/16 03:40 Monocytes # 1.9 K/mcL (0.0-1.3) H 06/18/16 03:25 Nucleated RBCs/100 WBC 0.2 /100 WBC (0) H 06/15/16 03:15 Reactive Lymphocytes Present (Not Present) A 06/12/16 04:50 Smudge Cells Present (Not Present) A 06/12/16 04:50 Large Platelets Present (Not Present) A 06/14/16 03:45 Immature Plt Fraction 7.1 % (1.1-6.1) H 06/17/16 03:40 Polychromasia 2+ (Not Present) A 06/14/16 03:45 Hypochromasia Present (Not Present) A 06/11/16 22:35 Poikilocytosis 1+ (Not Present) A 06/17/16 03:40 Basophilic Stippling 2+ (Not Present) A 06/14/16 03:45 Anisocytosis 1+ (Not Present) A 06/17/16 03:40 Macrocytosis Present (Not Present) A 06/10/16 07:18 PT 12.9 Seconds (9.4-12.1) H 06/07/16 06:22 ABG pCO2 49 mmHg (35-45) H 06/18/16 04:40 ABG pO2 68 mmHg (85-104) L 06/18/16 04:40 ABG HCO3 28.3 mEQ/L (21-27) H 06/18/16 04:40 ABG Total CO2 29.8 mEq/L (20-26) H 06/18/16 04:40 ABG O2 Saturation 93 % (95-98) L 06/18/16 04:40 VBG pH 7.48 pH Units (7.32-7.42) H 06/05/16 06:06 VBG pCO2 37 mmHg (41-51) L 06/05/16 06:06 VBG pO2 167 mmHg (25-40) H 06/05/16 06:06 VBG HCO3 27.6 mEq/L (21-27) H 06/05/16 06:06 Potassium 5.9 mEq/L (3.5-4.5) H 06/18/16 03:25 BUN 70 mg/dL (7-20) H 06/18/16 03:25 Creatinine 4.26 mg/dL (0.57-1.11) H 06/18/16 03:25 Est GFR ( Amer) 15 (> 60) L 06/18/16 03:25 Est GFR (Non-Af Amer) 12 (> 60) L 06/18/16 03:25 Glucose 110 mg/dL (70-99) H 06/18/16 03:25 POC Glucose 125 (58-89) H 06/18/16 18:28 Calculated Osmolality 307 (280-300) H 06/18/16 03:25 Uric Acid 6.6 mg/dL (2.6-6.0) H 06/15/16 17:20 Phosphorus 8.8 mg/dL (2.3-4.7) H 06/18/16 03:25 Albumin 1.4 g/dL (3.5-5.0) L 06/17/16 03:40 Globulin 4.5 g/dL (2.4-3.5) H 06/07/16 06:22 Albumin/Globulin Ratio 0.5 (1.1-2.2) L 06/07/16 06:22 Ur Specimen Adequacy See below A 06/16/16 17:49 Urine Protein 30 mg/dL (Neg-Trace) H 06/16/16 17:49 Urine Blood Large (Negative) H 06/16/16 17:49 Ur Leukocyte Esterase Trace (Negative) H 06/16/16 17:49 Urine Microscopic RBC 30-50 per hpf (0-3) H 06/16/16 17:49 Ur Squamous Epith Cells Many per lpf (None-Few) H 06/11/16 12:15 Human Metapneumovirus DETECTED (Not Detect) A 06/07/16 16:05 - Microbiology Findings Microbiology Findings: Microbiology, Last 48 Hours 05/05/17 16:05 Sputum Culture - Final Sputum - Clinical Findings Intake & Output: Intake & Output 06/18/16 06/18/16 06/18/16 07:59 15:59 23:59 Intake Total 608.5 / 608.5 1518.5 / 1518.5 275 / 275 Output Total 650 / 650 350 / 350 445 / 445 Balance -41.5 / -41.5 1168.5 / 1168.5 -170 / -170 - Attending Attestation I examined this patient and my medical decision-making was reviewed with the WATCH SUPERVISOR/PA/Advanced Practice Nurse/Resident Physician. I agree with the documented findings, disposition and treatment plan as described except to the extent set forth below. Patient seen and examined. Labs, radiology, chart personally reviewed. Agree with resident's history and physical, assessment, plan with following comments: CH[employer] CON[employer]OR TENDER: Patient follows simple commands, try to wean sedation as much as possible. Pulmonary: Patient is is requiring even higher FIO2 and increase her PEEP with better oxygenation. I discussed with nephrology regarding more aggressive fluid removal and if BP drop, then will start vasopressors. Patient plateau pressure is still around 25 and that is acceptable. I have talked to the mother again about plan of care and talked to primary care physician and answered all family' s questions. Family still ok to have tracheostomy understanding this is not easy. Cardiovascular: Hypertension is multifactorial and MAP remain acceptable. Attempted A-line placement, but due to generalized edema, was not successful, hopefully with removing fluid, it will be easier in the future. GI: Nutrition per dietary and GI prophylaxis per routine Heme: DVT prophylaxis per routine ID: Continue antibiotic and plan to de-escalation Renal; urine out put and renal funtion reviewed. Nephrology follow-up Endorcine: blood glucose is monitored Lines: all lines checked and no evidence of infections Skin: skin care to prevent pressure ulcers per nursing routine care I spent 32 min of Critical Care time with this patient. It involved decision making of high complexity to assess, manipulate, and support vital organ system failure and/or to prevent further life threatening deterioration of the patient' s condition. The time involved in the performance of separately reportable procedures was not counted toward critical care time.
[2016-06-18] MEDS: 0.9 % Sodium Chloride 1,000 ML PRIME SCH ×2 (20:55→22:00)
--- NOTE | 2016-06-18 21:08 | Procedure Note ---
Date of procedure: 06/18/16 Pre-op diagnosis: Acute respiratory failure Post-op diagnosis: same Procedure: Attempted left femoral arterial line placement Date: 06/18/2016 Indication: Hemodynamic monitoring A time-out was completed verifying correct patient, procedure, site, positioning , and special equipment if applicable. Ultrasound was used to evaluate the femoral anatomy and identify the femoral artery and femoral vein. The patient s right groin was prepped and draped in sterile fashion. A needle was introduced under ultrasound guidance. On first attempt, venous blood was drawn. Due to body habitus and extensive edema, was not able to find the femoral artery. Looked for other sites, due to the generlized edema, not able to even have a good pulsation. Will re-attempt a-line placement at a different site different time when remove more fluid with CRRT. The patient tolerated the procedure well. Estimated Blood Loss: minimal Surgeon: Abby Harry Disposition: ICU
[2016-06-18] MEDS ORDERED: 0.9 % Sodium Chloride 250 ML ONE (21:59)
[2016-06-18] MEDS ORDERED: *HR* Heparin 5,000 UNIT/ML VIAL ONE (22:06)
[2016-06-18] MEDS: *HR* Heparin 5,000 UNIT/ML VIAL IV PRN (23:00)
[2016-06-19] MEDS: Insulin LISPRO 300 UNITS/3 ML VIAL SQ SCH ×4 (00:21→18:26)
[2016-06-19] MEDS: MetroNIDAZOLE 500 MG/100 ML 500 MG/100 ML BAG IVPB SCH ×3 (00:24→16:49)
[2016-06-19] MEDS: Calcium Gluconate 2,700 MG in PrismaSATE BGK 2/0 5,000 ML IVPB SCH ×10 (01:26→23:16)
[2016-06-19 03:31] LABS: Hematocrit 24.7 % (35.3-44.9); Hemoglobin 7.7 g/dL (11.5-15.4); Mean Corpuscular HGB Conc 31.2 g/dL (31.6-35.5); Mean Corpuscular Hemoglobin 30.6 pg (28.0-33.3); Mean Platelet Volume 10.9 fL (9.4-12.4); Platelet Count 252 K/mcL (140-400); Red Blood Count 2.52 M/mcL (3.82-4.97); Red Cell Distribution Width 16.9 % (11.5-14.5)
[2016-06-19] MEDS: Dexmedetomidine HCl 400 MCG/100 ML MLS IVC SCH ×2 (03:31→22:36)
[2016-06-19 03:35] LABS: Ionized Calcium 1.25 mmol/L (1.15-1.35)
[2016-06-19] MEDS: Ipratropium/Albuterol Neb 3 ML IH SCH ×6 (03:42→23:34)
[2016-06-19 03:43] LABS: Calcium 8.7 mg/dL (8.6-10.8); Magnesium 1.8 mg/dL (1.6-2.6); Phosphorous 5.7 mg/dL (2.3-4.7)
[2016-06-19 03:45] LABS: Potassium 4.4 mEq/L (3.5-4.5)
[2016-06-19] MEDS ORDERED: *HR* Atropine Sulfate 1 MG/10 ML SYRINGE ONE (03:49)
[2016-06-19 03:58] LABS: Anisocytosis 1+ (Not Present); Lymphocytes # 1.7 K/mcL (0.6-4.6); Monocytes # 0.2 K/mcL (0.0-1.3); Neutrophils # 8.2 K/mcL (1.6-8.9)
[2016-06-19 03:59] LABS: Large Platelets Present (Not Present); Macrocytosis Present (Not Present); Platelet Estimate Normal (Normal); Reactive Lymphocytes Present (Not Present)
[2016-06-19 05:05] LABS: ABG Base Excess 3.9 mEq/L (-2.0 to 3.0); ABG HCO3 30.6 mEQ/L (21-27); ABG Oxygen Saturation 98 % (95-98); ABG PCO2 58 mmHg (35-45); ABG PH 7.33 pH Units (7.32-7.45); ABG PO2 109 mmHg (85-104); ABG TCO2 32.4 mEq/L (20-26); Blood Gas FiO2 100 %
[2016-06-19] MEDS: Norepinephrine 4 MG in D5% in Water 250 ML IVC SCH ×2 (05:33→14:23)
[2016-06-19] MEDS: Levothyroxine Sodium 100 MCG VIAL IV SCH (06:00)
[2016-06-19] MEDS: *HR* Heparin 5,000 UNIT/ML VIAL SQ SCH ×2 (06:00→18:21)
[2016-06-19 06:12] LABS: Albumin 1.7 g/dL (3.5-5.0); Albumin/Globulin Ratio 0.5 (1.1-2.2); Bilirubin,Direct 0.1 mg/dL (0.0-0.5); Bilirubin,Total 0.1 mg/dL (0.2-1.2); Globulin 3.6 g/dL (2.4-3.5); Total Protein 5.3 g/dL (6.0-8.3)
[2016-06-19] MEDS: Vitamin B Complex/Vit C/Vit E 1 EACH TABLET PO SCH (07:48)
[2016-06-19] MEDS: Multivit/Ca/Min/Fe/FA 1 TAB TABLET PO SCH (07:48)
[2016-06-19] MEDS: Pantoprazole 40 MG VIAL IVPB SCH (07:48)
[2016-06-19] MEDS: Chlorhexidine Rinse 15 ML MOUTHWASH MM SCH ×2 (07:49→21:20)
[2016-06-19] MEDS: 0.9 % Sodium Chloride 1,000 ML PRIME SCH ×2 (07:50→21:01)
--- NOTE | 2016-06-19 07:50 | Pulmonology Progress Note ---
<Lizabeth Goldstein - Last Filed: 06/19/16 09:10> Date of Encounter: 06/19/16 Time of Encounter: 07:45 Assessment and Plan (1) Acute respiratory failure with hypoxia and hypercapnia Current Visit: Yes Status: Acute Patient with ARDS and acute respiratory failure requiring intubation secondary to viral pneumonia. Found to be positive for human metapneumovirus. Sputum cultures negative. As cultures are negative, antibiotics were stopped. Patient received 4 days of Zosyn and 3 days of cefepime for a total of 7 days of antibiotics. WBC is stable at 10.3 today. Patient has been intubated for 12 days. She is requiring high ventilator settings - FiO2 of 100%, PEEP 10. CXR today showed persistent BL airspace disease. Working on pulling of fluid with CVVH in hopes that patient's respiratory status will begin to improve. Will continue with ARDS ventilator protocol and wean ventilator settings as tolerated. With patient's wheezing on exam, will continue with suctioning and duonebs every 4 hours scheduled. (2) ARDS (adult respiratory distress syndrome) Current Visit: Yes Status: Acute Patient with ARDS and acute respiratory failure requiring intubation secondary to viral pneumonia. Patient with high ventilator requirements - PEEP 10 and FiO2 of 100%. CXR today showed persistent BL airspace disease. We will continue with the ARDS ventilator protocol and wean as tolerated. (3) Viral pneumonia Current Visit: Yes Status: Acute Patient with ARDS and acute respiratory failure requiring intubation secondary to viral pneumonia. Found to be positive for human metapneumovirus. Sputum cultures negative. As cultures are negative, antibiotics were stopped. WBC is stable at 10.3 today. (4) Hypotension Current Visit: Yes Status: Acute Patient with worsening hypotension secondary to pulling off fluid with CVVH. She is currently requiring levophed to maintain MAP >60. A-line placement attempted yesterday was unsuccessful because of patient's difficult anatomy. Will continue to monitor patient's blood pressure and tissue perfusion and titrate vasopressors as needed. Qualifiers: Hypotension type: unspecified hypotension type Qualified Code(s): I95.9 - Hypotension, unspecified (5) TANNER (acute kidney injury) Current Visit: Yes Status: Acute Patient with nonoliguric azotemia in the setting acute respiratory failure. Nephrology consulted. Patient started on CVVH yesterday with a goal of -100/ hour. Creatinine improved today - 2.78 from 4. 26. Potassium appropriate. Plan to continue with CVVH today with goal of -100/hour. Will continue to monitor kidney function and urine output. (6) Colitis Current Visit: Yes Status: Acute Patient with diarrhea. Diagnosed with colitis on CT abdomen/pelvis. C. diff toxin negative. Currently on Flagyl (day 09/19). Rectal tube is in place and patient is continuing to have moderate output. Abdomen is distended but not tense on palpation. KUB showed no signs of obstruction. Will continue to monitor vital signs, WBC and rectal tube output. Will complete a total of 10 days of antibiotics. (7) Anemia Current Visit: Yes Status: Acute Patient with slowly decreasing hemoglobin. Hgb today is 7.7 from 8.2 yesterday. Believe this is likely multifactoral secondary to blood draws, Katina, fluid status and her continuing diarrhea. Will continue to monitor patient and hemoglobin levels. Qualifiers: Anemia type: unspecified type Qualified Code(s): D64.9 - Anemia, unspecified (8) Hyperkalemia Current Visit: Yes Status: Acute Potassium within normal range today after starting CVVH. Will continue to monitor potassium. (9) Hypoalbuminemia Current Visit: Yes Status: Acute Albumin 1.4. Nutrition consulted. Tube feeds well tolerated at goal of 40 ml/ hr. (10) Down syndrome Current Visit: Yes Status: Chronic (11) DVT prophylaxis Current Visit: Yes Status: Acute DVT prophylaxis with heparin and foot pumps. Neuro: - Intubated & sedated with versed, fentanyl and precedex. Titrate as needed based on vitals and needed sedation. - Celexa, Seroquel, and Valproic Acid for mood modulation Pulm: Acute respiratory failure secondary to viral pneumonia - CXR today showed stable diffuse airspace disease - Vent settings [id number], PEEP 10, FiO2 of 100% - continue ARDS protocol and wean as tolerated - Continue Duonebs every 4 hours scheduled Cardiac: - Persistent hypotension requiring vasopressors to maintain MAP >60. GI/fluids/electrolytes/hydration/GI ppx - OG tube in place with feeds at goal of 40ml/hr - Worsening abdominal distention - KUB showed no signs of obstruction - Rectal tube in place for diarrhea secondary to colitis - On flagyl (day 09/19) for colitis - CRRT started yesterday for a goal of -100/hr - Yesterday +1.2L and -700mL thus far today - Protonix ppx Renal: Acute kidney injury - CRRT started yesterday for a goal of -100/hr - Yesterday +1.2L and -700mL thus far today ID: + human metapneumovirus - Blood cultures negative x 2, urine cultures negative - Patient received total of 7 days of respiratory antibiotics (3 days of zosyn and 4 days of cefipime) - On flagly (day 09/19) for colitis Heme/Onc: - Hemoglobin decreasing 7.7 from 8.2 - likely multifactorial with lab draws, fluid status, on Katina, and diarrhea - DVT prophylaxis - heparin Endocrine: - Insulin sliding scale Lines: - Endotrachial tube - OG tube - Right internal jugular - Reed catheter - Right internal jugular dialysis catheter Subjective Principal diagnosis: Acute respiratory failure, ARDS secondary community acquired pneumonia Interval history: Yesterday, a dialysis line was placed in patient's right internal jugular vein and CRRT was started with a goal of -100/hr. Overnight, patient continued to require high ventilation settings with FiO2 of 100% and PEEP of 10. This morning patient because more hypotensive and bradycardic. Because of the bradycardia, precedes was stopped. Levophed was started to maintain MAP >60. Patient seen and examined this morning. She was afebrile overnight. Currently blood pressure and MAP are being maintained with levophed. Patient remains intubated (day 12). She opens eyes to voice but does not follow commands. Lungs exam reviews improving aeration compared to yesterday with expiratory wheezing. CXR revealed stable diffuse airspace disease. Abdomen is distended. KUB showed no findings suggestion of obstruction. Patient continues to have significant bilateral LE edema. Objective PUL Vital signs: Last Vital Signs Temp 97.3 F L 06/19/16 03:00 Pulse 63 06/19/16 06:00 Resp 23 06/19/16 06:00 BP 102/51 06/19/16 06:00 Pulse Ox 95 06/19/16 06:00 General appearance: other (intubated and sedated) Eyes: nonicteric ENT: oropharynx moist Effort: normal Auscultation: bilateral: diminished breath sounds, wheezes Cardiovascular: regular rate and rhythm Gastrointestinal: other (distended) Integumentary: normal Extremities: no cyanosis, edema unable to assess due to mental status Ventilator Settings Ventilator Settings: Ventilator Settings, Last 8 Hours Ventilator Mode VC+ Ventilator Mode VC+ Ventilator Mode VC+ Ventilator Mode VC+ Ventilator Tidal Volume 300 Setting Ventilator Tidal Volume 300 Setting Ventilator Tidal Volume 300 Setting Ventilator Tidal Volume 300 Setting Ventilator Respiratory Rate 18 Setting Ventilator Respiratory Rate 18 Setting Ventilator Respiratory Rate 18 Setting Ventilator Respiratory Rate 18 Setting Actual Respiratory Rate 20 Positive End Expiratory 10 Pressure Positive End Expiratory 10 Pressure Positive End Expiratory 10 Pressure Positive End Expiratory 10 Pressure Peak Inspiratory Airway 15 Pressure Peak Inspiratory Airway 15 Pressure Peak Inspiratory Airway 16 Pressure Results - Laboratory Findings CBC and BMP: 06/19/16 03:15 06/19/16 03:15 ABG ABG pH 7.33 pH Units (7.32-7.45) 06/19/16 04:57 ABG pCO2 58 mmHg (35-45) H 06/19/16 04:57 ABG pO2 109 mmHg (85-104) H 06/19/16 04:57 ABG O2 Saturation 98 % (95-98) 06/19/16 04:57 PT/INR, D-dimer PT 12.9 Seconds (9.4-12.1) H 06/07/16 06:22 Abnormal lab findings: Abnormal lab results RBC 2.52 M/mcL (3.82-4.97) L 06/19/16 03:15 Hgb 7.7 g/dL (11.5-15.4) L 06/19/16 03:15 Hct 24.7 % (35.3-44.9) L 06/19/16 03:15 MCHC 31.2 g/dL (31.6-35.5) L 06/19/16 03:15 RDW 16.9 % (11.5-14.5) H 06/19/16 03:15 Immature Gran % 4.2 % (0-4) H 06/16/16 03:15 Metamyelocytes % 2.0 % (0) H 06/19/16 03:15 Myelocytes % 2.0 % (0) H 06/17/16 03:40 Nucleated RBCs/100 WBC 0.2 /100 WBC (0) H 06/15/16 03:15 Reactive Lymphocytes Present (Not Present) A 06/19/16 03:15 Smudge Cells Present (Not Present) A 06/12/16 04:50 Large Platelets Present (Not Present) A 06/19/16 03:15 Immature Plt Fraction 7.1 % (1.1-6.1) H 06/17/16 03:40 Polychromasia 2+ (Not Present) A 06/14/16 03:45 Hypochromasia Present (Not Present) A 06/11/16 22:35 Poikilocytosis 1+ (Not Present) A 06/17/16 03:40 Basophilic Stippling 2+ (Not Present) A 06/14/16 03:45 Anisocytosis 1+ (Not Present) A 06/19/16 03:15 Macrocytosis Present (Not Present) A 06/19/16 03:15 PT 12.9 Seconds (9.4-12.1) H 06/07/16 06:22 ABG pCO2 58 mmHg (35-45) H 06/19/16 04:57 ABG pO2 109 mmHg (85-104) H 06/19/16 04:57 ABG HCO3 30.6 mEQ/L (21-27) H 06/19/16 04:57 ABG Total CO2 32.4 mEq/L (20-26) H 06/19/16 04:57 ABG Base Excess 3.9 mEq/L (-2.0 to 3.0) H 06/19/16 04:57 VBG pH 7.48 pH Units (7.32-7.42) H 06/05/16 06:06 VBG pCO2 37 mmHg (41-51) L 06/05/16 06:06 VBG pO2 167 mmHg (25-40) H 06/05/16 06:06 VBG HCO3 27.6 mEq/L (21-27) H 06/05/16 06:06 BUN 49 mg/dL (7-20) H D 06/19/16 03:15 Creatinine 2.78 mg/dL (0.57-1.11) H 06/19/16 03:15 Est GFR ( Amer) 24 (> 60) L 06/19/16 03:15 Est GFR (Non-Af Amer) 20 (> 60) L 06/19/16 03:15 Glucose 147 mg/dL (70-99) H 06/19/16 03:15 POC Glucose 127 (58-89) H 06/19/16 06:08 Calculated Osmolality 306 (280-300) H 06/19/16 03:15 Uric Acid 6.6 mg/dL (2.6-6.0) H 06/15/16 17:20 Phosphorus 5.7 mg/dL (2.3-4.7) H 06/19/16 03:15 Total Bilirubin 0.1 mg/dL (0.2-1.2) L 06/19/16 03:15 Serum Total Protein 5.3 g/dL (6.0-8.3) L 06/19/16 03:15 Albumin 1.7 g/dL (3.5-5.0) L D 06/19/16 03:15 Globulin 3.6 g/dL (2.4-3.5) H 06/19/16 03:15 Albumin/Globulin Ratio 0.5 (1.1-2.2) L 06/19/16 03:15 Ur Specimen Adequacy See below A 06/16/16 17:49 Urine Protein 30 mg/dL (Neg-Trace) H 06/16/16 17:49 Urine Blood Large (Negative) H 06/16/16 17:49 Ur Leukocyte Esterase Trace (Negative) H 06/16/16 17:49 Urine Microscopic RBC 30-50 per hpf (0-3) H 06/16/16 17:49 Ur Squamous Epith Cells Many per lpf (None-Few) H 06/11/16 12:15 Human Metapneumovirus DETECTED (Not Detect) A 06/07/16 16:05 - Microbiology Findings Microbiology Findings: Microbiology, Last 48 Hours 06/14/16 16:05 Sputum Culture - Final Sputum - Diagnostic Findings Chest x-ray: report reviewed, image reviewed Additional studies: KUB - report and image reviewed IMPRESSION: 1. Gastric tube terminates in the region of the gastric pylorus with the sideport near to the junction of the gastric body and antrum 2. Indeterminate paucity of bowel gas with no findings suggestive of obstruction. - Clinical Findings Intake & Output: Intake & Output 06/18/16 06/18/16 06/19/16 15:59 23:59 07:59 Intake Total 1518.5 / 1518.5 701 / 701 635 / 635 Output Total 350 / 350 565 / 565 1475 / 1475 Balance 1168.5 / 1168.5 136 / 136 -840 / -840 - VTE Documentation of Mechanical Device: Venous foot pump, device Consult Discharge Plan - Plan Referrals: Manish Sheth MD [Primary Care Provider] - <Abby Harry - Last Filed: 06/19/16 12:03> Date of Encounter: 06/19/16 Objective PUL Vital signs: Last Vital Signs Temp 97.3 F L 06/19/16 08:00 Pulse 96 06/19/16 11:00 Resp 20 06/19/16 11:12 BP 98/57 06/19/16 11:00 Pulse Ox 91 06/19/16 11:12 Ventilator Settings Ventilator Settings: Ventilator Settings, Last 8 Hours Ventilator Mode VC+ Ventilator Mode VC+ Ventilator Mode VC+ Ventilator Mode VC+ Ventilator Mode VC+ Ventilator Mode VC+ Ventilator Mode VC+ Ventilator Mode VC+ Ventilator Mode VC+ Ventilator Mode VC+ Ventilator Tidal Volume 300 Setting Ventilator Tidal Volume 300 Setting Ventilator Tidal Volume 300 Setting Ventilator Tidal Volume 300 Setting Ventilator Tidal Volume 300 Setting Ventilator Tidal Volume 300 Setting Ventilator Tidal Volume 300 Setting Ventilator Tidal Volume 300 Setting Ventilator Tidal Volume 300 Setting Ventilator Tidal Volume 300 Setting Ventilator Respiratory Rate 18 Setting Ventilator Respiratory Rate 18 Setting Ventilator Respiratory Rate 18 Setting Ventilator Respiratory Rate 18 Setting Ventilator Respiratory Rate 18 Setting Ventilator Respiratory Rate 18 Setting Ventilator Respiratory Rate 18 Setting Ventilator Respiratory Rate 18 Setting Ventilator Respiratory Rate 18 Setting Ventilator Respiratory Rate 18 Setting Actual Respiratory Rate 20 Actual Respiratory Rate 20 Actual Respiratory Rate 18 Actual Respiratory Rate 18 Actual Respiratory Rate 18 Actual Respiratory Rate 18 Actual Respiratory Rate 19 Actual Respiratory Rate 22 Positive End Expiratory 12 Pressure Positive End Expiratory 12 Pressure Positive End Expiratory 10 Pressure Positive End Expiratory 10 Pressure Positive End Expiratory 10 Pressure Positive End Expiratory 10 Pressure Positive End Expiratory 10 Pressure Positive End Expiratory 10 Pressure Positive End Expiratory 10 Pressure Positive End Expiratory 10 Pressure Peak Inspiratory Airway 32 Pressure Peak Inspiratory Airway 32 Pressure Peak Inspiratory Airway 36 Pressure Peak Inspiratory Airway 36 Pressure Peak Inspiratory Airway 36 Pressure Peak Inspiratory Airway 33 Pressure Peak Inspiratory Airway 33 Pressure Peak Inspiratory Airway 33 Pressure Peak Inspiratory Airway 15 Pressure Results - Laboratory Findings CBC and BMP: 06/19/16 03:15 06/19/16 03:15 ABG ABG pH 7.33 pH Units (7.32-7.45) 06/19/16 04:57 ABG pCO2 58 mmHg (35-45) H 06/19/16 04:57 ABG pO2 109 mmHg (85-104) H 06/19/16 04:57 ABG O2 Saturation 98 % (95-98) 06/19/16 04:57 PT/INR, D-dimer PT 12.9 Seconds (9.4-12.1) H 06/07/16 06:22 Abnormal lab findings: Abnormal lab results RBC 2.52 M/mcL (3.82-4.97) L 06/19/16 03:15 Hgb 7.7 g/dL (11.5-15.4) L 06/19/16 03:15 Hct 24.7 % (35.3-44.9) L 06/19/16 03:15 MCHC 31.2 g/dL (31.6-35.5) L 06/19/16 03:15 RDW 16.9 % (11.5-14.5) H 06/19/16 03:15 Immature Gran % 4.2 % (0-4) H 06/16/16 03:15 Metamyelocytes % 2.0 % (0) H 06/19/16 03:15 Myelocytes % 2.0 % (0) H 06/17/16 03:40 Nucleated RBCs/100 WBC 0.2 /100 WBC (0) H 06/15/16 03:15 Reactive Lymphocytes Present (Not Present) A 06/19/16 03:15 Smudge Cells Present (Not Present) A 06/12/16 04:50 Large Platelets Present (Not Present) A 06/19/16 03:15 Immature Plt Fraction 7.1 % (1.1-6.1) H 06/17/16 03:40 Polychromasia 2+ (Not Present) A 06/14/16 03:45 Hypochromasia Present (Not Present) A 06/11/16 22:35 Poikilocytosis 1+ (Not Present) A 06/17/16 03:40 Basophilic Stippling 2+ (Not Present) A 06/14/16 03:45 Anisocytosis 1+ (Not Present) A 06/19/16 03:15 Macrocytosis Present (Not Present) A 06/19/16 03:15 PT 12.9 Seconds (9.4-12.1) H 06/07/16 06:22 ABG pCO2 58 mmHg (35-45) H 06/19/16 04:57 ABG pO2 109 mmHg (85-104) H 06/19/16 04:57 ABG HCO3 30.6 mEQ/L (21-27) H 06/19/16 04:57 ABG Total CO2 32.4 mEq/L (20-26) H 06/19/16 04:57 ABG Base Excess 3.9 mEq/L (-2.0 to 3.0) H 06/19/16 04:57 VBG pH 7.48 pH Units (7.32-7.42) H 06/05/16 06:06 VBG pCO2 37 mmHg (41-51) L 06/05/16 06:06 VBG pO2 167 mmHg (25-40) H 06/05/16 06:06 VBG HCO3 27.6 mEq/L (21-27) H 06/05/16 06:06 BUN 49 mg/dL (7-20) H D 06/19/16 03:15 Creatinine 2.78 mg/dL (0.57-1.11) H 06/19/16 03:15 Est GFR ( Amer) 24 (> 60) L 06/19/16 03:15 Est GFR (Non-Af Amer) 20 (> 60) L 06/19/16 03:15 Glucose 147 mg/dL (70-99) H 06/19/16 03:15 POC Glucose 128 (58-89) H 06/19/16 11:45 Calculated Osmolality 306 (280-300) H 06/19/16 03:15 Uric Acid 6.6 mg/dL (2.6-6.0) H 06/15/16 17:20 Phosphorus 5.7 mg/dL (2.3-4.7) H 06/19/16 03:15 Total Bilirubin 0.1 mg/dL (0.2-1.2) L 06/19/16 03:15 Serum Total Protein 5.3 g/dL (6.0-8.3) L 06/19/16 03:15 Albumin 1.7 g/dL (3.5-5.0) L D 06/19/16 03:15 Globulin 3.6 g/dL (2.4-3.5) H 06/19/16 03:15 Albumin/Globulin Ratio 0.5 (1.1-2.2) L 06/19/16 03:15 Ur Specimen Adequacy See below A 06/16/16 17:49 Urine Protein 30 mg/dL (Neg-Trace) H 06/16/16 17:49 Urine Blood Large (Negative) H 06/16/16 17:49 Ur Leukocyte Esterase Trace (Negative) H 06/16/16 17:49 Urine Microscopic RBC 30-50 per hpf (0-3) H 06/16/16 17:49 Ur Squamous Epith Cells Many per lpf (None-Few) H 06/11/16 12:15 Human Metapneumovirus DETECTED (Not Detect) A 06/07/16 16:05 - Clinical Findings Intake & Output: Intake & Output 06/18/16 06/19/16 06/19/16 23:59 07:59 15:59 Intake Total 701 / 701 635 / 635 155 / 155 Output Total 565 / 565 1475 / 1475 539 / 539 Balance 136 / 136 -840 / -840 -384 / -384 - Attending Attestation I examined this patient and my medical decision-making was reviewed with the BACKROOM ASSOCIATE/PA/Advanced Practice Nurse/Resident Physician. I agree with the documented findings, disposition and treatment plan as described except to the extent set forth below. Patient seen and examined. Labs, radiology, chart personally reviewed. Agree with resident's history and physical, assessment, plan with following comments: BUSINESS REPORTING DEVELOPER: Patient respond to commands, Pulmonary: She still requires high FiO2 and increased PEEP to 12 Plateau pressures still acceptable and lowered FiO2 to 90%. Plan is still to continue vent support and end of this week or early next week acute ostomy Cardiovascular: Septic shock and patient is requiring vasopressor. We will continue fluid removal. Will consider blood transfusion, however concerned about volume and also blood transfusion reaction. GI: Nutrition per dietary and GI prophylaxis per routine. Abdomen is distended to be monitored. Heme: DVT prophylaxis per routine ID: Continue antibiotics and plan to de-escalation Renal; urine out put and renal funtion reviewed. Patient is on Katina Endorcine: blood glucose is monitored Lines: all lines checked and no evidence of infections Skin: skin care to prevent pressure ulcers per nursing routine care Family has been updated. I spent 32 min of Critical Care time with this patient. It involved decision making of high complexity to assess, manipulate, and support vital organ system failure and/or to prevent further life threatening deterioration of the patient' s condition. The time involved in the performance of separately reportable procedures was not counted toward critical care time.
--- NOTE | 2016-06-19 08:22 | Nephrology Progress Note ---
Date of Encounter: 06/19/16 Time of Encounter: 08:20 - Assessment and Plan (1) TANNER (acute kidney injury) Current Visit: Yes Status: Acute The patient has nonoliguric acute kidney injury which is progressive in the setting of respiratory failure hypotension possible ARDS pneumonia and/or sepsis. The patient was started on CVVH yesterday. Her azotemia is improving. She is tolerating the net negative fluid loss of 100 mL per hour. Unfortunately her oxygen requirements have not decreased. (2) Multifocal pneumonia Current Visit: Yes Status: Acute (3) Sepsis Current Visit: Yes Status: Suspected Qualifiers: Sepsis type: sepsis due to unspecified organism Qualified Code(s): A41.9 - Sepsis, unspecified organism (4) ARDS (adult respiratory distress syndrome) Current Visit: Yes Status: Acute Subjective Principal diagnosis: Acute respiratory failure, ARDS secondary community acquired pneumonia Interval history: The patient remains critically ill. She was started on CVVH yesterday. HerOption requirements continued to worsen. She is on low-dose levo fed for blood pressure support. Objective - Vital Signs Vital signs: Vital Signs Temp Pulse Resp BP Pulse Ox 06/19/16 07:55 19 94 06/19/16 06:00 63 23 102/51 95 06/19/16 05:00 62 21 79/54 97 06/19/16 04:00 63 21 92/66 100 06/19/16 03:42 21 100 06/19/16 03:00 97.3 F L 59 22 81/42 100 06/19/16 02:00 61 22 92/48 100 06/19/16 01:00 63 21 92/50 100 06/19/16 00:00 97.1 F L 67 21 85/59 99 06/18/16 23:21 23 98 06/18/16 23:00 68 23 81/47 99 06/18/16 22:00 67 22 83/51 97 06/18/16 21:11 22 99 06/18/16 21:00 70 22 89/56 100 06/18/16 20:04 25 94 06/18/16 20:00 97.5 F L 76 22 84/45 98 06/18/16 19:00 75 24 92/50 95 06/18/16 18:00 78 22 100/44 94 06/18/16 17:04 27 92/47 95 06/18/16 17:00 82 25 88/51 95 06/18/16 16:00 97.9 F 86 23 81/45 93 06/18/16 15:08 22 92/47 93 06/18/16 15:00 86 18 92/47 96 06/18/16 14:00 86 30 86/38 88 06/18/16 13:02 18 85/45 88 06/18/16 13:00 86 30 86/38 88 06/18/16 12:02 18 82/40 88 06/18/16 12:00 98.5 F 92 31 91/42 92 06/18/16 11:00 98.7 F 92 28 85/47 90 06/18/16 10:00 85 28 84/46 86 06/18/16 09:00 83 30 84/52 91 Intake and Output 06/18/16 06/19/16 06/19/16 23:59 07:59 15:59 Intake Total 701 / 701 635 / 635 Output Total 565 / 565 1475 / 1475 Balance 136 / 136 -840 / -840 Intake: IV Fluids 550 / 550 311 / 311 PRECEDEX 400 mcg In 100 200 / 200 104 / 104 ml @ 0.2 MCG/KG/HR 5.18 mls/hr IVC .[id number] [facility] Rx#:[id number] FentaNYL (PF) 1,000 MCG 100 / 100 69 / 69 In 0.9 % Sodium Chloride 80 ML @ 50 MCG/HR 5 mls/ hr IVC CONT [facility]WE[facility] Rx#: [id number] Versed 100 MG In 0.9 % 45 / 45 25 / 25 Sodium Chloride 80 ML @ 2 MG/HR 2 mls/hr IVC CONT [facility] Rx#:[id number] Levophed 4 MG In Dextrose 13 / 13 5% 250 ML @ 5 MCG/MIN 18 .75 mls/hr IVC CONT [facility] Rx#:[id number] Flagyl Premix 500 MG/100 100 / 100 100 / 100 ML 500 mg In 100 ml @ 100 mls/hr IVPB Q8HR [facility] Rx# :[id number] Depacon 500 MG In 0.9 % 105 / 105 Sodium Chloride 100 ML @ 105 mls/hr IVPB Q12H [facility] Rx#:[id number] Tube Feeding 151 / 151 324 / 324 Free Water Intake Amount 0 / 0 0 / 0 Output: Urine 360 / 360 90 / 90 Urethral (Reed) 360 / 360 90 / 90 Katina 1235 / 1235 Catheter 205 / 205 150 / 150 Other: Blood Glucose* 125 149 - General Appearance Exam: Patient sedated on the ventilator. She is in no acute distress. Lungs coarse breath sounds. Heart regular rate and rhythm. Abdomen is obese. There is no guarding or rigidity. There is lower extremity swelling. There is a temporary dialysis catheter in the right internal jugular vein. - Lab 06/19/16 03:15 06/19/16 03:15 Most recent lab results ABG pH 7.33 pH Units (7.32-7.45) 06/19/16 04:57 ABG pCO2 58 mmHg (35-45) H 06/19/16 04:57 ABG pO2 109 mmHg (85-104) H 06/19/16 04:57 ABG HCO3 30.6 mEQ/L (21-27) H 06/19/16 04:57 ABG O2 Saturation 98 % (95-98) 06/19/16 04:57 Calcium 8.7 mg/dL (8.6-10.8) 06/19/16 03:15 Phosphorus 5.7 mg/dL (2.3-4.7) H 06/19/16 03:15 Magnesium 1.8 mg/dL (1.6-2.6) 06/19/16 03:15 - VTE Documentation of Mechanical Device: Venous foot pump, device Consult Discharge Plan - Plan Referrals: Manish Sheth MD [Primary Care Provider] -
[2016-06-19] MEDS: Valproic Acid INJ 500 MG in 0.9 % Sodium Chloride 100 ML IVPB SCH ×2 (08:33→21:20)
[2016-06-19] MEDS: Lacri-Lube 3.5 GM TUBE BOTH EYES SCH ×2 (08:33→21:29)
[2016-06-19] MEDS ORDERED: 0.9 % Sodium Chloride 250 ML ONE ×2 (09:30→19:38)
--- NOTE | 2016-06-19 10:51 | Palliative Progress Note ---
Date of Encounter: 06/19/16 Time of Encounter: 10:30 - Assessment and plan (1) Dyspnea Current Visit: No Status: Acute Assessment and plan: Patient currently intubated and mechanically ventilated with ventilation settings of VC, FIO2 90%, PEEP 12. Katina CVVH in progress at bedside and tolerating well. Currently receiving fentanyl gtt for sedation and agitation from ventilator. Antibiotics for viral pneumonia being given. Current sats 91%. Continue current regimen for fluid removal per CVVH and ventilation for respiratory status. Qualifiers: Dyspnea type: shortness of breath Qualified Code(s): R06.02 - Shortness of breath (2) Nutrient intake below expected requirement Current Visit: Yes Status: Acute Assessment and plan: Dietary following and current feeding of Nepro to be changed to Vital. Rectal tube with scant stool. Bag changed per nursing to assess bowel output. (3) Goals of care, counseling/discussion Current Visit: No Status: Acute Assessment and plan: Case discussed in ICU rounds and attended bedside assessment with Dr. Harry. Plan at this time is to continue current care regimen. Patient is day 13 of mechanical ventilation. Remains in need of high FIO2. Family meeting yesterday with parents and desire to continue current regimen as needed. Will follow-up with family once they arrive. Patient is Full Code. - Time Spent With Patient Total time spent is greater than 50% in coordination of care (as documented) at patient's floor/unit and/or counseling patient: - Subjective Interval history: Patient remains intubated, with episode of hypotension last night and levophed was started. Currently resting, opens eyes to name, Currently on fentanyl gtt for sedation. Vitals with B/P 105/61. Supportive care being provided. - Constitutional Vitals: Abnormal lab results RBC 2.52 M/mcL (3.82-4.97) L 06/19/16 03:15 Hgb 7.7 g/dL (11.5-15.4) L 06/19/16 03:15 Hct 24.7 % (35.3-44.9) L 06/19/16 03:15 MCHC 31.2 g/dL (31.6-35.5) L 06/19/16 03:15 RDW 16.9 % (11.5-14.5) H 06/19/16 03:15 Immature Gran % 4.2 % (0-4) H 06/16/16 03:15 Metamyelocytes % 2.0 % (0) H 06/19/16 03:15 Myelocytes % 2.0 % (0) H 06/17/16 03:40 Nucleated RBCs/100 WBC 0.2 /100 WBC (0) H 06/15/16 03:15 Reactive Lymphocytes Present (Not Present) A 06/19/16 03:15 Smudge Cells Present (Not Present) A 06/12/16 04:50 Large Platelets Present (Not Present) A 06/19/16 03:15 Immature Plt Fraction 7.1 % (1.1-6.1) H 06/17/16 03:40 Polychromasia 2+ (Not Present) A 06/14/16 03:45 Hypochromasia Present (Not Present) A 06/11/16 22:35 Poikilocytosis 1+ (Not Present) A 06/17/16 03:40 Basophilic Stippling 2+ (Not Present) A 06/14/16 03:45 Anisocytosis 1+ (Not Present) A 06/19/16 03:15 Macrocytosis Present (Not Present) A 06/19/16 03:15 PT 12.9 Seconds (9.4-12.1) H 06/07/16 06:22 ABG pCO2 58 mmHg (35-45) H 06/19/16 04:57 ABG pO2 109 mmHg (85-104) H 06/19/16 04:57 ABG HCO3 30.6 mEQ/L (21-27) H 06/19/16 04:57 ABG Total CO2 32.4 mEq/L (20-26) H 06/19/16 04:57 ABG Base Excess 3.9 mEq/L (-2.0 to 3.0) H 06/19/16 04:57 VBG pH 7.48 pH Units (7.32-7.42) H 06/05/16 06:06 VBG pCO2 37 mmHg (41-51) L 06/05/16 06:06 VBG pO2 167 mmHg (25-40) H 06/05/16 06:06 VBG HCO3 27.6 mEq/L (21-27) H 06/05/16 06:06 BUN 49 mg/dL (7-20) H D 06/19/16 03:15 Creatinine 2.78 mg/dL (0.57-1.11) H 06/19/16 03:15 Est GFR ( Amer) 24 (> 60) L 06/19/16 03:15 Est GFR (Non-Af Amer) 20 (> 60) L 06/19/16 03:15 Glucose 147 mg/dL (70-99) H 06/19/16 03:15 POC Glucose 127 (58-89) H 06/19/16 06:08 Calculated Osmolality 306 (280-300) H 06/19/16 03:15 Uric Acid 6.6 mg/dL (2.6-6.0) H 06/15/16 17:20 Phosphorus 5.7 mg/dL (2.3-4.7) H 06/19/16 03:15 Total Bilirubin 0.1 mg/dL (0.2-1.2) L 06/19/16 03:15 Serum Total Protein 5.3 g/dL (6.0-8.3) L 06/19/16 03:15 Albumin 1.7 g/dL (3.5-5.0) L D 06/19/16 03:15 Globulin 3.6 g/dL (2.4-3.5) H 06/19/16 03:15 Albumin/Globulin Ratio 0.5 (1.1-2.2) L 06/19/16 03:15 Ur Specimen Adequacy See below A 06/16/16 17:49 Urine Protein 30 mg/dL (Neg-Trace) H 06/16/16 17:49 Urine Blood Large (Negative) H 06/16/16 17:49 Ur Leukocyte Esterase Trace (Negative) H 06/16/16 17:49 Urine Microscopic RBC 30-50 per hpf (0-3) H 06/16/16 17:49 Ur Squamous Epith Cells Many per lpf (None-Few) H 06/11/16 12:15 Human Metapneumovirus DETECTED (Not Detect) A 06/07/16 16:05 - Head Head exam: Present: atraumatic, normal inspection, normocephalic - Eye Eye exam: Present: PERRL (bilateral eyes ) - ENT ENT exam: Present: mucous membranes moist - Neck Neck exam: Present: normal inspection (patient with Downs syndrome and short neck) - Respiratory Respiratory exam: Present: decreased breath sounds, wheezes - Expanded Respiratory Exam Location: decreased breath sounds: Left, Right, Lower, wheezes: Left, Right, Upper (scattered) - Cardiovascular Cardiovascular exam: Present: RRR, +S1, +S2 - Expanded Cardiovascular Exam Peripheral pulses: 1+: Femoral (L) PM, Femoral (R) PM, Posterior Tibialis (L), Posterior Tibialis (R), Dorsalis Pedis (L) PM, Dorsalis Pedis (R) PM (pedal edema 3+ tight), 2+: Carotid (L) PM, Carotid (R) PM, Radial (L), Radial (R) - GI/Abdominal GI/Abdominal exam: Present: diminished bowel sounds, firm (rectal tube with scant brown stool), rigid - Rectal Rectal exam: Present: deferred (rectal tube) - Additional comments: Reed catheter with clear yellow urine - Extremities Exam Extremities exam: Present: pedal edema (3+ bilateral tight pedal edema. ) - Back Exam Back exam: Present: normal inspection - Neurological Exam Neurological exam: Present: altered (intubated with ET tube, sedation with fentanyl) - Psychiatric Psychiatric exam: Present: flat affect (sedation and on mechanical ventilation) - Skin Skin exam: Present: pallor, warm Palliative Quality Palliative Quality: Screen for Code Status: Yes, Screen for Goals of Care: Yes, Screen for Pain: NA, If Pain Regimen Started, Initiate Bowel Regimen: NA, Screen for Nausea/Vomitting: NA - Labs CBC & Chem 7: 06/19/16 03:15 06/19/16 03:15 Labs: Laboratory Results - last 24 hr 06/18/16 06/18/16 06/18/16 13:53 18:28 23:58 WBC RBC Hgb Hct MCV MCH MCHC RDW Plt Count MPV Seg Neutrophils % Band Neutrophils % Lymphocytes % Monocytes % Metamyelocytes % Neutrophils # Lymphocytes # Monocytes # Reactive Lymphocytes Platelet Estimate Large Platelets Anisocytosis Macrocytosis ABG pH ABG pCO2 ABG pO2 ABG HCO3 ABG Total CO2 ABG O2 Saturation ABG Base Excess Blood Gas Modality Inspired O2 Sodium Potassium Chloride Carbon Dioxide BUN Creatinine Est GFR ( Amer) Est GFR (Non-Af Amer) BUN/Creatinine Ratio Glucose POC Glucose 111 H 125 H 149 H Calculated Osmolality Calcium Ionized Calcium Phosphorus Magnesium Total Bilirubin Direct Bilirubin Indirect Bilirubin AST ALT Alkaline Phosphatase Serum Total Protein Albumin Globulin Albumin/Globulin Ratio 06/19/16 06/19/16 06/19/16 03:15 03:15 04:57 WBC 10.3 RBC 2.52 L Hgb 7.7 L Hct 24.7 L MCV 98.0 MCH 30.6 MCHC 31.2 L RDW 16.9 H Plt Count 252 MPV 10.9 Seg Neutrophils % 78.0 Band Neutrophils % 2.0 Lymphocytes % 16.0 Monocytes % 2.0 Metamyelocytes % 2.0 H Neutrophils # 8.2 Lymphocytes # 1.7 Monocytes # 0.2 Reactive Lymphocytes Present A Platelet Estimate Normal Large Platelets Present A Anisocytosis 1+ A Macrocytosis Present A ABG pH 7.33 ABG pCO2 58 H ABG pO2 109 H ABG HCO3 30.6 H ABG Total CO2 32.4 H ABG O2 Saturation 98 ABG Base Excess 3.9 H Blood Gas Modality PCT Inspired O2 100 Sodium 140 Potassium 4.4 D Chloride 103 Carbon Dioxide 28 BUN 49 H D Creatinine 2.78 H Est GFR ( Amer) 24 L Est GFR (Non-Af Amer) 20 L BUN/Creatinine Ratio 18 Glucose 147 H POC Glucose Calculated Osmolality 306 H Calcium 8.7 Ionized Calcium 1.25 Phosphorus 5.7 H Magnesium 1.8 Total Bilirubin 0.1 L Direct Bilirubin 0.1 Indirect Bilirubin 0.0 AST 27 ALT 36 Alkaline Phosphatase 53 Serum Total Protein 5.3 L Albumin 1.7 L D Globulin 3.6 H Albumin/Globulin Ratio 0.5 L 06/19/16 06:08 WBC RBC Hgb Hct MCV MCH MCHC RDW Plt Count MPV Seg Neutrophils % Band Neutrophils % Lymphocytes % Monocytes % Metamyelocytes % Neutrophils # Lymphocytes # Monocytes # Reactive Lymphocytes Platelet Estimate Large Platelets Anisocytosis Macrocytosis ABG pH ABG pCO2 ABG pO2 ABG HCO3 ABG Total CO2 ABG O2 Saturation ABG Base Excess Blood Gas Modality Inspired O2 Sodium Potassium Chloride Carbon Dioxide BUN Creatinine Est GFR ( Amer) Est GFR (Non-Af Amer) BUN/Creatinine Ratio Glucose POC Glucose 127 H Calculated Osmolality Calcium Ionized Calcium Phosphorus Magnesium Total Bilirubin Direct Bilirubin Indirect Bilirubin AST ALT Alkaline Phosphatase Serum Total Protein Albumin Globulin Albumin/Globulin Ratio - Impressions Impressions Guidance Needle Placement Ultrasound 06/18/16 00:00 IMPRESSION: Successful ultrasound guided non-tunneled catheter placement. D/ / 06/18/2016 15:56:53 Velia Kidd MD / Sierra Gay Interpreting Provider: Velia Kidd MD Insertion Non-Tunneled Catheter 06/18/16 00:00 IMPRESSION: Successful ultrasound guided non-tunneled catheter placement. D/ / 06/18/2016 15:56:53 Velia Kidd MD / Sierra Gay Interpreting Provider: Velia Kidd MD Chest X-Ray 06/18/16 11:49 IMPRESSION: 1. Interval right temporary hemodialysis catheter placement with tip in the proximal to mid superior vena cava. No pneumothorax. 2. Stable bilateral pulmonary consolidation. D/ / 06/18/2016 12:29:33 Rolando Arita MD / Sierra Gay Interpreting Provider: Rolando Arita MD Chest X-Ray 06/19/16 06:00 IMPRESSION: Diffuse pulmonary edema, similar or slightly increased from the recent study. D/ / Jose Carter MD / Jose Carter MD Interpreting Provider: Jose Carter MD X-Ray 06/19/16 06:32 IMPRESSION: 1. Gastric tube terminates in the region of the gastric pylorus with the sideport near the junction of the gastric body and antrum. 2. Indeterminate paucity of bowel gas with no findings suggestive of obstruction. D/ / Austin Johnson MD / Austin Johnson MD Interpreting Provider: Austin Johnson MD - ABG Interpretation ABG results: ABG ABG pH 7.33 pH Units (7.32-7.45) 06/19/16 04:57 ABG pCO2 58 mmHg (35-45) H 06/19/16 04:57 ABG pO2 109 mmHg (85-104) H 06/19/16 04:57 ABG O2 Saturation 98 % (95-98) 06/19/16 04:57 PT/INR, D-dimer PT 12.9 Seconds (9.4-12.1) H 06/07/16 06:22 Consult Discharge Plan - Plan Referrals: Manish Sheth MD [Primary Care Provider] -
[2016-06-19] MEDS: FentaNYL (PF) 1,000 MCG in 0.9 % Sodium Chloride 80 ML IVC SCH (12:18)
[2016-06-20] MEDS: Insulin LISPRO 300 UNITS/3 ML VIAL SQ SCH ×5 (00:26→23:21)
[2016-06-20] MEDS: MetroNIDAZOLE 500 MG/100 ML 500 MG/100 ML BAG IVPB SCH ×4 (00:29→23:13)
[2016-06-20] MEDS: Midazolam HCl 100 MG in 0.9 % Sodium Chloride 80 ML IVC SCH ×2 (00:30→20:12)
[2016-06-20] MEDS: 0.9 % Sodium Chloride 1,000 ML PRIME SCH ×6 (00:36→22:18)
[2016-06-20] MEDS: Calcium Gluconate 2,700 MG in PrismaSATE BGK 2/0 5,000 ML IVPB SCH ×3 (02:10→09:46)
[2016-06-20] MEDS: Ipratropium/Albuterol Neb 3 ML IH SCH ×5 (03:40→19:57)
[2016-06-20] MEDS: Dexmedetomidine HCl 400 MCG/100 ML MLS IVC SCH ×3 (04:00→17:24)
[2016-06-20 04:59] LABS: Hematocrit 25.1 % (35.3-44.9); Hemoglobin 7.8 g/dL (11.5-15.4); Mean Corpuscular HGB Conc 31.1 g/dL (31.6-35.5); Mean Corpuscular Hemoglobin 30.2 pg (28.0-33.3); Mean Corpuscular Volume 97.3 fL (83.0-100.0); Mean Platelet Volume 10.8 fL (9.4-12.4); Nucleated Red Blood Cells 0.1 /100 WBC (0); Platelet Count 339 K/mcL (140-400); Red Blood Count 2.58 M/mcL (3.82-4.97); Red Cell Distribution Width 16.7 % (11.5-14.5)
[2016-06-20 05:30] LABS: Calcium 8.4 mg/dL (8.6-10.8); Magnesium 1.7 mg/dL (1.6-2.6); Phosphorous 3.4 mg/dL (2.3-4.7); Potassium 3.4 mEq/L (3.5-4.5)
[2016-06-20 05:32] LABS: Ionized Calcium 1.1 mmol/L (1.15-1.35)
[2016-06-20 05:46] LABS: Monocytes # 1.1 K/mcL (0.0-1.3); Neutrophils # 12.8 K/mcL (1.6-8.9)
[2016-06-20 05:47] LABS: Anisocytosis 1+ (Not Present); Large Platelets Present (Not Present); Platelet Estimate Normal (Normal)
[2016-06-20] MEDS: *HR* Heparin 5,000 UNIT/ML VIAL SQ SCH ×2 (06:18→17:23)
[2016-06-20] MEDS: Levothyroxine Sodium 100 MCG VIAL IV SCH (06:18)
[2016-06-20] MEDS: Vitamin B Complex/Vit C/Vit E 1 EACH TABLET PO SCH (08:02)
[2016-06-20] MEDS: Chlorhexidine Rinse 15 ML MOUTHWASH MM SCH ×2 (08:02→20:28)
[2016-06-20] MEDS: Multivit/Ca/Min/Fe/FA 1 TAB TABLET PO SCH (08:02)
[2016-06-20] MEDS: Pantoprazole 40 MG VIAL IVPB SCH (08:02)
[2016-06-20] MEDS: Valproic Acid INJ 500 MG in 0.9 % Sodium Chloride 100 ML IVPB SCH ×2 (08:06→20:27)
[2016-06-20] MEDS: Lacri-Lube 3.5 GM TUBE BOTH EYES SCH ×2 (08:08→20:28)
[2016-06-20 08:31] LABS: ABG Base Excess 1.9 mEq/L (-2.0 to 3.0); ABG Oxygen Saturation 99 % (95-98); ABG PCO2 59 mmHg (35-45); ABG PO2 160 mmHg (85-104); ABG TCO2 30.8 mEq/L (20-26)
[2016-06-20 08:32] LABS: Blood Gas FiO2 80 %; Blood Gas PEEP 12 cm H2O; Blood Gas Respiration Rate 18; Blood Gas VT 300 cc
--- NOTE | 2016-06-20 09:42 | Pulmonology Progress Note ---
<Lizabeth Goldstein - Last Filed: 06/20/16 11:28> Date of Encounter: 06/20/16 Time of Encounter: 09:36 Assessment and Plan (1) Acute respiratory failure with hypoxia and hypercapnia Current Visit: Yes Status: Acute Patient with ARDS and acute respiratory failure requiring intubation secondary to viral pneumonia. Found to be positive for human metapneumovirus. Sputum cultures negative. As cultures are negative, antibiotics were stopped. Patient received 4 days of Zosyn and 3 days of cefepime for a total of 7 days of antibiotics. Patient has been intubated for 13 days. She is requiring high ventilator settings but they are improving - FiO2 of 80%, PEEP 12. CXR today showed persistent BL airspace disease. Working on pulling of fluid with CVVH in hopes that patient's respiratory status will begin to improve. Will continue with ARDS ventilator protocol and wean ventilator settings as tolerated. With patient's wheezing on exam, will continue with suctioning and duonebs every 4 hours scheduled. (2) ARDS (adult respiratory distress syndrome) Current Visit: Yes Status: Acute Patient with ARDS and acute respiratory failure requiring intubation secondary to viral pneumonia. Patient with high ventilator requirements - PEEP 12 and FiO2 of 80%. CXR today showed persistent BL airspace disease. We will continue with the ARDS ventilator protocol and wean as tolerated. (3) Viral pneumonia Current Visit: Yes Status: Acute Patient with ARDS and acute respiratory failure requiring intubation secondary to viral pneumonia. Found to be positive for human metapneumovirus. Sputum cultures negative on admission. As cultures are negative, antibiotics were stopped. (4) Hypotension Current Visit: Yes Status: Acute Patient with worsening hypotension secondary to pulling off fluid with CVVH. She is currently requiring levophed to maintain MAP >60. A-line placement was unsuccessful because of patient's difficult anatomy. Will continue to monitor patient's blood pressure and tissue perfusion and titrate vasopressors as needed. Qualifiers: Hypotension type: unspecified hypotension type Qualified Code(s): I95.9 - Hypotension, unspecified (5) SIRS (systemic inflammatory response syndrome) Current Visit: Yes Status: Acute Patient with acute increase in WBC. WBC today 18.3 form 10.3 yesterday. Her temperature is low and patient is requiring warming blanket. With respiratory rate greater than 20, patient meets SIRS criteria. With this patient, the concern is that she could be developing a secondary pneumonia having been on the vent for 13 days. Other concerns including UTI, DVT, cholecystitis or other abdominal infection, line infection, or skin infection. Urine cultures and blood cultures were sent. Patient has had no change in sputum production. She is on DVT prophylaxis. Will continue serial abdominal exams and monitor vital signs for any changes or worsening condition. (6) TANNER (acute kidney injury) Current Visit: Yes Status: Acute Patient with nonoliguric azotemia in the setting acute respiratory failure. Nephrology consulted. Patient on CVVH with a goal of -100/hour. Creatinine improving. Potassium appropriate. Plan to continue with CVVH today with goal of -100/hour. Will continue to monitor kidney function and urine output. (7) Colitis Current Visit: Yes Status: Acute Patient with diarrhea. Diagnosed with colitis on CT abdomen/pelvis. C. diff toxin negative. Currently on Flagyl (day 09/19). Rectal tube is in place and patient is continuing to have moderate output. Abdomen is distended but not tense on palpation. KUB showed no signs of obstruction. Will continue to monitor vital signs, WBC and rectal tube output. Will complete a total of 10 days of antibiotics. (8) Anemia Current Visit: Yes Status: Acute Patient with slowly decreasing hemoglobin. Hgb stable at 7.8 today. Believe this is likely multifactoral secondary to blood draws, Katina, fluid status and her continuing diarrhea. Will continue to monitor patient and hemoglobin levels. Qualifiers: Anemia type: unspecified type Qualified Code(s): D64.9 - Anemia, unspecified (9) Hyperkalemia Current Visit: Yes Status: Acute Potassium within normal range today after starting CVVH. Will continue to monitor potassium. (10) Hypoalbuminemia Current Visit: Yes Status: Acute Albumin 1.4. Nutrition consulted. Tube feeds well tolerated at goal of 55ml/hr (11) Down syndrome Current Visit: Yes Status: Chronic (12) Bed sore on buttock Current Visit: Yes Status: Acute Patient with bed sores on back, right and left buttocks - stage 2. Follow ICU skin protocol. Will continue to monitor. Consult placed to wound care nurse. Order for bariatric bed to hopefully allow for better positioning. Qualifiers: Pressure ulcer stage: stage 2 Laterality: unspecified laterality Qualified Code(s): L89.302 - Pressure ulcer of unspecified buttock, stage 2 (13) DVT prophylaxis Current Visit: Yes Status: Acute DVT prophylaxis with heparin and foot pumps. Neuro: - Intubated & sedated with versed, fentanyl and precedex. Titrate as needed based on vitals and needed sedation. - Celexa, Seroquel, and Valproic Acid for mood modulation Pulm: Acute respiratory failure secondary to viral pneumonia - CXR today showed stable diffuse airspace disease - Vent settings [id number], PEEP 12, FiO2 of 80% - continue ARDS protocol and wean as tolerated - Continue Duonebs every 4 hours scheduled Cardiac: - Persistent hypotension requiring vasopressors to maintain MAP >60. GI/fluids/electrolytes/hydration/GI ppx - OG tube in place with feeds at goal of 55ml/hr - Worsening abdominal distention - KUB showed no signs of obstruction - Rectal tube in place for diarrhea secondary to colitis - On flagyl (day 10/20) for colitis - CVVH started yesterday for a goal of -100/hr - Yesterday -1.3L - Protonix ppx Renal: Acute kidney injury - CVVH started yesterday for a goal of -100/hr - Yesterday -1.3 ID: + human metapneumovirus - Initial blood cultures negative and urine cultures negative - Patient received total of 7 days of respiratory antibiotics (3 days of zosyn and 4 days of cefipime) - Today, WBC increased to 18.6 - meeting SIRS criteria. CXR, urine cultures, and blood cultures sent. Will monitor lines, abdominal exam and vitals. - On flagly (day 09/19) for colitis Heme/Onc: - Hemoglobin stable at 7.7 - likely multifactorial with lab draws, fluid status , on Katina, and diarrhea - DVT prophylaxis - heparin and foot pumps Endocrine: - Insulin sliding scale Lines: - Endotrachial tube - OG tube - Right internal jugular - Reed catheter - Right internal jugular dialysis catheter - Rectal tube Subjective Principal diagnosis: Acute respiratory failure, ARDS secondary community acquired pneumonia Interval history: Overnight, patient tolerated nursing care and imaging without oxygen desatruation. This morning FiO2 was decreased from 100% to 80%. WBC count increased from 10.3 to 18.3. Patient seen and examined this morning. Tmax of 100.6 overnight with a warming blanket on, with blanket removed temperature returned to normal. Currently blood pressure and MAP are being maintained with levophed. Patient remains intubated (day 13). She opens eyes to voice and will follow some commands. Lungs exam reveals improving aeration compared to yesterday with minimal expiratory wheezing. CXR revealed stable diffuse airspace disease. Abdomen is distended but soft to palpation. Patient continues to have significant bilateral LE edema. Objective PUL Vital signs: Last Vital Signs Temp 95.6 F L 06/20/16 08:00 Pulse 65 06/20/16 08:00 Resp 23 06/20/16 08:00 BP 89/51 06/20/16 08:00 Pulse Ox 100 06/20/16 08:00 General appearance: other (intubated and sedated) Eyes: nonicteric ENT: oropharynx moist Effort: normal Auscultation: bilateral: diminished breath sounds, wheezes Cardiovascular: regular rate and rhythm Gastrointestinal: normoactive bowel sounds, other (distended but soft on palpation ) Extremities: edema Musculoskeletal: no deformities unable to assess due to mental status Ventilator Settings Ventilator Settings: Ventilator Settings, Last 8 Hours Ventilator Mode VC+ Ventilator Mode VC+ Ventilator Mode VC+ Ventilator Mode VC+ Ventilator Mode VC+ Ventilator Mode VC+ Ventilator Tidal Volume 300 Setting Ventilator Tidal Volume 300 Setting Ventilator Tidal Volume 300 Setting Ventilator Tidal Volume 300 Setting Ventilator Tidal Volume 300 Setting Ventilator Tidal Volume 300 Setting Ventilator Respiratory Rate 18 Setting Ventilator Respiratory Rate 18 Setting Ventilator Respiratory Rate 18 Setting Ventilator Respiratory Rate 18 Setting Ventilator Respiratory Rate 18 Setting Ventilator Respiratory Rate 18 Setting Actual Respiratory Rate 18 Actual Respiratory Rate 23 Actual Respiratory Rate 23 Actual Respiratory Rate 23 Positive End Expiratory 12 Pressure Positive End Expiratory 12 Pressure Positive End Expiratory 12 Pressure Positive End Expiratory 12 Pressure Positive End Expiratory 12 Pressure Positive End Expiratory 12 Pressure Peak Inspiratory Airway 32 Pressure Peak Inspiratory Airway 21 Pressure Peak Inspiratory Airway 21 Pressure Peak Inspiratory Airway 18 Pressure Results - Laboratory Findings CBC and BMP: 06/20/16 04:20 06/20/16 04:20 ABG ABG pH 7.30 pH Units (7.32-7.45) L 06/20/16 08:20 ABG pCO2 59 mmHg (35-45) H 06/20/16 08:20 ABG pO2 160 mmHg (85-104) H 06/20/16 08:20 ABG O2 Saturation 99 % (95-98) H 06/20/16 08:20 PT/INR, D-dimer PT 12.9 Seconds (9.4-12.1) H 06/07/16 06:22 Abnormal lab findings: Abnormal lab results WBC 18.3 K/mcL (4.3-11.1) H D 06/20/16 04:20 RBC 2.58 M/mcL (3.82-4.97) L 06/20/16 04:20 Hgb 7.8 g/dL (11.5-15.4) L 06/20/16 04:20 Hct 25.1 % (35.3-44.9) L 06/20/16 04:20 MCHC 31.1 g/dL (31.6-35.5) L 06/20/16 04:20 RDW 16.7 % (11.5-14.5) H 06/20/16 04:20 Immature Gran % 4.2 % (0-4) H 06/16/16 03:15 Band Neutrophils % 6.0 % (0-4) H 06/20/16 04:20 Metamyelocytes % 2.0 % (0) H 06/20/16 04:20 Myelocytes % 2.0 % (0) H 06/17/16 03:40 Neutrophils # 12.8 K/mcL (1.6-8.9) H 06/20/16 04:20 Nucleated RBCs/100 WBC 0.1 /100 WBC (0) H 06/20/16 04:20 Reactive Lymphocytes Present (Not Present) A 06/19/16 03:15 Smudge Cells Present (Not Present) A 06/12/16 04:50 Large Platelets Present (Not Present) A 06/20/16 04:20 Immature Plt Fraction 7.1 % (1.1-6.1) H 06/17/16 03:40 Polychromasia 2+ (Not Present) A 06/14/16 03:45 Hypochromasia Present (Not Present) A 06/11/16 22:35 Poikilocytosis 1+ (Not Present) A 06/17/16 03:40 Basophilic Stippling 2+ (Not Present) A 06/14/16 03:45 Anisocytosis 1+ (Not Present) A 06/20/16 04:20 Macrocytosis Present (Not Present) A 06/19/16 03:15 PT 12.9 Seconds (9.4-12.1) H 06/07/16 06:22 ABG pH 7.30 pH Units (7.32-7.45) L 06/20/16 08:20 ABG pCO2 59 mmHg (35-45) H 06/20/16 08:20 ABG pO2 160 mmHg (85-104) H 06/20/16 08:20 ABG HCO3 29.0 mEQ/L (21-27) H 06/20/16 08:20 ABG Total CO2 30.8 mEq/L (20-26) H 06/20/16 08:20 ABG O2 Saturation 99 % (95-98) H 06/20/16 08:20 VBG pH 7.48 pH Units (7.32-7.42) H 06/05/16 06:06 VBG pCO2 37 mmHg (41-51) L 06/05/16 06:06 VBG pO2 167 mmHg (25-40) H 06/05/16 06:06 VBG HCO3 27.6 mEq/L (21-27) H 06/05/16 06:06 Potassium 3.4 mEq/L (3.5-4.5) L D 06/20/16 04:20 BUN 30 mg/dL (7-20) H D 06/20/16 04:20 Creatinine 1.99 mg/dL (0.57-1.11) H 06/20/16 04:20 Est GFR ( Amer) 35 (> 60) L 06/20/16 04:20 Est GFR (Non-Af Amer) 29 (> 60) L 06/20/16 04:20 Glucose 183 mg/dL (70-99) H 06/20/16 04:20 POC Glucose 189 (58-89) H 06/20/16 06:12 Uric Acid 6.6 mg/dL (2.6-6.0) H 06/15/16 17:20 Calcium 8.4 mg/dL (8.6-10.8) L 06/20/16 04:20 Ionized Calcium 1.10 mmol/L (1.15-1.35) L 06/20/16 04:20 Total Bilirubin 0.1 mg/dL (0.2-1.2) L 06/19/16 03:15 Serum Total Protein 5.3 g/dL (6.0-8.3) L 06/19/16 03:15 Albumin 1.7 g/dL (3.5-5.0) L D 06/19/16 03:15 Globulin 3.6 g/dL (2.4-3.5) H 06/19/16 03:15 Albumin/Globulin Ratio 0.5 (1.1-2.2) L 06/19/16 03:15 Ur Specimen Adequacy See below A 06/16/16 17:49 Urine Protein 30 mg/dL (Neg-Trace) H 06/16/16 17:49 Urine Blood Large (Negative) H 06/16/16 17:49 Ur Leukocyte Esterase Trace (Negative) H 06/16/16 17:49 Urine Microscopic RBC 30-50 per hpf (0-3) H 06/16/16 17:49 Ur Squamous Epith Cells Many per lpf (None-Few) H 06/11/16 12:15 Human Metapneumovirus DETECTED (Not Detect) A 06/07/16 16:05 - Diagnostic Findings Chest x-ray: report reviewed, image reviewed - Clinical Findings Intake & Output: Intake & Output 06/19/16 06/20/16 06/20/16 23:59 07:59 15:59 Intake Total 1081 / 1081 946 / 946 103.5 / 103.5 Output Total 749 / 749 1204 / 1204 151 / 151 Balance 332 / 332 -258 / -258 -47.5 / -47.5 - VTE Documentation of Mechanical Device: Venous foot pump, device Consult Discharge Plan - Plan Referrals: Manish Sheth MD [Primary Care Provider] - <Abby Harry - Last Filed: 06/20/16 16:21> Date of Encounter: 06/20/16 Objective PUL Vital signs: Last Vital Signs Temp 95.0 F L 06/20/16 12:00 Pulse 73 06/20/16 15:00 Resp 22 06/20/16 16:02 BP 87/51 06/20/16 16:02 Pulse Ox 100 06/20/16 16:02 Ventilator Settings Ventilator Settings: Ventilator Settings, Last 8 Hours Ventilator Mode VC+ Ventilator Mode VC+ Ventilator Mode VC+ Ventilator Mode VC+ Ventilator Mode VC+ Ventilator Mode VC+ Ventilator Mode VC+ Ventilator Mode VC+ Ventilator Mode VC+ Ventilator Mode VC+ Ventilator Mode VC+ Ventilator Tidal Volume 300 Setting Ventilator Tidal Volume 300 Setting Ventilator Tidal Volume 300 Setting Ventilator Tidal Volume 300 Setting Ventilator Tidal Volume 300 Setting Ventilator Tidal Volume 300 Setting Ventilator Tidal Volume 300 Setting Ventilator Tidal Volume 300 Setting Ventilator Tidal Volume 300 Setting Ventilator Tidal Volume 300 Setting Ventilator Tidal Volume 300 Setting Ventilator Respiratory Rate 18 Setting Ventilator Respiratory Rate 18 Setting Ventilator Respiratory Rate 18 Setting Ventilator Respiratory Rate 18 Setting Ventilator Respiratory Rate 18 Setting Ventilator Respiratory Rate 18 Setting Ventilator Respiratory Rate 18 Setting Ventilator Respiratory Rate 18 Setting Ventilator Respiratory Rate 18 Setting Ventilator Respiratory Rate 18 Setting Ventilator Respiratory Rate 18 Setting Actual Respiratory Rate 22 Actual Respiratory Rate 23 Actual Respiratory Rate 23 Actual Respiratory Rate 23 Actual Respiratory Rate 23 Actual Respiratory Rate 23 Actual Respiratory Rate 24 Actual Respiratory Rate 24 Actual Respiratory Rate 24 Positive End Expiratory 10 Pressure Positive End Expiratory 12 Pressure Positive End Expiratory 12 Pressure Positive End Expiratory 12 Pressure Positive End Expiratory 12 Pressure Positive End Expiratory 12 Pressure Positive End Expiratory 12 Pressure Positive End Expiratory 12 Pressure Positive End Expiratory 12 Pressure Positive End Expiratory 12 Pressure Positive End Expiratory 12 Pressure Peak Inspiratory Airway 19 Pressure Peak Inspiratory Airway 22 Pressure Peak Inspiratory Airway 22 Pressure Peak Inspiratory Airway 22 Pressure Peak Inspiratory Airway 22 Pressure Peak Inspiratory Airway 22 Pressure Peak Inspiratory Airway 27 Pressure Peak Inspiratory Airway 27 Pressure Peak Inspiratory Airway 27 Pressure Results - Laboratory Findings CBC and BMP: 06/20/16 04:20 06/20/16 04:20 ABG ABG pH 7.30 pH Units (7.32-7.45) L 06/20/16 08:20 ABG pCO2 59 mmHg (35-45) H 06/20/16 08:20 ABG pO2 160 mmHg (85-104) H 06/20/16 08:20 ABG O2 Saturation 99 % (95-98) H 06/20/16 08:20 PT/INR, D-dimer PT 12.9 Seconds (9.4-12.1) H 06/07/16 06:22 Abnormal lab findings: Abnormal lab results WBC 18.3 K/mcL (4.3-11.1) H D 06/20/16 04:20 RBC 2.58 M/mcL (3.82-4.97) L 06/20/16 04:20 Hgb 7.8 g/dL (11.5-15.4) L 06/20/16 04:20 Hct 25.1 % (35.3-44.9) L 06/20/16 04:20 MCHC 31.1 g/dL (31.6-35.5) L 06/20/16 04:20 RDW 16.7 % (11.5-14.5) H 06/20/16 04:20 Immature Gran % 4.2 % (0-4) H 06/16/16 03:15 Band Neutrophils % 6.0 % (0-4) H 06/20/16 04:20 Metamyelocytes % 2.0 % (0) H 06/20/16 04:20 Myelocytes % 2.0 % (0) H 06/17/16 03:40 Neutrophils # 12.8 K/mcL (1.6-8.9) H 06/20/16 04:20 Nucleated RBCs/100 WBC 0.1 /100 WBC (0) H 06/20/16 04:20 Reactive Lymphocytes Present (Not Present) A 06/19/16 03:15 Smudge Cells Present (Not Present) A 06/12/16 04:50 Large Platelets Present (Not Present) A 06/20/16 04:20 Immature Plt Fraction 7.1 % (1.1-6.1) H 06/17/16 03:40 Polychromasia 2+ (Not Present) A 06/14/16 03:45 Hypochromasia Present (Not Present) A 06/11/16 22:35 Poikilocytosis 1+ (Not Present) A 06/17/16 03:40 Basophilic Stippling 2+ (Not Present) A 06/14/16 03:45 Anisocytosis 1+ (Not Present) A 06/20/16 04:20 Macrocytosis Present (Not Present) A 06/19/16 03:15 PT 12.9 Seconds (9.4-12.1) H 06/07/16 06:22 ABG pH 7.30 pH Units (7.32-7.45) L 06/20/16 08:20 ABG pCO2 59 mmHg (35-45) H 06/20/16 08:20 ABG pO2 160 mmHg (85-104) H 06/20/16 08:20 ABG HCO3 29.0 mEQ/L (21-27) H 06/20/16 08:20 ABG Total CO2 30.8 mEq/L (20-26) H 06/20/16 08:20 ABG O2 Saturation 99 % (95-98) H 06/20/16 08:20 VBG pH 7.48 pH Units (7.32-7.42) H 06/05/16 06:06 VBG pCO2 37 mmHg (41-51) L 06/05/16 06:06 VBG pO2 167 mmHg (25-40) H 06/05/16 06:06 VBG HCO3 27.6 mEq/L (21-27) H 06/05/16 06:06 Potassium 3.4 mEq/L (3.5-4.5) L D 06/20/16 04:20 BUN 30 mg/dL (7-20) H D 06/20/16 04:20 Creatinine 1.99 mg/dL (0.57-1.11) H 06/20/16 04:20 Est GFR ( Amer) 35 (> 60) L 06/20/16 04:20 Est GFR (Non-Af Amer) 29 (> 60) L 06/20/16 04:20 Glucose 183 mg/dL (70-99) H 06/20/16 04:20 POC Glucose 228 (58-89) H 06/20/16 16:14 Uric Acid 6.6 mg/dL (2.6-6.0) H 06/15/16 17:20 Calcium 8.4 mg/dL (8.6-10.8) L 06/20/16 04:20 Ionized Calcium 1.10 mmol/L (1.15-1.35) L 06/20/16 04:20 Total Bilirubin 0.1 mg/dL (0.2-1.2) L 06/19/16 03:15 Serum Total Protein 5.3 g/dL (6.0-8.3) L 06/19/16 03:15 Albumin 1.7 g/dL (3.5-5.0) L D 06/19/16 03:15 Globulin 3.6 g/dL (2.4-3.5) H 06/19/16 03:15 Albumin/Globulin Ratio 0.5 (1.1-2.2) L 06/19/16 03:15 Ur Specimen Adequacy See below A 06/16/16 17:49 Urine Clarity Turbid (Clear) A 06/20/16 13:00 Urine Protein 100 mg/dL (Neg-Trace) H 06/20/16 13:00 Urine Blood Large (Negative) H 06/20/16 13:00 Ur Leukocyte Esterase Small (Negative) H 06/20/16 13:00 Urine Microscopic RBC 15-30 per hpf (0-3) H 06/20/16 13:00 Urine Microscopic WBC 50-100 per hpf (0-3) H 06/20/16 13:00 Ur Squamous Epith Cells Many per lpf (None-Few) H 06/20/16 13:00 Amorphous Sediment Many (Few) H 06/20/16 13:00 Urine Mucus Moderate (Few) H 06/20/16 13:00 Ur Culture Indicated? YES (NO) A 06/20/16 13:00 Human Metapneumovirus DETECTED (Not Detect) A 06/07/16 16:05 - Clinical Findings Intake & Output: Intake & Output 06/20/16 06/20/16 06/20/16 07:59 15:59 23:59 Intake Total 946 / 946 1075.5 / 1075.5 Output Total 1204 / 1204 1267 / 1267 Balance -258 / -258 -191.5 / -191.5 - Attending Attestation I examined this patient and my medical decision-making was reviewed with the [employer]/PA/Advanced Practice Nurse/Resident Physician. I agree with the documented findings, disposition and treatment plan as described except to the extent set forth below. Patient seen and examined. Labs, radiology, chart personally reviewed. Agree with resident's history and physical, assessment, plan with following comments: DRIVER GUIDE: Patient follows simple commands, Pulmonary: There is some improvement with fluid removal and start lowering FiO2 80% and PEEP 10. I am hoping patient will improve to the point that she does not need tracheostomy. Cardiovascular: Patient in septic shock and increased Levophed to support blood pressure GI: Nutrition per dietary and GI prophylaxis per routine Heme: DVT prophylaxis per routine ID: Continue antibiotic and plan to de-escalation. Monitor white cell count and checking for a source of leukocytosis Renal; urine out put and renal funtion reviewed. Continue Katina with fluid removal Endorcine: blood glucose is monitored Lines: all lines checked and no evidence of infections Skin: skin care to prevent pressure ulcers per nursing routine care. It is very difficult with her body habitus and degree of hypoxemia to have patient to be rotated. I spent 32 min of Critical Care time with this patient. It involved decision making of high complexity to assess, manipulate, and support vital organ system failure and/or to prevent further life threatening deterioration of the patient' s condition. The time involved in the performance of separately reportable procedures was not counted toward critical care time.
[2016-06-20] MEDS: Norepinephrine 4 MG in D5% in Water 250 ML IVC SCH ×4 (09:44→22:00)
[2016-06-20] MEDS: FentaNYL (PF) 1,000 MCG in 0.9 % Sodium Chloride 80 ML IVC SCH ×2 (09:45→22:19)
--- NOTE | 2016-06-20 11:01 | Nephrology Progress Note ---
Date of Encounter: 06/20/16 Time of Encounter: 10:30 Subjective Principal diagnosis: Acute respiratory failure, ARDS secondary community acquired pneumonia Interval history: A/P- [facility] in setting of respiratory failure, hypotension possible ARDS pneumonia and/or sepsis. Creat 1.99. Azotemia improving. Continue CVVH Intubated, sedated on pressor. Fio2 .80, peep 12. Objective - Vital Signs Vital signs: Vital Signs Temp Pulse Resp BP Pulse Ox 06/20/16 10:00 64 25 78/47 100 06/20/16 09:48 24 94/55 100 06/20/16 09:00 66 23 77/32 99 06/20/16 08:00 95.6 F L 65 23 77/32 99 06/20/16 07:49 18 95/49 100 06/20/16 07:00 70 16 92/51 100 06/20/16 06:15 23 94/50 100 06/20/16 06:00 97.2 F L 72 22 94/58 100 06/20/16 05:00 82 22 91/50 100 06/20/16 04:00 81 21 99/56 100 06/20/16 03:40 23 94/48 100 06/20/16 03:00 81 23 92/52 100 06/20/16 02:00 82 21 89/46 100 06/20/16 01:00 88 21 90/48 100 06/20/16 00:45 19 87/49 100 06/20/16 00:00 97.4 F L 91 24 91/48 100 06/19/16 23:34 24 94/45 100 06/19/16 23:00 99 23 86/43 99 06/19/16 22:00 98.1 F 109 21 94/45 99 06/19/16 21:20 20 99/52 99 06/19/16 21:00 118 21 99/52 100 06/19/16 20:00 100.6 F H 125 24 87/45 98 06/19/16 19:37 25 91/48 97 06/19/16 19:00 115 22 91/43 98 06/19/16 18:25 23 99 06/19/16 18:00 110 24 107/64 98 06/19/16 17:00 96.5 F L 107 21 82/47 58 06/19/16 16:00 96.5 F L 124 25 78/43 95 06/19/16 15:53 20 97/59 94 06/19/16 15:00 121 28 128/78 85 06/19/16 14:00 104 20 97/59 94 06/19/16 13:00 97.4 F L 103 22 101/54 94 06/19/16 12:00 97.4 F L 96 19 87/51 91 06/19/16 11:12 20 91 06/19/16 11:00 96 20 98/57 91 Intake and Output 06/19/16 06/20/16 06/20/16 23:59 07:59 15:59 Intake Total 1081 / 1081 946 / 946 545.8 / 545.8 Output Total 749 / 749 1204 / 1204 749 / 749 Balance 332 / 332 -258 / -258 -203.2 / -203.2 Intake: IV Fluids 675 / 675 528 / 528 393.8 / 393.8 PRECEDEX 400 mcg In 100 96 / 96 146 / 146 54.0 / 54.0 ml @ 0.2 MCG/KG/HR 5.18 mls/hr IVC .[id number] [facility] Rx#:[id number] FentaNYL (PF) 1,000 MCG 31 / 31 42 / 42 32.5 / 32.5 In 0.9 % Sodium Chloride 80 ML @ 50 MCG/HR 5 mls/ hr IVC CONT [facility] Rx#: [id number] Versed 100 MG In 0.9 % 16 / 16 35 / 35 8.9 / 8.9 Sodium Chloride 80 ML @ 2 MG/HR 2 mls/hr IVC CONT [facility] Rx#:[id number] Levophed 4 MG In Dextrose 222 / 222 205 / 205 93.4 / 93.4 5% 250 ML @ 5 MCG/MIN 18 .75 mls/hr IVC CONT [facility] Rx#:[id number] Calcium Gluconate 2,700 0 / 0 0 / 0 MG In PrismaSATE BGK 2/0 5,000 ML @ 2000 mls/hr IVPB .Q2H31M [facility] Rx#: [id number] Flagyl Premix 500 MG/100 100 / 100 100 / 100 100 / 100 ML 500 mg In 100 ml @ 100 mls/hr IVPB Q8HR [facility] Rx# :[id number] Depacon 500 MG In 0.9 % 210 / 210 105 / 105 Sodium Chloride 100 ML @ 105 mls/hr IVPB Q12H [facility] Rx#:[id number] 0.9 % Sodium Chloride 1, 0 / 0 000 ML @ 100 mls/hr PRIME .Q10H [facility] Rx#:[id number] Tube Feeding 406 / 406 418 / 418 152 / 152 Output: Urine 0 / 0 Katina 619 / 619 959 / 959 434 / 434 Rectal Tube 25 / 25 150 / 150 300 / 300 Catheter 105 / 105 95 / 95 15 / 15 Other: Stool Color Brown Blood Glucose* 189 - General Appearance General appearance: Present: well-developed, well-nourished, appears started age EENT: Present: mucous membranes moist Neck: Present: no JVD Respiratory: Present: clear Cardiology: Present: regular rate, regular rhythm Additional Comments: mild edema Gastrointestinal: Present: hypoactive bowel sounds Integumentary: Present: warm and dry - Lab 06/20/16 04:20 06/20/16 04:20 Most recent lab results ABG pH 7.30 pH Units (7.32-7.45) L 06/20/16 08:20 ABG pCO2 59 mmHg (35-45) H 06/20/16 08:20 ABG pO2 160 mmHg (85-104) H 06/20/16 08:20 ABG HCO3 29.0 mEQ/L (21-27) H 06/20/16 08:20 ABG O2 Saturation 99 % (95-98) H 06/20/16 08:20 Calcium 8.4 mg/dL (8.6-10.8) L 06/20/16 04:20 Phosphorus 3.4 mg/dL (2.3-4.7) 06/20/16 04:20 Magnesium 1.7 mg/dL (1.6-2.6) 06/20/16 04:20 - VTE Documentation of Mechanical Device: Venous foot pump, device Consult Discharge Plan - Plan Referrals: Manish Sheth MD [Primary Care Provider] -
[2016-06-20] MEDS: PrismaSATE BGK 4/2.5 5,000 ML CRRT SCH ×7 (13:30→20:20)
[2016-06-20 14:19] LABS: Bilirubin,Urine Negative (Negative); Blood,Urine Large (Negative); Clarity,Urine Turbid (Clear); Color,Urine Yellow (Yellow); Glucose,Urine (UA) Normal (Normal); Ketones,Urine Negative (Negative); Leukocyte Esterase,Urine Small (Negative); Nitrite,Urine Negative (Negative); PH,Urine 5.5 pH Units (5.0-8.0); Protein,Urine 100 mg/dL (Neg-Trace); Specific Gravity,Urine 1.017 (1.010-1.025); Urobilinogen,Urine Normal (Normal)
[2016-06-20 14:23] LABS: Bacteria,Urine None Seen per hpf (None-Few); Squamous Epithelial Cell,Urine Many per lpf (None-Few); WBC,Urine 50-100 per hpf (0-3)
[2016-06-20 14:35] LABS: Amorphous Sediment,Urine Many (Few); Mucus,Urine Moderate (Few); RBC,Urine 15-30 per hpf (0-3)
[2016-06-20 14:36] LABS: Hyaline Casts,Urine Few per lpf (None-Few)
[2016-06-20] MEDS: Cefepime HCl 1,000 MG in D5% in Water (Mini-Bag+) 100 ML IVPB SCH (17:23)
[2016-06-20 20:15] LABS: Hematocrit 24.3 % (35.3-44.9); Hemoglobin 7.7 g/dL (11.5-15.4); Mean Corpuscular HGB Conc 31.7 g/dL (31.6-35.5); Mean Corpuscular Hemoglobin 30.9 pg (28.0-33.3); Mean Corpuscular Volume 97.6 fL (83.0-100.0); Mean Platelet Volume 10.8 fL (9.4-12.4); Platelet Count 347 K/mcL (140-400); Red Blood Count 2.49 M/mcL (3.82-4.97); Red Cell Distribution Width 16.7 % (11.5-14.5)
[2016-06-20 20:16] LABS: Basophils # 0.2 K/mcL (0.0-0.2); Eosinophils # 0.2 K/mcL (0.0-0.6); Large Platelets Present (Not Present); Lymphocytes # 0.9 K/mcL (0.6-4.6); Monocytes # 0.4 K/mcL (0.0-1.3); Neutrophils # 6.6 K/mcL (1.6-8.9); Platelet Estimate Normal (Normal)
[2016-06-20 20:17] LABS: Hypochromasia Present (Not Present); Smudge Cells Present (Not Present)
[2016-06-20] MEDS ORDERED: 0.9 % Sodium Chloride 250 ML ONE (21:34)
[2016-06-20] MEDS: *HR* Heparin 5,000 UNIT/ML VIAL IV PRN (21:52)
[2016-06-21] MEDS: Ipratropium/Albuterol Neb 3 ML IH SCH ×6 (00:11→19:43)
[2016-06-21] MEDS: Dexmedetomidine HCl 400 MCG/100 ML MLS IVC SCH ×4 (01:38→23:28)
[2016-06-21] MEDS: PrismaSATE BGK 4/2.5 5,000 ML CRRT SCH ×19 (01:57→21:40)
[2016-06-21] MEDS: Norepinephrine 4 MG in D5% in Water 250 ML IVC SCH ×4 (02:45→20:23)
[2016-06-21 03:14] LABS: Hematocrit 23.8 % (35.3-44.9); Hemoglobin 7.6 g/dL (11.5-15.4); Mean Corpuscular HGB Conc 31.9 g/dL (31.6-35.5); Mean Corpuscular Hemoglobin 30.9 pg (28.0-33.3); Mean Corpuscular Volume 96.7 fL (83.0-100.0); Mean Platelet Volume 10.3 fL (9.4-12.4); Nucleated Red Blood Cells 0.3 /100 WBC (0); Platelet Count 352 K/mcL (140-400); Red Blood Count 2.46 M/mcL (3.82-4.97); Red Cell Distribution Width 16.5 % (11.5-14.5)
[2016-06-21 03:21] LABS: Ionized Calcium 1.19 mmol/L (1.15-1.35)
[2016-06-21 03:28] LABS: Calcium 8.4 mg/dL (8.6-10.8); Magnesium 1.8 mg/dL (1.6-2.6); Phosphorous 2.4 mg/dL (2.3-4.7); Potassium 3.8 mEq/L (3.5-4.5)
[2016-06-21 04:25] LABS: Eosinophils # 0.8 K/mcL (0.0-0.6); Large Platelets Present (Not Present); Lymphocytes # 2.1 K/mcL (0.6-4.6); Monocytes # 2.1 K/mcL (0.0-1.3); Neutrophils # 14.6 K/mcL (1.6-8.9); Platelet Estimate Normal (Normal); Polychromasia 1+ (Not Present); Reactive Lymphocytes Present (Not Present)
[2016-06-21] MEDS: *HR* Heparin 5,000 UNIT/ML VIAL SQ SCH ×2 (05:12→17:23)
[2016-06-21] MEDS: Insulin LISPRO 300 UNITS/3 ML VIAL SQ SCH ×3 (05:16→17:24)
[2016-06-21] MEDS: Cefepime HCl 1,000 MG in D5% in Water (Mini-Bag+) 100 ML IVPB SCH ×2 (05:18→17:22)
[2016-06-21] MEDS: Levothyroxine Sodium 100 MCG VIAL IV SCH (05:19)
[2016-06-21 05:26] LABS: ABG Base Excess 2.9 mEq/L (-2.0 to 3.0); ABG HCO3 28.4 mEQ/L (21-27); ABG Oxygen Saturation 98 % (95-98); ABG PCO2 48 mmHg (35-45); ABG PH 7.38 pH Units (7.32-7.45); ABG PO2 99 mmHg (85-104); ABG TCO2 29.9 mEq/L (20-26)
[2016-06-21 05:28] LABS: Blood Gas FiO2 80 %
[2016-06-21] MEDS: 0.9 % Sodium Chloride 1,000 ML PRIME SCH ×3 (05:31→20:08)
[2016-06-21] MEDS: *HR* Heparin 5,000 UNIT/ML VIAL IV PRN (06:44)
[2016-06-21] MEDS ORDERED: 0.9 % Sodium Chloride 250 ML ONE ×2 (06:48→23:47)
--- NOTE | 2016-06-21 07:45 | Pulmonology Progress Note ---
<Lizabeth Goldstein - Last Filed: 06/21/16 10:53> Date of Encounter: 06/21/16 Time of Encounter: 07:40 Assessment and Plan (1) Sepsis Current Visit: Yes Status: Suspected Patient with acute increase in WBC yesterday. WBC was 18.3 and patient was hypothermic requiring warming measures. Urine, blood and sputum cultures were sent. Urine analysis with leukocyte esterase and lots of WBC, also contaminated with lots of squamous epithelial cells. Due to concern for possible UTI as the source, cefipime was started. Today patient's WBC continues to increase. She is tachycardic, tachypneic and still is requiring warming measures to maintain temperatures. The source of her infection is unknown. Concerns include a secondary pneumonia, UTI, DVT, cholecystits or other abdominal source, line infection or skin infection. Per microbiology department, all cultures are currently negative. She has not had any change in sputum production and lungs do not sound particularly worse. She is on DVT prophylaxis. Due to concern for an abdominal source, there was discussion of a CT abdomen/pelvis however there was concerns of how patient would tolerate transport. At this time, we will follow cultures and order a lactic acid. Continue to monitor vital signs and labs. We will also broaden her antibiotics by adding vancomycin. Qualifiers: Sepsis type: sepsis due to unspecified organism Qualified Code(s): A41.9 - Sepsis, unspecified organism (2) Acute respiratory failure with hypoxia and hypercapnia Current Visit: Yes Status: Acute Patient with ARDS and acute respiratory failure requiring intubation secondary to viral pneumonia. Found to be positive for human metapneumovirus. Admission sputum cultures negative. As cultures were negative, antibiotics were stopped. Patient received 4 days of Zosyn and 3 days of cefepime for a total of 7 days of antibiotics. Patient has been intubated for 14 days. She is requiring high ventilator settings but they are improving - FiO2 of 60%, PEEP 10. CXR today showed BL airspace disease with slightly improved aeration. Working on pulling of fluid with CVVH in hopes that patient's respiratory status continue to improve. Tracheostomy would be difficulty due to anatomy and ther is some concern if patient would pull out trach. Family is strongly considering trach. Consult placed to ENT for evaluation and conversations with family. Will continue with ARDS ventilator protocol and wean ventilator settings as tolerated. Will continue with suctioning and duonebs every 4 hours scheduled. (3) ARDS (adult respiratory distress syndrome) Current Visit: Yes Status: Acute Patient with ARDS and acute respiratory failure requiring intubation secondary to viral pneumonia. Patient with high ventilator requirements - PEEP 10 and FiO2 of 60%. CXR today showed BL airspace disease with some improved areation. We will continue with the ARDS ventilator protocol and wean as tolerated. (4) Viral pneumonia Current Visit: Yes Status: Acute Patient with ARDS and acute respiratory failure requiring intubation secondary to viral pneumonia. Found to be positive for human metapneumovirus. Sputum cultures negative on admission. As cultures were negative, antibiotics were initially stopped. On admission she received 3 days of zosyn and 4 days of cefipime. (5) Hypotension Current Visit: Yes Status: Acute Patient with worsening hypotension secondary to pulling off fluid with CVVH. She is currently requiring levophed to maintain MAP >60. A-line placement was unsuccessful because of patient's difficult anatomy. Will continue to monitor patient's blood pressure and tissue perfusion and titrate vasopressors as needed. Qualifiers: Hypotension type: hemodialysis-associated hypotension Qualified Code(s): I95.3 - Hypotension of hemodialysis (6) TANNER (acute kidney injury) Current Visit: Yes Status: Acute Patient with nonoliguric azotemia in the setting acute respiratory failure. Nephrology consulted. Patient on CVVH with a goal of -100/hour. Creatinine improving. Potassium appropriate. Plan to continue with CVVH today. However, as patient is tachycardic and now several liters negative over the last few days , may slow down the rate a little as patient may be dry. Will continue to monitor kidney function and urine output. (7) Colitis Current Visit: Yes Status: Acute Patient with diarrhea. Diagnosed with colitis on CT abdomen/pelvis. C. diff toxin negative. Currently on Flagyl (day 11/19). Rectal tube is in place but there was no output overnight. Abdomen is distended. KUB showed no signs of obstruction. There was discussion concerning a possible CT scan due to concern for a possible abdominal source of the increased WBC. However, there is question if patient would tolerate transport and CT, as such will hold at this time. Will order LFTs. Will continue to monitor vital signs, WBC, rectal tube output, and serial abdominal exams. Will complete a total of 10 days of antibiotics. (8) Anemia Current Visit: Yes Status: Acute Patient with slowly decreasing hemoglobin. Hgb stable at 7.6 today. Believe this is likely multifactoral secondary to blood draws, Katina, and her overall fluid status. Will continue to monitor patient and hemoglobin levels. Qualifiers: Anemia type: unspecified type Qualified Code(s): D64.9 - Anemia, unspecified (9) Hyperkalemia Current Visit: Yes Status: Acute Potassium within normal range today after starting CVVH. Will continue to monitor potassium. (10) Hypoalbuminemia Current Visit: Yes Status: Acute Albumin 1.4. Nutrition consulted. Tube feeds at goal of 55ml/hr, minimal residuals (11) Down syndrome Current Visit: Yes Status: Chronic (12) Bed sore on buttock Current Visit: Yes Status: Acute Patient with bed sores on back, right and left buttocks - stage 2. Follow ICU skin protocol. Will continue to monitor. Consult placed to wound care nurse. Will switch patient to self turning bed to hopefully allow for better positioning. Qualifiers: Pressure ulcer stage: stage 2 Laterality: unspecified laterality Qualified Code(s): L89.302 - Pressure ulcer of unspecified buttock, stage 2 (13) DVT prophylaxis Current Visit: Yes Status: Acute DVT prophylaxis with heparin and foot pumps. Neuro: - Intubated & sedated with versed, fentanyl and precedex. Titrate as needed based on vitals and needed sedation. - Celexa, Seroquel, and Valproic Acid for mood modulation Pulm: Acute respiratory failure secondary to viral pneumonia, intubated day 14 - CXR today showed stable airspace disease with improved aeration - Vent settings [id number], PEEP 10, FiO2 of 60% - continue ARDS protocol and wean as tolerated - Sputum culture on admission negative. Sputum culture 06/20/2016 pending - Consult placed to ENT for possible trach placement - Continue duoneb every 4 hours scheduled Cardiac: - Persistent hypotension requiring levophed to maintain MAP >60. GI/fluids/electrolytes/hydration/GI ppx - OG tube in place with feeds at goal of 55ml/hr, minimal residuals - Abdominal distention, still soft to palpation - Rectal tube in place for diarrhea secondary to colitis - On flagyl (day 11/19) for colitis - CVVH for a goal of -100/hr, may decrease today as patient is tachycardic - Yesterday -1.2L - Protonix ppx Renal: Acute kidney injury - CVVH - Yesterday -1.2L - UA with leukocyte esterase and WBC - Started on Cefipime (day 2) ID: + human metapneumovirus - Initial blood cultures negative and urine cultures negative - Patient received total of 7 days of respiratory antibiotics (3 days of zosyn and 4 days of cefipime) - WBC increasing with hypothermia, tachycardia and tachypnea. CXR with no signs of consolidation, urine/sputum/blood cultures pending. Will monitor lines , abdominal exam and vitals - Lactic acid and LFT - On flagyl (day 11/19) for colitis Heme/Onc: - Hemoglobin stable at 7.6 - likely multifactorial with lab draws, fluid status , on Katina, and diarrhea - DVT prophylaxis - heparin and foot pumps Endocrine: - Insulin sliding scale, blood sugars a goal <180 Lines: - Endotrachial tube - OG tube - Right internal jugular - Reed catheter - Right internal jugular dialysis catheter - Rectal tube Subjective Principal diagnosis: Acute respiratory failure, ARDS secondary community acquired pneumonia Interval history: Yesterday, patient's WBC increase and in the afternoon patient was hypothermic despite warming measures. She was espinal-cultured. Urine analysis shows possible UTI with leukocyte esterase and WBC, however it was contaminated with large number of epithelial cells. Patient was started on cefepime. This morning, WBC increased again. She is still requiring warming measures, however temperature has improved. She is now tachycardic 100-110 and tacypneic. She continues to require vasopressors to maintain MAP. Overnight, patient's O2 saturation decreased into the 80s with care however improved fairly quickly. Patient seen and examined this morning. She remains intubated (day 14) with high ventilator requirements - FiO2 of 80% and PEEP of 10. She will open eyes to voice and follow some commands. Lung exam reveals improved aeration with no wheezing noted. CXR revealed diffuse airspace disease, with slightly improved aeration. Abdomen is distended. Patient continues to have significant BL LE edema. Objective PUL Vital signs: Last Vital Signs Temp 101.5 F H 06/21/16 07:27 Pulse 123 06/21/16 07:00 Resp 36 06/21/16 07:00 BP 118/53 06/21/16 07:00 Pulse Ox 96 06/21/16 07:00 General appearance: other (intubated and sedated) Eyes: nonicteric ENT: other (ET tube in place) Effort: normal Auscultation: bilateral: diminished breath sounds Cardiovascular: other (Sinus tachycardia) Gastrointestinal: hypoactive bowel sounds, other (distended) Integumentary: other (decubitus ulcers on back and buttock) Extremities: edema other (Opens eyes to voice and follows some commads ) Ventilator Settings Ventilator Settings: Ventilator Settings, Last 8 Hours Ventilator Mode VC+ Ventilator Mode VC+ Ventilator Mode VC+ Ventilator Mode VC+ Ventilator Mode VC+ Ventilator Mode VC+ Ventilator Mode VC+ Ventilator Mode VC+ Ventilator Mode VC+ Ventilator Mode VC+ Ventilator Mode VC+ Ventilator Mode VC+ Ventilator Mode VC+ Ventilator Tidal Volume 300 Setting Ventilator Tidal Volume 300 Setting Ventilator Tidal Volume 300 Setting Ventilator Tidal Volume 300 Setting Ventilator Tidal Volume 300 Setting Ventilator Tidal Volume 300 Setting Ventilator Tidal Volume 300 Setting Ventilator Tidal Volume 300 Setting Ventilator Tidal Volume 300 Setting Ventilator Tidal Volume 300 Setting Ventilator Tidal Volume 300 Setting Ventilator Tidal Volume 300 Setting Ventilator Tidal Volume 300 Setting Ventilator Respiratory Rate 18 Setting Ventilator Respiratory Rate 18 Setting Ventilator Respiratory Rate 18 Setting Ventilator Respiratory Rate 18 Setting Ventilator Respiratory Rate 18 Setting Ventilator Respiratory Rate 18 Setting Ventilator Respiratory Rate 18 Setting Ventilator Respiratory Rate 18 Setting Ventilator Respiratory Rate 18 Setting Ventilator Respiratory Rate 18 Setting Ventilator Respiratory Rate 18 Setting Ventilator Respiratory Rate 18 Setting Ventilator Respiratory Rate 18 Setting Actual Respiratory Rate 36 Actual Respiratory Rate 34 Actual Respiratory Rate 34 Actual Respiratory Rate 34 Actual Respiratory Rate 30 Actual Respiratory Rate 30 Actual Respiratory Rate 32 Actual Respiratory Rate 30 Actual Respiratory Rate 31 Actual Respiratory Rate 28 Actual Respiratory Rate 18 Actual Respiratory Rate 29 Positive End Expiratory 10 Pressure Positive End Expiratory 10 Pressure Positive End Expiratory 10 Pressure Positive End Expiratory 10 Pressure Positive End Expiratory 10 Pressure Positive End Expiratory 10 Pressure Positive End Expiratory 10 Pressure Positive End Expiratory 10 Pressure Positive End Expiratory 10 Pressure Positive End Expiratory 10 Pressure Positive End Expiratory 10 Pressure Positive End Expiratory 30 Pressure Positive End Expiratory 10 Pressure Peak Inspiratory Airway 27 Pressure Peak Inspiratory Airway 20 Pressure Peak Inspiratory Airway 19 Pressure Peak Inspiratory Airway 22 Pressure Peak Inspiratory Airway 16 Pressure Peak Inspiratory Airway 21 Pressure Peak Inspiratory Airway 15 Pressure Peak Inspiratory Airway 23 Pressure Peak Inspiratory Airway 16 Pressure Peak Inspiratory Airway 22 Pressure Peak Inspiratory Airway 29 Pressure Peak Inspiratory Airway 21 Pressure Results - Laboratory Findings CBC and BMP: 06/21/16 03:12 06/21/16 03:12 ABG ABG pH 7.38 pH Units (7.32-7.45) 06/21/16 05:15 ABG pCO2 48 mmHg (35-45) H 06/21/16 05:15 ABG pO2 99 mmHg (85-104) 06/21/16 05:15 ABG O2 Saturation 98 % (95-98) 06/21/16 05:15 PT/INR, D-dimer PT 12.9 Seconds (9.4-12.1) H 06/07/16 06:22 Abnormal lab findings: Abnormal lab results WBC 20.8 K/mcL (4.3-11.1) H 06/21/16 03:12 RBC 2.46 M/mcL (3.82-4.97) L 06/21/16 03:12 Hgb 7.6 g/dL (11.5-15.4) L 06/21/16 03:12 Hct 23.8 % (35.3-44.9) L 06/21/16 03:12 RDW 16.5 % (11.5-14.5) H 06/21/16 03:12 Immature Gran % 4.2 % (0-4) H 06/16/16 03:15 Band Neutrophils % 14.0 % (0-4) H 06/21/16 03:12 Metamyelocytes % 6.0 % (0) H 06/21/16 03:12 Neutrophils # 14.6 K/mcL (1.6-8.9) H 06/21/16 03:12 Monocytes # 2.1 K/mcL (0.0-1.3) H 06/21/16 03:12 Eosinophils # 0.8 K/mcL (0.0-0.6) H 06/21/16 03:12 Nucleated RBCs/100 WBC 0.3 /100 WBC (0) H 06/21/16 03:12 Reactive Lymphocytes Present (Not Present) A 06/21/16 03:12 Smudge Cells Present (Not Present) A 06/20/16 17:30 Large Platelets Present (Not Present) A 06/21/16 03:12 Polychromasia 1+ (Not Present) A 06/21/16 03:12 Poikilocytosis 1+ (Not Present) A 06/17/16 03:40 Basophilic Stippling 2+ (Not Present) A 06/14/16 03:45 Anisocytosis 1+ (Not Present) A 06/20/16 04:20 Macrocytosis Present (Not Present) A 06/19/16 03:15 PT 12.9 Seconds (9.4-12.1) H 06/07/16 06:22 ABG pCO2 48 mmHg (35-45) H 06/21/16 05:15 ABG HCO3 28.4 mEQ/L (21-27) H 06/21/16 05:15 ABG Total CO2 29.9 mEq/L (20-26) H 06/21/16 05:15 VBG pH 7.48 pH Units (7.32-7.42) H 06/05/16 06:06 VBG pCO2 37 mmHg (41-51) L 06/05/16 06:06 VBG pO2 167 mmHg (25-40) H 06/05/16 06:06 VBG HCO3 27.6 mEq/L (21-27) H 06/05/16 06:06 BUN 21 mg/dL (7-20) H 06/21/16 03:12 Creatinine 1.52 mg/dL (0.57-1.11) H 06/21/16 03:12 Est GFR ( Amer) 48 (> 60) L 06/21/16 03:12 Est GFR (Non-Af Amer) 40 (> 60) L 06/21/16 03:12 Glucose 170 mg/dL (70-99) H 06/21/16 03:12 POC Glucose 169 (58-89) H 06/21/16 05:13 Uric Acid 6.6 mg/dL (2.6-6.0) H 06/15/16 17:20 Calcium 8.4 mg/dL (8.6-10.8) L 06/21/16 03:12 Total Bilirubin 0.1 mg/dL (0.2-1.2) L 06/19/16 03:15 Serum Total Protein 5.3 g/dL (6.0-8.3) L 06/19/16 03:15 Albumin 1.7 g/dL (3.5-5.0) L D 06/19/16 03:15 Globulin 3.6 g/dL (2.4-3.5) H 06/19/16 03:15 Albumin/Globulin Ratio 0.5 (1.1-2.2) L 06/19/16 03:15 Ur Specimen Adequacy See below A 06/16/16 17:49 Urine Clarity Turbid (Clear) A 06/20/16 13:00 Urine Protein 100 mg/dL (Neg-Trace) H 06/20/16 13:00 Urine Blood Large (Negative) H 06/20/16 13:00 Ur Leukocyte Esterase Small (Negative) H 06/20/16 13:00 Urine Microscopic RBC 15-30 per hpf (0-3) H 06/20/16 13:00 Urine Microscopic WBC 50-100 per hpf (0-3) H 06/20/16 13:00 Ur Squamous Epith Cells Many per lpf (None-Few) H 06/20/16 13:00 Amorphous Sediment Many (Few) H 06/20/16 13:00 Urine Mucus Moderate (Few) H 06/20/16 13:00 Ur Culture Indicated? YES (NO) A 06/20/16 13:00 Human Metapneumovirus DETECTED (Not Detect) A 06/07/16 16:05 - Microbiology Findings Microbiology Findings: Microbiology 06/14/16 16:05 Sputum Sputum Culture - Final 06/11/16 11:59 Peripheral Venipuncture Blood Culture - Final No growth. 06/11/16 11:50 Peripheral Venipuncture Blood Culture - Final No growth. 06/10/16 02:35 Sputum Sputum Culture - Final Clari albicans 06/05/16 06:06 Peripheral Venipuncture Blood Culture - Final No growth. 06/05/16 04:45 Peripheral Venipuncture Blood Culture - Final No growth. 06/07/16 14:13 Nasopharyngeal Influenza Types A,B Antigen (RAGHAVENDRA) - Final 06/05/16 07:15 Urine,Clean Catch Legionella Antigen - Final 06/05/16 07:15 Urine,Clean Catch Streptococcus pneumoniae Antigen (M - Final 06/05/16 05:12 Nasopharyngeal Influenza Types A,B Antigen (RAGHAVENDRA) - Final Influenza 06/05/16 14:08: Influenza A (H1) PCR Not Detected, Influ A (H1N1/09) PCR Not Detected, Influenza A (H3) PCR Not Detected, Influenza A Untype (PCR) Not Detected, Influenza Type B (PCR) Not Detected 06/07/16 16:05: Influenza A (H1) PCR Not Detected, Influ A (H1N1/09) PCR Not Detected, Influenza A (H3) PCR Not Detected, Influenza A Untype (PCR) Not Detected, Influenza Type B (PCR) Not Detected Serology 06/05/16 14:08: Adenovirus (PCR) Not Detected, B. pertussis DNA (PCR) Not Detected, Coronavirus OC43 (PCR) Not Detected, Coronavirus HKU1 (PCR) Not Detected, Coronavirus 229E (PCR) Not Detected, Coronavirus NL63 (PCR) Not Detected, Human Metapneumovirus DETECTED A, M.pneumoniae DNA (PCR) Not Detected, Parainfluenza 1 (PCR) Not Detected, Parainfluenza 2 (PCR) Not Detected , Parainfluenza 3 (PCR) Not Detected, Parainfluenza 4 (PCR) Not Detected, RSV ( PCR) Not Detected, Entero/Rhino (PCR) Not Detected 06/07/16 16:05: Adenovirus (PCR) Not Detected, B. pertussis DNA (PCR) Not Detected, Coronavirus OC43 (PCR) Not Detected, Coronavirus HKU1 (PCR) Not Detected, Coronavirus 229E (PCR) Not Detected, Coronavirus NL63 (PCR) Not Detected, Human Metapneumovirus DETECTED A, M.pneumoniae DNA (PCR) Not Detected, Parainfluenza 1 (PCR) Not Detected, Parainfluenza 2 (PCR) Not Detected , Parainfluenza 3 (PCR) Not Detected, Parainfluenza 4 (PCR) Not Detected, RSV ( PCR) Not Detected, Entero/Rhino (PCR) Not Detected - Diagnostic Findings Chest x-ray: report reviewed, image reviewed - Clinical Findings Intake & Output: Intake & Output 06/20/16 06/20/16 06/21/16 15:59 23:59 07:59 Intake Total 1075.5 / 1075.5 1078.8 / 1078.8 1314.4 / 1314.4 Output Total 1267 / 1267 1900 / 1900 1982 / 1982 Balance -191.5 / -191.5 -821.2 / -821.2 -668.6 / -668.6 - VTE Documentation of Mechanical Device: Venous foot pump, device Consult Discharge Plan - Plan Referrals: Manish Sheth MD [Primary Care Provider] - <Abby Harry M - Last Filed: 06/21/16 11:53> Date of Encounter: 06/21/16 Objective PUL Vital signs: Last Vital Signs Temp 101.5 F H 06/21/16 08:00 Pulse 108 06/21/16 11:00 Resp 30 06/21/16 11:02 BP 119/69 06/21/16 11:02 Pulse Ox 96 06/21/16 11:02 Ventilator Settings Ventilator Settings: Ventilator Settings, Last 8 Hours Ventilator Mode VC+ Ventilator Mode VC+ Ventilator Mode VC+ Ventilator Mode VC+ Ventilator Mode VC+ Ventilator Mode VC+ Ventilator Mode VC+ Ventilator Mode VC+ Ventilator Mode VC+ Ventilator Mode VC+ Ventilator Mode VC+ Ventilator Mode VC+ Ventilator Mode VC+ Ventilator Tidal Volume 300 Setting Ventilator Tidal Volume 300 Setting Ventilator Tidal Volume 300 Setting Ventilator Tidal Volume 300 Setting Ventilator Tidal Volume 300 Setting Ventilator Tidal Volume 300 Setting Ventilator Tidal Volume 300 Setting Ventilator Tidal Volume 300 Setting Ventilator Tidal Volume 300 Setting Ventilator Tidal Volume 300 Setting Ventilator Tidal Volume 300 Setting Ventilator Tidal Volume 300 Setting Ventilator Tidal Volume 300 Setting Ventilator Respiratory Rate 18 Setting Ventilator Respiratory Rate 18 Setting Ventilator Respiratory Rate 18 Setting Ventilator Respiratory Rate 18 Setting Ventilator Respiratory Rate 18 Setting Ventilator Respiratory Rate 18 Setting Ventilator Respiratory Rate 18 Setting Ventilator Respiratory Rate 18 Setting Ventilator Respiratory Rate 18 Setting Ventilator Respiratory Rate 18 Setting Ventilator Respiratory Rate 18 Setting Ventilator Respiratory Rate 18 Setting Ventilator Respiratory Rate 18 Setting Actual Respiratory Rate 32 Actual Respiratory Rate 32 Actual Respiratory Rate 33 Actual Respiratory Rate 29 Actual Respiratory Rate 33 Actual Respiratory Rate 33 Actual Respiratory Rate 33 Actual Respiratory Rate 36 Actual Respiratory Rate 34 Actual Respiratory Rate 34 Actual Respiratory Rate 34 Actual Respiratory Rate 30 Positive End Expiratory 10 Pressure Positive End Expiratory 10 Pressure Positive End Expiratory 10 Pressure Positive End Expiratory 10 Pressure Positive End Expiratory 10 Pressure Positive End Expiratory 10 Pressure Positive End Expiratory 10 Pressure Positive End Expiratory 10 Pressure Positive End Expiratory 10 Pressure Positive End Expiratory 10 Pressure Positive End Expiratory 10 Pressure Positive End Expiratory 10 Pressure Positive End Expiratory 10 Pressure Peak Inspiratory Airway 22 Pressure Peak Inspiratory Airway 22 Pressure Peak Inspiratory Airway 24 Pressure Peak Inspiratory Airway 19 Pressure Peak Inspiratory Airway 24 Pressure Peak Inspiratory Airway 24 Pressure Peak Inspiratory Airway 24 Pressure Peak Inspiratory Airway 27 Pressure Peak Inspiratory Airway 20 Pressure Peak Inspiratory Airway 19 Pressure Peak Inspiratory Airway 22 Pressure Peak Inspiratory Airway 16 Pressure Results - Laboratory Findings CBC and BMP: 06/21/16 03:12 06/21/16 03:12 ABG ABG pH 7.38 pH Units (7.32-7.45) 06/21/16 05:15 ABG pCO2 48 mmHg (35-45) H 06/21/16 05:15 ABG pO2 99 mmHg (85-104) 06/21/16 05:15 ABG O2 Saturation 98 % (95-98) 06/21/16 05:15 PT/INR, D-dimer PT 12.9 Seconds (9.4-12.1) H 06/07/16 06:22 Abnormal lab findings: Abnormal lab results WBC 20.8 K/mcL (4.3-11.1) H 06/21/16 03:12 RBC 2.46 M/mcL (3.82-4.97) L 06/21/16 03:12 Hgb 7.6 g/dL (11.5-15.4) L 06/21/16 03:12 Hct 23.8 % (35.3-44.9) L 06/21/16 03:12 RDW 16.5 % (11.5-14.5) H 06/21/16 03:12 Immature Gran % 4.2 % (0-4) H 06/16/16 03:15 Band Neutrophils % 14.0 % (0-4) H 06/21/16 03:12 Metamyelocytes % 6.0 % (0) H 06/21/16 03:12 Neutrophils # 14.6 K/mcL (1.6-8.9) H 06/21/16 03:12 Monocytes # 2.1 K/mcL (0.0-1.3) H 06/21/16 03:12 Eosinophils # 0.8 K/mcL (0.0-0.6) H 06/21/16 03:12 Nucleated RBCs/100 WBC 0.3 /100 WBC (0) H 06/21/16 03:12 Reactive Lymphocytes Present (Not Present) A 06/21/16 03:12 Smudge Cells Present (Not Present) A 06/20/16 17:30 Large Platelets Present (Not Present) A 06/21/16 03:12 Polychromasia 1+ (Not Present) A 06/21/16 03:12 Poikilocytosis 1+ (Not Present) A 06/17/16 03:40 Basophilic Stippling 2+ (Not Present) A 06/14/16 03:45 Anisocytosis 1+ (Not Present) A 06/20/16 04:20 Macrocytosis Present (Not Present) A 06/19/16 03:15 PT 12.9 Seconds (9.4-12.1) H 06/07/16 06:22 ABG pCO2 48 mmHg (35-45) H 06/21/16 05:15 ABG HCO3 28.4 mEQ/L (21-27) H 06/21/16 05:15 ABG Total CO2 29.9 mEq/L (20-26) H 06/21/16 05:15 VBG pH 7.48 pH Units (7.32-7.42) H 06/05/16 06:06 VBG pCO2 37 mmHg (41-51) L 06/05/16 06:06 VBG pO2 167 mmHg (25-40) H 06/05/16 06:06 VBG HCO3 27.6 mEq/L (21-27) H 06/05/16 06:06 BUN 21 mg/dL (7-20) H 06/21/16 03:12 Creatinine 1.52 mg/dL (0.57-1.11) H 06/21/16 03:12 Est GFR ( Amer) 48 (> 60) L 06/21/16 03:12 Est GFR (Non-Af Amer) 40 (> 60) L 06/21/16 03:12 Glucose 170 mg/dL (70-99) H 06/21/16 03:12 POC Glucose 169 (58-89) H 06/21/16 05:13 Uric Acid 6.6 mg/dL (2.6-6.0) H 06/15/16 17:20 Calcium 8.4 mg/dL (8.6-10.8) L 06/21/16 03:12 AST 39 Units/L (5-34) H 06/21/16 08:15 Serum Total Protein 5.4 g/dL (6.0-8.3) L 06/21/16 08:15 Albumin 1.5 g/dL (3.5-5.0) L 06/21/16 08:15 Globulin 3.9 g/dL (2.4-3.5) H 06/21/16 08:15 Albumin/Globulin Ratio 0.4 (1.1-2.2) L 06/21/16 08:15 Ur Specimen Adequacy See below A 06/16/16 17:49 Urine Clarity Turbid (Clear) A 06/20/16 13:00 Urine Protein 100 mg/dL (Neg-Trace) H 06/20/16 13:00 Urine Blood Large (Negative) H 06/20/16 13:00 Ur Leukocyte Esterase Small (Negative) H 06/20/16 13:00 Urine Microscopic RBC 15-30 per hpf (0-3) H 06/20/16 13:00 Urine Microscopic WBC 50-100 per hpf (0-3) H 06/20/16 13:00 Ur Squamous Epith Cells Many per lpf (None-Few) H 06/20/16 13:00 Amorphous Sediment Many (Few) H 06/20/16 13:00 Urine Mucus Moderate (Few) H 06/20/16 13:00 Ur Culture Indicated? YES (NO) A 06/20/16 13:00 Human Metapneumovirus DETECTED (Not Detect) A 06/07/16 16:05 - Microbiology Findings Microbiology Findings: Microbiology, Last 48 Hours 06/20/16 13:00 Urine Culture - Final Urine,[place] No growth. - Clinical Findings Intake & Output: Intake & Output 06/20/16 06/21/16 06/21/16 23:59 07:59 15:59 Intake Total 1078.8 / 1078.8 1314.4 / 1314.4 643.6 / 643.6 Output Total 1900 / 1900 1982 / 1982 742 / 742 Balance -821.2 / -821.2 -668.6 / -668.6 -98.4 / -98.4 - Attending Attestation I examined this patient and my medical decision-making was reviewed with the TIMBER ROBBER/PA/Advanced Practice Nurse/Resident Physician. I agree with the documented findings, disposition and treatment plan as described except to the extent set forth below. Patient seen and examined. Labs, radiology, chart personally reviewed. Agree with resident's history and physical, assessment, plan with following comments: MODERATE NEEDS TEACHER: Patient on sedation, Pulmonary: There is improvement in oxygenation and lower FiO2 to 60%, if tolerate will start to lower PEEP. Patient has been on a ventilator for about 2 weeks will consult ENT if no extubation next week to have tracheostomy. Cardiovascular: Septic shock and suspect with fluid removal there is a possibility that contribute to that. Will lower fluid removal. GI: Nutrition per dietary and GI prophylaxis per routine. It is difficult to transport the patient to have a CT abdomen due to her hypoxemia and shock. Heme: DVT prophylaxis per routine ID: Continue antibiotics and plan to de-escalation. It is not clear at this time as source of her septic-like picture and especially with not being able to transport for CAT scan, it becomes more difficult to know disorders. Renal; urine out put and renal funtion reviewed. Discussed with nephrology team regarding slowing fluid removal. Endorcine: blood glucose is monitored Lines: all lines checked and no evidence of infections Skin: skin care to prevent pressure ulcers per nursing routine care Family is updated I spent 32 min of Critical Care time with this patient. It involved decision making of high complexity to assess, manipulate, and support vital organ system failure and/or to prevent further life threatening deterioration of the patient' s condition. The time involved in the performance of separately reportable procedures was not counted toward critical care time.
--- NOTE | 2016-06-21 08:26 | Nephrology Progress Note ---
Date of Encounter: 06/21/16 Time of Encounter: 08:00 - Assessment and Plan (1) TANNER (acute kidney injury) Current Visit: Yes Status: Acute A/P- TANNER in setting of respiratory failure, hypotension, possible ARDS pneumonia and/or sepsis. Creat 1.52. Azotemia improving. Continue CVVH Subjective Principal diagnosis: Acute respiratory failure, ARDS secondary community acquired pneumonia Interval history: A/P- TANNER in setting of respiratory failure, hypotension possible ARDS pneumonia and/or sepsis. Creat 1.99. Azotemia improving. Continue CVVH Intubated, sedated on pressor. Fio2 .80, peep 10. Objective - Vital Signs Vital signs: Vital Signs Temp Pulse Resp BP Pulse Ox 06/21/16 07:27 101.5 F H 06/21/16 07:00 123 36 118/53 96 06/21/16 06:00 108 34 112/53 96 06/21/16 05:02 27 106/58 98 06/21/16 05:00 111 26 103/51 98 06/21/16 04:00 98.4 F 109 30 105/54 99 06/21/16 03:00 108 30 107/58 98 06/21/16 02:55 32 100 06/21/16 02:00 102 30 100/52 97 06/21/16 01:00 105 30 102/48 99 06/21/16 00:12 30 98 06/21/16 00:00 98.4 F 100 29 96/51 98 06/20/16 23:26 20 96 06/20/16 23:00 102 22 103/53 96 06/20/16 22:00 102 29 112/62 95 06/20/16 21:00 96 22 92/48 98 06/20/16 20:00 98.3 F 94 23 95/48 100 06/20/16 19:57 23 91/50 99 06/20/16 19:00 93 22 90/52 98 06/20/16 18:13 92 22 98/52 100 06/20/16 17:55 20 96/58 100 06/20/16 17:00 91 21 91/56 100 06/20/16 16:02 22 87/51 100 06/20/16 16:00 95.8 F L 84 20 87/51 100 06/20/16 15:00 73 22 78/40 100 06/20/16 14:00 71 25 88/43 100 06/20/16 13:20 25 76/41 100 06/20/16 13:00 72 24 76/41 100 06/20/16 12:00 95 F L 66 24 84/44 100 06/20/16 11:40 24 93/48 100 06/20/16 11:00 66 23 85/45 100 06/20/16 10:00 64 25 78/47 100 06/20/16 09:48 24 94/55 100 06/20/16 09:00 66 23 77/32 99 Intake and Output 06/20/16 06/21/16 06/21/16 23:59 07:59 15:59 Intake Total 1078.8 / 1078.8 1314.4 / 1314.4 Output Total 1900 / 1900 1982 / 1982 Balance -821.2 / -821.2 -668.6 / -668.6 Intake: IV Fluids 710.8 / 710.8 864.4 / 864.4 PRECEDEX 400 mcg In 100 59.7 / 59.7 124.9 / 124.9 ml @ 0.2 MCG/KG/HR 5.18 mls/hr IVC .[id number] [facility] Rx#:[id number] FentaNYL (PF) 1,000 MCG 19.4 / 19.4 35.7 / 35.7 In 0.9 % Sodium Chloride 80 ML @ 50 MCG/HR 5 mls/ hr IVC CONT [facility] Rx#: [id number] Versed 100 MG In 0.9 % 11.6 / 11.6 33.8 / 33.8 Sodium Chloride 80 ML @ 2 MG/HR 2 mls/hr IVC CONT [facility] Rx#:[id number] Levophed 4 MG In Dextrose 315.1 / 315.1 470 / 470 5% 250 ML @ 5 MCG/MIN 18 .75 mls/hr IVC [facility] Rx#:[id number] Maxipime 1,000 MG In 100 / 100 100 / 100 Dextrose 5% (Minibag+) 100 ML 100 ML @ 200 mls/ hr IVPB Q12HR [facility] Rx#: [id number] Flagyl Premix 500 MG/100 100 / 100 100 / 100 ML 500 mg In 100 ml @ 100 mls/hr IVPB Q8HR [facility] Rx# :[id number] Depacon 500 MG In 0.9 % 105 / 105 Sodium Chloride 100 ML @ 105 mls/hr IVPB Q12H [facility] Rx#:[id number] Tube Feeding 358 / 358 440 / 440 Other 10 / 10 Free Water 10 Output: Urine 0 / 0 Urethral (Reed) 0 / 0 Katina 1850 / 1850 1967 / 1967 Rectal Tube 0 / 0 Catheter 40 / 40 Other: Blood Glucose* 228 169 - General Appearance General appearance: Present: well-developed, well-nourished, appears started age EENT: Present: mucous membranes moist Neck: Present: no JVD Additional Comments: harsh, inspiratory rub Cardiology: Present: edema, regular rate, regular rhythm Additional Comments: moderate to 1+ LE edema Gastrointestinal: Present: hypoactive bowel sounds Integumentary: Present: warm and dry - Lab 06/21/16 03:12 06/21/16 03:12 Most recent lab results ABG pH 7.38 pH Units (7.32-7.45) 06/21/16 05:15 ABG pCO2 48 mmHg (35-45) H 06/21/16 05:15 ABG pO2 99 mmHg (85-104) 06/21/16 05:15 ABG HCO3 28.4 mEQ/L (21-27) H 06/21/16 05:15 ABG O2 Saturation 98 % (95-98) 06/21/16 05:15 Calcium 8.4 mg/dL (8.6-10.8) L 06/21/16 03:12 Phosphorus 2.4 mg/dL (2.3-4.7) 06/21/16 03:12 Magnesium 1.8 mg/dL (1.6-2.6) 06/21/16 03:12 - VTE Documentation of Mechanical Device: Venous foot pump, device Consult Discharge Plan - Plan Referrals: Manish Sheth MD [Primary Care Provider] -
[2016-06-21] MEDS: Pantoprazole 40 MG VIAL IVPB SCH (08:31)
[2016-06-21] MEDS: Vitamin B Complex/Vit C/Vit E 1 EACH TABLET PO SCH (08:31)
[2016-06-21] MEDS: Chlorhexidine Rinse 15 ML MOUTHWASH MM SCH ×2 (08:31→20:17)
[2016-06-21] MEDS: Multivit/Ca/Min/Fe/FA 1 TAB TABLET PO SCH (08:31)
[2016-06-21] MEDS: MetroNIDAZOLE 500 MG/100 ML 500 MG/100 ML BAG IVPB SCH ×2 (08:33→17:22)
[2016-06-21] MEDS: Lacri-Lube 3.5 GM TUBE BOTH EYES SCH ×2 (08:52→20:18)
[2016-06-21 08:53] LABS: Albumin/Globulin Ratio 0.4 (1.1-2.2); Bilirubin,Direct 0.1 mg/dL (0.0-0.5); Bilirubin,Indirect 0.1 mg/dL (0.0-1.2); Bilirubin,Total 0.2 mg/dL (0.2-1.2); Globulin 3.9 g/dL (2.4-3.5); Total Protein 5.4 g/dL (6.0-8.3)
[2016-06-21 08:56] LABS: Albumin 1.5 g/dL (3.5-5.0)
[2016-06-21] MEDS: Valproic Acid INJ 500 MG in 0.9 % Sodium Chloride 100 ML IVPB SCH ×2 (08:56→20:18)
[2016-06-21] MEDS ORDERED: Vancomycin 2,000 MG in D5% in Water 500 ML IVPB ONE (09:00)
[2016-06-21] MEDS ORDERED: Vancomycin 1,750 MG in D5% in Water 250 ML IVPB SCH (09:00)
[2016-06-21] MEDS: FentaNYL (PF) 1,000 MCG in 0.9 % Sodium Chloride 80 ML IVC SCH (10:19)
[2016-06-21] MEDS: Midazolam HCl 100 MG in 0.9 % Sodium Chloride 80 ML IVC SCH (10:21)
[2016-06-21] MEDS: Silvasorb 44.4 ML TUBE TP SCH (12:20)
[2016-06-21] MEDS ORDERED: *HR* Heparin 5,000 UNIT/ML VIAL ONE ×2 (13:45→23:49)
--- NOTE | 2016-06-21 14:47 | Palliative Progress Note ---
Date of Encounter: 06/21/16 Time of Encounter: 10:30 - Assessment and plan (1) Goals of care, counseling/discussion Current Visit: No Status: Acute Assessment and plan: Continue current course of care. Plan for meeting with ENT later today to discuss prison ventilatory support. (2) Down syndrome Current Visit: Yes Status: Chronic (3) Multifocal pneumonia Current Visit: Yes Status: Acute Assessment and plan: Management per pulmonology. (4) ARDS (adult respiratory distress syndrome) Current Visit: Yes Status: Acute Assessment and plan: per pulmonology (5) Agitation Current Visit: Yes Status: Acute Assessment and plan: sedation per ICU protocol - Time Spent With Patient Total time spent is greater than 50% in coordination of care (as documented) at patient's floor/unit and/or counseling patient: - Subjective Interval history: Ms. Gilmore remains intubated and sedated on mechanical ventilation. She opens eyes to voice, but unable to follow commands. - Constitutional Vitals: Abnormal lab results WBC 20.8 K/mcL (4.3-11.1) H 06/21/16 03:12 RBC 2.46 M/mcL (3.82-4.97) L 06/21/16 03:12 Hgb 7.6 g/dL (11.5-15.4) L 06/21/16 03:12 Hct 23.8 % (35.3-44.9) L 06/21/16 03:12 RDW 16.5 % (11.5-14.5) H 06/21/16 03:12 Immature Gran % 4.2 % (0-4) H 06/16/16 03:15 Band Neutrophils % 14.0 % (0-4) H 06/21/16 03:12 Metamyelocytes % 6.0 % (0) H 06/21/16 03:12 Neutrophils # 14.6 K/mcL (1.6-8.9) H 06/21/16 03:12 Monocytes # 2.1 K/mcL (0.0-1.3) H 06/21/16 03:12 Eosinophils # 0.8 K/mcL (0.0-0.6) H 06/21/16 03:12 Nucleated RBCs/100 WBC 0.3 /100 WBC (0) H 06/21/16 03:12 Reactive Lymphocytes Present (Not Present) A 06/21/16 03:12 Smudge Cells Present (Not Present) A 06/20/16 17:30 Large Platelets Present (Not Present) A 06/21/16 03:12 Polychromasia 1+ (Not Present) A 06/21/16 03:12 Poikilocytosis 1+ (Not Present) A 06/17/16 03:40 Basophilic Stippling 2+ (Not Present) A 06/14/16 03:45 Anisocytosis 1+ (Not Present) A 06/20/16 04:20 Macrocytosis Present (Not Present) A 06/19/16 03:15 PT 12.9 Seconds (9.4-12.1) H 06/07/16 06:22 ABG pCO2 48 mmHg (35-45) H 06/21/16 05:15 ABG HCO3 28.4 mEQ/L (21-27) H 06/21/16 05:15 ABG Total CO2 29.9 mEq/L (20-26) H 06/21/16 05:15 VBG pH 7.48 pH Units (7.32-7.42) H 06/05/16 06:06 VBG pCO2 37 mmHg (41-51) L 06/05/16 06:06 VBG pO2 167 mmHg (25-40) H 06/05/16 06:06 VBG HCO3 27.6 mEq/L (21-27) H 06/05/16 06:06 BUN 21 mg/dL (7-20) H 06/21/16 03:12 Creatinine 1.52 mg/dL (0.57-1.11) H 06/21/16 03:12 Est GFR ( Amer) 48 (> 60) L 06/21/16 03:12 Est GFR (Non-Af Amer) 40 (> 60) L 06/21/16 03:12 Glucose 170 mg/dL (70-99) H 06/21/16 03:12 POC Glucose 228 (58-89) H 06/21/16 12:17 Uric Acid 6.6 mg/dL (2.6-6.0) H 06/15/16 17:20 Calcium 8.4 mg/dL (8.6-10.8) L 06/21/16 03:12 AST 39 Units/L (5-34) H 06/21/16 08:15 Serum Total Protein 5.4 g/dL (6.0-8.3) L 06/21/16 08:15 Albumin 1.5 g/dL (3.5-5.0) L 06/21/16 08:15 Globulin 3.9 g/dL (2.4-3.5) H 06/21/16 08:15 Albumin/Globulin Ratio 0.4 (1.1-2.2) L 06/21/16 08:15 Ur Specimen Adequacy See below A 06/16/16 17:49 Urine Clarity Turbid (Clear) A 06/20/16 13:00 Urine Protein 100 mg/dL (Neg-Trace) H 06/20/16 13:00 Urine Blood Large (Negative) H 06/20/16 13:00 Ur Leukocyte Esterase Small (Negative) H 06/20/16 13:00 Urine Microscopic RBC 15-30 per hpf (0-3) H 06/20/16 13:00 Urine Microscopic WBC 50-100 per hpf (0-3) H 06/20/16 13:00 Ur Squamous Epith Cells Many per lpf (None-Few) H 06/20/16 13:00 Amorphous Sediment Many (Few) H 06/20/16 13:00 Urine Mucus Moderate (Few) H 06/20/16 13:00 Ur Culture Indicated? YES (NO) A 06/20/16 13:00 Human Metapneumovirus DETECTED (Not Detect) A 06/07/16 16:05 General appearance: Present: morbidly obese, no acute distress Exam: 31 year old female, intubated-sedated on mechanical ventilation. - Eye Eye exam: Present: EOMI, PERRL - Respiratory Respiratory exam: Present: decreased breath sounds - Cardiovascular Cardiovascular exam: Present: tachycardia - GI/Abdominal GI/Abdominal exam: Absent: guarding, rigid, tenderness - Additional comments: lange catheter in place. CVVHD with port to right IJ. - Extremities Exam Extremities exam: Present: pedal edema - Neurological Exam Neurological exam: Present: alert (opens eyes to voice, unable to follow commands. ) Palliative Quality Palliative Quality: Screen for Code Status: Yes, Screen for Goals of Care: Yes, Screen for Pain: NA, If Pain Regimen Started, Initiate Bowel Regimen: NA, Screen for Nausea/Vomitting: NA - Labs CBC & Chem 7: 06/21/16 03:12 06/21/16 03:12 Labs: Laboratory Results - last 24 hr 06/20/16 06/20/16 06/20/16 16:14 17:30 18:10 WBC 17.3 H TNP RBC 2.49 L TNP Hgb 7.7 L TNP Hct 24.3 L TNP MCV 97.6 TNP MCH 30.9 TNP MCHC 31.7 TNP RDW 16.7 H TNP Plt Count 347 TNP MPV 10.8 TNP Seg Neutrophils % 32.0 TNP Band Neutrophils % 6.0 H TNP Lymphocytes % 5.0 TNP Monocytes % 2.0 TNP Eosinophils % 1.0 TNP Basophils % 1.0 TNP Metamyelocytes % 3.0 H TNP Myelocytes % TNP Promyelocytes % TNP Blast Cells % TNP Neutrophils # 6.6 TNP Lymphocytes # 0.9 TNP Monocytes # 0.4 TNP Eosinophils # 0.2 TNP Basophils # 0.2 TNP Nucleated RBCs/100 WBC TNP Reactive Lymphocytes TNP Smudge Cells Present A Platelet Estimate Normal TNP Large Platelets Present A [employer] Immature Plt Fraction TNP Polychromasia Hypochromasia Present A [employer]IST[employer] ABG pH ABG pCO2 ABG pO2 ABG HCO3 ABG Total CO2 ABG O2 Saturation ABG Base Excess Blood Gas Modality Inspired O2 Sodium Potassium Chloride Carbon Dioxide BUN Creatinine Est GFR ( Amer) Est GFR (Non-Af Amer) BUN/Creatinine Ratio Glucose POC Glucose 228 H Calculated Osmolality Lactic Acid Calcium Ionized Calcium Phosphorus Magnesium Total Bilirubin Direct Bilirubin Indirect Bilirubin AST ALT Alkaline Phosphatase Serum Total Protein Albumin Globulin Albumin/Globulin Ratio 06/20/16 06/21/16 06/21/16 23:15 03:12 03:12 WBC 20.8 H RBC 2.46 L Hgb 7.6 L Hct 23.8 L MCV 96.7 MCH 30.9 MCHC 31.9 RDW 16.5 H Plt Count 352 MPV 10.3 Seg Neutrophils % 56.0 Band Neutrophils % 14.0 H Lymphocytes % 10.0 Monocytes % 10.0 Eosinophils % 4.0 Basophils % Metamyelocytes % 6.0 H Myelocytes % Promyelocytes % Blast Cells % Neutrophils # 14.6 H Lymphocytes # 2.1 Monocytes # 2.1 H Eosinophils # 0.8 H Basophils # Nucleated RBCs/100 WBC 0.3 H Reactive Lymphocytes Present A Smudge Cells Platelet Estimate Normal Large Platelets Present A Immature Plt Fraction Polychromasia 1+ A Hypochromasia ABG pH ABG pCO2 ABG pO2 ABG HCO3 ABG Total CO2 ABG O2 Saturation ABG Base Excess Blood Gas Modality Inspired O2 Sodium 136 Potassium 3.8 Chloride 101 Carbon Dioxide 25 BUN 21 H Creatinine 1.52 H Est GFR ( Amer) 48 L Est GFR (Non-Af Amer) 40 L BUN/Creatinine Ratio 14 Glucose 170 H POC Glucose 151 H Calculated Osmolality 289 Lactic Acid Calcium 8.4 L Ionized Calcium 1.19 Phosphorus 2.4 Magnesium 1.8 Total Bilirubin Direct Bilirubin Indirect Bilirubin AST ALT Alkaline Phosphatase Serum Total Protein Albumin Globulin Albumin/Globulin Ratio 06/21/16 06/21/16 06/21/16 05:13 05:15 08:15 WBC RBC Hgb Hct MCV MCH MCHC RDW Plt Count MPV Seg Neutrophils % Band Neutrophils % Lymphocytes % Monocytes % Eosinophils % Basophils % Metamyelocytes % Myelocytes % Promyelocytes % Blast Cells % Neutrophils # Lymphocytes # Monocytes # Eosinophils # Basophils # Nucleated RBCs/100 WBC Reactive Lymphocytes Smudge Cells Platelet Estimate Large Platelets Immature Plt Fraction Polychromasia Hypochromasia ABG pH 7.38 ABG pCO2 48 H ABG pO2 99 ABG HCO3 28.4 H ABG Total CO2 29.9 H ABG O2 Saturation 98 ABG Base Excess 2.9 Blood Gas Modality VC Inspired O2 80 Sodium Potassium Chloride Carbon Dioxide BUN Creatinine Est GFR ( Amer) Est GFR (Non-Af Amer) BUN/Creatinine Ratio Glucose POC Glucose 169 H Calculated Osmolality Lactic Acid Calcium Ionized Calcium Phosphorus Magnesium Total Bilirubin 0.2 Direct Bilirubin 0.1 Indirect Bilirubin 0.1 AST 39 H ALT 34 Alkaline Phosphatase 59 Serum Total Protein 5.4 L Albumin 1.5 L Globulin 3.9 H Albumin/Globulin Ratio 0.4 L 06/21/16 06/21/16 08:15 12:17 WBC RBC Hgb Hct MCV MCH MCHC RDW Plt Count MPV Seg Neutrophils % Band Neutrophils % Lymphocytes % Monocytes % Eosinophils % Basophils % Metamyelocytes % Myelocytes % Promyelocytes % Blast Cells % Neutrophils # Lymphocytes # Monocytes # Eosinophils # Basophils # Nucleated RBCs/100 WBC Reactive Lymphocytes Smudge Cells Platelet Estimate Large Platelets Immature Plt Fraction Polychromasia Hypochromasia ABG pH ABG pCO2 ABG pO2 ABG HCO3 ABG Total CO2 ABG O2 Saturation ABG Base Excess Blood Gas Modality Inspired O2 Sodium Potassium Chloride Carbon Dioxide BUN Creatinine Est GFR ( Amer) Est GFR (Non-Af Amer) BUN/Creatinine Ratio Glucose POC Glucose 228 H Calculated Osmolality Lactic Acid 0.9 Calcium Ionized Calcium Phosphorus Magnesium Total Bilirubin Direct Bilirubin Indirect Bilirubin AST ALT Alkaline Phosphatase Serum Total Protein Albumin Globulin Albumin/Globulin Ratio - Impressions Impressions Chest X-Ray 06/21/16 06:00 IMPRESSION: Bilateral airspace disease, pulmonary edema with slight improved aeration. D/ / Jose Carter MD / Jose Carter MD Interpreting Provider: Jose Carter MD - ABG Interpretation ABG results: ABG ABG pH 7.38 pH Units (7.32-7.45) 06/21/16 05:15 ABG pCO2 48 mmHg (35-45) H 06/21/16 05:15 ABG pO2 99 mmHg (85-104) 06/21/16 05:15 ABG O2 Saturation 98 % (95-98) 06/21/16 05:15 PT/INR, D-dimer PT 12.9 Seconds (9.4-12.1) H 06/07/16 06:22 Consult Discharge Plan - Plan Referrals: Manish Sheth MD [Primary Care Provider] -
--- NOTE | 2016-06-21 16:34 | ENT - Consult Note ---
Date of Encounter: 06/21/16 Time of Encounter: 04:30 Assessment and Plan (1) Tracheostomy dependent Current Visit: Yes Status: Acute White female 31 on 2 weeks of endotracheal tube may require tracheostomy tube on Friday if not able to be extubated over the weekend recommending continued efforts at weaning complications for surgery include possible anatomical difficulty from a short neck present a Down's syndrome patient with the addition to lines in the right neck ration condition complicated by possible ARDS and renal failure History of Present Illness Consult date: 06/21/16 History of present illness: 31-year-old white female intubated for 2 weeks presented initially with pneumonia which apparently developed into renal failure because of complication from CT dye and she has been intubated for 2 weeks now and is been being attempted to extubate for the last 48 hours discussed need for tracheostomy tube if unable to extubate this patient over the weekend Past Med Surg Social Fam HX - Past Medical History Medical history: thyroid disease, other (Down Syndrome) Psychiatric history: no psych history - Past Surgical History Surgical History: other - Social History Smoking Status: Never smoker Smokeless Tobacco Status: No Alcohol use: none Drug use: none - Family History Mother Living Status: Still Living Hx Family Cardiac Disorders: Yes (HTN) Medications and Allergies Citalopram [CeleXA] 40 mg PO DAILY 10/12/14 [History] CloNIDine HCl [CloNIDine HCl] 0.1 mg PO BID 10/12/14 [History] Divalproex (12 HR) [Depakote (12 HR)] 500 mg PO BID 10/12/14 [History] Fluticasone Propionate Nasal [Flonase] 1 spray NS BID 10/12/14 [History] Multivitamin [Flintstones] 1 tab PO DAILY 10/12/14 [History] Nystatin POWDER [Nystop] 1 appl TP BID PRN 10/12/14 [History] Hydrocortisone [Anusol-Hc] 1 appl TP BID PRN 06/05/16 [History] Ketoconazole 2% CRM [Nizoral Cream] 1 appl TP BID PRN 06/05/16 [History] Ketoconazole Shampoo [Nizoral Shampoo] 1 appl TP QWEEK 06/05/16 [History] Levothyroxine Sodium [Levo-T] 75 mcg PO DAILY 06/05/16 [History] Allergies No Known Allergies Allergy (Verified 10/12/14 15:50) ENT Exam Initial Vital Signs Temp Pulse Resp BP Pulse Ox 101.6 F H 115 18 107/97 91 06/05/16 04:36 06/05/16 04:36 06/05/16 04:36 06/05/16 04:36 06/05/16 04:36 - Neck no masses, trachea midline, no lymphadectomy, other (This patient has a very short neck treatment tracheostomy more difficult also patient has both a line and a dialysisIn the right neck close to the tracheostomy site). negative: deviated trachea, diffuse goiter, limited ROM Exam Initial Vital Signs Temp Pulse Resp BP Pulse Ox 101.6 F H 115 18 107/97 91 06/05/16 04:36 06/05/16 04:36 06/05/16 04:36 06/05/16 04:36 06/05/16 04:36 Results - Labs 06/21/16 03:12 06/21/16 03:12 Abnormal lab results WBC 20.8 K/mcL (4.3-11.1) H 06/21/16 03:12 RBC 2.46 M/mcL (3.82-4.97) L 06/21/16 03:12 Hgb 7.6 g/dL (11.5-15.4) L 06/21/16 03:12 Hct 23.8 % (35.3-44.9) L 06/21/16 03:12 RDW 16.5 % (11.5-14.5) H 06/21/16 03:12 Immature Gran % 4.2 % (0-4) H 06/16/16 03:15 Band Neutrophils % 14.0 % (0-4) H 06/21/16 03:12 Metamyelocytes % 6.0 % (0) H 06/21/16 03:12 Neutrophils # 14.6 K/mcL (1.6-8.9) H 06/21/16 03:12 Monocytes # 2.1 K/mcL (0.0-1.3) H 06/21/16 03:12 Eosinophils # 0.8 K/mcL (0.0-0.6) H 06/21/16 03:12 Nucleated RBCs/100 WBC 0.3 /100 WBC (0) H 06/21/16 03:12 Reactive Lymphocytes Present (Not Present) A 06/21/16 03:12 Smudge Cells Present (Not Present) A 06/20/16 17:30 Large Platelets Present (Not Present) A 06/21/16 03:12 Polychromasia 1+ (Not Present) A 06/21/16 03:12 Poikilocytosis 1+ (Not Present) A 06/17/16 03:40 Basophilic Stippling 2+ (Not Present) A 06/14/16 03:45 Anisocytosis 1+ (Not Present) A 06/20/16 04:20 Macrocytosis Present (Not Present) A 06/19/16 03:15 PT 12.9 Seconds (9.4-12.1) H 06/07/16 06:22 ABG pCO2 48 mmHg (35-45) H 06/21/16 05:15 ABG HCO3 28.4 mEQ/L (21-27) H 06/21/16 05:15 ABG Total CO2 29.9 mEq/L (20-26) H 06/21/16 05:15 VBG pH 7.48 pH Units (7.32-7.42) H 06/05/16 06:06 VBG pCO2 37 mmHg (41-51) L 06/05/16 06:06 VBG pO2 167 mmHg (25-40) H 06/05/16 06:06 VBG HCO3 27.6 mEq/L (21-27) H 06/05/16 06:06 BUN 21 mg/dL (7-20) H 06/21/16 03:12 Creatinine 1.52 mg/dL (0.57-1.11) H 06/21/16 03:12 Est GFR ( Amer) 48 (> 60) L 06/21/16 03:12 Est GFR (Non-Af Amer) 40 (> 60) L 06/21/16 03:12 Glucose 170 mg/dL (70-99) H 06/21/16 03:12 POC Glucose 203 (58-89) H 06/21/16 16:20 Uric Acid 6.6 mg/dL (2.6-6.0) H 06/15/16 17:20 Calcium 8.4 mg/dL (8.6-10.8) L 06/21/16 03:12 AST 39 Units/L (5-34) H 06/21/16 08:15 Serum Total Protein 5.4 g/dL (6.0-8.3) L 06/21/16 08:15 Albumin 1.5 g/dL (3.5-5.0) L 06/21/16 08:15 Globulin 3.9 g/dL (2.4-3.5) H 06/21/16 08:15 Albumin/Globulin Ratio 0.4 (1.1-2.2) L 06/21/16 08:15 Ur Specimen Adequacy See below A 06/16/16 17:49 Urine Clarity Turbid (Clear) A 06/20/16 13:00 Urine Protein 100 mg/dL (Neg-Trace) H 06/20/16 13:00 Urine Blood Large (Negative) H 06/20/16 13:00 Ur Leukocyte Esterase Small (Negative) H 06/20/16 13:00 Urine Microscopic RBC 15-30 per hpf (0-3) H 06/20/16 13:00 Urine Microscopic WBC 50-100 per hpf (0-3) H 06/20/16 13:00 Ur Squamous Epith Cells Many per lpf (None-Few) H 06/20/16 13:00 Amorphous Sediment Many (Few) H 06/20/16 13:00 Urine Mucus Moderate (Few) H 06/20/16 13:00 Ur Culture Indicated? YES (NO) A 06/20/16 13:00 Human Metapneumovirus DETECTED (Not Detect) A 06/07/16 16:05 Diabetes panel 06/21/16 06/21/16 Range/Units 03:12 08:15 Sodium 136 (136-145) mEq/L Potassium 3.8 (3.5-4.5) mEq/L Chloride 101 (98-109) mEq/L Carbon Dioxide 25 (19-29) mEq/L BUN 21 H (7-20) mg/dL Creatinine 1.52 H (0.57-1.11) mg/dL Glucose 170 H (70-99) mg/dL Calcium 8.4 L (8.6-10.8) mg/dL AST 39 H (5-34) Units/L ALT 34 (0-55) Units/L Alkaline Phosphatase 59 (38-126) Units/L Albumin 1.5 L (3.5-5.0) g/dL Calcium panel 06/21/16 06/21/16 Range/Units 03:12 08:15 Calcium 8.4 L (8.6-10.8) mg/dL Phosphorus 2.4 (2.3-4.7) mg/dL Albumin 1.5 L (3.5-5.0) g/dL Pituitary panel 06/21/16 Range/Units 03:12 Sodium 136 (136-145) mEq/L Potassium 3.8 (3.5-4.5) mEq/L Chloride 101 (98-109) mEq/L Carbon Dioxide 25 (19-29) mEq/L BUN 21 H (7-20) mg/dL Creatinine 1.52 H (0.57-1.11) mg/dL Glucose 170 H (70-99) mg/dL Calcium 8.4 L (8.6-10.8) mg/dL Adrenal panel 06/21/16 06/21/16 Range/Units 03:12 08:15 Sodium 136 (136-145) mEq/L Potassium 3.8 (3.5-4.5) mEq/L Chloride 101 (98-109) mEq/L Carbon Dioxide 25 (19-29) mEq/L BUN 21 H (7-20) mg/dL Creatinine 1.52 H (0.57-1.11) mg/dL Glucose 170 H (70-99) mg/dL Calcium 8.4 L (8.6-10.8) mg/dL Total Bilirubin 0.2 (0.2-1.2) mg/dL AST 39 H (5-34) Units/L ALT 34 (0-55) Units/L Alkaline Phosphatase 59 (38-126) Units/L Albumin 1.5 L (3.5-5.0) g/dL All other labs normal. Consult Discharge Plan - Plan Referrals: Manish Sheth MD [Primary Care Provider] -
[2016-06-22] MEDS: FentaNYL (PF) 1,000 MCG in 0.9 % Sodium Chloride 80 ML IVC SCH ×2 (00:52→06:18)
[2016-06-22] MEDS: Insulin LISPRO 300 UNITS/3 ML VIAL SQ SCH ×4 (00:57→17:33)
[2016-06-22] MEDS: Ipratropium/Albuterol Neb 3 ML IH SCH ×6 (01:09→20:38)
[2016-06-22] MEDS: MetroNIDAZOLE 500 MG/100 ML 500 MG/100 ML BAG IVPB SCH ×3 (01:10→16:52)
[2016-06-22] MEDS: PrismaSATE BGK 4/2.5 5,000 ML CRRT SCH ×20 (01:45→22:41)
[2016-06-22] MEDS: Norepinephrine 4 MG in D5% in Water 250 ML IVC SCH ×2 (02:59→09:00)
[2016-06-22] MEDS: 0.9 % Sodium Chloride 1,000 ML PRIME SCH ×2 (03:53→09:00)
[2016-06-22 04:25] LABS: Hematocrit 19.8 % (35.3-44.9); Hemoglobin 6.4 g/dL (11.5-15.4); Mean Corpuscular HGB Conc 32.3 g/dL (31.6-35.5); Mean Corpuscular Hemoglobin 31.7 pg (28.0-33.3); Mean Platelet Volume 9.9 fL (9.4-12.4); Nucleated Red Blood Cells 0.4 /100 WBC (0); Platelet Count 324 K/mcL (140-400); Red Blood Count 2.02 M/mcL (3.82-4.97); Red Cell Distribution Width 16.8 % (11.5-14.5)
[2016-06-22 04:29] LABS: Ionized Calcium 1.24 mmol/L (1.15-1.35)
[2016-06-22 04:38] LABS: Calcium 8.1 mg/dL (8.6-10.8); Magnesium 1.6 mg/dL (1.6-2.6); Phosphorous 2.1 mg/dL (2.3-4.7); Potassium 3.9 mEq/L (3.5-4.5)
[2016-06-22 04:56] LABS: Eosinophils # 0.4 K/mcL (0.0-0.6); Lymphocytes # 3.8 K/mcL (0.6-4.6); Monocytes # 2.1 K/mcL (0.0-1.3); Neutrophils # 14.9 K/mcL (1.6-8.9); Platelet Estimate Normal (Normal); Reactive Lymphocytes Present (Not Present)
[2016-06-22 04:58] LABS: ABG Base Excess 3.9 mEq/L (-2.0 to 3.0); ABG HCO3 30.8 mEQ/L (21-27); ABG Oxygen Saturation 82 % (95-98); ABG PCO2 57 mmHg (35-45); ABG PH 7.34 pH Units (7.32-7.45); ABG TCO2 32.5 mEq/L (20-26); Blood Gas FiO2 60 %
[2016-06-22 04:59] LABS: ABG PO2 49 mmHg (85-104)
[2016-06-22] MEDS: Cefepime HCl 1,000 MG in D5% in Water (Mini-Bag+) 100 ML IVPB SCH ×2 (05:53→17:30)
[2016-06-22] MEDS: *HR* Heparin 5,000 UNIT/ML VIAL SQ SCH ×2 (05:54→17:29)
[2016-06-22] MEDS: Levothyroxine Sodium 100 MCG VIAL IV SCH (05:57)
[2016-06-22] MEDS: Dexmedetomidine HCl 400 MCG/100 ML MLS IVC SCH ×3 (06:14→20:13)
--- NOTE | 2016-06-22 06:41 | Pulmonology Progress Note ---
<Arik Harryyoselin M - Last Filed: 06/22/16 08:31> Date of Encounter: 06/22/16 Objective PUL Vital signs: Last Vital Signs Temp 98.1 F 06/22/16 06:00 Pulse 106 06/22/16 07:00 Resp 27 06/22/16 07:27 BP 125/75 06/22/16 07:27 Pulse Ox 91 06/22/16 07:27 Ventilator Settings Ventilator Settings: Ventilator Settings, Last 8 Hours Ventilator Mode VC+ Ventilator Mode VC+ Ventilator Mode VC+ Ventilator Mode VC+ Ventilator Mode VC+ Ventilator Mode VC+ Ventilator Mode VC+ Ventilator Mode VC+ Ventilator Mode VC+ Ventilator Mode VC+ Ventilator Mode VC+ Ventilator Mode VC+ Ventilator Mode VC+ Ventilator Tidal Volume 300 Setting Ventilator Tidal Volume 300 Setting Ventilator Tidal Volume 300 Setting Ventilator Tidal Volume 300 Setting Ventilator Tidal Volume 300 Setting Ventilator Tidal Volume 300 Setting Ventilator Tidal Volume 300 Setting Ventilator Tidal Volume 300 Setting Ventilator Tidal Volume 300 Setting Ventilator Tidal Volume 300 Setting Ventilator Tidal Volume 300 Setting Ventilator Tidal Volume 300 Setting Ventilator Tidal Volume 300 Setting Ventilator Respiratory Rate 18 Setting Ventilator Respiratory Rate 18 Setting Ventilator Respiratory Rate 18 Setting Ventilator Respiratory Rate 18 Setting Ventilator Respiratory Rate 18 Setting Ventilator Respiratory Rate 18 Setting Ventilator Respiratory Rate 18 Setting Ventilator Respiratory Rate 18 Setting Ventilator Respiratory Rate 18 Setting Ventilator Respiratory Rate 18 Setting Ventilator Respiratory Rate 18 Setting Ventilator Respiratory Rate 18 Setting Ventilator Respiratory Rate 18 Setting Actual Respiratory Rate 25 Actual Respiratory Rate 22 Actual Respiratory Rate 27 Actual Respiratory Rate 30 Actual Respiratory Rate 18 Actual Respiratory Rate 18 Actual Respiratory Rate 28 Actual Respiratory Rate 28 Actual Respiratory Rate 30 Actual Respiratory Rate 24 Actual Respiratory Rate 19 Actual Respiratory Rate 24 Positive End Expiratory 10 Pressure Positive End Expiratory 10 Pressure Positive End Expiratory 10 Pressure Positive End Expiratory 10 Pressure Positive End Expiratory 10 Pressure Positive End Expiratory 10 Pressure Positive End Expiratory 10 Pressure Positive End Expiratory 10 Pressure Positive End Expiratory 10 Pressure Positive End Expiratory 10 Pressure Positive End Expiratory 10 Pressure Positive End Expiratory 10 Pressure Positive End Expiratory 10 Pressure Peak Inspiratory Airway 17 Pressure Peak Inspiratory Airway 16 Pressure Peak Inspiratory Airway 16 Pressure Peak Inspiratory Airway 18 Pressure Peak Inspiratory Airway 17 Pressure Peak Inspiratory Airway 17 Pressure Peak Inspiratory Airway 18 Pressure Peak Inspiratory Airway 17 Pressure Peak Inspiratory Airway 16 Pressure Peak Inspiratory Airway 16 Pressure Peak Inspiratory Airway 17 Pressure Peak Inspiratory Airway 16 Pressure Results - Laboratory Findings CBC and BMP: 06/22/16 04:00 06/22/16 04:00 ABG ABG pH 7.34 pH Units (7.32-7.45) 06/22/16 04:47 ABG pCO2 57 mmHg (35-45) H 06/22/16 04:47 ABG pO2 49 mmHg (85-104) L* 06/22/16 04:47 ABG O2 Saturation 82 % (95-98) L 06/22/16 04:47 PT/INR, D-dimer PT 12.9 Seconds (9.4-12.1) H 06/07/16 06:22 Abnormal lab findings: Abnormal lab results WBC 21.3 K/mcL (4.3-11.1) H 06/22/16 04:00 RBC 2.02 M/mcL (3.82-4.97) L 06/22/16 04:00 Hgb 6.4 g/dL (11.5-15.4) L 06/22/16 04:00 Hct 19.8 % (35.3-44.9) L 06/22/16 04:00 RDW 16.8 % (11.5-14.5) H 06/22/16 04:00 Immature Gran % 4.2 % (0-4) H 06/16/16 03:15 Band Neutrophils % 28.0 % (0-4) H 06/22/16 04:00 Metamyelocytes % 6.0 % (0) H 06/21/16 03:12 Neutrophils # 14.9 K/mcL (1.6-8.9) H 06/22/16 04:00 Monocytes # 2.1 K/mcL (0.0-1.3) H 06/22/16 04:00 Nucleated RBCs/100 WBC 0.4 /100 WBC (0) H 06/22/16 04:00 Reactive Lymphocytes Present (Not Present) A 06/22/16 04:00 Smudge Cells Present (Not Present) A 06/20/16 17:30 Large Platelets Present (Not Present) A 06/21/16 03:12 Polychromasia 1+ (Not Present) A 06/21/16 03:12 Poikilocytosis 1+ (Not Present) A 06/17/16 03:40 Basophilic Stippling 2+ (Not Present) A 06/14/16 03:45 Anisocytosis 1+ (Not Present) A 06/20/16 04:20 Macrocytosis Present (Not Present) A 06/19/16 03:15 PT 12.9 Seconds (9.4-12.1) H 06/07/16 06:22 ABG pCO2 57 mmHg (35-45) H 06/22/16 04:47 ABG pO2 49 mmHg (85-104) L* 06/22/16 04:47 ABG HCO3 30.8 mEQ/L (21-27) H 06/22/16 04:47 ABG Total CO2 32.5 mEq/L (20-26) H 06/22/16 04:47 ABG O2 Saturation 82 % (95-98) L 06/22/16 04:47 ABG Base Excess 3.9 mEq/L (-2.0 to 3.0) H 06/22/16 04:47 VBG pH 7.48 pH Units (7.32-7.42) H 06/05/16 06:06 VBG pCO2 37 mmHg (41-51) L 06/05/16 06:06 VBG pO2 167 mmHg (25-40) H 06/05/16 06:06 VBG HCO3 27.6 mEq/L (21-27) H 06/05/16 06:06 Creatinine 1.32 mg/dL (0.57-1.11) H 06/22/16 04:00 Est GFR ( Amer) 57 (> 60) L 06/22/16 04:00 Est GFR (Non-Af Amer) 47 (> 60) L 06/22/16 04:00 Glucose 218 mg/dL (70-99) H 06/22/16 04:00 POC Glucose 193 (58-89) H 06/22/16 00:39 Uric Acid 6.6 mg/dL (2.6-6.0) H 06/15/16 17:20 Calcium 8.1 mg/dL (8.6-10.8) L 06/22/16 04:00 Phosphorus 2.1 mg/dL (2.3-4.7) L 06/22/16 04:00 AST 39 Units/L (5-34) H 06/21/16 08:15 Serum Total Protein 5.4 g/dL (6.0-8.3) L 06/21/16 08:15 Albumin 1.5 g/dL (3.5-5.0) L 06/21/16 08:15 Globulin 3.9 g/dL (2.4-3.5) H 06/21/16 08:15 Albumin/Globulin Ratio 0.4 (1.1-2.2) L 06/21/16 08:15 Ur Specimen Adequacy See below A 06/16/16 17:49 Urine Clarity Turbid (Clear) A 06/20/16 13:00 Urine Protein 100 mg/dL (Neg-Trace) H 06/20/16 13:00 Urine Blood Large (Negative) H 06/20/16 13:00 Ur Leukocyte Esterase Small (Negative) H 06/20/16 13:00 Urine Microscopic RBC 15-30 per hpf (0-3) H 06/20/16 13:00 Urine Microscopic WBC 50-100 per hpf (0-3) H 06/20/16 13:00 Ur Squamous Epith Cells Many per lpf (None-Few) H 06/20/16 13:00 Amorphous Sediment Many (Few) H 06/20/16 13:00 Urine Mucus Moderate (Few) H 06/20/16 13:00 Ur Culture Indicated? YES (NO) A 06/20/16 13:00 Human Metapneumovirus DETECTED (Not Detect) A 06/07/16 16:05 - Microbiology Findings Microbiology Findings: Microbiology, Last 48 Hours 06/20/16 13:00 Urine Culture - Final Urine,[place] No growth. - Clinical Findings Intake & Output: Intake & Output 06/21/16 06/22/16 06/22/16 23:59 07:59 15:59 Intake Total 1376.0 / 1376.0 1120.6 / 1120.6 Output Total 1596 / 1596 1176 / 1176 Balance -220.0 / -220.0 -55.4 / -55.4 Consult Discharge Plan - Plan Referrals: Manish Sheth MD [Primary Care Provider] - - Attending Attestation I examined this patient and my medical decision-making was reviewed with the [employer] PSYCHOLOGIST/PA/Advanced Practice Nurse/Resident Physician. I agree with the documented findings, disposition and treatment plan as described except to the extent set forth below. Patient seen and examined. Labs, radiology, chart personally reviewed. Agree with resident's history and physical, assessment, plan with following comments: DRILL DOCTOR: Patient will not sedation. Pulmonary: Patient is very sensitive for any movement and FiO2 increased to 70% .. Discussed with ENT regarding tracheostomy, however with current vent setting she remain high risk. Cardiovascular: She remains in shock which is multifactorial. Patient will receive blood transfusion. GI: Nutrition per dietary and GI prophylaxis per routine Heme: DVT prophylaxis per routine. Anemia which is could be due to critical illness and also multiple blood draw, however blood loss cannot be ruled out, but no obvious source of bleeding to monitor H&H. Blood transfusion. ID: Continue antibiotics and plan to de-escalation Renal; urine out put and renal funtion reviewed. Patient is on Katina Endorcine: blood glucose is monitored Lines: all lines checked and no evidence of infections Skin: skin care to prevent pressure ulcers per nursing routine care I spent 32 min of Critical Care time with this patient. It involved decision making of high complexity to assess, manipulate, and support vital organ system failure and/or to prevent further life threatening deterioration of the patient' s condition. The time involved in the performance of separately reportable procedures was not counted toward critical care time. <Huseyin Issa - Last Filed: 06/22/16 12:57> Date of Encounter: 06/22/16 Time of Encounter: 06:41 Assessment and Plan (1) Sepsis Current Visit: Yes Status: Suspected meets SIRS criteria but source at this time unclear afebrile with Tmax 99.4 overnight and Tmin 97.8 bart hugger PRN, currently does not require with T of 97.9 remains tachycardic and tachypneic on ventilator with uptrending WBC currently 21.3 (20.8) source of infection unclear, consideration for possible bacteria pneumonia considering intubation for 15 days recent cultures NGTD (CVC line, blood x2, sputum, and urine) - NGTD on multiple cultures during admission - Sputum culture 5/1 positive for Clari albicans but recent sputum culture 5/ 5 no growth lactate normal 0.9 will continue empiric antibiotics with Cefepime Day 3 and Vanc Day 1 Qualifiers: Sepsis type: sepsis due to unspecified organism Qualified Code(s): A41.9 - Sepsis, unspecified organism (2) Acute respiratory failure with hypoxia and hypercapnia Current Visit: Yes Status: Acute secondary to ARDS from viral pneumonia - PCR positive for Human Metapneumovirus intubation day 15 continues to require high ventilator setting recent increase of FiO2 to 70% with PEEP 10 last night - last ABG 7.34/57/49/30.8/32.5/82 O2 saturation/3.9 while on 60% FiO2 improving status with [facility] ENT consulted for possible tracheostomy due to prolong intubation and family wishes - meeting yesterday 06/21 with family, ENT agrees this will be difficult due to anatomy and short neck and family wishes to have trach performed - continues to be high risk for complications due to pressors and high ventilator settings - will readdress indication for trach on Friday with ENT (3) ARDS (adult respiratory distress syndrome) Current Visit: Yes Status: Acute continue ARDSNet ventilator protocol and wean as tolerated (4) Colitis Current Visit: Yes Status: Acute CT Abd/Pelvis on 06/12/16 showed thickening of the cecum and ascending colon that may suggest inflammatory or infectious colitis, no abscess collection C. diff toxin negative rectal tube remains in place abdomen is soft and nondistended 10 day course of Flagyl completed (5) Hypotension Current Visit: Yes Status: Acute worsening hypotension secondary to dialysis with [facility] continues to require Levophed - increased last night 10 --> 15 - currently requiring 5 titrate PRN for GOAL MAP >60 Qualifiers: Hypotension type: hemodialysis-associated hypotension Qualified Code(s): I95.3 - Hypotension of hemodialysis (6) Viral pneumonia Current Visit: Yes Status: Acute ARDS secondary to viral pneumonia requiring intubation positive for Human Metapneumavirus recent sputum cultures negative (7) Anemia Current Visit: Yes Status: Acute continues to downtrend, possibly from frequent blood draws and Katina hemoglobin 6.4 from 7.6 no active bleeding will transfuse 2 units pRBCs Qualifiers: Anemia type: unspecified type Qualified Code(s): D64.9 - Anemia, unspecified (8) TANNER (acute kidney injury) Current Visit: Yes Status: Acute improving 1.32 (1.52) Nephrology consulted and appreciated (9) Bed sore on buttock Current Visit: Yes Status: Acute multiple stage 2 on buttocks, does not appear infected continue wound care and frequent turning per ICU skin care protocol Qualifiers: Pressure ulcer stage: stage 2 Laterality: unspecified laterality Qualified Code(s): L89.302 - Pressure ulcer of unspecified buttock, stage 2 (10) Down syndrome Current Visit: Yes Status: Chronic (11) DVT prophylaxis Current Visit: Yes Status: Acute Heparin and foot pumps DRILL DOCTOR: opens eyes to voice, sedated on Fentanyl 50, Versed 3, and Precedex 12.5 Pulm: continues high ventilator settings FiO2 increased back to 70%, will begin to lower PEEP, ENT on board and if not extubated by Friday will consider trach Cardio: Levophed currently at 5 to maintain MAP >60, continue to monitor and wean off as tolerated, continues to be in septic shock GI: tube feeds per Nutrition, at goal 55mL/hr, GI prophylaxis, abdomen is soft Heme: downtrending hemoglobin, will transfuse 2 units pRBCs, no obvious signs of active bleeding, will continue to monitor H/H ID: continue antibiotics and plan to de-escalate, source is unclear at this time and due to critical condition unable to do additional images such as CT scan, recent cultures from 06/20 NGTD (CVC, [place]ange, blood) Renal: continues to be on Katina Endocrine: blood glucose is monitored Lines: lines checked without evidence of infection Skin: decubitus ulcers on buttock and back, continue ICU skin wound care per protocol Subjective Principal diagnosis: Acute respiratory failure, ARDS secondary community acquired pneumonia Interval history: Levophed was increased from 10 to 15 to maintain appropriate MAP as well as increased FiO2 from 60 to 70%. No other major events overnight. Patient seen and examined at bedside. She continues to be intubated on light sedation. She opens eyes to voice but does follow some simple commands Objective PUL Vital signs: Last Vital Signs Temp 98.1 F 06/22/16 06:00 Pulse 100 06/22/16 06:00 Resp 27 06/22/16 06:08 BP 109/57 06/22/16 06:08 Pulse Ox 96 06/22/16 06:08 General appearance: no acute distress, other (intubated and sedated, opens eyes to vioce) Eyes: nonicteric Neck: supple, other (short neck) Effort: other (mechanically ventilated) Auscultation: bilateral: diminished breath sounds, rhonchi Cardiovascular: regular rate and rhythm Gastrointestinal: hypoactive bowel sounds, soft, non-tender, non-distended Integumentary: decubitus ulcer (larger stage 2 on left buttock, smaller stage 2 ulcers on back and right buttock) Extremities: edema (mild) Musculoskeletal: no deformities pupils equal and round, unable to assess due to mental status (intubated and sedated), other (opens eyes to voice) Ventilator Settings Ventilator Settings: Ventilator Settings, Last 8 Hours Ventilator Mode VC+ Ventilator Mode VC+ Ventilator Mode VC+ Ventilator Mode VC+ Ventilator Mode VC+ Ventilator Mode VC+ Ventilator Mode VC+ Ventilator Mode VC+ Ventilator Mode VC+ Ventilator Mode VC+ Ventilator Mode VC+ Ventilator Mode VC+ Ventilator Mode VC+ Ventilator Tidal Volume 300 Setting Ventilator Tidal Volume 300 Setting Ventilator Tidal Volume 300 Setting Ventilator Tidal Volume 300 Setting Ventilator Tidal Volume 300 Setting Ventilator Tidal Volume 300 Setting Ventilator Tidal Volume 300 Setting Ventilator Tidal Volume 300 Setting Ventilator Tidal Volume 300 Setting Ventilator Tidal Volume 300 Setting Ventilator Tidal Volume 300 Setting Ventilator Tidal Volume 300 Setting Ventilator Tidal Volume 300 Setting Ventilator Respiratory Rate 18 Setting Ventilator Respiratory Rate 18 Setting Ventilator Respiratory Rate 18 Setting Ventilator Respiratory Rate 18 Setting Ventilator Respiratory Rate 18 Setting Ventilator Respiratory Rate 18 Setting Ventilator Respiratory Rate 18 Setting Ventilator Respiratory Rate 18 Setting Ventilator Respiratory Rate 18 Setting Ventilator Respiratory Rate 18 Setting Ventilator Respiratory Rate 18 Setting Ventilator Respiratory Rate 18 Setting Ventilator Respiratory Rate 18 Setting Actual Respiratory Rate 27 Actual Respiratory Rate 30 Actual Respiratory Rate 18 Actual Respiratory Rate 18 Actual Respiratory Rate 28 Actual Respiratory Rate 28 Actual Respiratory Rate 30 Actual Respiratory Rate 24 Actual Respiratory Rate 19 Actual Respiratory Rate 24 Actual Respiratory Rate 24 Actual Respiratory Rate 24 Positive End Expiratory 10 Pressure Positive End Expiratory 10 Pressure Positive End Expiratory 10 Pressure Positive End Expiratory 10 Pressure Positive End Expiratory 10 Pressure Positive End Expiratory 10 Pressure Positive End Expiratory 10 Pressure Positive End Expiratory 10 Pressure Positive End Expiratory 10 Pressure Positive End Expiratory 10 Pressure Positive End Expiratory 10 Pressure Positive End Expiratory 10 Pressure Positive End Expiratory 10 Pressure Peak Inspiratory Airway 16 Pressure Peak Inspiratory Airway 18 Pressure Peak Inspiratory Airway 17 Pressure Peak Inspiratory Airway 17 Pressure Peak Inspiratory Airway 18 Pressure Peak Inspiratory Airway 17 Pressure Peak Inspiratory Airway 16 Pressure Peak Inspiratory Airway 16 Pressure Peak Inspiratory Airway 17 Pressure Peak Inspiratory Airway 16 Pressure Peak Inspiratory Airway 17 Pressure Peak Inspiratory Airway 25 Pressure Results - Laboratory Findings CBC and BMP: 06/22/16 04:00 06/22/16 04:00 ABG ABG pH 7.34 pH Units (7.32-7.45) 06/22/16 04:47 ABG pCO2 57 mmHg (35-45) H 06/22/16 04:47 ABG pO2 49 mmHg (85-104) L* 06/22/16 04:47 ABG O2 Saturation 82 % (95-98) L 06/22/16 04:47 PT/INR, D-dimer PT 12.9 Seconds (9.4-12.1) H 06/07/16 06:22 Abnormal lab findings: Abnormal lab results WBC 21.3 K/mcL (4.3-11.1) H 06/22/16 04:00 RBC 2.02 M/mcL (3.82-4.97) L 06/22/16 04:00 Hgb 6.4 g/dL (11.5-15.4) L 06/22/16 04:00 Hct 19.8 % (35.3-44.9) L 06/22/16 04:00 RDW 16.8 % (11.5-14.5) H 06/22/16 04:00 Immature Gran % 4.2 % (0-4) H 06/16/16 03:15 Band Neutrophils % 28.0 % (0-4) H 06/22/16 04:00 Metamyelocytes % 6.0 % (0) H 06/21/16 03:12 Neutrophils # 14.9 K/mcL (1.6-8.9) H 06/22/16 04:00 Monocytes # 2.1 K/mcL (0.0-1.3) H 06/22/16 04:00 Nucleated RBCs/100 WBC 0.4 /100 WBC (0) H 06/22/16 04:00 Reactive Lymphocytes Present (Not Present) A 06/22/16 04:00 Smudge Cells Present (Not Present) A 06/20/16 17:30 Large Platelets Present (Not Present) A 06/21/16 03:12 Polychromasia 1+ (Not Present) A 06/21/16 03:12 Poikilocytosis 1+ (Not Present) A 06/17/16 03:40 Basophilic Stippling 2+ (Not Present) A 06/14/16 03:45 Anisocytosis 1+ (Not Present) A 06/20/16 04:20 Macrocytosis Present (Not Present) A 06/19/16 03:15 PT 12.9 Seconds (9.4-12.1) H 06/07/16 06:22 ABG pCO2 57 mmHg (35-45) H 06/22/16 04:47 ABG pO2 49 mmHg (85-104) L* 06/22/16 04:47 ABG HCO3 30.8 mEQ/L (21-27) H 06/22/16 04:47 ABG Total CO2 32.5 mEq/L (20-26) H 06/22/16 04:47 ABG O2 Saturation 82 % (95-98) L 06/22/16 04:47 ABG Base Excess 3.9 mEq/L (-2.0 to 3.0) H 06/22/16 04:47 VBG pH 7.48 pH Units (7.32-7.42) H 06/05/16 06:06 VBG pCO2 37 mmHg (41-51) L 06/05/16 06:06 VBG pO2 167 mmHg (25-40) H 06/05/16 06:06 VBG HCO3 27.6 mEq/L (21-27) H 06/05/16 06:06 Creatinine 1.32 mg/dL (0.57-1.11) H 06/22/16 04:00 Est GFR ( Amer) 57 (> 60) L 06/22/16 04:00 Est GFR (Non-Af Amer) 47 (> 60) L 06/22/16 04:00 Glucose 218 mg/dL (70-99) H 06/22/16 04:00 POC Glucose 193 (58-89) H 06/22/16 00:39 Uric Acid 6.6 mg/dL (2.6-6.0) H 06/15/16 17:20 Calcium 8.1 mg/dL (8.6-10.8) L 06/22/16 04:00 Phosphorus 2.1 mg/dL (2.3-4.7) L 06/22/16 04:00 AST 39 Units/L (5-34) H 06/21/16 08:15 Serum Total Protein 5.4 g/dL (6.0-8.3) L 06/21/16 08:15 Albumin 1.5 g/dL (3.5-5.0) L 06/21/16 08:15 Globulin 3.9 g/dL (2.4-3.5) H 06/21/16 08:15 Albumin/Globulin Ratio 0.4 (1.1-2.2) L 06/21/16 08:15 Ur Specimen Adequacy See below A 06/16/16 17:49 Urine Clarity Turbid (Clear) A 06/20/16 13:00 Urine Protein 100 mg/dL (Neg-Trace) H 06/20/16 13:00 Urine Blood Large (Negative) H 06/20/16 13:00 Ur Leukocyte Esterase Small (Negative) H 06/20/16 13:00 Urine Microscopic RBC 15-30 per hpf (0-3) H 06/20/16 13:00 Urine Microscopic WBC 50-100 per hpf (0-3) H 06/20/16 13:00 Ur Squamous Epith Cells Many per lpf (None-Few) H 06/20/16 13:00 Amorphous Sediment Many (Few) H 06/20/16 13:00 Urine Mucus Moderate (Few) H 06/20/16 13:00 Ur Culture Indicated? YES (NO) A 06/20/16 13:00 Human Metapneumovirus DETECTED (Not Detect) A 06/07/16 16:05 - Microbiology Findings Microbiology Findings: Microbiology, Last 48 Hours 06/20/16 13:00 Urine Culture - Final Urine,[place] No growth. - Clinical Findings Intake & Output: Intake & Output 06/21/16 06/21/16 06/22/16 15:59 23:59 07:59 Intake Total 1454.0 / 1454.0 1376.0 / 1376.0 995.6 / 995.6 Output Total 1266 / 1266 1596 / 1596 988 / 988 Balance 188.0 / 188.0 -220.0 / -220.0 7.6 / 7.6 - VTE Documentation of Mechanical Device: Venous foot pump, device
--- NOTE | 2016-06-22 07:16 | Palliative Progress Note ---
Date of Encounter: 06/22/16 Time of Encounter: 07:00 - Assessment and plan (1) Hypoxia Current Visit: Yes Status: Acute Assessment and plan: The patient is requiring more oxygen and still maintaining a 10 of PEEP. Milagro is following. (2) Multifocal pneumonia Current Visit: Yes Status: Acute Assessment and plan: The patient is not weaning currently, patient's family met with ENT yesterday the plan is to watch over the weekend and then decide on smoke trach early in the week. Be on antibiotics per the ICU team, turnabout intra-abdominal pathology. Current plan is to continue observation and continue current treatment. (3) ARDS (adult respiratory distress syndrome) Current Visit: Yes Status: Acute Assessment and plan: Patient is not weaning off that at this time well. Fact her need for oxygen has gone up and the PEEP has not come down. The patient also continues to be hypotensive requiring pressors. She is unable to wean tracheostomy after be considered the timing of this is up to the food and beverage manager and the ICU team. He has met with the patient's family, and they are giving her the weekend. (4) Hypotension Current Visit: Yes Status: Acute Assessment and plan: Pressor support has actually gone up this morning. Blood pressure is holding well on the new dose of Levothroid. Qualifiers: Hypotension type: hemodialysis-associated hypotension Qualified Code(s): I95.3 - Hypotension of hemodialysis (5) Goals of care, counseling/discussion Current Visit: No Status: Acute - Time Spent With Patient Total time spent is greater than 50% in coordination of care (as documented) at patient's floor/unit and/or counseling patient: - Subjective Interval history: The patient has required going up on the levo fed, well as the oxygen to 70%. She is sedated on vent. - Constitutional Vitals: Abnormal lab results WBC 21.3 K/mcL (4.3-11.1) H 06/22/16 04:00 RBC 2.02 M/mcL (3.82-4.97) L 06/22/16 04:00 Hgb 6.4 g/dL (11.5-15.4) L 06/22/16 04:00 Hct 19.8 % (35.3-44.9) L 06/22/16 04:00 RDW 16.8 % (11.5-14.5) H 06/22/16 04:00 Immature Gran % 4.2 % (0-4) H 06/16/16 03:15 Band Neutrophils % 28.0 % (0-4) H 06/22/16 04:00 Metamyelocytes % 6.0 % (0) H 06/21/16 03:12 Neutrophils # 14.9 K/mcL (1.6-8.9) H 06/22/16 04:00 Monocytes # 2.1 K/mcL (0.0-1.3) H 06/22/16 04:00 Nucleated RBCs/100 WBC 0.4 /100 WBC (0) H 06/22/16 04:00 Reactive Lymphocytes Present (Not Present) A 06/22/16 04:00 Smudge Cells Present (Not Present) A 06/20/16 17:30 Large Platelets Present (Not Present) A 06/21/16 03:12 Polychromasia 1+ (Not Present) A 06/21/16 03:12 Poikilocytosis 1+ (Not Present) A 06/17/16 03:40 Basophilic Stippling 2+ (Not Present) A 06/14/16 03:45 Anisocytosis 1+ (Not Present) A 06/20/16 04:20 Macrocytosis Present (Not Present) A 06/19/16 03:15 PT 12.9 Seconds (9.4-12.1) H 06/07/16 06:22 ABG pCO2 57 mmHg (35-45) H 06/22/16 04:47 ABG pO2 49 mmHg (85-104) L* 06/22/16 04:47 ABG HCO3 30.8 mEQ/L (21-27) H 06/22/16 04:47 ABG Total CO2 32.5 mEq/L (20-26) H 06/22/16 04:47 ABG O2 Saturation 82 % (95-98) L 06/22/16 04:47 ABG Base Excess 3.9 mEq/L (-2.0 to 3.0) H 06/22/16 04:47 VBG pH 7.48 pH Units (7.32-7.42) H 06/05/16 06:06 VBG pCO2 37 mmHg (41-51) L 06/05/16 06:06 VBG pO2 167 mmHg (25-40) H 06/05/16 06:06 VBG HCO3 27.6 mEq/L (21-27) H 06/05/16 06:06 Creatinine 1.32 mg/dL (0.57-1.11) H 06/22/16 04:00 Est GFR ( Amer) 57 (> 60) L 06/22/16 04:00 Est GFR (Non-Af Amer) 47 (> 60) L 06/22/16 04:00 Glucose 218 mg/dL (70-99) H 06/22/16 04:00 POC Glucose 193 (58-89) H 06/22/16 00:39 Uric Acid 6.6 mg/dL (2.6-6.0) H 06/15/16 17:20 Calcium 8.1 mg/dL (8.6-10.8) L 06/22/16 04:00 Phosphorus 2.1 mg/dL (2.3-4.7) L 06/22/16 04:00 AST 39 Units/L (5-34) H 06/21/16 08:15 Serum Total Protein 5.4 g/dL (6.0-8.3) L 06/21/16 08:15 Albumin 1.5 g/dL (3.5-5.0) L 06/21/16 08:15 Globulin 3.9 g/dL (2.4-3.5) H 06/21/16 08:15 Albumin/Globulin Ratio 0.4 (1.1-2.2) L 06/21/16 08:15 Ur Specimen Adequacy See below A 06/16/16 17:49 Urine Clarity Turbid (Clear) A 06/20/16 13:00 Urine Protein 100 mg/dL (Neg-Trace) H 06/20/16 13:00 Urine Blood Large (Negative) H 06/20/16 13:00 Ur Leukocyte Esterase Small (Negative) H 06/20/16 13:00 Urine Microscopic RBC 15-30 per hpf (0-3) H 06/20/16 13:00 Urine Microscopic WBC 50-100 per hpf (0-3) H 06/20/16 13:00 Ur Squamous Epith Cells Many per lpf (None-Few) H 06/20/16 13:00 Amorphous Sediment Many (Few) H 06/20/16 13:00 Urine Mucus Moderate (Few) H 06/20/16 13:00 Ur Culture Indicated? YES (NO) A 06/20/16 13:00 Human Metapneumovirus DETECTED (Not Detect) A 06/07/16 16:05 General appearance: Present: no acute distress - Head Head exam: Present: atraumatic, normal inspection - Eye Eye exam: Present: normal appearance - Respiratory Respiratory exam: Present: decreased breath sounds - Cardiovascular Cardiovascular exam: Present: RRR, tachycardia - GI/Abdominal GI/Abdominal exam: Present: hypoactive bowel sounds, soft. Absent: tenderness - Neurological Exam Neurological exam: Present: altered - Psychiatric Psychiatric exam: Absent: agitated, anxious - Skin Skin exam: Present: dry, warm Palliative Quality Palliative Quality: Screen for Code Status: Yes, Screen for Goals of Care: Yes, Screen for Pain: NA (Patient is on is on pain regimen for vent), If Pain Regimen Started, Initiate Bowel Regimen: NA (Has meds ordered), Screen for Nausea/Vomitting: NA (None reported) - Labs CBC & Chem 7: 06/22/16 04:00 06/22/16 04:00 Labs: Laboratory Results - last 24 hr 06/21/16 06/21/16 06/21/16 08:15 08:15 12:17 WBC RBC Hgb Hct MCV MCH MCHC RDW Plt Count MPV Seg Neutrophils % Band Neutrophils % Lymphocytes % Monocytes % Eosinophils % Neutrophils # Lymphocytes # Monocytes # Eosinophils # Nucleated RBCs/100 WBC Reactive Lymphocytes Platelet Estimate ABG pH ABG pCO2 ABG pO2 ABG HCO3 ABG Total CO2 ABG O2 Saturation ABG Base Excess Blood Gas Modality Inspired O2 Sodium Potassium Chloride Carbon Dioxide BUN Creatinine Est GFR ( Amer) Est GFR (Non-Af Amer) BUN/Creatinine Ratio Glucose POC Glucose 228 H Calculated Osmolality Lactic Acid 0.9 Calcium Ionized Calcium Phosphorus Magnesium Total Bilirubin 0.2 Direct Bilirubin 0.1 Indirect Bilirubin 0.1 AST 39 H ALT 34 Alkaline Phosphatase 59 Serum Total Protein 5.4 L Albumin 1.5 L Globulin 3.9 H Albumin/Globulin Ratio 0.4 L Vancomycin Trough 06/21/16 06/21/16 06/22/16 16:20 22:45 00:39 WBC RBC Hgb Hct MCV MCH MCHC RDW Plt Count MPV Seg Neutrophils % Band Neutrophils % Lymphocytes % Monocytes % Eosinophils % Neutrophils # Lymphocytes # Monocytes # Eosinophils # Nucleated RBCs/100 WBC Reactive Lymphocytes Platelet Estimate ABG pH ABG pCO2 ABG pO2 ABG HCO3 ABG Total CO2 ABG O2 Saturation ABG Base Excess Blood Gas Modality Inspired O2 Sodium Potassium Chloride Carbon Dioxide BUN Creatinine Est GFR ( Amer) Est GFR (Non-Af Amer) BUN/Creatinine Ratio Glucose POC Glucose 203 H 193 H Calculated Osmolality Lactic Acid Calcium Ionized Calcium Phosphorus Magnesium Total Bilirubin Direct Bilirubin Indirect Bilirubin AST ALT Alkaline Phosphatase Serum Total Protein Albumin Globulin Albumin/Globulin Ratio Vancomycin Trough 21.2 H* 06/22/16 06/22/16 06/22/16 04:00 04:00 04:00 WBC 21.3 H RBC 2.02 L Hgb 6.4 L Hct 19.8 L MCV 98.0 MCH 31.7 MCHC 32.3 RDW 16.8 H Plt Count 324 MPV 9.9 Seg Neutrophils % 42.0 Band Neutrophils % 28.0 H Lymphocytes % 18.0 Monocytes % 10.0 Eosinophils % 2.0 Neutrophils # 14.9 H Lymphocytes # 3.8 Monocytes # 2.1 H Eosinophils # 0.4 Nucleated RBCs/100 WBC 0.4 H Reactive Lymphocytes Present A Platelet Estimate Normal ABG pH ABG pCO2 ABG pO2 ABG HCO3 ABG Total CO2 ABG O2 Saturation ABG Base Excess Blood Gas Modality Inspired O2 Sodium 136 Potassium 3.9 Chloride 103 Carbon Dioxide 28 BUN 18 Creatinine 1.32 H Est GFR ( Amer) 57 L Est GFR (Non-Af Amer) 47 L BUN/Creatinine Ratio 14 Glucose 218 H POC Glucose Calculated Osmolality 291 Lactic Acid Calcium 8.1 L Ionized Calcium 1.24 Phosphorus 2.1 L Magnesium 1.6 Total Bilirubin Direct Bilirubin Indirect Bilirubin AST ALT Alkaline Phosphatase Serum Total Protein Albumin Globulin Albumin/Globulin Ratio Vancomycin Trough 18.1 06/22/16 04:47 WBC RBC Hgb Hct MCV MCH MCHC RDW Plt Count MPV Seg Neutrophils % Band Neutrophils % Lymphocytes % Monocytes % Eosinophils % Neutrophils # Lymphocytes # Monocytes # Eosinophils # Nucleated RBCs/100 WBC Reactive Lymphocytes Platelet Estimate ABG pH 7.34 ABG pCO2 57 H ABG pO2 49 L* ABG HCO3 30.8 H ABG Total CO2 32.5 H ABG O2 Saturation 82 L ABG Base Excess 3.9 H Blood Gas Modality VCT Inspired O2 60 Sodium Potassium Chloride Carbon Dioxide BUN Creatinine Est GFR ( Amer) Est GFR (Non-Af Amer) BUN/Creatinine Ratio Glucose POC Glucose Calculated Osmolality Lactic Acid Calcium Ionized Calcium Phosphorus Magnesium Total Bilirubin Direct Bilirubin Indirect Bilirubin AST ALT Alkaline Phosphatase Serum Total Protein Albumin Globulin Albumin/Globulin Ratio Vancomycin Trough - ABG Interpretation ABG results: ABG ABG pH 7.34 pH Units (7.32-7.45) 06/22/16 04:47 ABG pCO2 57 mmHg (35-45) H 06/22/16 04:47 ABG pO2 49 mmHg (85-104) L* 06/22/16 04:47 ABG O2 Saturation 82 % (95-98) L 06/22/16 04:47 PT/INR, D-dimer PT 12.9 Seconds (9.4-12.1) H 06/07/16 06:22 Consult Discharge Plan - Plan Referrals: Manish Sheth MD [Primary Care Provider] -
[2016-06-22] MEDS: Lacri-Lube 3.5 GM TUBE BOTH EYES SCH ×2 (07:45→19:37)
[2016-06-22] MEDS: Vitamin B Complex/Vit C/Vit E 1 EACH TABLET PO SCH (07:45)
[2016-06-22] MEDS: Multivit/Ca/Min/Fe/FA 1 TAB TABLET PO SCH (07:45)
[2016-06-22] MEDS: Chlorhexidine Rinse 15 ML MOUTHWASH MM SCH ×2 (07:45→19:36)
[2016-06-22] MEDS: Pantoprazole 40 MG VIAL IVPB SCH (07:48)
[2016-06-22] MEDS: Valproic Acid INJ 500 MG in 0.9 % Sodium Chloride 100 ML IVPB SCH ×2 (07:48→21:41)
--- NOTE | 2016-06-22 08:16 | Nephrology Progress Note ---
Date of Encounter: 06/22/16 Time of Encounter: 08:05 - Assessment and Plan (1) TANNER (acute kidney injury) Current Visit: Yes Status: Acute A/P- TANNER in setting of respiratory failure, hypotension, possible ARDS pneumonia and/or sepsis. Creat 1.32. Azotemia improving. Oliguric. Continue CVVH Subjective Principal diagnosis: Acute respiratory failure, ARDS secondary community acquired pneumonia Interval history: Intubated, sedated on pressor. Fio2 .70, peep 10. Objective - Vital Signs Vital signs: Vital Signs Temp Pulse Resp BP Pulse Ox 06/22/16 07:27 27 125/75 91 06/22/16 07:00 106 28 125/75 92 06/22/16 06:08 27 109/57 96 06/22/16 06:00 98.1 F 100 30 109/57 94 06/22/16 05:00 93 18 107/62 90 06/22/16 04:56 18 107/64 90 06/22/16 04:00 97.9 F 94 32 100/43 92 06/22/16 03:00 91 28 90/48 94 06/22/16 02:25 30 90/42 93 06/22/16 02:00 97.8 F 95 24 90/42 92 06/22/16 01:12 19 107/57 98 06/22/16 01:00 97 26 107/57 91 06/22/16 00:00 98.4 F 100 24 105/59 92 06/21/16 23:00 91 24 96/50 92 06/21/16 22:00 91 24 104/63 94 06/21/16 21:47 24 93/51 92 06/21/16 21:00 90 22 98/53 96 06/21/16 20:00 99.4 F 94 18 115/57 100 06/21/16 19:43 20 115/57 100 06/21/16 19:03 100 21 103/55 96 06/21/16 18:14 89 27 89/44 96 06/21/16 17:23 27 77/42 96 06/21/16 17:00 88 25 77/42 96 06/21/16 16:00 99.4 F 109 22 100/57 66 06/21/16 15:57 25 115/48 95 06/21/16 15:00 125 29 117/73 93 06/21/16 14:00 105 30 114/69 94 06/21/16 13:05 28 121/64 94 06/21/16 13:00 106 27 121/64 94 06/21/16 12:00 99.0 F 106 31 119/69 97 06/21/16 11:02 30 119/69 96 06/21/16 11:00 108 31 119/69 97 06/21/16 10:10 112 30 114/57 94 06/21/16 09:52 29 114/57 94 06/21/16 09:00 108 35 105/61 96 06/21/16 08:26 33 111/60 97 Intake and Output 06/21/16 06/22/16 06/22/16 23:59 07:59 15:59 Intake Total 1376.0 / 1376.0 1120.6 / 1120.6 Output Total 1596 / 1596 1176 / 1176 Balance -220.0 / -220.0 -55.4 / -55.4 Intake: IV Fluids 879.0 / 879.0 653.6 / 653.6 PRECEDEX 400 mcg In 100 146.7 / 146.7 112.0 / 112.0 ml @ 0.2 MCG/KG/HR 5.18 mls/hr IVC .[id number] [facility] Rx#:[id number] FentaNYL (PF) 1,000 MCG 49.3 / 49.3 40.3 / 40.3 In 0.9 % Sodium Chloride 80 ML @ 50 MCG/HR 5 mls/ hr IVC CONT [facility] Rx#: [id number] Versed 100 MG In 0.9 % 30.3 / 30.3 24 / 24 Sodium Chloride 80 ML @ 2 MG/HR 2 mls/hr IVC CONT [facility] Rx#:[id number] Levophed 4 MG In Dextrose 347.7 / 347.7 377.3 / 377.3 5% 250 ML @ 5 MCG/MIN 18 .75 mls/hr IVC CONT [facility] Rx#:[id number] Maxipime 1,000 MG In 100 / 100 Dextrose 5% (Minibag+) 100 ML 100 ML @ 200 mls/ hr IVPB Q12HR [facility] Rx#: [id number] Flagyl Premix 500 MG/100 100 / 100 100 / 100 ML 500 mg In 100 ml @ 100 mls/hr IVPB Q8HR [facility] Rx# :[id number] Depacon 500 MG In 0.9 % 105 / 105 Sodium Chloride 100 ML @ 105 mls/hr IVPB Q12H [facility] Rx#:[id number] Tube Feeding 497 / 497 437 / 437 Other 30 / 30 Output: Urine 0 / 0 0 / 0 Urethral (Reed) 0 / 0 0 / 0 Katina 1446 / 1446 1087 / 1087 Rectal Tube 100 / 100 Catheter 50 / 50 89 / 89 Other: Blood Glucose* 202 217 - General Appearance General appearance: Present: well-developed, well-nourished, appears started age EENT: Present: mucous membranes moist Neck: Present: no JVD Additional Comments: harsh breath sounds Cardiology: Present: regular rate, regular rhythm Additional Comments: mild LE pitting edema Gastrointestinal: Present: hypoactive bowel sounds Integumentary: Present: warm and dry - Lab 06/22/16 04:00 06/22/16 04:00 Most recent lab results ABG pH 7.34 pH Units (7.32-7.45) 06/22/16 04:47 ABG pCO2 57 mmHg (35-45) H 06/22/16 04:47 ABG pO2 49 mmHg (85-104) L* 06/22/16 04:47 ABG HCO3 30.8 mEQ/L (21-27) H 06/22/16 04:47 ABG O2 Saturation 82 % (95-98) L 06/22/16 04:47 Calcium 8.1 mg/dL (8.6-10.8) L 06/22/16 04:00 Phosphorus 2.1 mg/dL (2.3-4.7) L 06/22/16 04:00 Magnesium 1.6 mg/dL (1.6-2.6) 06/22/16 04:00 - VTE Documentation of Mechanical Device: Venous foot pump, device Consult Discharge Plan - Plan Referrals: Manish Sheth MD [Primary Care Provider] -
[2016-06-22] MEDS: *HR* Heparin 5,000 UNIT/ML VIAL IV PRN ×2 (09:00)
[2016-06-22] MEDS: Silvasorb 44.4 ML TUBE TP SCH ×2 (10:00→23:30)
[2016-06-22] MEDS ORDERED: Vancomycin 1,000 MG in D5% in Water 250 ML IVPB ONE (11:00)
[2016-06-22] MEDS: Midazolam HCl 100 MG in 0.9 % Sodium Chloride 80 ML IVC SCH (19:36)
[2016-06-23] MEDS: *HR* Heparin 5,000 UNIT/ML VIAL IV PRN
[2016-06-23] MEDS: Ipratropium/Albuterol Neb 3 ML IH SCH ×6 (00:06→19:48)
[2016-06-23] MEDS: Insulin LISPRO 300 UNITS/3 ML VIAL SQ SCH ×4 (00:35→19:04)
[2016-06-23] MEDS: MetroNIDAZOLE 500 MG/100 ML 500 MG/100 ML BAG IVPB SCH ×3 (00:38→18:30)
[2016-06-23] MEDS ORDERED: *HR* Alteplase (Cathflo) 2 MG VIAL IVP PRN (01:36)
[2016-06-23] MEDS: 0.9 % Sodium Chloride 1,000 ML PRIME SCH ×3 (02:32→18:20)
[2016-06-23] MEDS: Norepinephrine 4 MG in D5% in Water 250 ML IVC SCH ×2 (03:25→19:07)
[2016-06-23 03:28] LABS: Hematocrit 24.9 % (35.3-44.9); Immature Platelets 6.4 % (1.1-6.1); Mean Corpuscular HGB Conc 32.1 g/dL (31.6-35.5); Mean Corpuscular Volume 96.5 fL (83.0-100.0); Mean Platelet Volume 9.8 fL (9.4-12.4); Nucleated Red Blood Cells 0.4 /100 WBC (0); Platelet Count 346 K/mcL (140-400); Red Blood Count 2.58 M/mcL (3.82-4.97); Red Cell Distribution Width 16.6 % (11.5-14.5)
[2016-06-23] MEDS: PrismaSATE BGK 4/2.5 5,000 ML CRRT SCH ×19 (03:41→21:15)
[2016-06-23] MEDS: Dexmedetomidine HCl 400 MCG/100 ML MLS IVC SCH ×3 (03:42→23:42)
[2016-06-23] MEDS: FentaNYL (PF) 1,000 MCG in 0.9 % Sodium Chloride 80 ML IVC SCH ×2 (03:44→19:40)
[2016-06-23 03:50] LABS: BUN/Creatinine Ratio 15 (6-26); Blood Urea Nitrogen 19 mg/dL (7-20); Calcium 8.2 mg/dL (8.6-10.8); Carbon Dioxide 25 mEq/L (19-29); Chloride 104 mEq/L (98-109); Glucose 163 mg/dL (70-99); Magnesium 1.7 mg/dL (1.6-2.6); Osmolality,Calculated 288 (280-300); Phosphorous 2.3 mg/dL (2.3-4.7); Potassium 3.9 mEq/L (3.5-4.5); Sodium 136 mEq/L (136-145); eGFR For African Americans > 60 (> 60); eGFR For Non-African Americans 50 (> 60)
[2016-06-23 04:06] LABS: Ionized Calcium 1.18 mmol/L (1.15-1.35)
[2016-06-23 04:27] LABS: Basophils # 0.4 K/mcL (0.0-0.2); Eosinophils # 0.4 K/mcL (0.0-0.6); Lymphocytes # 3.3 K/mcL (0.6-4.6); Monocytes # 1.6 K/mcL (0.0-1.3); Neutrophils # 13.9 K/mcL (1.6-8.9); Platelet Estimate Normal (Normal)
[2016-06-23] MEDS: Cefepime HCl 1,000 MG in D5% in Water (Mini-Bag+) 100 ML IVPB SCH ×2 (04:56→18:20)
[2016-06-23] MEDS: Levothyroxine Sodium 100 MCG VIAL IV SCH (04:57)
[2016-06-23] MEDS: *HR* Heparin 5,000 UNIT/ML VIAL SQ SCH ×2 (04:58→18:21)
[2016-06-23 05:25] LABS: ABG Base Excess 3.1 mEq/L (-2.0 to 3.0); ABG HCO3 29.9 mEQ/L (21-27); ABG Oxygen Saturation 88 % (95-98); ABG PCO2 58 mmHg (35-45); ABG PH 7.32 pH Units (7.32-7.45); ABG PO2 60 mmHg (85-104); ABG TCO2 31.7 mEq/L (20-26)
[2016-06-23 05:26] LABS: Blood Gas FiO2 70 %
--- NOTE | 2016-06-23 07:09 | Pulmonology Progress Note ---
<Huseyin Issa - Last Filed: 06/23/16 09:11> Date of Encounter: 06/23/16 Time of Encounter: 07:09 Assessment and Plan (1) Sepsis Current Visit: Yes Status: Suspected continues to meet SIRS criteria but source at this time remains unclear - intubated 06/07 remains afebrile with Tmax 98.2, this morning hypothermic 96.1 currently on bart hugger bart hugger PRN remains tachycardic and tachypneic on ventilator - persistent leukocytosis, WBC stable 20.5 (21.3) source of infection unclear, consideration for possible bacteria pneumonia for prolonged intubation vs intra-abdominal source - due to high vent settings, unable to appropriate assess abdomen with imaging - no acute changes with abdominal exam, remains soft and non-distended recent cultures NGTD (CVC line, blood x2, sputum, and urine) - NGTD on multiple cultures during admission - Sputum culture 06/10 positive for Clari albicans but recent sputum culture 06/14 no growth lactate (06/21) was normal 0.9 will continue empiric antibiotics with Cefepime Day 4 and Vanc Day 2 Qualifiers: Sepsis type: sepsis due to unspecified organism Qualified Code(s): A41.9 - Sepsis, unspecified organism (2) Acute respiratory failure with hypoxia and hypercapnia Current Visit: Yes Status: Acute secondary to ARDS from viral pneumonia - PCR positive for Human Metapneumovirus intubated 06/07 continues to require high ventilator setting, no recent changes remains FiO2 70 % with PEEP 10 - last ABG 7.32/58/60/29.9/31.7/88/3.1 pO2 improved with increase from 60 --> 70 % FiO2 - prior ABG (06/22) 7.34/57/49/30.8/32.5/82/3.9 on 60% Fi02 improving status with CVVH - remains net negative I/Os, yesterday -445 ENT consulted for possible tracheostomy due to prolong intubation and family wishes - meeting 06/21 with family, ENT agrees this will be difficult due to anatomy and short neck and family wishes to have trach performed - continues to be high risk for complications due to pressors and high ventilator settings - will readdress indication for trach on Friday with ENT - Palliative remains on board and much appreciated (3) ARDS (adult respiratory distress syndrome) Current Visit: Yes Status: Acute continue ARDSNet ventilator protocol and wean as tolerated no recent vent setting changes currently 70% FiO2 and 10 PEEP will discontinue Precedex and keep on Versed and Fentanyl for sedation (4) Colitis Current Visit: Yes Status: Acute CT Abd/Pelvis on 06/12/16 showed thickening of the cecum and ascending colon that may suggest inflammatory or infectious colitis, no abscess collection C. diff toxin negative rectal tube removed 06/22, episode of diarrhea overnight - rectal tube PRN abdomen remains soft and nondistended 10 day course of Flagyl was completed 06/22 (5) Hypotension Current Visit: Yes Status: Acute worsening hypotension secondary to dialysis with CVVH continues to require Levophed and Levosynthroid - current Levophed 5 titrate PRN for GOAL MAP >60 Qualifiers: Hypotension type: hemodialysis-associated hypotension Qualified Code(s): I95.3 - Hypotension of hemodialysis (6) Anemia Current Visit: Yes Status: Acute appropriate increase in hemoglobin to 8 s/p 2 units pRBC continue to trend H/H no obvious active bleeding no rashes visualized or fevers Qualifiers: Anemia type: unspecified type Qualified Code(s): D64.9 - Anemia, unspecified (7) Viral pneumonia Current Visit: Yes Status: Acute ARDS secondary to viral pneumonia requiring intubation positive for Human Metapneumavirus recent sputum cultures negative (8) TANNER (acute kidney injury) Current Visit: Yes Status: Acute improving 1.24 (1.32) Nephrology consulted and appreciated continue CVVH she is net negative 445 yesterday (9) Bed sore on buttock Current Visit: Yes Status: Acute multiple stage 2 on buttocks, does not appear infected continue wound care and frequent turning per ICU skin care protocol Qualifiers: Pressure ulcer stage: stage 2 Laterality: unspecified laterality Qualified Code(s): L89.302 - Pressure ulcer of unspecified buttock, stage 2 (10) Down syndrome Current Visit: Yes Status: Chronic (11) DVT prophylaxis Current Visit: Yes Status: Acute Heparin and foot pumps TUFTER HAND: opens eyes to voice, sedated on Fentanyl 50, Versed 3, Precedex DISCONTINUED, no significant changes in mentation Pulm: continues high ventilator settings FiO2 70% and PEEP 10, no significant improvement to suggest successful weaning, remains a high risk candidate for trach, will readdress trach with family and ENT tomorrow (Friday) Cardio: stable, continues to be in septic shock requiring pressors, Levophed currently at 5 to maintain MAP >60, continue to monitor and wean off as tolerated, GI: tube feeds per Nutrition, at goal 55mL/hr, GI prophylaxis, abdomen is soft and nondistended, rectal tube removed Heme: appropriate rise in hemoglobin s/p 2 units pRBCs, no obvious signs of active bleeding, will continue to monitor H/H ID: continue antibiotics and plan to de-escalate, source is unclear at this time and due to critical condition unable to do additional images such as CT scan, recent cultures from 06/20 NGTD (CVC, lange, blood) Renal: continues to be on Katina, improving Cr, plan for net negative daily Endocrine: blood glucose is monitored Lines: lines checked without evidence of infection Skin: decubitus ulcers on buttock and back, continue ICU skin wound care per protocol Subjective Principal diagnosis: Acute respiratory failure, ARDS secondary community acquired pneumonia Interval history: Rectal tube removed yesterday, 3 episodes of diarrhea. Otherwise no major events overnight. Temperature has been lower the past several hours, bart hugger in place. Blood transfusion completed overnight. Levophed currently at 5. Patient seen and examined at bedside. She continues to be intubated on light sedation Versed, Fentanyl, and Precedex. She opens eyes to voice but does follow some simple commands Objective PUL Vital signs: Last Vital Signs Temp 97.5 F L 06/23/16 07:00 Pulse 87 06/23/16 07:00 Resp 25 06/23/16 07:00 BP 111/55 06/23/16 07:00 Pulse Ox 92 06/23/16 07:00 General appearance: no acute distress (intubated and sedated on Precedex, Versed , and Fentanyl), other (opens eyes to voice, does not follow commands) Eyes: nonicteric, other (PERRL) ENT: other (endotracheal intubation and OG tube) Neck: supple, other (short neck) Effort: other (mechanically ventilated) Auscultation: bilateral: diminished breath sounds, rhonchi Cardiovascular: regular rate and rhythm Gastrointestinal: hypoactive bowel sounds, soft, non-tender, non-distended Integumentary: decubitus ulcer (larger stage 2 on left buttock, smaller stage 2 ulcers on back and right buttock) Extremities: edema (mild) pupils equal and round, unable to assess due to mental status (intubated and sedated on Precedex, Versed, and Fentanyl), other (opens eyes to voice) R IJ CVC R IJ dialysis catheter Ventilator Settings Ventilator Settings: Ventilator Settings, Last 8 Hours Ventilator Mode VC+ Ventilator Mode VC+ Ventilator Mode VC+ Ventilator Mode VC+ Ventilator Mode VC+ Ventilator Mode VC+ Ventilator Mode VC+ Ventilator Mode VC+ Ventilator Mode VC+ Ventilator Mode VC+ Ventilator Mode VC+ Ventilator Mode VC+ Ventilator Mode VC+ Ventilator Tidal Volume 300 Setting Ventilator Tidal Volume 300 Setting Ventilator Tidal Volume 300 Setting Ventilator Tidal Volume 300 Setting Ventilator Tidal Volume 300 Setting Ventilator Tidal Volume 300 Setting Ventilator Tidal Volume 300 Setting Ventilator Tidal Volume 300 Setting Ventilator Tidal Volume 300 Setting Ventilator Tidal Volume 300 Setting Ventilator Tidal Volume 300 Setting Ventilator Tidal Volume 300 Setting Ventilator Tidal Volume 300 Setting Ventilator Respiratory Rate 18 Setting Ventilator Respiratory Rate 18 Setting Ventilator Respiratory Rate 18 Setting Ventilator Respiratory Rate 18 Setting Ventilator Respiratory Rate 18 Setting Ventilator Respiratory Rate 18 Setting Ventilator Respiratory Rate 18 Setting Ventilator Respiratory Rate 18 Setting Ventilator Respiratory Rate 18 Setting Ventilator Respiratory Rate 18 Setting Ventilator Respiratory Rate 18 Setting Ventilator Respiratory Rate 18 Setting Ventilator Respiratory Rate 18 Setting Actual Respiratory Rate 20 Actual Respiratory Rate 22 Actual Respiratory Rate 21 Actual Respiratory Rate 20 Actual Respiratory Rate 22 Actual Respiratory Rate 22 Actual Respiratory Rate 24 Actual Respiratory Rate 23 Actual Respiratory Rate 22 Actual Respiratory Rate 22 Actual Respiratory Rate 25 Actual Respiratory Rate 22 Positive End Expiratory 10 Pressure Positive End Expiratory 10 Pressure Positive End Expiratory 10 Pressure Positive End Expiratory 10 Pressure Positive End Expiratory 10 Pressure Positive End Expiratory 10 Pressure Positive End Expiratory 10 Pressure Positive End Expiratory 10 Pressure Positive End Expiratory 10 Pressure Positive End Expiratory 10 Pressure Positive End Expiratory 10 Pressure Positive End Expiratory 10 Pressure Positive End Expiratory 10 Pressure Peak Inspiratory Airway 16 Pressure Peak Inspiratory Airway 16 Pressure Peak Inspiratory Airway 16 Pressure Peak Inspiratory Airway 16 Pressure Peak Inspiratory Airway 16 Pressure Peak Inspiratory Airway 16 Pressure Peak Inspiratory Airway 15 Pressure Peak Inspiratory Airway 16 Pressure Peak Inspiratory Airway 16 Pressure Peak Inspiratory Airway 16 Pressure Peak Inspiratory Airway 18 Pressure Peak Inspiratory Airway 15 Pressure Results - Laboratory Findings CBC and BMP: 06/23/16 03:16 06/23/16 03:16 ABG ABG pH 7.32 pH Units (7.32-7.45) 06/23/16 05:07 ABG pCO2 58 mmHg (35-45) H 06/23/16 05:07 ABG pO2 60 mmHg (85-104) L 06/23/16 05:07 ABG O2 Saturation 88 % (95-98) L 06/23/16 05:07 PT/INR, D-dimer PT 12.9 Seconds (9.4-12.1) H 06/07/16 06:22 Abnormal lab findings: Abnormal lab results WBC 20.5 K/mcL (4.3-11.1) H 06/23/16 03:16 RBC 2.58 M/mcL (3.82-4.97) L 06/23/16 03:16 Hgb 8.0 g/dL (11.5-15.4) L D 06/23/16 03:16 Hct 24.9 % (35.3-44.9) L 06/23/16 03:16 RDW 16.6 % (11.5-14.5) H 06/23/16 03:16 Immature Gran % 4.2 % (0-4) H 06/16/16 03:15 Band Neutrophils % 30.0 % (0-4) H 06/23/16 03:16 Metamyelocytes % 6.0 % (0) H 06/21/16 03:12 Myelocytes % 4.0 % (0) H 06/23/16 03:16 Neutrophils # 13.9 K/mcL (1.6-8.9) H 06/23/16 03:16 Monocytes # 1.6 K/mcL (0.0-1.3) H 06/23/16 03:16 Basophils # 0.4 K/mcL (0.0-0.2) H 06/23/16 03:16 Nucleated RBCs/100 WBC 0.4 /100 WBC (0) H 06/23/16 03:16 Reactive Lymphocytes Present (Not Present) A 06/22/16 04:00 Smudge Cells Present (Not Present) A 06/20/16 17:30 Large Platelets Present (Not Present) A 06/21/16 03:12 Immature Plt Fraction 6.4 % (1.1-6.1) H 06/23/16 03:16 Polychromasia 1+ (Not Present) A 06/21/16 03:12 Poikilocytosis 1+ (Not Present) A 06/17/16 03:40 Basophilic Stippling 2+ (Not Present) A 06/14/16 03:45 Anisocytosis 1+ (Not Present) A 06/20/16 04:20 Macrocytosis Present (Not Present) A 06/19/16 03:15 PT 12.9 Seconds (9.4-12.1) H 06/07/16 06:22 ABG pCO2 58 mmHg (35-45) H 06/23/16 05:07 ABG pO2 60 mmHg (85-104) L 06/23/16 05:07 ABG HCO3 29.9 mEQ/L (21-27) H 06/23/16 05:07 ABG Total CO2 31.7 mEq/L (20-26) H 06/23/16 05:07 ABG O2 Saturation 88 % (95-98) L 06/23/16 05:07 ABG Base Excess 3.1 mEq/L (-2.0 to 3.0) H 06/23/16 05:07 VBG pH 7.48 pH Units (7.32-7.42) H 06/05/16 06:06 VBG pCO2 37 mmHg (41-51) L 06/05/16 06:06 VBG pO2 167 mmHg (25-40) H 06/05/16 06:06 VBG HCO3 27.6 mEq/L (21-27) H 06/05/16 06:06 Creatinine 1.24 mg/dL (0.57-1.11) H 06/23/16 03:16 Est GFR (Non-Af Amer) 50 (> 60) L 06/23/16 03:16 Glucose 163 mg/dL (70-99) H 06/23/16 03:16 POC Glucose 196 (58-89) H 06/23/16 05:45 Uric Acid 6.6 mg/dL (2.6-6.0) H 06/15/16 17:20 Calcium 8.2 mg/dL (8.6-10.8) L 06/23/16 03:16 AST 39 Units/L (5-34) H 06/21/16 08:15 Serum Total Protein 5.4 g/dL (6.0-8.3) L 06/21/16 08:15 Albumin 1.5 g/dL (3.5-5.0) L 06/21/16 08:15 Globulin 3.9 g/dL (2.4-3.5) H 06/21/16 08:15 Albumin/Globulin Ratio 0.4 (1.1-2.2) L 06/21/16 08:15 Ur Specimen Adequacy See below A 06/16/16 17:49 Urine Clarity Turbid (Clear) A 06/20/16 13:00 Urine Protein 100 mg/dL (Neg-Trace) H 06/20/16 13:00 Urine Blood Large (Negative) H 06/20/16 13:00 Ur Leukocyte Esterase Small (Negative) H 06/20/16 13:00 Urine Microscopic RBC 15-30 per hpf (0-3) H 06/20/16 13:00 Urine Microscopic WBC 50-100 per hpf (0-3) H 06/20/16 13:00 Ur Squamous Epith Cells Many per lpf (None-Few) H 06/20/16 13:00 Amorphous Sediment Many (Few) H 06/20/16 13:00 Urine Mucus Moderate (Few) H 06/20/16 13:00 Ur Culture Indicated? YES (NO) A 06/20/16 13:00 Human Metapneumovirus DETECTED (Not Detect) A 06/07/16 16:05 - Microbiology Findings Microbiology Findings: Microbiology, Last 48 Hours 06/20/16 15:20 Blood Culture - Preliminary Central Venous Catheter No growth. 06/20/16 11:50 Blood Culture - Preliminary Peripheral Venipuncture No growth. 06/20/16 11:45 Blood Culture - Preliminary Peripheral Venipuncture No growth. 06/20/16 13:00 Urine Culture - Final Urine,[place] No growth. - Clinical Findings Intake & Output: Intake & Output 06/22/16 06/22/16 06/23/16 15:59 23:59 07:59 Intake Total 1382 / 1382 1261.6 / 1261.6 912.5 / 912.5 Output Total 1421 / 1421 1713 / 1713 990 / 990 Balance -39 / -39 -451.4 / -451.4 -77.5 / -77.5 Weight 111.2 kg - VTE Documentation of Mechanical Device: Venous foot pump, device Consult Discharge Plan - Plan Referrals: Manish Sheth MD [Primary Care Provider] - <Abby Harry - Last Filed: 06/23/16 11:23> Date of Encounter: 06/23/16 Objective PUL Vital signs: Last Vital Signs Temp 97.5 F L 06/23/16 07:00 Pulse 119 06/23/16 10:00 Resp 21 06/23/16 10:00 BP 108/67 06/23/16 10:00 Pulse Ox 93 06/23/16 10:00 Ventilator Settings Ventilator Settings: Ventilator Settings, Last 8 Hours Ventilator Mode VC+ Ventilator Mode VC+ Ventilator Mode VC+ Ventilator Mode VC+ Ventilator Mode VC+ Ventilator Mode VC+ Ventilator Mode VC+ Ventilator Mode VC+ Ventilator Mode VC+ Ventilator Mode VC+ Ventilator Mode VC+ Ventilator Mode VC+ Ventilator Tidal Volume 300 Setting Ventilator Tidal Volume 300 Setting Ventilator Tidal Volume 300 Setting Ventilator Tidal Volume 300 Setting Ventilator Tidal Volume 300 Setting Ventilator Tidal Volume 300 Setting Ventilator Tidal Volume 300 Setting Ventilator Tidal Volume 300 Setting Ventilator Tidal Volume 300 Setting Ventilator Tidal Volume 300 Setting Ventilator Tidal Volume 300 Setting Ventilator Tidal Volume 300 Setting Ventilator Respiratory Rate 18 Setting Ventilator Respiratory Rate 18 Setting Ventilator Respiratory Rate 18 Setting Ventilator Respiratory Rate 18 Setting Ventilator Respiratory Rate 18 Setting Ventilator Respiratory Rate 18 Setting Ventilator Respiratory Rate 18 Setting Ventilator Respiratory Rate 18 Setting Ventilator Respiratory Rate 18 Setting Ventilator Respiratory Rate 18 Setting Ventilator Respiratory Rate 18 Setting Ventilator Respiratory Rate 18 Setting Actual Respiratory Rate 20 Actual Respiratory Rate 20 Actual Respiratory Rate 22 Actual Respiratory Rate 23 Actual Respiratory Rate 22 Actual Respiratory Rate 20 Actual Respiratory Rate 22 Actual Respiratory Rate 21 Actual Respiratory Rate 20 Actual Respiratory Rate 22 Actual Respiratory Rate 22 Positive End Expiratory 10 Pressure Positive End Expiratory 10 Pressure Positive End Expiratory 10 Pressure Positive End Expiratory 10 Pressure Positive End Expiratory 10 Pressure Positive End Expiratory 10 Pressure Positive End Expiratory 10 Pressure Positive End Expiratory 10 Pressure Positive End Expiratory 10 Pressure Positive End Expiratory 10 Pressure Positive End Expiratory 10 Pressure Positive End Expiratory 10 Pressure Peak Inspiratory Airway 17 Pressure Peak Inspiratory Airway 16 Pressure Peak Inspiratory Airway 15 Pressure Peak Inspiratory Airway 15 Pressure Peak Inspiratory Airway 18 Pressure Peak Inspiratory Airway 16 Pressure Peak Inspiratory Airway 16 Pressure Peak Inspiratory Airway 16 Pressure Peak Inspiratory Airway 16 Pressure Peak Inspiratory Airway 16 Pressure Peak Inspiratory Airway 16 Pressure Results - Laboratory Findings CBC and BMP: 06/23/16 03:16 06/23/16 03:16 ABG ABG pH 7.32 pH Units (7.32-7.45) 06/23/16 05:07 ABG pCO2 58 mmHg (35-45) H 06/23/16 05:07 ABG pO2 60 mmHg (85-104) L 06/23/16 05:07 ABG O2 Saturation 88 % (95-98) L 06/23/16 05:07 PT/INR, D-dimer PT 12.9 Seconds (9.4-12.1) H 06/07/16 06:22 Abnormal lab findings: Abnormal lab results WBC 20.5 K/mcL (4.3-11.1) H 06/23/16 03:16 RBC 2.58 M/mcL (3.82-4.97) L 06/23/16 03:16 Hgb 8.0 g/dL (11.5-15.4) L D 06/23/16 03:16 Hct 24.9 % (35.3-44.9) L 06/23/16 03:16 RDW 16.6 % (11.5-14.5) H 06/23/16 03:16 Immature Gran % 4.2 % (0-4) H 06/16/16 03:15 Band Neutrophils % 30.0 % (0-4) H 06/23/16 03:16 Metamyelocytes % 6.0 % (0) H 06/21/16 03:12 Myelocytes % 4.0 % (0) H 06/23/16 03:16 Neutrophils # 13.9 K/mcL (1.6-8.9) H 06/23/16 03:16 Monocytes # 1.6 K/mcL (0.0-1.3) H 06/23/16 03:16 Basophils # 0.4 K/mcL (0.0-0.2) H 06/23/16 03:16 Nucleated RBCs/100 WBC 0.4 /100 WBC (0) H 06/23/16 03:16 Reactive Lymphocytes Present (Not Present) A 06/22/16 04:00 Smudge Cells Present (Not Present) A 06/20/16 17:30 Large Platelets Present (Not Present) A 06/21/16 03:12 Immature Plt Fraction 6.4 % (1.1-6.1) H 06/23/16 03:16 Polychromasia 1+ (Not Present) A 06/21/16 03:12 Poikilocytosis 1+ (Not Present) A 06/17/16 03:40 Basophilic Stippling 2+ (Not Present) A 06/14/16 03:45 Anisocytosis 1+ (Not Present) A 06/20/16 04:20 Macrocytosis Present (Not Present) A 06/19/16 03:15 PT 12.9 Seconds (9.4-12.1) H 06/07/16 06:22 ABG pCO2 58 mmHg (35-45) H 06/23/16 05:07 ABG pO2 60 mmHg (85-104) L 06/23/16 05:07 ABG HCO3 29.9 mEQ/L (21-27) H 06/23/16 05:07 ABG Total CO2 31.7 mEq/L (20-26) H 06/23/16 05:07 ABG O2 Saturation 88 % (95-98) L 06/23/16 05:07 ABG Base Excess 3.1 mEq/L (-2.0 to 3.0) H 06/23/16 05:07 VBG pH 7.48 pH Units (7.32-7.42) H 06/05/16 06:06 VBG pCO2 37 mmHg (41-51) L 06/05/16 06:06 VBG pO2 167 mmHg (25-40) H 06/05/16 06:06 VBG HCO3 27.6 mEq/L (21-27) H 06/05/16 06:06 Creatinine 1.24 mg/dL (0.57-1.11) H 06/23/16 03:16 Est GFR (Non-Af Amer) 50 (> 60) L 06/23/16 03:16 Glucose 163 mg/dL (70-99) H 06/23/16 03:16 POC Glucose 196 (58-89) H 06/23/16 05:45 Uric Acid 6.6 mg/dL (2.6-6.0) H 06/15/16 17:20 Calcium 8.2 mg/dL (8.6-10.8) L 06/23/16 03:16 AST 39 Units/L (5-34) H 06/21/16 08:15 Serum Total Protein 5.4 g/dL (6.0-8.3) L 06/21/16 08:15 Albumin 1.5 g/dL (3.5-5.0) L 06/21/16 08:15 Globulin 3.9 g/dL (2.4-3.5) H 06/21/16 08:15 Albumin/Globulin Ratio 0.4 (1.1-2.2) L 06/21/16 08:15 Ur Specimen Adequacy See below A 06/16/16 17:49 Urine Clarity Turbid (Clear) A 06/20/16 13:00 Urine Protein 100 mg/dL (Neg-Trace) H 06/20/16 13:00 Urine Blood Large (Negative) H 06/20/16 13:00 Ur Leukocyte Esterase Small (Negative) H 06/20/16 13:00 Urine Microscopic RBC 15-30 per hpf (0-3) H 06/20/16 13:00 Urine Microscopic WBC 50-100 per hpf (0-3) H 06/20/16 13:00 Ur Squamous Epith Cells Many per lpf (None-Few) H 06/20/16 13:00 Amorphous Sediment Many (Few) H 06/20/16 13:00 Urine Mucus Moderate (Few) H 06/20/16 13:00 Ur Culture Indicated? YES (NO) A 06/20/16 13:00 Human Metapneumovirus DETECTED (Not Detect) A 06/07/16 16:05 - Microbiology Findings Microbiology Findings: Microbiology, Last 48 Hours 06/20/16 15:20 Blood Culture - Preliminary Central Venous Catheter No growth. 06/20/16 11:50 Blood Culture - Preliminary Peripheral Venipuncture No growth. 06/20/16 11:45 Blood Culture - Preliminary Peripheral Venipuncture No growth. 06/20/16 13:00 Urine Culture - Final Urine,[place] No growth. - Clinical Findings Intake & Output: Intake & Output 06/22/16 06/23/16 06/23/16 23:59 07:59 15:59 Intake Total 1261.6 / 1261.6 912.5 / 912.5 169 / 169 Output Total 1713 / 1713 990 / 990 616 / 616 Balance -451.4 / -451.4 -77.5 / -77.5 -447 / -447 Weight 111.2 kg - Attending Attestation I examined this patient and my medical decision-making was reviewed with the LEHR CUTTER/PA/Advanced Practice Nurse/Resident Physician. I agree with the documented findings, disposition and treatment plan as described except to the extent set forth below. Patient seen and examined. Labs, radiology, chart personally reviewed. Agree with resident's history and physical, assessment, plan with following comments: TUFTER HAND: Wean off sedation as much as possible Pulmonary: No changes in the vent setting. Plateau pressure remain less than 30. Very sensitive changing position and gradually will wean off FiO2 as tolerated as well as PEEP. ENT has seen patient for tracheostomy evaluation which is possible for next week. Told the family I feel this would be challenging due to her mental status and anatomy. Cardiovascular: Remain in shock which is multifactorial and after blood transfusion and requirement of vasopressor is less GI: Nutrition per dietary and GI prophylaxis per routine Heme: DVT prophylaxis per routine ID: Continue antibiotics and plan to de-escalation Renal; urine out put and renal funtion reviewed Endorcine: blood glucose is monitored Lines: all lines checked and no evidence of infections Skin: skin care to prevent pressure ulcers per nursing routine care
[2016-06-23] MEDS ORDERED: Vancomycin 1,250 MG in D5% in Water 250 ML IVPB ONE (08:00)
--- NOTE | 2016-06-23 08:19 | Nephrology Progress Note ---
Date of Encounter: 06/23/16 Time of Encounter: 08:00 - Assessment and Plan (1) TANNER (acute kidney injury) Current Visit: Yes Status: Acute A/P- TANNER in setting of respiratory failure, hypotension, possible ARDS pneumonia and/or sepsis. Creat 1.24. Azotemia improving. Oliguric. Continue CVVH Subjective Principal diagnosis: Acute respiratory failure, ARDS secondary community acquired pneumonia Interval history: Intubated, sedated on pressor. FiO2 .70 Objective - Vital Signs Vital signs: Vital Signs Temp Pulse Resp BP Pulse Ox 06/23/16 07:00 97.5 F L 87 25 111/55 92 06/23/16 06:08 23 102/60 92 06/23/16 06:00 96.1 F L 83 21 102/60 92 06/23/16 05:00 81 22 112/63 92 06/23/16 04:22 25 91/54 90 06/23/16 04:00 77 23 91/54 95 06/23/16 03:00 79 24 77/38 94 06/23/16 02:05 20 104/59 95 06/23/16 02:00 97.7 F 89 22 101/62 92 06/23/16 01:00 87 21 105/61 93 06/23/16 00:06 22 105/68 90 06/23/16 00:00 97.6 F 87 22 105/68 91 06/22/16 23:00 90 24 115/76 93 06/22/16 22:20 23 93/50 92 06/22/16 22:00 97.6 F 91 20 93/50 92 06/22/16 21:00 105 22 111/54 93 06/22/16 20:38 31 87/44 96 06/22/16 20:00 97.8 F 86 20 110/66 96 06/22/16 19:00 80 20 83/43 96 06/22/16 18:00 93 21 91/61 94 06/22/16 17:45 97.8 F 97 21 103/49 100 06/22/16 17:28 24 101/78 96 06/22/16 17:00 91 17 101/78 96 06/22/16 16:09 98.2 F 101 18 105/79 100 06/22/16 16:00 101 06/22/16 15:20 38 118/80 93 06/22/16 15:15 98.2 F 98 17 110/82 100 06/22/16 15:00 107 22 118/80 95 06/22/16 14:00 107 22 124/73 94 06/22/16 13:27 28 116/71 96 06/22/16 13:02 98.5 F 113 34 116/71 95 06/22/16 12:47 97.9 F 109 22 109/64 95 06/22/16 12:00 97.9 F 117 23 122/63 94 06/22/16 11:00 116 30 114/70 95 06/22/16 10:56 34 113/67 92 06/22/16 10:00 97.9 F 92 28 95/50 93 06/22/16 09:07 25 94/50 93 06/22/16 09:00 96 27 94/50 95 Intake and Output 06/22/16 06/23/16 06/23/16 23:59 07:59 15:59 Intake Total 1261.6 / 1261.6 912.5 / 912.5 Output Total 1713 / 1713 990 / 990 Balance -451.4 / -451.4 -77.5 / -77.5 Intake: IV Fluids 560.6 / 560.6 549.5 / 549.5 PRECEDEX 400 mcg In 100 141.4 / 141.4 111.3 / 111.3 ml @ 0.2 MCG/KG/HR 5.18 mls/hr IVC .[id number] [facility] Rx#:[id number] FentaNYL (PF) 1,000 MCG 75.3 / 75.3 39.4 / 39.4 In 0.9 % Sodium Chloride 80 ML @ 50 MCG/HR 5 mls/ hr IVC CONT DEWEY Rx#: [id number] Versed 100 MG In 0.9 % 35.8 / 35.8 15.5 / 15.5 Sodium Chloride 80 ML @ 2 MG/HR 2 mls/hr IVC CONT [facility]WE[facility] Rx#:[id number] Levophed 4 MG In Dextrose 3.1 / 3.1 183.3 / 183.3 5% 250 ML @ 5 MCG/MIN 18 .75 mls/hr IVC CONT DWEEY Rx#:[id number] Maxipime 1,000 MG In 100 / 100 100 / 100 Dextrose 5% (Minibag+) 100 ML 100 ML @ 200 mls/ hr IVPB Q12HR [facility] Rx#: [id number] Flagyl Premix 500 MG/100 100 / 100 100 / 100 ML 500 mg In 100 ml @ 100 mls/hr IVPB Q8HR [facility] Rx# :[id number] Depacon 500 MG In 0.9 % 105 / 105 Sodium Chloride 100 ML @ 105 mls/hr IVPB Q12H [facility] Rx#:[id number] Oral 34 / 34 239 / 239 Tube Feeding 307 / 307 114 / 114 Blood Product 350 / 350 Rbcs Leuko Poor As-1 350 / 350 Unit [id number] Other Output: Urine 0 / 0 0 / 0 Urethral (Reed) 0 / 0 0 / 0 Stool 100 / 100 150 / 150 Katina 1558 / 1558 805 / 805 Catheter 55 / 55 35 / 35 Other: Stool Size Large Small Stool Consistency liquid liquid Stool Color Brown Brown # Bowel Movements 1 # Bowel Movement Diapers 1 1 Weight 111.2 kg Blood Glucose* 139 196 Patient Weight 06/23/16 23:59 Weight 111.2 kg - General Appearance General appearance: Present: well-developed, well-nourished, appears started age EENT: Present: mucous membranes moist Neck: Present: no JVD Respiratory: Present: clear Cardiology: Present: edema, regular rate, regular rhythm Additional Comments: Mild LE pitting Gastrointestinal: Present: hypoactive bowel sounds Integumentary: Present: warm and dry - Lab 06/23/16 03:16 06/23/16 03:16 Most recent lab results ABG pH 7.32 pH Units (7.32-7.45) 06/23/16 05:07 ABG pCO2 58 mmHg (35-45) H 06/23/16 05:07 ABG pO2 60 mmHg (85-104) L 06/23/16 05:07 ABG HCO3 29.9 mEQ/L (21-27) H 06/23/16 05:07 ABG O2 Saturation 88 % (95-98) L 06/23/16 05:07 Calcium 8.2 mg/dL (8.6-10.8) L 06/23/16 03:16 Phosphorus 2.3 mg/dL (2.3-4.7) 06/23/16 03:16 Magnesium 1.7 mg/dL (1.6-2.6) 06/23/16 03:16 - VTE Documentation of Mechanical Device: Venous foot pump, device Consult Discharge Plan - Plan Referrals: Manish Sheth MD [Primary Care Provider] -
--- NOTE | 2016-06-23 08:33 | Palliative Progress Note ---
Date of Encounter: 06/23/16 Time of Encounter: 07:10 - Assessment and plan (1) Hypoxia Current Visit: Yes Status: Acute Assessment and plan: The patient is requiring more oxygen and still maintaining a 10 of PEEP. Pulmonary is following. She is doing poorly with regards to weaning. (2) Multifocal pneumonia Current Visit: Yes Status: Acute Assessment and plan: The patient is not weaning currently, patient's family met with ENT yesterday the plan is to watch over the weekend and then decide on trach early in the week. Be on antibiotics per the ICU team, concern about intra-abdominal pathology. Current plan is to continue observation and continue current treatment. (3) ARDS (adult respiratory distress syndrome) Current Visit: Yes Status: Acute Assessment and plan: Patient is not weaning off that at this time well. Fact her need for oxygen has gone up and the PEEP has not come down. The patient also continues to be hypotensive requiring pressors. She is unable to wean tracheostomy after be considered the timing of this is up to the associate professor of medicine and the ICU team. He has met with the patient's family, and they are giving her the weekend. Continues to wean poorly with oxygen requirements at 70% and PEEP still at 10. He also continues to have problems with hypotension which is been requiring pressors. (4) Hypotension Current Visit: Yes Status: Acute Assessment and plan: Pressor support has actually gone up this morning. Blood pressure is holding well on the new dose of Levothroid. The Levophed was weaned down yesterday but was required to go back up late last night and early this morning. Patient is doing very poorly with regard to weaning off the vent. Qualifiers: Hypotension type: hemodialysis-associated hypotension Qualified Code(s): I95.3 - Hypotension of hemodialysis (5) Goals of care, counseling/discussion Current Visit: No Status: Acute Assessment and plan: The family is not present today, the patient continues to be a full code. Notes the family seems to be pro-trach at this time. I have discussed the case with nephrology L as reviewed the ENT notes she has a very dim view of continued dialysis for this patient. Believe this is primarily a pediatric type palliative case with the family so much invested in the patient that it is difficult for them to see a big picture. I recommend small steps. However the patient is been on the ventilator long enough that he came very small steps may not be feasible. - Time Spent With Patient Total time spent is greater than 50% in coordination of care (as documented) at patient's floor/unit and/or counseling patient: - Subjective Interval history: The patient has required going up on the levo fed, well as the oxygen to 70%. She is sedated on vent. He was able to get fed turndown yesterday, however she has had to go back up on it. He needs to be on 70% oxygen and 10 of PEEP. - Constitutional Vitals: Abnormal lab results WBC 20.5 K/mcL (4.3-11.1) H 06/23/16 03:16 RBC 2.58 M/mcL (3.82-4.97) L 06/23/16 03:16 Hgb 8.0 g/dL (11.5-15.4) L D 06/23/16 03:16 Hct 24.9 % (35.3-44.9) L 06/23/16 03:16 RDW 16.6 % (11.5-14.5) H 06/23/16 03:16 Immature Gran % 4.2 % (0-4) H 06/16/16 03:15 Band Neutrophils % 30.0 % (0-4) H 06/23/16 03:16 Metamyelocytes % 6.0 % (0) H 06/21/16 03:12 Myelocytes % 4.0 % (0) H 06/23/16 03:16 Neutrophils # 13.9 K/mcL (1.6-8.9) H 06/23/16 03:16 Monocytes # 1.6 K/mcL (0.0-1.3) H 06/23/16 03:16 Basophils # 0.4 K/mcL (0.0-0.2) H 06/23/16 03:16 Nucleated RBCs/100 WBC 0.4 /100 WBC (0) H 06/23/16 03:16 Reactive Lymphocytes Present (Not Present) A 06/22/16 04:00 Smudge Cells Present (Not Present) A 06/20/16 17:30 Large Platelets Present (Not Present) A 06/21/16 03:12 Immature Plt Fraction 6.4 % (1.1-6.1) H 06/23/16 03:16 Polychromasia 1+ (Not Present) A 06/21/16 03:12 Poikilocytosis 1+ (Not Present) A 06/17/16 03:40 Basophilic Stippling 2+ (Not Present) A 06/14/16 03:45 Anisocytosis 1+ (Not Present) A 06/20/16 04:20 Macrocytosis Present (Not Present) A 06/19/16 03:15 PT 12.9 Seconds (9.4-12.1) H 06/07/16 06:22 ABG pCO2 58 mmHg (35-45) H 06/23/16 05:07 ABG pO2 60 mmHg (85-104) L 06/23/16 05:07 ABG HCO3 29.9 mEQ/L (21-27) H 06/23/16 05:07 ABG Total CO2 31.7 mEq/L (20-26) H 06/23/16 05:07 ABG O2 Saturation 88 % (95-98) L 06/23/16 05:07 ABG Base Excess 3.1 mEq/L (-2.0 to 3.0) H 06/23/16 05:07 VBG pH 7.48 pH Units (7.32-7.42) H 06/05/16 06:06 VBG pCO2 37 mmHg (41-51) L 06/05/16 06:06 VBG pO2 167 mmHg (25-40) H 06/05/16 06:06 VBG HCO3 27.6 mEq/L (21-27) H 06/05/16 06:06 Creatinine 1.24 mg/dL (0.57-1.11) H 06/23/16 03:16 Est GFR (Non-Af Amer) 50 (> 60) L 06/23/16 03:16 Glucose 163 mg/dL (70-99) H 06/23/16 03:16 POC Glucose 196 (58-89) H 06/23/16 05:45 Uric Acid 6.6 mg/dL (2.6-6.0) H 06/15/16 17:20 Calcium 8.2 mg/dL (8.6-10.8) L 06/23/16 03:16 AST 39 Units/L (5-34) H 06/21/16 08:15 Serum Total Protein 5.4 g/dL (6.0-8.3) L 06/21/16 08:15 Albumin 1.5 g/dL (3.5-5.0) L 06/21/16 08:15 Globulin 3.9 g/dL (2.4-3.5) H 06/21/16 08:15 Albumin/Globulin Ratio 0.4 (1.1-2.2) L 06/21/16 08:15 Ur Specimen Adequacy See below A 06/16/16 17:49 Urine Clarity Turbid (Clear) A 06/20/16 13:00 Urine Protein 100 mg/dL (Neg-Trace) H 06/20/16 13:00 Urine Blood Large (Negative) H 06/20/16 13:00 Ur Leukocyte Esterase Small (Negative) H 06/20/16 13:00 Urine Microscopic RBC 15-30 per hpf (0-3) H 06/20/16 13:00 Urine Microscopic WBC 50-100 per hpf (0-3) H 06/20/16 13:00 Ur Squamous Epith Cells Many per lpf (None-Few) H 06/20/16 13:00 Amorphous Sediment Many (Few) H 06/20/16 13:00 Urine Mucus Moderate (Few) H 06/20/16 13:00 Ur Culture Indicated? YES (NO) A 06/20/16 13:00 Human Metapneumovirus DETECTED (Not Detect) A 06/07/16 16:05 General appearance: Present: no acute distress - Eye Eye exam: Present: normal appearance - Respiratory Respiratory exam: Present: decreased breath sounds, rhonchi - Cardiovascular Cardiovascular exam: Present: RRR, tachycardia - GI/Abdominal GI/Abdominal exam: Present: hypoactive bowel sounds, soft. Absent: tenderness - Extremities Exam Extremities exam: Present: pedal edema - Neurological Exam Neurological exam: Present: altered (Sedated on vent) - Psychiatric Psychiatric exam: Absent: agitated, anxious - Skin Skin exam: Present: dry, warm Palliative Quality Palliative Quality: Screen for Code Status: Yes, Screen for Goals of Care: Yes, Screen for Pain: NA (Patient is on is on pain regimen for vent), If Pain Regimen Started, Initiate Bowel Regimen: NA (Has meds ordered), Screen for Nausea/Vomitting: NA (None reported) - Labs CBC & Chem 7: 06/23/16 03:16 06/23/16 03:16 Labs: Laboratory Results - last 24 hr 06/22/16 06/22/16 06/22/16 06:03 11:00 12:12 WBC RBC Hgb Hct MCV MCH MCHC RDW Plt Count MPV Seg Neutrophils % Band Neutrophils % Lymphocytes % Monocytes % Eosinophils % Basophils % Myelocytes % Neutrophils # Lymphocytes # Monocytes # Eosinophils # Basophils # Nucleated RBCs/100 WBC Platelet Estimate Immature Plt Fraction ABG pH ABG pCO2 ABG pO2 ABG HCO3 ABG Total CO2 ABG O2 Saturation ABG Base Excess Blood Gas Modality Inspired O2 Sodium Potassium Chloride Carbon Dioxide BUN Creatinine Est GFR ( Amer) Est GFR (Non-Af Amer) BUN/Creatinine Ratio Glucose POC Glucose 217 H 202 H Calculated Osmolality Calcium Ionized Calcium Phosphorus Magnesium Random Vancomycin Blood Type A POSITIVE Antibody Screen NEGATIVE Crossmatch See Detail 06/22/16 06/23/16 06/23/16 17:33 00:16 03:16 WBC 20.5 H RBC 2.58 L Hgb 8.0 L D Hct 24.9 L MCV 96.5 MCH 31.0 MCHC 32.1 RDW 16.6 H Plt Count 346 MPV 9.8 Seg Neutrophils % 38.0 Band Neutrophils % 30.0 H Lymphocytes % 16.0 Monocytes % 8.0 Eosinophils % 2.0 Basophils % 2.0 Myelocytes % 4.0 H Neutrophils # 13.9 H Lymphocytes # 3.3 Monocytes # 1.6 H Eosinophils # 0.4 Basophils # 0.4 H Nucleated RBCs/100 WBC 0.4 H Platelet Estimate Normal Immature Plt Fraction 6.4 H ABG pH ABG pCO2 ABG pO2 ABG HCO3 ABG Total CO2 ABG O2 Saturation ABG Base Excess Blood Gas Modality Inspired O2 Sodium Potassium Chloride Carbon Dioxide BUN Creatinine Est GFR ( Amer) Est GFR (Non-Af Amer) BUN/Creatinine Ratio Glucose POC Glucose 139 H 155 H Calculated Osmolality Calcium Ionized Calcium Phosphorus Magnesium Random Vancomycin Blood Type Antibody Screen Crossmatch 06/23/16 06/23/16 06/23/16 03:16 03:16 05:07 WBC RBC Hgb Hct MCV MCH MCHC RDW Plt Count MPV Seg Neutrophils % Band Neutrophils % Lymphocytes % Monocytes % Eosinophils % Basophils % Myelocytes % Neutrophils # Lymphocytes # Monocytes # Eosinophils # Basophils # Nucleated RBCs/100 WBC Platelet Estimate Immature Plt Fraction ABG pH 7.32 ABG pCO2 58 H ABG pO2 60 L ABG HCO3 29.9 H ABG Total CO2 31.7 H ABG O2 Saturation 88 L ABG Base Excess 3.1 H Blood Gas Modality VC Inspired O2 70 Sodium 136 Potassium 3.9 Chloride 104 Carbon Dioxide 25 BUN 19 Creatinine 1.24 H Est GFR ( Amer) > 60 Est GFR (Non-Af Amer) 50 L BUN/Creatinine Ratio 15 Glucose 163 H POC Glucose Calculated Osmolality 288 Calcium 8.2 L Ionized Calcium 1.18 Phosphorus 2.3 Magnesium 1.7 Random Vancomycin 17.3 Blood Type Antibody Screen Crossmatch 06/23/16 05:45 WBC RBC Hgb Hct MCV MCH MCHC RDW Plt Count MPV Seg Neutrophils % Band Neutrophils % Lymphocytes % Monocytes % Eosinophils % Basophils % Myelocytes % Neutrophils # Lymphocytes # Monocytes # Eosinophils # Basophils # Nucleated RBCs/100 WBC Platelet Estimate Immature Plt Fraction ABG pH ABG pCO2 ABG pO2 ABG HCO3 ABG Total CO2 ABG O2 Saturation ABG Base Excess Blood Gas Modality Inspired O2 Sodium Potassium Chloride Carbon Dioxide BUN Creatinine Est GFR ( Amer) Est GFR (Non-Af Amer) BUN/Creatinine Ratio Glucose POC Glucose 196 H Calculated Osmolality Calcium Ionized Calcium Phosphorus Magnesium Random Vancomycin Blood Type Antibody Screen Crossmatch - ABG Interpretation ABG results: ABG ABG pH 7.32 pH Units (7.32-7.45) 06/23/16 05:07 ABG pCO2 58 mmHg (35-45) H 06/23/16 05:07 ABG pO2 60 mmHg (85-104) L 06/23/16 05:07 ABG O2 Saturation 88 % (95-98) L 06/23/16 05:07 PT/INR, D-dimer PT 12.9 Seconds (9.4-12.1) H 06/07/16 06:22 Consult Discharge Plan - Plan Referrals: Manish Sheth MD [Primary Care Provider] -
[2016-06-23] MEDS: Chlorhexidine Rinse 15 ML MOUTHWASH MM SCH ×2 (08:49→19:40)
[2016-06-23] MEDS: Valproic Acid INJ 500 MG in 0.9 % Sodium Chloride 100 ML IVPB SCH ×2 (08:50→19:42)
[2016-06-23] MEDS: Multivit/Ca/Min/Fe/FA 1 TAB TABLET PO SCH (08:50)
[2016-06-23] MEDS: Pantoprazole 40 MG VIAL IVPB SCH (08:50)
[2016-06-23] MEDS: Lacri-Lube 3.5 GM TUBE BOTH EYES SCH ×2 (08:51→19:09)
[2016-06-23] MEDS: Vitamin B Complex/Vit C/Vit E 1 EACH TABLET PO SCH (08:51)
[2016-06-23] MEDS: Silvasorb 44.4 ML TUBE TP SCH (19:00)
[2016-06-23] MEDS: Midazolam HCl 100 MG in 0.9 % Sodium Chloride 80 ML IVC SCH ×2 (19:05)
[2016-06-24] MEDS: Ipratropium/Albuterol Neb 3 ML IH SCH ×5 (00:29→15:53)
[2016-06-24] MEDS: MetroNIDAZOLE 500 MG/100 ML 500 MG/100 ML BAG IVPB SCH ×2 (01:33→08:32)
[2016-06-24] MEDS: Insulin LISPRO 300 UNITS/3 ML VIAL SQ SCH ×3 (01:34→12:44)
[2016-06-24] MEDS: PrismaSATE BGK 4/2.5 5,000 ML CRRT SCH ×9 (01:35→13:47)
[2016-06-24] MEDS: 0.9 % Sodium Chloride 1,000 ML PRIME SCH (04:22)
[2016-06-24 05:09] LABS: ABG Base Excess 2.4 mEq/L (-2.0 to 3.0); ABG HCO3 28.6 mEQ/L (21-27); ABG Oxygen Saturation 86 % (95-98); ABG PCO2 53 mmHg (35-45); ABG PH 7.34 pH Units (7.32-7.45); ABG PO2 55 mmHg (85-104); ABG TCO2 30.2 mEq/L (20-26)
[2016-06-24 05:10] LABS: Blood Gas FiO2 80 %
[2016-06-24 05:13] LABS: Ionized Calcium 1.19 mmol/L (1.15-1.35); Mean Corpuscular HGB Conc 31.8 g/dL (31.6-35.5)
[2016-06-24 05:15] LABS: Hematocrit 23.9 % (35.3-44.9); Hemoglobin 7.6 g/dL (11.5-15.4); Mean Corpuscular Hemoglobin 31.4 pg (28.0-33.3); Mean Corpuscular Volume 98.8 fL (83.0-100.0); Mean Platelet Volume 10.2 fL (9.4-12.4); Nucleated Red Blood Cells 0.6 /100 WBC (0); Platelet Count 288 K/mcL (140-400); Red Blood Count 2.42 M/mcL (3.82-4.97)
[2016-06-24] MEDS: *HR* Heparin 5,000 UNIT/ML VIAL SQ SCH (05:16)
[2016-06-24] MEDS: Cefepime HCl 1,000 MG in D5% in Water (Mini-Bag+) 100 ML IVPB SCH (05:17)
[2016-06-24 05:21] LABS: BUN/Creatinine Ratio 16 (6-26); Blood Urea Nitrogen 20 mg/dL (7-20); Calcium 8.5 mg/dL (8.6-10.8); Carbon Dioxide 26 mEq/L (19-29); Chloride 104 mEq/L (98-109); Glucose 154 mg/dL (70-99); Magnesium 2.1 mg/dL (1.6-2.6); Osmolality,Calculated 288 (280-300); Phosphorous 2.5 mg/dL (2.3-4.7); Potassium 4.5 mEq/L (3.5-4.5); Sodium 136 mEq/L (136-145); eGFR For African Americans > 60 (> 60); eGFR For Non-African Americans 50 (> 60)
[2016-06-24] MEDS: Levothyroxine Sodium 100 MCG VIAL IV SCH (05:21)
[2016-06-24 05:40] LABS: Anisocytosis 1+ (Not Present); Eosinophils # 0.8 K/mcL (0.0-0.6); Large Platelets Present (Not Present); Lymphocytes # 2.1 K/mcL (0.6-4.6); Macrocytosis Present (Not Present); Monocytes # 1.6 K/mcL (0.0-1.3); Neutrophils # 20.6 K/mcL (1.6-8.9); Platelet Estimate Normal (Normal); Reactive Lymphocytes Present (Not Present)
[2016-06-24 05:41] LABS: Polychromasia 1+ (Not Present)
[2016-06-24] MEDS: Dexmedetomidine HCl 400 MCG/100 ML MLS IVC SCH ×2 (06:00→13:47)
[2016-06-24] MEDS ORDERED: *HR* Heparin 5,000 UNIT/ML VIAL ONE (07:17)
--- NOTE | 2016-06-24 07:53 | Pulmonology Progress Note ---
<GoldsteinLizabeth - Last Filed: 06/24/16 15:40> Date of Encounter: 06/24/16 Time of Encounter: 07:48 Assessment and Plan (1) Sepsis Current Visit: Yes Status: Suspected Continues to meet SIRS criteria. Tachypneic and tachycardic overnight. Hypothermia improved, Tmax 99.7 overnight WBC increasing 20.8 > 21.3 > 20.5 > 26.7 Source of infection is unclear - concerns include secondary bacterial pneumonia , UTI, DVT, cholecystitis, line or skin infection Urine, blood, sputum and line cultures sent - all negative to date Urine analysis with +LE and lots of WBC, also contaminated - due to concern for possible UTI, patient was started on Cefepime (day 5) No change in sputum production or color Worsening diarrhea. Abdominal exam soft and non-distended. Unable to further evaluate abdominal source as patient is not stable enough for CT scan Will broaden antibiotics. Stop cefepime and flagyl. Start meropenem and continue vancomycin. Consult placed to ID for further recommendations With new diarrhea overnight, will send c. diff Qualifiers: Sepsis type: sepsis due to unspecified organism Qualified Code(s): A41.9 - Sepsis, unspecified organism (2) Acute respiratory failure with hypoxia and hypercapnia Current Visit: Yes Status: Acute Acute respiratory failure secondary to viral pneumonia - (+) human metapneumovirus Culture negative on admission and initial antibiotics stopped - received 4 days of Zosyn and 3 days of cefepime for a total of 7 days Intubated 06/08/2016 (day 17) High vent settings: volume control + Rate 18, TV 300, FiO2 80%, PEEP 10 CXR today showed worsening diffuse opacities Last ABG 7.34/pCO2 53/pO2 55/HCO3 28.6/2.4 Working to pull of fluid with CVVH in hopes that patient's would improve - despite removing significant amounts of fluid, patient continues to require high vent settings and we have been unsuccessful ENT consult to discuss tracheostomy due to prolonged intubation - discussed with family that this would be a difficulty trach due to anatomy, family is still seriously considering trach Continue ARDS ventilator protocol and wean vent settings as tolerated Continue suction and duonebs every 4 hours scheduled (3) ARDS (adult respiratory distress syndrome) Current Visit: Yes Status: Acute Acute respiratory distress syndrome Continues to require high vent settings - FiO2 of 80% and PEEP 10 CXR showed diffuse worsening opacities Continue with ARDS protocol for ventilation and wean as tolerated (4) Viral pneumonia Current Visit: Yes Status: Acute ARDS and acute respiratory failure secondary to viral pneumonia (+) human metapneumovirus Sputum cultures on admission and repeat sputum cultures negative (5) Hypotension Current Visit: Yes Status: Acute Persistent hypotension likely secondary to overall illness as well as pulling off fluid with CVVH Vasopressors were turned off last night however levophed was restarted this morning to maintain MAP A-line placement was unsuccessful because of patient's difficult anatomy Continue to monitor patient's blood pressure and titrate vasopressors as needed Qualifiers: Hypotension type: hemodialysis-associated hypotension Qualified Code(s): I95.3 - Hypotension of hemodialysis (6) TANNER (acute kidney injury) Current Visit: Yes Status: Acute Nonoliguric azotemia secondary to acute respiratory failure Nephrology consulted CVVH running - (-)710mL yesterday Creatinine has improved overall - stable at 1.25 today Continue CVVH. Monitor kidney function and urine output (7) Colitis Current Visit: Yes Status: Acute CT abdomen/pelvis 06/12/2016 showed thickening of the cecum and ascending colon suggestive of colitis C. diff toxin negative Currently on Flagyl (day 13) Rectal tube removed yesterday. However patient had several episodes of diarrhea overnight. Abdomen soft, non-tender, non-distended. Continue to monitor vital signs, WBC, fecal output and serial abdominal exams (8) Anemia Current Visit: Yes Status: Acute Required 2 units pRBCs 06/22/2016 for hemoglobin of 6.4 with appropriate response to hemoglobin of 8. Today Hgb 7.6 Cause of anemia is likely multifactoral secondary to blood draws, nathan, and overal fluid status. No signs of active bleeding. Continue to trend H/H Qualifiers: Anemia type: unspecified type Qualified Code(s): D64.9 - Anemia, unspecified (9) Hypoalbuminemia Current Visit: Yes Status: Acute Albumin 1.4. Nutrition consulted. Tube feeds at goal of 55ml/hr, minimal residuals (10) Down syndrome Current Visit: Yes Status: Chronic (11) Bed sore on buttock Current Visit: Yes Status: Acute Multiple stage 2 on buttocks and back Consult placed to wound care nurse Continue ICU skin protocol Qualifiers: Pressure ulcer stage: stage 2 Laterality: unspecified laterality Qualified Code(s): L89.302 - Pressure ulcer of unspecified buttock, stage 2 (12) DVT prophylaxis Current Visit: Yes Status: Acute Heparin and foot pumps. Neuro: - Intubated & sedated with versed, fentanyl and precedex. Titrate as needed based on vitals and needed sedation. - Celexa, and Valproic Acid for mood modulation Pulm: Acute respiratory failure secondary to viral pneumonia, intubated day 17 - CXR today showed worsening diffuse opacities - Vent settings TV300, PEEP 10, FiO2 of 80% - continue ARDS protocol and wean as tolerated - Sputum culture on admission negative. Sputum culture 06/20/2016 negative - Consult placed to ENT for discussion of trach placement - Continue duoneb every 4 hours scheduled Cardiac: - Persistent hypotension requiring levophed to maintain MAP >60. GI/fluids/electrolytes/hydration/GI ppx - OG tube in place with feeds at goal of 55ml/hr, minimal residuals - Stop Flagyl today - total of 13 days - Abdomen soft, non-tender - Rectal tube removed yesterday, diarrhea overnight - send c. diff - CVVH - Yesterday -700mL - Protonix ppx Renal: Acute kidney injury - CVVH - Yesterday -700L - UA with leukocyte esterase and WBC - Stop Cefepime (day 4) ID: + human metapneumovirus - Initial blood cultures negative and urine cultures negative - Patient received total of 7 days of respiratory antibiotics (3 days of zosyn and 4 days of cefipime) - WBC increasing with hypothermia, tachycardia and tachypnea. CXR with no signs of consolidation, urine/sputum/blood cultures pending. Will monitor lines , abdominal exam and vitals - Repeat cultures urine, sputum, lines and blood all negative - Stop flagyl (day 13) and cefepime (day 4) - Continue vancomycin (day 4) and broaden with meropenem Heme/Onc: - Hemoglobin stable at 7.6 - Required 2 units pRBC on 06/22/2016 for Hgb 6.4 - DVT prophylaxis - heparin and foot pumps Endocrine: - Insulin sliding scale, blood sugars a goal <180 Lines: - Endotrachial tube - OG tube - Right internal jugular - Reed catheter - Right internal jugular dialysis catheter Subjective Principal diagnosis: Acute respiratory failure, ARDS secondary community acquired pneumonia Interval history: Patient was off the levophed overnight, however it was restarted this morning due to low MAP. Increasing FiO2 requirements overnight to FiO2 of 80%. Patient desaturates with nursing care into the 70s. Rectal tube was taken out yesterday, however overnight patient had multiple episodes of diarrhea. Patient seen and examined this morning. She remains intubated (day 17) with high ventilator requirements - FiO2 of 80% and PEEP of 10. She will open eyes to voice and follow some commands. Diminished lung sounds on exam, some rhonchi , no wheezing noted. CXR today showed diffuse worsening of opacities. Abdomen is soft, non-tender, distention much improved. She continues to have significant BL lower extremity edema. Objective PUL Vital signs: Last Vital Signs Temp 97.7 F 06/24/16 04:00 Pulse 86 06/24/16 07:00 Resp 20 06/24/16 07:00 BP 76/40 06/24/16 07:00 Pulse Ox 95 06/24/16 07:00 General appearance: other (Intubated and sedated) Eyes: nonicteric ENT: oropharynx moist Effort: normal Auscultation: bilateral: diminished breath sounds, rhonchi Cardiovascular: regular rate and rhythm, other Gastrointestinal: soft, non-tender, non-distended Integumentary: decubitus ulcer (over back and buttocks) Extremities: no cyanosis, edema unable to assess due to mental status Ventilator Settings Ventilator Settings: Ventilator Settings, Last 8 Hours Ventilator Mode VC+ Ventilator Mode VC+ Ventilator Mode VC+ Ventilator Mode VC+ Ventilator Mode VC+ Ventilator Mode VC+ Ventilator Mode VC+ Ventilator Mode VC+ Ventilator Mode VC+ Ventilator Mode VC+ Ventilator Mode VC+ Ventilator Mode VC+ Ventilator Mode VC+ Ventilator Tidal Volume 300 Setting Ventilator Tidal Volume 300 Setting Ventilator Tidal Volume 300 Setting Ventilator Tidal Volume 300 Setting Ventilator Tidal Volume 300 Setting Ventilator Tidal Volume 300 Setting Ventilator Tidal Volume 300 Setting Ventilator Tidal Volume 300 Setting Ventilator Tidal Volume 300 Setting Ventilator Tidal Volume 300 Setting Ventilator Tidal Volume 300 Setting Ventilator Tidal Volume 300 Setting Ventilator Tidal Volume 300 Setting Ventilator Respiratory Rate 18 Setting Ventilator Respiratory Rate 18 Setting Ventilator Respiratory Rate 18 Setting Ventilator Respiratory Rate 18 Setting Ventilator Respiratory Rate 18 Setting Ventilator Respiratory Rate 18 Setting Ventilator Respiratory Rate 18 Setting Ventilator Respiratory Rate 18 Setting Ventilator Respiratory Rate 18 Setting Ventilator Respiratory Rate 18 Setting Ventilator Respiratory Rate 18 Setting Ventilator Respiratory Rate 18 Setting Ventilator Respiratory Rate 18 Setting Actual Respiratory Rate 20 Actual Respiratory Rate 20 Actual Respiratory Rate 22 Actual Respiratory Rate 26 Actual Respiratory Rate 22 Actual Respiratory Rate 18 Actual Respiratory Rate 30 Actual Respiratory Rate 24 Actual Respiratory Rate 21 Actual Respiratory Rate 30 Actual Respiratory Rate 19 Actual Respiratory Rate 26 Positive End Expiratory 10 Pressure Positive End Expiratory 10 Pressure Positive End Expiratory 10 Pressure Positive End Expiratory 10 Pressure Positive End Expiratory 10 Pressure Positive End Expiratory 10 Pressure Positive End Expiratory 10 Pressure Positive End Expiratory 10 Pressure Positive End Expiratory 10 Pressure Positive End Expiratory 10 Pressure Positive End Expiratory 10 Pressure Positive End Expiratory 10 Pressure Positive End Expiratory 10 Pressure Peak Inspiratory Airway 16 Pressure Peak Inspiratory Airway 17 Pressure Peak Inspiratory Airway 17 Pressure Peak Inspiratory Airway 20 Pressure Peak Inspiratory Airway 20 Pressure Peak Inspiratory Airway 22 Pressure Peak Inspiratory Airway 19 Pressure Peak Inspiratory Airway 16 Pressure Peak Inspiratory Airway 17 Pressure Peak Inspiratory Airway 19 Pressure Peak Inspiratory Airway 18 Pressure Peak Inspiratory Airway 14 Pressure Results - Laboratory Findings CBC and BMP: 06/24/16 05:00 06/24/16 05:00 ABG ABG pH 7.34 pH Units (7.32-7.45) 06/24/16 05:00 ABG pCO2 53 mmHg (35-45) H 06/24/16 05:00 ABG pO2 55 mmHg (85-104) L 06/24/16 05:00 ABG O2 Saturation 86 % (95-98) L 06/24/16 05:00 PT/INR, D-dimer PT 12.9 Seconds (9.4-12.1) H 06/07/16 06:22 Abnormal lab findings: Abnormal lab results WBC 26.7 K/mcL (4.3-11.1) H 06/24/16 05:00 RBC 2.42 M/mcL (3.82-4.97) L 06/24/16 05:00 Hgb 7.6 g/dL (11.5-15.4) L 06/24/16 05:00 Hct 23.9 % (35.3-44.9) L 06/24/16 05:00 RDW 17.0 % (11.5-14.5) H 06/24/16 05:00 Immature Gran % 4.2 % (0-4) H 06/16/16 03:15 Band Neutrophils % 11.0 % (0-4) H 06/24/16 05:00 Metamyelocytes % 2.0 % (0) H 06/24/16 05:00 Myelocytes % 4.0 % (0) H 06/24/16 05:00 Neutrophils # 20.6 K/mcL (1.6-8.9) H 06/24/16 05:00 Monocytes # 1.6 K/mcL (0.0-1.3) H 06/24/16 05:00 Eosinophils # 0.8 K/mcL (0.0-0.6) H 06/24/16 05:00 Basophils # 0.4 K/mcL (0.0-0.2) H 06/23/16 03:16 Nucleated RBCs/100 WBC 0.6 /100 WBC (0) H 06/24/16 05:00 Reactive Lymphocytes Present (Not Present) A 06/24/16 05:00 Smudge Cells Present (Not Present) A 06/20/16 17:30 Large Platelets Present (Not Present) A 06/24/16 05:00 Immature Plt Fraction 6.4 % (1.1-6.1) H 06/23/16 03:16 Polychromasia 1+ (Not Present) A 06/24/16 05:00 Poikilocytosis 1+ (Not Present) A 06/17/16 03:40 Basophilic Stippling 2+ (Not Present) A 06/14/16 03:45 Anisocytosis 1+ (Not Present) A 06/24/16 05:00 Macrocytosis Present (Not Present) A 06/24/16 05:00 PT 12.9 Seconds (9.4-12.1) H 06/07/16 06:22 ABG pCO2 53 mmHg (35-45) H 06/24/16 05:00 ABG pO2 55 mmHg (85-104) L 06/24/16 05:00 ABG HCO3 28.6 mEQ/L (21-27) H 06/24/16 05:00 ABG Total CO2 30.2 mEq/L (20-26) H 06/24/16 05:00 ABG O2 Saturation 86 % (95-98) L 06/24/16 05:00 VBG pH 7.48 pH Units (7.32-7.42) H 06/05/16 06:06 VBG pCO2 37 mmHg (41-51) L 06/05/16 06:06 VBG pO2 167 mmHg (25-40) H 06/05/16 06:06 VBG HCO3 27.6 mEq/L (21-27) H 06/05/16 06:06 Creatinine 1.25 mg/dL (0.57-1.11) H 06/24/16 05:00 Est GFR (Non-Af Amer) 50 (> 60) L 06/24/16 05:00 Glucose 154 mg/dL (70-99) H 06/24/16 05:00 POC Glucose 149 (58-89) H 06/24/16 05:08 Uric Acid 6.6 mg/dL (2.6-6.0) H 06/15/16 17:20 Calcium 8.5 mg/dL (8.6-10.8) L 06/24/16 05:00 AST 39 Units/L (5-34) H 06/21/16 08:15 Serum Total Protein 5.4 g/dL (6.0-8.3) L 06/21/16 08:15 Albumin 1.5 g/dL (3.5-5.0) L 06/21/16 08:15 Globulin 3.9 g/dL (2.4-3.5) H 06/21/16 08:15 Albumin/Globulin Ratio 0.4 (1.1-2.2) L 06/21/16 08:15 Ur Specimen Adequacy See below A 06/16/16 17:49 Urine Clarity Turbid (Clear) A 06/20/16 13:00 Urine Protein 100 mg/dL (Neg-Trace) H 06/20/16 13:00 Urine Blood Large (Negative) H 06/20/16 13:00 Ur Leukocyte Esterase Small (Negative) H 06/20/16 13:00 Urine Microscopic RBC 15-30 per hpf (0-3) H 06/20/16 13:00 Urine Microscopic WBC 50-100 per hpf (0-3) H 06/20/16 13:00 Ur Squamous Epith Cells Many per lpf (None-Few) H 06/20/16 13:00 Amorphous Sediment Many (Few) H 06/20/16 13:00 Urine Mucus Moderate (Few) H 06/20/16 13:00 Ur Culture Indicated? YES (NO) A 06/20/16 13:00 Human Metapneumovirus DETECTED (Not Detect) A 06/07/16 16:05 - Microbiology Findings Microbiology Findings: Microbiology, Last 48 Hours 06/20/16 15:20 Blood Culture - Preliminary Central Venous Catheter No growth. 06/20/16 11:50 Blood Culture - Preliminary Peripheral Venipuncture No growth. 06/20/16 11:45 Blood Culture - Preliminary Peripheral Venipuncture No growth. - Diagnostic Findings Chest x-ray: report reviewed, image reviewed - Clinical Findings Intake & Output: Intake & Output 06/23/16 06/23/16 06/24/16 15:59 23:59 07:59 Intake Total 998.6 / 998.6 947.6 / 947.6 740 / 740 Output Total 1402 / 1402 1177 / 1177 986 / 986 Balance -403.4 / -403.4 -229.4 / -229.4 -246 / -246 Weight 111.8 kg - VTE Documentation of Mechanical Device: Venous foot pump, device Consult Discharge Plan - Plan Referrals: Manish Sheth MD [Primary Care Provider] - <Hector Ignacio - Last Filed: 06/24/16 15:51> Date of Encounter: 06/24/16 Objective PUL Vital signs: Last Vital Signs Temp 97.9 F 06/24/16 08:00 Pulse 92 06/24/16 09:00 Resp 22 06/24/16 09:00 BP 107/92 06/24/16 09:00 Pulse Ox 92 06/24/16 09:00 Ventilator Settings Ventilator Settings: Ventilator Settings, Last 8 Hours Ventilator Mode VC+ Ventilator Mode VC+ Ventilator Mode VC+ Ventilator Mode VC+ Ventilator Mode VC+ Ventilator Mode VC+ Ventilator Mode VC+ Ventilator Mode VC+ Ventilator Mode VC+ Ventilator Mode VC+ Ventilator Mode VC+ Ventilator Mode VC+ Ventilator Tidal Volume 300 Setting Ventilator Tidal Volume 300 Setting Ventilator Tidal Volume 300 Setting Ventilator Tidal Volume 300 Setting Ventilator Tidal Volume 300 Setting Ventilator Tidal Volume 300 Setting Ventilator Tidal Volume 300 Setting Ventilator Tidal Volume 300 Setting Ventilator Tidal Volume 300 Setting Ventilator Tidal Volume 300 Setting Ventilator Tidal Volume 300 Setting Ventilator Tidal Volume 300 Setting Ventilator Respiratory Rate 18 Setting Ventilator Respiratory Rate 18 Setting Ventilator Respiratory Rate 18 Setting Ventilator Respiratory Rate 18 Setting Ventilator Respiratory Rate 18 Setting Ventilator Respiratory Rate 18 Setting Ventilator Respiratory Rate 18 Setting Ventilator Respiratory Rate 18 Setting Ventilator Respiratory Rate 18 Setting Ventilator Respiratory Rate 18 Setting Ventilator Respiratory Rate 18 Setting Ventilator Respiratory Rate 18 Setting Actual Respiratory Rate 22 Actual Respiratory Rate 22 Actual Respiratory Rate 20 Actual Respiratory Rate 20 Actual Respiratory Rate 22 Actual Respiratory Rate 26 Actual Respiratory Rate 22 Actual Respiratory Rate 18 Actual Respiratory Rate 30 Actual Respiratory Rate 24 Actual Respiratory Rate 21 Positive End Expiratory 10 Pressure Positive End Expiratory 10 Pressure Positive End Expiratory 10 Pressure Positive End Expiratory 10 Pressure Positive End Expiratory 10 Pressure Positive End Expiratory 10 Pressure Positive End Expiratory 10 Pressure Positive End Expiratory 10 Pressure Positive End Expiratory 10 Pressure Positive End Expiratory 10 Pressure Positive End Expiratory 10 Pressure Positive End Expiratory 10 Pressure Peak Inspiratory Airway 18 Pressure Peak Inspiratory Airway 22 Pressure Peak Inspiratory Airway 16 Pressure Peak Inspiratory Airway 17 Pressure Peak Inspiratory Airway 17 Pressure Peak Inspiratory Airway 20 Pressure Peak Inspiratory Airway 20 Pressure Peak Inspiratory Airway 22 Pressure Peak Inspiratory Airway 19 Pressure Peak Inspiratory Airway 16 Pressure Peak Inspiratory Airway 17 Pressure Results - Laboratory Findings CBC and BMP: 06/24/16 05:00 06/24/16 05:00 ABG ABG pH 7.34 pH Units (7.32-7.45) 06/24/16 05:00 ABG pCO2 53 mmHg (35-45) H 06/24/16 05:00 ABG pO2 55 mmHg (85-104) L 06/24/16 05:00 ABG O2 Saturation 86 % (95-98) L 06/24/16 05:00 PT/INR, D-dimer PT 12.9 Seconds (9.4-12.1) H 06/07/16 06:22 Abnormal lab findings: Abnormal lab results WBC 26.7 K/mcL (4.3-11.1) H 06/24/16 05:00 RBC 2.42 M/mcL (3.82-4.97) L 06/24/16 05:00 Hgb 7.6 g/dL (11.5-15.4) L 06/24/16 05:00 Hct 23.9 % (35.3-44.9) L 06/24/16 05:00 RDW 17.0 % (11.5-14.5) H 06/24/16 05:00 Immature Gran % 4.2 % (0-4) H 06/16/16 03:15 Band Neutrophils % 11.0 % (0-4) H 06/24/16 05:00 Metamyelocytes % 2.0 % (0) H 06/24/16 05:00 Myelocytes % 4.0 % (0) H 06/24/16 05:00 Neutrophils # 20.6 K/mcL (1.6-8.9) H 06/24/16 05:00 Monocytes # 1.6 K/mcL (0.0-1.3) H 06/24/16 05:00 Eosinophils # 0.8 K/mcL (0.0-0.6) H 06/24/16 05:00 Basophils # 0.4 K/mcL (0.0-0.2) H 06/23/16 03:16 Nucleated RBCs/100 WBC 0.6 /100 WBC (0) H 06/24/16 05:00 Reactive Lymphocytes Present (Not Present) A 06/24/16 05:00 Smudge Cells Present (Not Present) A 06/20/16 17:30 Large Platelets Present (Not Present) A 06/24/16 05:00 Immature Plt Fraction 6.4 % (1.1-6.1) H 06/23/16 03:16 Polychromasia 1+ (Not Present) A 06/24/16 05:00 Poikilocytosis 1+ (Not Present) A 06/17/16 03:40 Basophilic Stippling 2+ (Not Present) A 06/14/16 03:45 Anisocytosis 1+ (Not Present) A 06/24/16 05:00 Macrocytosis Present (Not Present) A 06/24/16 05:00 PT 12.9 Seconds (9.4-12.1) H 06/07/16 06:22 ABG pCO2 53 mmHg (35-45) H 06/24/16 05:00 ABG pO2 55 mmHg (85-104) L 06/24/16 05:00 ABG HCO3 28.6 mEQ/L (21-27) H 06/24/16 05:00 ABG Total CO2 30.2 mEq/L (20-26) H 06/24/16 05:00 ABG O2 Saturation 86 % (95-98) L 06/24/16 05:00 VBG pH 7.48 pH Units (7.32-7.42) H 06/05/16 06:06 VBG pCO2 37 mmHg (41-51) L 06/05/16 06:06 VBG pO2 167 mmHg (25-40) H 06/05/16 06:06 VBG HCO3 27.6 mEq/L (21-27) H 06/05/16 06:06 Creatinine 1.25 mg/dL (0.57-1.11) H 06/24/16 05:00 Est GFR (Non-Af Amer) 50 (> 60) L 06/24/16 05:00 Glucose 154 mg/dL (70-99) H 06/24/16 05:00 POC Glucose 149 (58-89) H 06/24/16 05:08 Uric Acid 6.6 mg/dL (2.6-6.0) H 06/15/16 17:20 Calcium 8.5 mg/dL (8.6-10.8) L 06/24/16 05:00 AST 39 Units/L (5-34) H 06/21/16 08:15 Serum Total Protein 5.4 g/dL (6.0-8.3) L 06/21/16 08:15 Albumin 1.5 g/dL (3.5-5.0) L 06/21/16 08:15 Globulin 3.9 g/dL (2.4-3.5) H 06/21/16 08:15 Albumin/Globulin Ratio 0.4 (1.1-2.2) L 06/21/16 08:15 Ur Specimen Adequacy See below A 06/16/16 17:49 Urine Clarity Turbid (Clear) A 06/20/16 13:00 Urine Protein 100 mg/dL (Neg-Trace) H 06/20/16 13:00 Urine Blood Large (Negative) H 06/20/16 13:00 Ur Leukocyte Esterase Small (Negative) H 06/20/16 13:00 Urine Microscopic RBC 15-30 per hpf (0-3) H 06/20/16 13:00 Urine Microscopic WBC 50-100 per hpf (0-3) H 06/20/16 13:00 Ur Squamous Epith Cells Many per lpf (None-Few) H 06/20/16 13:00 Amorphous Sediment Many (Few) H 06/20/16 13:00 Urine Mucus Moderate (Few) H 06/20/16 13:00 Ur Culture Indicated? YES (NO) A 06/20/16 13:00 Human Metapneumovirus DETECTED (Not Detect) A 06/07/16 16:05 - Microbiology Findings Microbiology Findings: Microbiology, Last 48 Hours 06/20/16 15:20 Blood Culture - Preliminary Central Venous Catheter No growth. 06/20/16 11:50 Blood Culture - Preliminary Peripheral Venipuncture No growth. 06/20/16 11:45 Blood Culture - Preliminary Peripheral Venipuncture No growth. - Clinical Findings Intake & Output: Intake & Output 06/23/16 06/24/16 06/24/16 23:59 07:59 15:59 Intake Total 947.6 / 947.6 740 / 740 112 / 112 Output Total 1177 / 1177 986 / 986 0 / 0 Balance -229.4 / -229.4 -246 / -246 112 / 112 Weight 111.8 kg - Attending Attestation I examined this patient and my medical decision-making was reviewed with the MARKETING OPERATIONS CONSULTANT/PA/Advanced Practice Nurse/Resident Physician. I agree with the documented findings, disposition and treatment plan as described except to the extent set forth below. I spent 35min of Critical Care time with this patient. It involved decision making of high complexity to assess, manipulate, and support vital organ system failure and/or to prevent further life threatening deterioration of the patient' s condition. The time involved in the performance of separately reportable procedures was not counted toward critical care time. Patient seen and examined at bedside Labs, radiology, chart personally reviewed. All lines examined without evidence of infection. Neuropsych: sedated on vent. but opens eyes to voice. PERRL, moves all extremities when sedation lifted, cont daily sedation holiday. Pulm: Persistent hypoxic hypercarbic respiratory failure with ARDS (likely fibrotic stage) still requiring high FiO2 delivery we are attempting to take fluid removal via CVVH to improve respiratory mechanics goal PaO2 >55. Titrate PEEP per ARDSnet low PEEP ladder. cont LTV strategy. Cards: remains hypotensive likely combination of ongoing sepsis, complicated by CVVH, Titrate vasopressor for goal MAP 60 FEN-GI: cont enteral nutrition; GI prophylaxis given Renal: oliguric TANNER requiring COVERED BUTTON MAKER cont daily renal function panel and replace lytes per protocol ID: worsening leuckocytosis, possibly secondary to sacral decubitus versus pneumonia versus CLABSI. She has been treated for non ci diff colitis will stop falgyl today. broaden to Meropenem cont Vanc. Cultures thus far negative. Heme/Onc: DVT prophylaxis given Endo: glucose monitored Integ/MSK: sacral ducubitus ulcer noted cont wound care per ICU protocol CODE: Full Code. Overall prognosis very poor. We had a meeting today including wage conciliator palliative care bedside ICU nurse the patient's mother and father were also her medical decision makers in that meeting wage conciliator expressed that she did not want to proceed with tracheostomy given risk-benefit ratio in this patient with Trisomy 21 without 24 hour ENT monitoring. I explained that over the last 2 weeks patient had deteriorated and continues on full life support and that myself and prior attending physician Dr. Harry opinion is that palliative care/comfort measures should be pursued in this patient and that placement of tracheostomy or PEG tube for enteral feedings is likely to result in constant agitation of the patient and may be unsafe. While the family appreciated my recommendations for comfort measures they have elected to seek a second opinion at an outside facility where 24-hour ENT coverage could be offered if tracheostomies pursued along with formal infectious disease evaluation for persistent leukocytosis all questions were answered
--- NOTE | 2016-06-24 08:01 | Nephrology Progress Note ---
Date of Encounter: 06/24/16 Time of Encounter: 07:59 - Assessment and Plan (1) TANNER (acute kidney injury) Current Visit: Yes Status: Acute The patient has oliguric acute kidney injury. She shows no signs of improvement. She continues on CVVH with a net negative fluid loss of 50 mL per hour. Electrolyte balance and acid base balance are satisfactory. From a pulmonary perspective she shows no signs of improvement. Overall prognosis is poor. (2) Multifocal pneumonia Current Visit: Yes Status: Acute (3) Sepsis Current Visit: Yes Status: Suspected Qualifiers: Sepsis type: sepsis due to unspecified organism Qualified Code(s): A41.9 - Sepsis, unspecified organism (4) ARDS (adult respiratory distress syndrome) Current Visit: Yes Status: Acute Subjective Principal diagnosis: Acute respiratory failure, ARDS secondary community acquired pneumonia Interval history: The patient remains critically ill. She has only Durick acute kidney injury. She continues on CVVH with a net negative fluid loss of 50 mL per hour. From a pulmonary perspective she has not improved. She continues to have high oxygen requirements. She is on low-dose levo fed for blood pressure support. Objective - Vital Signs Vital signs: Vital Signs Temp Pulse Resp BP Pulse Ox 06/24/16 07:48 86 06/24/16 07:00 86 20 76/40 95 06/24/16 06:00 92 20 87/53 91 06/24/16 05:00 118 26 115/71 90 06/24/16 04:06 19 118/57 97 06/24/16 04:00 97.7 F 104 18 118/57 90 06/24/16 03:00 116 30 88/54 89 06/24/16 02:00 99 24 85/48 96 06/24/16 01:53 22 95/59 96 06/24/16 01:00 106 30 95/50 93 06/24/16 00:20 23 110/63 84 06/24/16 00:00 98.0 F 112 26 110/63 91 06/23/16 23:00 116 22 108/57 94 06/23/16 22:15 26 97/76 88 06/23/16 22:00 120 24 97/76 88 06/23/16 21:00 112 20 124/68 91 06/23/16 20:00 99.7 F H 120 24 95/66 89 06/23/16 19:48 21 107/57 92 06/23/16 19:00 118 24 109/60 90 06/23/16 18:00 112 22 92/37 92 06/23/16 17:11 19 88/40 96 06/23/16 17:00 108 21 88/40 94 06/23/16 16:00 99.6 F 118 22 91/34 92 06/23/16 15:32 27 88/40 94 06/23/16 15:00 120 22 104/53 92 06/23/16 14:00 128 21 117/61 92 06/23/16 13:07 25 120/75 93 06/23/16 13:00 130 25 122/68 93 06/23/16 12:00 98.6 F 131 23 120/75 92 06/23/16 11:14 26 120/75 93 06/23/16 11:00 129 22 121/79 94 06/23/16 10:00 119 21 108/67 93 06/23/16 09:21 20 105/69 93 06/23/16 09:00 101 22 105/69 93 06/23/16 08:00 109 23 104/52 93 Intake and Output 06/23/16 06/23/16 06/24/16 15:59 23:59 07:59 Intake Total 998.6 / 998.6 947.6 / 947.6 740 / 740 Output Total 1402 / 1402 1177 / 1177 986 / 986 Balance -403.4 / -403.4 -229.4 / -229.4 -246 / -246 Intake: IV Fluids 564.6 / 564.6 519.6 / 519.6 355 / 355 PRECEDEX 400 mcg In 100 26 / 26 121.3 / 121.3 100 / 100 ml @ 0.2 MCG/KG/HR 5.18 mls/hr IVC .[id number] [facility] Rx#:[id number] FentaNYL (PF) 1,000 MCG 93.3 / 93.3 55 / 55 In 0.9 % Sodium Chloride 80 ML @ 50 MCG/HR 5 mls/ hr IVC CONT [facility] Rx#: [id number] Versed 100 MG In 0.9 % 0 / 0 Sodium Chloride 80 ML @ 2 MG/HR 2 mls/hr IVC CONT [facility] Rx#:[id number] Levophed 4 MG In Dextrose 83.6 / 83.6 0 / 0 5% 250 ML @ 5 MCG/MIN 18 .75 mls/hr IVC CONT [facility] Rx#:[id number] Maxipime 1,000 MG In 100 / 100 100 / 100 Dextrose 5% (Minibag+) 100 ML 100 ML @ 200 mls/ hr IVPB Q12HR [facility] Rx#: [id number] Flagyl Premix 500 MG/100 100 / 100 100 / 100 100 / 100 ML 500 mg In 100 ml @ 100 mls/hr IVPB Q8HR [facility] Rx# :[id number] Depacon 500 MG In 0.9 % 105 / 105 105 / 105 Sodium Chloride 100 ML @ 105 mls/hr IVPB Q12H [facility] Rx#:[id number] Vancocin 1,250 MG In 250 / 250 Dextrose 5% 250 ML @ 166. 667 mls/hr IVPB ONCE ONE Rx#:[id number] Tube Feeding 434 / 434 428 / 428 385 / 385 Output: Urine 0 / 0 0 / 0 0 / 0 Urethral (Reed) 0 / 0 0 / 0 0 / 0 Stool 150 / 150 Katina 1320 / 1320 1028 / 1028 761 / 761 Catheter 82 / 82 149 / 149 75 / 75 Other: Stool Size Moderate Stool Consistency liquid Stool Color Brown # Bowel Movements 1 Weight 111.8 kg Blood Glucose* 170 123 136 Patient Weight 06/24/16 23:59 Weight 111.8 kg - General Appearance Exam: The patient is sedated on the ventilator. She appears to be comfortable. Lungs coarse breath sounds and generalized rhonchi. Heart regular rate and rhythm. Abdomen demonstrates diminished bowel sounds. Abdomen is soft. There is no guarding nor rigidity. There is minimal lower extremity swelling. There is a temporary dialysis catheter in the right internal jugular vein. - Lab 06/24/16 05:00 06/24/16 05:00 Most recent lab results ABG pH 7.34 pH Units (7.32-7.45) 06/24/16 05:00 ABG pCO2 53 mmHg (35-45) H 06/24/16 05:00 ABG pO2 55 mmHg (85-104) L 06/24/16 05:00 ABG HCO3 28.6 mEQ/L (21-27) H 06/24/16 05:00 ABG O2 Saturation 86 % (95-98) L 06/24/16 05:00 Calcium 8.5 mg/dL (8.6-10.8) L 06/24/16 05:00 Phosphorus 2.5 mg/dL (2.3-4.7) 06/24/16 05:00 Magnesium 2.1 mg/dL (1.6-2.6) 06/24/16 05:00 - VTE Documentation of Mechanical Device: Venous foot pump, device Consult Discharge Plan - Plan Referrals: Manish Sheth MD [Primary Care Provider] -
[2016-06-24] MEDS: Pantoprazole 40 MG VIAL IVPB SCH (08:32)
[2016-06-24] MEDS: Chlorhexidine Rinse 15 ML MOUTHWASH MM SCH (08:32)
[2016-06-24] MEDS: Vitamin B Complex/Vit C/Vit E 1 EACH TABLET PO SCH (08:32)
[2016-06-24] MEDS: Lacri-Lube 3.5 GM TUBE BOTH EYES SCH (08:34)
[2016-06-24] MEDS: Multivit/Ca/Min/Fe/FA 1 TAB TABLET PO SCH (08:35)
[2016-06-24] MEDS: Valproic Acid INJ 500 MG in 0.9 % Sodium Chloride 100 ML IVPB SCH (08:41)
[2016-06-24] MEDS ORDERED: Vancomycin 1,250 MG in D5% in Water 250 ML IVPB ONE (09:00)
[2016-06-24] MEDS ORDERED: Gentamicin Oint 15 GM TUBE TP SCH (09:00)
[2016-06-24] MEDS ORDERED: Meropenem 1,000 MG in 0.9 % Sodium Chloride Mini Bag 100 ML IVPB SCH (11:00)
[2016-06-24] MEDS: *HR* Heparin 5,000 UNIT/ML VIAL IV PRN ×2 (11:15)
[2016-06-24] MEDS: Silvasorb 44.4 ML TUBE TP SCH (12:28)
--- NOTE | 2016-06-24 13:02 | ENT - Consult Note ---
Date of Encounter: 06/24/16 Time of Encounter: 11:30 Assessment and Plan (1) Sepsis Current Visit: Yes Status: Suspected 2 SIRS criteria w/ tachycardia and leukocytosis w/ +human metapneumovirus Viral pneumonia w/ resultant ARDS requiring mechanical ventilatory support. Patient is currently requiring pressors for hemodynamic support. Her neck exam is limited by anatomical restrictions w/ cervical extension 2/2 Down's syndrome. Given her multiple comorbidities, pressor requirements and vent settings the patient is a poor candidate for tracheostomy placement at this time. Given her current clinical status, the benefits of trachestomy placement do not outweigh the risks of surgical airway placement. Final disposition to be determined by Dr. Oh and discussion with family. Qualifiers: Sepsis type: sepsis due to unspecified organism Qualified Code(s): A41.9 - Sepsis, unspecified organism (2) ARDS (adult respiratory distress syndrome) Current Visit: Yes Status: Acute CXR w/ bilateral infiltrates Continued increased ventilatory requirements with reported difficulty in weaning settings. Vent management as per primary. (3) Acute respiratory failure with hypoxia Current Visit: Yes Status: Acute Initial presentation of hypoxia and respiratory distress requiring intubation despite NIPPV In the setting of viral pneumonia and ARDS Mechanical ventilatory support as per primary (4) TANNER (acute kidney injury) Current Visit: Yes Status: Acute Peak Creatinine of 4.26 Currently on CVVH Nephrology managing (5) Hypotension Current Visit: Yes Status: Acute Patient is on Levophed 3mcg at the time of examination Likely multifactorial 2/2 CVVH and sepsis Pressor support as per primary. Qualifiers: Hypotension type: hemodialysis-associated hypotension Qualified Code(s): I95.3 - Hypotension of hemodialysis (6) Leukocytosis Current Visit: Yes Status: Acute Most recent WBC of 26.7 in the setting of viral pneumonia, ARDS, Sepsis Antibiotic regimen as per primary team Qualifiers: Leukocytosis type: lymphocytosis Qualified Code(s): D72.820 - Lymphocytosis (symptomatic) (7) Viral pneumonia Current Visit: Yes Status: Acute Cultures + Human metapneumovirus. (8) Down syndrome Current Visit: Yes Status: Chronic (9) DVT prophylaxis Current Visit: Yes Status: Acute History of Present Illness Consult date: 06/24/16 Reason for ENT Consult: trach placement Requesting physician: Lizabeth Goldstein History of present illness: This is a 31 year old female history of Down syndrome who initially presented to the emergency department on 06/05/16 with a chief complaint of hypoxia, fever and respiratory distress. History is obtained from prior documentation as the patient is currently intubated and unable to participate in the exam. Patient was found to initially be hypoxic with initial chest xray showing bilateral infiltrates. The patient was placed on NIPPV and admitted to the hospital. As per documentation, on 06/07/16 the patient was intubated for hypoxemic respiratory failure. During this time the patient was treated for pneumonia that evolved into sepsis and ARDS. Patient required proned positioning for ARDS for multiple days. Her hospitalization has also been complicated by renal failure requiring CVVH presumably from her septic shock. ENT consulted for evaluation for tracheostomy placement. At the time of exam, the patient is currently on 3mcg of Levo, FiO2 80% w/ PEEP 10. Past Med Surg Social Fam HX - Past Medical History Attestation: Yes The following information was validated with the patient. Source: old records reviewed Medical history: thyroid disease, other (Down Syndrome) Psychiatric history: no psych history - Past Surgical History Surgical History: other - Social History Smoking Status: Never smoker Smokeless Tobacco Status: No Alcohol use: none Drug use: none - Family History Mother Living Status: Still Living Hx Family Cardiac Disorders: Yes (HTN) Medications and Allergies Citalopram [CeleXA] 40 mg PO DAILY 10/12/14 [History] CloNIDine HCl [CloNIDine HCl] 0.1 mg PO BID 10/12/14 [History] Divalproex (12 HR) [Depakote (12 HR)] 500 mg PO BID 10/12/14 [History] Fluticasone Propionate Nasal [Flonase] 1 spray NS BID 10/12/14 [History] Multivitamin [Flintstones] 1 tab PO DAILY 10/12/14 [History] Nystatin POWDER [Nystop] 1 appl TP BID PRN 10/12/14 [History] Hydrocortisone [Anusol-Hc] 1 appl TP BID PRN 06/05/16 [History] Ketoconazole 2% CRM [Nizoral Cream] 1 appl TP BID PRN 06/05/16 [History] Ketoconazole Shampoo [Nizoral Shampoo] 1 appl TP QWEEK 06/05/16 [History] Levothyroxine Sodium [Levo-T] 75 mcg PO DAILY 06/05/16 [History] Allergies No Known Allergies Allergy (Verified 10/12/14 15:50) ENT - ROS ROS unobtainable: due to endotracheal tube ENT Exam Initial Vital Signs Temp Pulse Resp BP Pulse Ox 101.6 F H 115 18 107/97 91 06/05/16 04:36 06/05/16 04:36 06/05/16 04:36 06/05/16 04:36 06/05/16 04:36 - General physical appearance other (Patient is currently intubated and sedated. ) - Eyes PERRL - ENT normal pinna, normal nares, atraumatic, normocephalic - Neck other (Assessment difficult secondary to patient's body habitus. Cricoid cartilage faintly palpated just superior to the level of the sternal notch. The patient has a RIJ CVC and HD catheter in the right neck. Extension of the C spine is limited 2/2 intubation and hx of Down's syndrome) - Respiratory other (mechanically ventilated w/ bilateral coarse breath sounds) - Abdomen Abdomen: soft, no rigid, no distended - Integumentary no rash - Neurologic other (unable to assess) - Musculoskeletal other (unable to assess) - Psychiatric other (unable to assess) Exam Initial Vital Signs Temp Pulse Resp BP Pulse Ox 101.6 F H 115 18 107/97 91 06/05/16 04:36 06/05/16 04:36 06/05/16 04:36 06/05/16 04:36 06/05/16 04:36 Results - Labs 06/24/16 05:00 06/24/16 05:00 Abnormal lab results WBC 26.7 K/mcL (4.3-11.1) H 06/24/16 05:00 RBC 2.42 M/mcL (3.82-4.97) L 06/24/16 05:00 Hgb 7.6 g/dL (11.5-15.4) L 06/24/16 05:00 Hct 23.9 % (35.3-44.9) L 06/24/16 05:00 RDW 17.0 % (11.5-14.5) H 06/24/16 05:00 Immature Gran % 4.2 % (0-4) H 06/16/16 03:15 Band Neutrophils % 11.0 % (0-4) H 06/24/16 05:00 Metamyelocytes % 2.0 % (0) H 06/24/16 05:00 Myelocytes % 4.0 % (0) H 06/24/16 05:00 Neutrophils # 20.6 K/mcL (1.6-8.9) H 06/24/16 05:00 Monocytes # 1.6 K/mcL (0.0-1.3) H 06/24/16 05:00 Eosinophils # 0.8 K/mcL (0.0-0.6) H 06/24/16 05:00 Basophils # 0.4 K/mcL (0.0-0.2) H 06/23/16 03:16 Nucleated RBCs/100 WBC 0.6 /100 WBC (0) H 06/24/16 05:00 Reactive Lymphocytes Present (Not Present) A 06/24/16 05:00 Smudge Cells Present (Not Present) A 06/20/16 17:30 Large Platelets Present (Not Present) A 06/24/16 05:00 Immature Plt Fraction 6.4 % (1.1-6.1) H 06/23/16 03:16 Polychromasia 1+ (Not Present) A 06/24/16 05:00 Poikilocytosis 1+ (Not Present) A 06/17/16 03:40 Basophilic Stippling 2+ (Not Present) A 06/14/16 03:45 Anisocytosis 1+ (Not Present) A 06/24/16 05:00 Macrocytosis Present (Not Present) A 06/24/16 05:00 PT 12.9 Seconds (9.4-12.1) H 06/07/16 06:22 ABG pCO2 53 mmHg (35-45) H 06/24/16 05:00 ABG pO2 55 mmHg (85-104) L 06/24/16 05:00 ABG HCO3 28.6 mEQ/L (21-27) H 06/24/16 05:00 ABG Total CO2 30.2 mEq/L (20-26) H 06/24/16 05:00 ABG O2 Saturation 86 % (95-98) L 06/24/16 05:00 VBG pH 7.48 pH Units (7.32-7.42) H 06/05/16 06:06 VBG pCO2 37 mmHg (41-51) L 06/05/16 06:06 VBG pO2 167 mmHg (25-40) H 06/05/16 06:06 VBG HCO3 27.6 mEq/L (21-27) H 06/05/16 06:06 Creatinine 1.25 mg/dL (0.57-1.11) H 06/24/16 05:00 Est GFR (Non-Af Amer) 50 (> 60) L 06/24/16 05:00 Glucose 154 mg/dL (70-99) H 06/24/16 05:00 POC Glucose 137 (58-89) H 06/24/16 12:38 Uric Acid 6.6 mg/dL (2.6-6.0) H 06/15/16 17:20 Calcium 8.5 mg/dL (8.6-10.8) L 06/24/16 05:00 AST 39 Units/L (5-34) H 06/21/16 08:15 Serum Total Protein 5.4 g/dL (6.0-8.3) L 06/21/16 08:15 Albumin 1.5 g/dL (3.5-5.0) L 06/21/16 08:15 Globulin 3.9 g/dL (2.4-3.5) H 06/21/16 08:15 Albumin/Globulin Ratio 0.4 (1.1-2.2) L 06/21/16 08:15 Ur Specimen Adequacy See below A 06/16/16 17:49 Urine Clarity Turbid (Clear) A 06/20/16 13:00 Urine Protein 100 mg/dL (Neg-Trace) H 06/20/16 13:00 Urine Blood Large (Negative) H 06/20/16 13:00 Ur Leukocyte Esterase Small (Negative) H 06/20/16 13:00 Urine Microscopic RBC 15-30 per hpf (0-3) H 06/20/16 13:00 Urine Microscopic WBC 50-100 per hpf (0-3) H 06/20/16 13:00 Ur Squamous Epith Cells Many per lpf (None-Few) H 06/20/16 13:00 Amorphous Sediment Many (Few) H 06/20/16 13:00 Urine Mucus Moderate (Few) H 06/20/16 13:00 Ur Culture Indicated? YES (NO) A 06/20/16 13:00 Human Metapneumovirus DETECTED (Not Detect) A 06/07/16 16:05 Diabetes panel 06/24/16 Range/Units 05:00 Sodium 136 (136-145) mEq/L Potassium 4.5 (3.5-4.5) mEq/L Chloride 104 (98-109) mEq/L Carbon Dioxide 26 (19-29) mEq/L BUN 20 (7-20) mg/dL Creatinine 1.25 H (0.57-1.11) mg/dL Glucose 154 H (70-99) mg/dL Calcium 8.5 L (8.6-10.8) mg/dL Calcium panel 06/24/16 Range/Units 05:00 Calcium 8.5 L (8.6-10.8) mg/dL Phosphorus 2.5 (2.3-4.7) mg/dL Pituitary panel 06/24/16 Range/Units 05:00 Sodium 136 (136-145) mEq/L Potassium 4.5 (3.5-4.5) mEq/L Chloride 104 (98-109) mEq/L Carbon Dioxide 26 (19-29) mEq/L BUN 20 (7-20) mg/dL Creatinine 1.25 H (0.57-1.11) mg/dL Glucose 154 H (70-99) mg/dL Calcium 8.5 L (8.6-10.8) mg/dL Adrenal panel 06/24/16 Range/Units 05:00 Sodium 136 (136-145) mEq/L Potassium 4.5 (3.5-4.5) mEq/L Chloride 104 (98-109) mEq/L Carbon Dioxide 26 (19-29) mEq/L BUN 20 (7-20) mg/dL Creatinine 1.25 H (0.57-1.11) mg/dL Glucose 154 H (70-99) mg/dL Calcium 8.5 L (8.6-10.8) mg/dL All other labs normal. - Imaging Chest x-ray: report reviewed Consult Discharge Plan - Plan Referrals: Manish Sheth MD [Primary Care Provider] -
--- NOTE | 2016-06-24 13:46 | ENT - Progress Note ---
<Que Luna - Last Filed: 06/24/16 13:51> Date of Encounter: 06/24/16 Time of Encounter: 11:30 - Assessment and Plan (1) Sepsis Current Visit: Yes Status: Suspected 2 SIRS criteria w/ tachycardia and leukocytosis w/ +human metapneumovirus Viral pneumonia w/ resultant ARDS requiring mechanical ventilatory support. Patient is currently requiring pressors for hemodynamic support. Her neck exam is limited by anatomical restrictions w/ cervical extension 2/2 Down's syndrome. Given her multiple comorbidities, pressor requirements and vent settings the patient is a poor candidate for tracheostomy placement at this time. Given her current clinical status, the benefits of trachestomy placement do not outweigh the risks of surgical airway placement. Final disposition to be determined by Dr. Oh and discussion with family. Qualifiers: Sepsis type: sepsis due to unspecified organism Qualified Code(s): A41.9 - Sepsis, unspecified organism (2) ARDS (adult respiratory distress syndrome) Current Visit: Yes Status: Acute CXR w/ bilateral infiltrates Continued increased ventilatory requirements with reported difficulty in weaning settings. Vent management as per primary. (3) Acute respiratory failure with hypoxia Current Visit: Yes Status: Acute Initial presentation of hypoxia and respiratory distress requiring intubation despite NIPPV In the setting of viral pneumonia and ARDS Mechanical ventilatory support as per primary (4) TANNER (acute kidney injury) Current Visit: Yes Status: Acute Peak Creatinine of 4.26 Currently on CVVH Nephrology managing (5) Hypotension Current Visit: Yes Status: Acute Patient is on Levophed 3mcg at the time of examination Likely multifactorial 2/2 CVVH and sepsis Pressor support as per primary. Qualifiers: Hypotension type: hemodialysis-associated hypotension Qualified Code(s): I95.3 - Hypotension of hemodialysis (6) Leukocytosis Current Visit: Yes Status: Acute Most recent WBC of 26.7 in the setting of viral pneumonia, ARDS, Sepsis Antibiotic regimen as per primary team Qualifiers: Leukocytosis type: lymphocytosis Qualified Code(s): D72.820 - Lymphocytosis (symptomatic) (7) Viral pneumonia Current Visit: Yes Status: Acute Cultures + Human metapneumovirus. (8) Down syndrome Current Visit: Yes Status: Chronic (9) DVT prophylaxis Current Visit: Yes Status: Acute Subjective Patient reports: other (Patient has continued to require mechanical ventilation with increased setting since prior evaluation. Remains on vasopressor support and is currently receiving CVVH for renal failure.) Objective Initial Vital Signs Temp Pulse Resp BP Pulse Ox 101.6 F H 115 18 107/97 91 06/05/16 04:36 06/05/16 04:36 06/05/16 04:36 06/05/16 04:36 06/05/16 04:36 - General physical appearance other (Intubated, sedated) - Eyes PERRL - ENT normal pinna, normal nares, atraumatic, normocephalic - Neck other (This patient has a short neck with faintly palpated cricoid cartilage just superior to the sternal notch. There is a right IJ CVC as well as a dialysis catheter in the right neck. Extension is limited secondary to anatomical restrictions from her Down syndrome and current intubation.) - Respiratory other (Mechanically ventilated with bilateral coarse breath sounds.) - Abdomen soft, no rigid, no distended - Integumentary no rash - Neurologic other (Unable to assess) - Psychiatric other (Unable to assess) - Labs 06/24/16 05:00 06/24/16 05:00 Diabetes panel 06/24/16 Range/Units 05:00 Sodium 136 (136-145) mEq/L Potassium 4.5 (3.5-4.5) mEq/L Chloride 104 (98-109) mEq/L Carbon Dioxide 26 (19-29) mEq/L BUN 20 (7-20) mg/dL Creatinine 1.25 H (0.57-1.11) mg/dL Glucose 154 H (70-99) mg/dL Calcium 8.5 L (8.6-10.8) mg/dL Calcium panel 06/24/16 Range/Units 05:00 Calcium 8.5 L (8.6-10.8) mg/dL Phosphorus 2.5 (2.3-4.7) mg/dL Pituitary panel 06/24/16 Range/Units 05:00 Sodium 136 (136-145) mEq/L Potassium 4.5 (3.5-4.5) mEq/L Chloride 104 (98-109) mEq/L Carbon Dioxide 26 (19-29) mEq/L BUN 20 (7-20) mg/dL Creatinine 1.25 H (0.57-1.11) mg/dL Glucose 154 H (70-99) mg/dL Calcium 8.5 L (8.6-10.8) mg/dL Adrenal panel 06/24/16 Range/Units 05:00 Sodium 136 (136-145) mEq/L Potassium 4.5 (3.5-4.5) mEq/L Chloride 104 (98-109) mEq/L Carbon Dioxide 26 (19-29) mEq/L BUN 20 (7-20) mg/dL Creatinine 1.25 H (0.57-1.11) mg/dL Glucose 154 H (70-99) mg/dL Calcium 8.5 L (8.6-10.8) mg/dL - Imaging Chest x-ray: report reviewed - VTE Documentation of Mechanical Device: Venous foot pump, device Consult Discharge Plan - Plan Referrals: Manish Sheth MD [Primary Care Provider] - <Ambika Oh - Last Filed: 06/24/16 16:29> Date of Encounter: 06/24/16 Objective Initial Vital Signs Temp Pulse Resp BP Pulse Ox 101.6 F H 115 18 107/97 91 06/05/16 04:36 06/05/16 04:36 06/05/16 04:36 06/05/16 04:36 06/05/16 04:36 - Labs 06/24/16 05:00 06/24/16 05:00 Diabetes panel 06/24/16 Range/Units 05:00 Sodium 136 (136-145) mEq/L Potassium 4.5 (3.5-4.5) mEq/L Chloride 104 (98-109) mEq/L Carbon Dioxide 26 (19-29) mEq/L BUN 20 (7-20) mg/dL Creatinine 1.25 H (0.57-1.11) mg/dL Glucose 154 H (70-99) mg/dL Calcium 8.5 L (8.6-10.8) mg/dL Calcium panel 06/24/16 Range/Units 05:00 Calcium 8.5 L (8.6-10.8) mg/dL Phosphorus 2.5 (2.3-4.7) mg/dL Pituitary panel 06/24/16 Range/Units 05:00 Sodium 136 (136-145) mEq/L Potassium 4.5 (3.5-4.5) mEq/L Chloride 104 (98-109) mEq/L Carbon Dioxide 26 (19-29) mEq/L BUN 20 (7-20) mg/dL Creatinine 1.25 H (0.57-1.11) mg/dL Glucose 154 H (70-99) mg/dL Calcium 8.5 L (8.6-10.8) mg/dL Adrenal panel 06/24/16 Range/Units 05:00 Sodium 136 (136-145) mEq/L Potassium 4.5 (3.5-4.5) mEq/L Chloride 104 (98-109) mEq/L Carbon Dioxide 26 (19-29) mEq/L BUN 20 (7-20) mg/dL Creatinine 1.25 H (0.57-1.11) mg/dL Glucose 154 H (70-99) mg/dL Calcium 8.5 L (8.6-10.8) mg/dL
--- NOTE | 2016-06-24 14:31 | Infectious Disease Consult ---
Date of Encounter: 06/24/16 Time of Encounter: 14:29 Infectious Disease HPI - Data of Consult Patient: new to practice Consult date: 06/24/16 Requesting Physician: Michael Parker MD Primary Care Provider: Manish Sheth MD - Consult Narrative Reason for consult: Persistent Leukocytosis History of present illness: Ms. Gilmore is a 31 year old female CC: Michael Parker MD Past Med Surg Social Fam HX - Past Medical History Source: old records reviewed, nursing notes reviewed Medical history: thyroid disease, other (Down Syndrome) Psychiatric history: no psych history - Past Surgical History Surgical History: other - Social History Smoking Status: Never smoker Smokeless Tobacco Status: No Alcohol use: none Drug use: none Current living situation: Home, With Family Activity Level: Independent ambulation Recent Out of Country Travel Within the Last 8 Weeks: No Exposure or Possible Exposure to Illness During Travel: No - Family History Mother Living Status: Still Living Hx Family Cardiac Disorders: Yes (HTN) Infectious Disease-CN:Meds Citalopram [CeleXA] 40 mg PO DAILY 10/12/14 [History] CloNIDine HCl [CloNIDine HCl] 0.1 mg PO BID 10/12/14 [History] Divalproex (12 HR) [Depakote (12 HR)] 500 mg PO BID 10/12/14 [History] Fluticasone Propionate Nasal [Flonase] 1 spray NS BID 10/12/14 [History] Multivitamin [Flintstones] 1 tab PO DAILY 10/12/14 [History] Nystatin POWDER [Nystop] 1 appl TP BID PRN 10/12/14 [History] Hydrocortisone [Anusol-Hc] 1 appl TP BID PRN 06/05/16 [History] Ketoconazole 2% CRM [Nizoral Cream] 1 appl TP BID PRN 06/05/16 [History] Ketoconazole Shampoo [Nizoral Shampoo] 1 appl TP QWEEK 06/05/16 [History] Levothyroxine Sodium [Levo-T] 75 mcg PO DAILY 06/05/16 [History] Allergies No Known Allergies Allergy (Verified 10/12/14 15:50) ROS unobtainable: due to mental status Exam - Constitutional Vitals: Temp Pulse Resp BP Pulse Ox 98.3 F 88 25 87/52 97 06/24/16 12:00 06/24/16 13:00 06/24/16 13:00 06/24/16 13:00 06/24/16 13:00 General appearance: morbidly obese, no acute distress, no febrile - Head Head exam: Present: atraumatic, normal inspection, normocephalic - Eye Additional comments: Unable to assess. Patient resistant to eye exam. - ENT ENT exam: Present: mucous membranes moist - Neck Additional comments: Short neck. TDC noted to the right neck with transparent dressing C/D/I. Triple lumen CVC noted to the right neck with transparent dressing C/D/I. - Respiratory Respiratory exam: Present: rhonchi (Scattered), wheezes (Fine expiratory wheezes throughout). Absent: rales, respiratory distress Additional comments: Intubated and on the ventilator. - Cardiovascular Cardiovascular exam: Present: RRR, +S1, +S2 - GI/Abdominal GI/Abdominal exam: Present: distended (obese), normal bowel sounds, soft. Absent: tenderness Infectious Disease CN: Results - Labs CBC & Chem 7: 06/24/16 05:00 06/24/16 05:00 Cultures: Cultures 06/20/16 15:20 Blood Culture - Preliminary Central Venous Catheter No growth. 06/20/16 11:50 Blood Culture - Preliminary Peripheral Venipuncture No growth. 06/20/16 11:45 Blood Culture - Preliminary Peripheral Venipuncture No growth. 06/20/16 13:00 Urine Culture - Final Urine,[place] No growth. 06/14/16 16:05 Sputum Culture - Final Sputum 06/11/16 11:59 Blood Culture - Final Peripheral Venipuncture No growth. 06/11/16 11:50 Blood Culture - Final Peripheral Venipuncture No growth. 06/10/16 02:35 Sputum Culture - Final Sputum Clari albicans 06/07/16 14:13 Influenza Types A,B Antigen (RAGHAVENDRA) - Final Nasopharyngeal Serology: Serology 06/20/16 06/16/16 06/13/16 Range/Units 13:00 17:49 00:20 Ur Specimen Adequacy See below A Urine Color Yellow Yellow (Yellow) Urine Clarity Turbid A Clear (Clear) Urine pH 5.5 6.0 (5.0-8.0) pH Units Ur Specific [place] 1.017 1.010 (1.010-1.025) Urine Protein 100 H 30 H (Neg-Trace) mg/dL Urine Glucose (UA) Normal Normal (Normal) mg/dL Urine Ketones Negative Negative (Negative) mg/dL Urine Blood Large H Large H (Negative) Urine Nitrite Negative Negative (Negative) Urine Bilirubin Negative Negative (Negative) Urine Urobilinogen Normal Normal (Normal) mg/dL Ur Leukocyte Esterase Small H Trace H (Negative) Urine Microscopic RBC 15-30 H 30-50 H (0-3) per hpf Urine Microscopic WBC 50-100 H 0-3 (0-3) per hpf Ur Squamous Epith Cells Many H (None-Few) per lpf Ur Transition Epith Cell (None-Few) per hpf Amorphous Sediment Many H (Few) Urine Bacteria None Seen Few (None-Few) per hpf Hyaline Casts Few (None-Few) per lpf Urine Mucus Moderate H (Few) Urine Yeast Test Not Performed Ur Culture Indicated? YES A (NO) Nasal Screen MRSA (PCR) (Negative) Stl C. cayetanensis PCR (Not detect) Stool Rotavirus A PCR (Not detect) Stl Adenov F 40/41 PCR (Not detect) Stool Astrovirus (PCR) (Not detect) Stool Campylobacter PCR (Not detect) Stl C. diff Tox B Gene Negative (Negative) Stl C. diff Tox A/B PCR (Not detect) Stool Cryptosporidium PCR (Not detect) Stl Sh Tox Pr E STEC PCR (Not detect) Stool E coli O157 PCR (Not detect) Stl Enterotoxigenic E PCR (Not detect) Stool EPEC (PCR) (Not detect) Stool EAEC (PCR) (Not detect) Stl E. histolytica PCR (Not detect) Stool Giardia Lamblia PCR (Not detect) Stool Salmonella PCR (Not detect) Stool Sapovirus (PCR) (Not detect) Stl P. shigelloides PCR (Not detect) Stl Shigella/EIEC PCR (Not detect) St Y.enterocolitica PCR (Not detect) Stool Vibrio (PCR) (Not detect) Stl Vibrio cholerae PCR (Not detect) Stl Norovirus GI/GII PCR (Not detect) Stl GI Panel (PCR) Com Chlamy pneumoniae PCR (Not Detect) Adenovirus (PCR) (Not Detect) B. pertussis DNA (PCR) (Not Detect) Coronavirus OC43 (PCR) (Not Detect) Coronavirus HKU1 (PCR) (Not Detect) Coronavirus 229E (PCR) (Not Detect) Coronavirus NL63 (PCR) (Not Detect) Human Metapneumovirus (Not Detect) Influenza A (H1) PCR (Not Detect) Influ A (H1N1/09) PCR (Not Detect) Influenza A (H3) PCR (Not Detect) Influenza A Untype (PCR) (Not Detect) Influenza Type B (PCR) (Not Detect) M.pneumoniae DNA (PCR) (Not Detect) Parainfluenza 1 (PCR) (Not Detect) Parainfluenza 2 (PCR) (Not Detect) Parainfluenza 3 (PCR) (Not Detect) Parainfluenza 4 (PCR) (Not Detect) RSV (PCR) (Not Detect) Entero/Rhino (PCR) (Not Detect) 06/12/16 06/11/16 06/07/16 Range/Units 14:27 12:15 16:05 Ur Specimen Adequacy Urine Color Yellow (Yellow) Urine Clarity Cloudy A (Clear) Urine pH 7.0 (5.0-8.0) pH Units Ur Specific [place] 1.026 H (1.010-1.025) Urine Protein 30 H (Neg-Trace) mg/dL Urine Glucose (UA) Normal (Normal) mg/dL Urine Ketones Negative (Negative) mg/dL Urine Blood Large H (Negative) Urine Nitrite Negative (Negative) Urine Bilirubin Negative (Negative) Urine Urobilinogen Normal (Normal) mg/dL Ur Leukocyte Esterase Negative (Negative) Urine Microscopic RBC 50-100 H (0-3) per hpf Urine Microscopic WBC 3-5 H (0-3) per hpf Ur Squamous Epith Cells Many H (None-Few) per lpf Ur Transition Epith Cell Present (None-Few) per hpf Amorphous Sediment (Few) Urine Bacteria None Seen (None-Few) per hpf Hyaline Casts None Seen (None-Few) per lpf Urine Mucus (Few) Urine Yeast Ur Culture Indicated? NO (NO) Nasal Screen MRSA (PCR) Negative (Negative) Stl C. cayetanensis PCR Not detected (Not detect) Stool Rotavirus A PCR Not detected (Not detect) Stl Adenov F 40/41 PCR Not detected (Not detect) Stool Astrovirus (PCR) Not detected (Not detect) Stool Campylobacter PCR Not detected (Not detect) Stl C. diff Tox B Gene (Negative) Stl C. diff Tox A/B PCR Not performed (Not detect) Stool Cryptosporidium PCR Not detected (Not detect) Stl Sh Tox Pr E STEC PCR Not detected (Not detect) Stool E coli O157 PCR Not detected (Not detect) Stl Enterotoxigenic E PCR Not detected (Not detect) Stool EPEC (PCR) Not detected (Not detect) Stool EAEC (PCR) Not detected (Not detect) Stl E. histolytica PCR Not detected (Not detect) Stool Giardia Lamblia PCR Not detected (Not detect) Stool Salmonella PCR Not detected (Not detect) Stool Sapovirus (PCR) Not detected (Not detect) Stl P. shigelloides PCR Not detected (Not detect) Stl Shigella/EIEC PCR Not detected (Not detect) St Y.enterocolitica PCR Not detected (Not detect) Stool Vibrio (PCR) Not detected (Not detect) Stl Vibrio cholerae PCR Not detected (Not detect) Stl Norovirus GI/GII PCR Not detected (Not detect) Stl GI Panel (PCR) Com See below Chlamy pneumoniae PCR (Not Detect) Adenovirus (PCR) (Not Detect) B. pertussis DNA (PCR) (Not Detect) Coronavirus OC43 (PCR) (Not Detect) Coronavirus HKU1 (PCR) (Not Detect) Coronavirus 229E (PCR) (Not Detect) Coronavirus NL63 (PCR) (Not Detect) Human Metapneumovirus (Not Detect) Influenza A (H1) PCR (Not Detect) Influ A (H1N1/09) PCR (Not Detect) Influenza A (H3) PCR (Not Detect) Influenza A Untype (PCR) (Not Detect) Influenza Type B (PCR) (Not Detect) M.pneumoniae DNA (PCR) (Not Detect) Parainfluenza 1 (PCR) (Not Detect) Parainfluenza 2 (PCR) (Not Detect) Parainfluenza 3 (PCR) (Not Detect) Parainfluenza 4 (PCR) (Not Detect) RSV (PCR) (Not Detect) Entero/Rhino (PCR) (Not Detect) 06/07/16 06/07/16 06/05/16 Range/Units 16:05 14:00 14:08 Ur Specimen Adequacy Urine Color Yellow (Yellow) Urine Clarity Clear (Clear) Urine pH 5.0 (5.0-8.0) pH Units Ur Specific [place] 1.007 L (1.010-1.025) Urine Protein Negative (Neg-Trace) mg/dL Urine Glucose (UA) Normal (Normal) mg/dL Urine Ketones Negative (Negative) mg/dL Urine Blood Negative (Negative) Urine Nitrite Negative (Negative) Urine Bilirubin Negative (Negative) Urine Urobilinogen Normal (Normal) mg/dL Ur Leukocyte Esterase Negative (Negative) Urine Microscopic RBC (0-3) per hpf Urine Microscopic WBC (0-3) per hpf Ur Squamous Epith Cells (None-Few) per lpf Ur Transition Epith Cell (None-Few) per hpf Amorphous Sediment (Few) Urine Bacteria (None-Few) per hpf Hyaline Casts (None-Few) per lpf Urine Mucus (Few) Urine Yeast Ur Culture Indicated? NO (NO) Nasal Screen MRSA (PCR) (Negative) Stl C. cayetanensis PCR (Not detect) Stool Rotavirus A PCR (Not detect) Stl Adenov F 40/41 PCR (Not detect) Stool Astrovirus (PCR) (Not detect) Stool Campylobacter PCR (Not detect) Stl C. diff Tox B Gene (Negative) Stl C. diff Tox A/B PCR (Not detect) Stool Cryptosporidium PCR (Not detect) Stl Sh Tox Pr E STEC PCR (Not detect) Stool E coli O157 PCR (Not detect) Stl Enterotoxigenic E PCR (Not detect) Stool EPEC (PCR) (Not detect) Stool EAEC (PCR) (Not detect) Stl E. histolytica PCR (Not detect) Stool Giardia Lamblia PCR (Not detect) Stool Salmonella PCR (Not detect) Stool Sapovirus (PCR) (Not detect) Stl P. shigelloides PCR (Not detect) Stl Shigella/EIEC PCR (Not detect) St Y.enterocolitica PCR (Not detect) Stool Vibrio (PCR) (Not detect) Stl Vibrio cholerae PCR (Not detect) Stl Norovirus GI/GII PCR (Not detect) Stl GI Panel (PCR) Com Chlamy pneumoniae PCR Not Detected Not Detected (Not Detect) Adenovirus (PCR) Not Detected Not Detected (Not Detect) B. pertussis DNA (PCR) Not Detected Not Detected (Not Detect) Coronavirus OC43 (PCR) Not Detected Not Detected (Not Detect) Coronavirus HKU1 (PCR) Not Detected Not Detected (Not Detect) Coronavirus 229E (PCR) Not Detected Not Detected (Not Detect) Coronavirus NL63 (PCR) Not Detected Not Detected (Not Detect) Human Metapneumovirus DETECTED A DETECTED A (Not Detect) Influenza A (H1) PCR Not Detected Not Detected (Not Detect) Influ A (H1N1/09) PCR Not Detected Not Detected (Not Detect) Influenza A (H3) PCR Not Detected Not Detected (Not Detect) Influenza A Untype (PCR) Not Detected Not Detected (Not Detect) Influenza Type B (PCR) Not Detected Not Detected (Not Detect) M.pneumoniae DNA (PCR) Not Detected Not Detected (Not Detect) Parainfluenza 1 (PCR) Not Detected Not Detected (Not Detect) Parainfluenza 2 (PCR) Not Detected Not Detected (Not Detect) Parainfluenza 3 (PCR) Not Detected Not Detected (Not Detect) Parainfluenza 4 (PCR) Not Detected Not Detected (Not Detect) RSV (PCR) Not Detected Not Detected (Not Detect) Entero/Rhino (PCR) Not Detected Not Detected (Not Detect) - VTE Documentation of Mechanical Device: Venous foot pump, device Consult Discharge Plan - Plan Referrals: Manish Sheth MD [Primary Care Provider] -
[2016-06-24] MEDS: Norepinephrine 4 MG in D5% in Water 250 ML IVC SCH (14:40)
[2016-06-24] MEDS: FentaNYL (PF) 1,000 MCG in 0.9 % Sodium Chloride 80 ML IVC SCH (14:41)
--- NOTE | 2016-06-24 15:43 | Event Note ---
Date of Encounter: 06/24/16 Time of Encounter: 13:52 Family meeting to establish goals of care with ICU team (Dr. Ignacio, primary RN), ENT (Dr. Oh), Parents (Anthony Gallardo), and palliative DUMPER OPERATOR. Reviewed recent events and clinical course. Family continues to support aggressive care and would like to seek transfer to higher acuity hospital.
[2016-06-24 16:19] VITALS: BP 98/60
--- NOTE | 2016-06-24 16:21 | Discharge Summary ---
Date of Encounter: 06/24/16 Time of Encounter: 16:16 - Discharge Diagnosis (1) Sepsis Priority: Primary Status: Suspected Qualifiers: Sepsis type: sepsis due to unspecified organism Qualified Code(s): A41.9 - Sepsis, unspecified organism (2) Acute respiratory failure with hypoxia and hypercapnia Priority: Primary Status: Acute (3) ARDS (adult respiratory distress syndrome) Priority: Primary Status: Acute (4) Viral pneumonia Priority: Primary Status: Acute (5) Hypotension Priority: Primary Status: Acute Qualifiers: Hypotension type: hemodialysis-associated hypotension Qualified Code(s): I95.3 - Hypotension of hemodialysis (6) TANNER (acute kidney injury) Priority: Primary Status: Acute (7) Colitis Priority: Secondary Status: Acute (8) Anemia Priority: Secondary Status: Acute Qualifiers: Anemia type: unspecified type Qualified Code(s): D64.9 - Anemia, unspecified (9) Hypoalbuminemia Priority: Secondary Status: Acute (10) Down syndrome Priority: Primary Status: Chronic (11) Bed sore on buttock Priority: Secondary Status: Acute Qualifiers: Pressure ulcer stage: stage 2 Laterality: unspecified laterality Qualified Code(s): L89.302 - Pressure ulcer of unspecified buttock, stage 2 (12) DVT prophylaxis Priority: Secondary Status: Acute - Discharge Medications Home Medications: Citalopram [CeleXA] 40 mg PO DAILY 10/12/14 [History] CloNIDine HCl [CloNIDine HCl] 0.1 mg PO BID 10/12/14 [History] Divalproex (12 HR) [Depakote (12 HR)] 500 mg PO BID 10/12/14 [History] Fluticasone Propionate Nasal [Flonase] 1 spray NS BID 10/12/14 [History] Multivitamin [Flintstones] 1 tab PO DAILY 10/12/14 [History] Nystatin POWDER [Nystop] 1 appl TP BID PRN 10/12/14 [History] Hydrocortisone [Anusol-Hc] 1 appl TP BID PRN 06/05/16 [History] Ketoconazole 2% CRM [Nizoral Cream] 1 appl TP BID PRN 06/05/16 [History] Ketoconazole Shampoo [Nizoral Shampoo] 1 appl TP QWEEK 06/05/16 [History] Levothyroxine Sodium [Levo-T] 75 mcg PO DAILY 06/05/16 [History] Allergies/Adverse Reactions: Allergies No Known Allergies Allergy (Verified 10/12/14 15:50) Procedures and tests throughout hospitalization: Chest CTA 06/05/16 07:30 IMPRESSION: 1. No evidence of pulmonary embolism. 2. Extensive multifocal bilateral pneumonia. Continued radiographic follow-up is recommended. 3. Mediastinal lymphadenopathy is likely reactive in nature from pneumonia. 4. Fatty infiltration of the liver. D/ / Feliz Howard MD / Feliz Howard MD Interpreting Provider: Feliz Howard MD Abdomen/Pelvis CT 06/12/16 12:00 IMPRESSION: Bilateral pulmonary infiltrates with increased consolidation in the lower lobes and decreased but persistent infiltrate in the upper lobes. Recommend follow-up CT scan chest to confirm resolution Question of gallbladder wall thickening versus pericholecystic fluid. Right upper quadrant gallbladder ultrasound is recommended for further evaluation. Thickening of the cecum and ascending colon which may be seen with inflammatory or infectious colitis. Ischemic and neoplastic etiologies would be considered unlikely in this age group Negative for drainable abscess collection D/ / Mauro Winchester MD / Mauro Winchester MD Interpreting Provider: Mauro Winchester MD Chest CT 06/12/16 12:00 IMPRESSION: Bilateral pulmonary infiltrates with increased consolidation in the lower lobes and decreased but persistent infiltrate in the upper lobes. Recommend follow-up CT scan chest to confirm resolution Question of gallbladder wall thickening versus pericholecystic fluid. Right upper quadrant gallbladder ultrasound is recommended for further evaluation. Thickening of the cecum and ascending colon which may be seen with inflammatory or infectious colitis. Ischemic and neoplastic etiologies would be considered unlikely in this age group Negative for drainable abscess collection D/ / Mauro Winchester MD / Mauro Winchester MD Interpreting Provider: Mauro Winchester MD Abdomen Ultrasound 06/12/16 14:14 IMPRESSION: 1. Hepatic steatosis. 2. Mild gallbladder wall thickening, nonspecific. No other sonographic findings for acute cholecystitis. D/ / Lary Ware MD / Lary Ware MD Interpreting Provider: Lary Ware MD Guidance Needle Placement Ultrasound 06/18/16 00:00 IMPRESSION: Successful ultrasound guided non-tunneled catheter placement. D/ / 06/18/2016 15:56:53 Velia Kidd MD / Sierra Gay Interpreting Provider: Velia Kidd MD Insertion Non-Tunneled Catheter 06/18/16 00:00 IMPRESSION: Successful ultrasound guided non-tunneled catheter placement. D/ / 06/18/2016 15:56:53 Velia Kidd MD / Sierra Gay Interpreting Provider: Velia Kidd MD X-Ray 06/19/16 06:32 IMPRESSION: 1. Gastric tube terminates in the region of the gastric pylorus with the sideport near the junction of the gastric body and antrum. 2. Indeterminate paucity of bowel gas with no findings suggestive of obstruction. D/ / Austin Johnson MD / Austin Johnson MD Interpreting Provider: Austin Johnson MD Chest X-Ray 06/24/16 06:47 IMPRESSION: Diffuse increase in the amount of opacity within each lung which could be due to vascular congestion, superimposed pneumonia, or worsening ARDS. Tip of the endotracheal tube lying 1 cm above the brandon. RECOMMENDATION: Withdrawal of the endotracheal tube about 2 cm. D/ / Fernandez Hernandez MD / Fernandez Hernandez MD Interpreting Provider: Fernandez Hernandez MD Labs on day of discharge: Labs from last 24 hours 06/24/16 06/24/16 06/24/16 12:38 12:00 05:08 WBC RBC Hgb Hct MCV MCH MCHC RDW Plt Count MPV Seg Neutrophils % Band Neutrophils % Lymphocytes % Monocytes % Eosinophils % Metamyelocytes % Myelocytes % Neutrophils # Lymphocytes # Monocytes # Eosinophils # Nucleated RBCs/100 WBC Reactive Lymphocytes Platelet Estimate Large Platelets Polychromasia Anisocytosis Macrocytosis ABG pH ABG pCO2 ABG pO2 ABG HCO3 ABG Total CO2 ABG O2 Saturation ABG Base Excess Blood Gas Modality Inspired O2 Sodium Potassium Chloride Carbon Dioxide BUN Creatinine Est GFR ( Amer) Est GFR (Non-Af Amer) BUN/Creatinine Ratio Glucose POC Glucose 137 H 149 H Calculated Osmolality Calcium Ionized Calcium Phosphorus Magnesium Stl C. diff Tox B Gene Negative Vancomycin Trough 06/24/16 06/24/16 06/24/16 05:00 05:00 05:00 WBC RBC Hgb Hct MCV MCH MCHC RDW Plt Count MPV Seg Neutrophils % Band Neutrophils % Lymphocytes % Monocytes % Eosinophils % Metamyelocytes % Myelocytes % Neutrophils # Lymphocytes # Monocytes # Eosinophils # Nucleated RBCs/100 WBC Reactive Lymphocytes Platelet Estimate Large Platelets Polychromasia Anisocytosis Macrocytosis ABG pH 7.34 ABG pCO2 53 H ABG pO2 55 L ABG HCO3 28.6 H ABG Total CO2 30.2 H ABG O2 Saturation 86 L ABG Base Excess 2.4 Blood Gas Modality VC+ Inspired O2 80 Sodium 136 Potassium 4.5 Chloride 104 Carbon Dioxide 26 BUN 20 Creatinine 1.25 H Est GFR ( Amer) > 60 Est GFR (Non-Af Amer) 50 L BUN/Creatinine Ratio 16 Glucose 154 H POC Glucose Calculated Osmolality 288 Calcium 8.5 L Ionized Calcium 1.19 Phosphorus 2.5 Magnesium 2.1 Stl C. diff Tox B Gene Vancomycin Trough 17.9 06/24/16 06/24/16 06/23/16 05:00 00:58 18:54 WBC 26.7 H RBC 2.42 L Hgb 7.6 L Hct 23.9 L MCV 98.8 MCH 31.4 MCHC 31.8 RDW 17.0 H Plt Count 288 MPV 10.2 Seg Neutrophils % 66.0 Band Neutrophils % 11.0 H Lymphocytes % 8.0 Monocytes % 6.0 Eosinophils % 3.0 Metamyelocytes % 2.0 H Myelocytes % 4.0 H Neutrophils # 20.6 H Lymphocytes # 2.1 Monocytes # 1.6 H Eosinophils # 0.8 H Nucleated RBCs/100 WBC 0.6 H Reactive Lymphocytes Present A Platelet Estimate Normal Large Platelets Present A Polychromasia 1+ A Anisocytosis 1+ A Macrocytosis Present A ABG pH ABG pCO2 ABG pO2 ABG HCO3 ABG Total CO2 ABG O2 Saturation ABG Base Excess Blood Gas Modality Inspired O2 Sodium Potassium Chloride Carbon Dioxide BUN Creatinine Est GFR ( Amer) Est GFR (Non-Af Amer) BUN/Creatinine Ratio Glucose POC Glucose 136 H 123 H Calculated Osmolality Calcium Ionized Calcium Phosphorus Magnesium Stl C. diff Tox B Gene Vancomycin Trough Preliminary micro results at discharge 06/20/16 15:20 Blood Culture - Preliminary Central Venous Catheter No growth. 06/20/16 11:50 Blood Culture - Preliminary Peripheral Venipuncture No growth. 06/20/16 11:45 Blood Culture - Preliminary Peripheral Venipuncture No growth. - Impressions ITS Impressions Chest X-Ray 06/07/16 12:16 IMPRESSION: 1. Endotracheal tube directed into the right main bronchus. Recommend retraction approximately 4 cm 2. Persistent diffuse bilateral airspace disease D/ / Ramiro Rojas MD / Ramiro Rojas MD Interpreting Provider: Ramiro Rojas MD X-Ray 06/08/16 15:08 IMPRESSION: 1. Nasogastric tube terminating in the gastric body. D/ / Mp Perez MD / Mp Perez MD Interpreting Provider: Mp Perez MD Chest X-Ray 06/11/16 10:51 IMPRESSION: Stable cardiomegaly. Low lung volumes. Patchy airspace opacities bilaterally, likely related to pulmonary edema versus pneumonia, stable D/ / Zachary Funk MD / Zachary Funk MD Interpreting Provider: Zachary Funk MD Chest X-Ray 06/12/16 06:55 IMPRESSION: 1. Stable lines and tubes. 2. Stable diffuse ground-glass opacities throughout the lungs. Differential considerations include infection, edema, or hemorrhage. D/ / 06/12/2016 07:34:32 Alisa Joseph MD / rip Interpreting Provider: Alisa Joseph MD Abdomen/Pelvis CT 06/12/16 12:00 IMPRESSION: Bilateral pulmonary infiltrates with increased consolidation in the lower lobes and decreased but persistent infiltrate in the upper lobes. Recommend follow-up CT scan chest to confirm resolution Question of gallbladder wall thickening versus pericholecystic fluid. Right upper quadrant gallbladder ultrasound is recommended for further evaluation. Thickening of the cecum and ascending colon which may be seen with inflammatory or infectious colitis. Ischemic and neoplastic etiologies would be considered unlikely in this age group Negative for drainable abscess collection D/ / Mauro Winchester MD / Mauro Winchester MD Interpreting Provider: Mauro Winchester MD Chest CT 06/12/16 12:00 IMPRESSION: Bilateral pulmonary infiltrates with increased consolidation in the lower lobes and decreased but persistent infiltrate in the upper lobes. Recommend follow-up CT scan chest to confirm resolution Question of gallbladder wall thickening versus pericholecystic fluid. Right upper quadrant gallbladder ultrasound is recommended for further evaluation. Thickening of the cecum and ascending colon which may be seen with inflammatory or infectious colitis. Ischemic and neoplastic etiologies would be considered unlikely in this age group Negative for drainable abscess collection D/ / Mauro Winchester MD / Mauro Winchester MD Interpreting Provider: Mauro Winchester MD Abdomen Ultrasound 06/12/16 14:14 IMPRESSION: 1. Hepatic steatosis. 2. Mild gallbladder wall thickening, nonspecific. No other sonographic findings for acute cholecystitis. D/ / Lary Ware MD / Lary Ware MD Interpreting Provider: Lary Ware MD Chest X-Ray 06/14/16 07:19 IMPRESSION: Diffuse bilateral airspace disease, similar in appearance. Stable appearance of the support apparatus. D/ / Lynnette Modi MD / Lynnette Modi MD Interpreting Provider: Lynnette Modi MD Chest X-Ray 06/17/16 07:37 IMPRESSION: The endotracheal tube tip projects over the lower thoracic trachea, approximately 1 cm above the level of the brandon. Consider retraction. Persistent bilateral perihilar airspace disease. D/ / Herb Jefferson MD / Herb Jefferson MD Interpreting Provider: Herb Jefferson MD Guidance Needle Placement Ultrasound 06/18/16 00:00 IMPRESSION: Successful ultrasound guided non-tunneled catheter placement. D/ / 06/18/2016 15:56:53 Velia Kidd MD / Sierra Gay Interpreting Provider: Velia Kidd MD Insertion Non-Tunneled Catheter 06/18/16 00:00 IMPRESSION: Successful ultrasound guided non-tunneled catheter placement. D/ / 06/18/2016 15:56:53 Velia Kidd MD / Sierra Gay Interpreting Provider: Velia Kidd MD Chest X-Ray 06/18/16 06:00 IMPRESSION: Persistent but stable bilateral airspace disease. This could represent persisting edema and/or ARDS. Pneumonia also considered. Endotracheal tube remains 12 mm above the brandon. D/ / Jose Carter MD / Jose Carter MD Interpreting Provider: Jose Carter MD Chest X-Ray 06/18/16 11:49 IMPRESSION: 1. Interval right temporary hemodialysis catheter placement with tip in the proximal to mid superior vena cava. No pneumothorax. 2. Stable bilateral pulmonary consolidation. D/ / 06/18/2016 12:29:33 Rolando Arita MD / Sierra Gay Interpreting Provider: Rolando Arita MD Chest X-Ray 06/19/16 06:00 IMPRESSION: Diffuse pulmonary edema, similar or slightly increased from the recent study. D/ / Jose Carter MD / Jose Crater MD Interpreting Provider: Jose Carter MD X-Ray 06/19/16 06:32 IMPRESSION: 1. Gastric tube terminates in the region of the gastric pylorus with the sideport near the junction of the gastric body and antrum. 2. Indeterminate paucity of bowel gas with no findings suggestive of obstruction. D/ / Austin Johnson MD / Austin Johnson MD Interpreting Provider: Austin Johnson MD Chest X-Ray 06/20/16 06:08 IMPRESSION: Moderate persistent pulmonary edema. This could represent pneumonia or ARDS. D/ / oJse Carter MD / Jose Carter MD Interpreting Provider: Jose Carter MD Chest X-Ray 06/21/16 06:00 IMPRESSION: Bilateral airspace disease, pulmonary edema with slight improved aeration. D/ / Jose Carter MD / Jose Carter MD Interpreting Provider: Jose Carter MD Chest X-Ray 06/24/16 06:47 IMPRESSION: Diffuse increase in the amount of opacity within each lung which could be due to vascular congestion, superimposed pneumonia, or worsening ARDS. Tip of the endotracheal tube lying 1 cm above the brandon. RECOMMENDATION: Withdrawal of the endotracheal tube about 2 cm. D/ / Fernandez Hernandez MD / eFrnandez Hernandez MD Interpreting Provider: Fernandez Hernandez MD Date of admission: 06/05/16 10:57 Primary care physician: Manish Sheth MD Consults: 06/07/16 07:00 Consult to Nurse Navigator [CONS] Routine Comment: 06/07/16 09:00 Consult to Speech Therapy [CONS] Routine Comment: Evaluate, develop and implement POC Reason for Consult: Admitted with multifocal pneumonia. Concern for silent aspiration risk. Please perform appropriate swallowing studies. Time Notified: 07:22 Call Completed: No 06/15/16 08:07 Consult to Nephrology [CONS] Stat Consulting Provider: [facility] Reason for Consult: Declining renal function Time Notified: 08:08 Call Completed: Yes 06/17/16 10:42 Consult to Palliative Care [CONS] Routine Comment: Consulting Provider: Palliative Care [place] Reason for Consult: Goals of care discussion concerning possible trach. Time Notified: 10:43 Call Completed: Yes 06/18/16 08:24 Consult to Interventional Radiology [CONS] Routine Consulting Provider: Radiology Interventional [facility] Reason for Consult: place temporary dialysis catheter Time Notified: 08:24 Call Completed: No 06/20/16 11:15 Consult to Wound Care [CONS] Routine Reason for Consult: Patient day 14 of mechanical ventilation for suspected ARDS. Coccyx breakdown. Specialty bed has been ordered. Time Notified: 11:15 Call Completed: Yes 06/21/16 08:29 Consult to ENT [CONS] Routine Consulting Provider: ENT [place] Reason for Consult: Consult for trach evaluation Time Notified: 08:29 Call Completed: Yes Discharging clinician: Lizabeth Goldstein Anticipated date of discharge: 06/24/16 - Patient Status Disposition: Transfer Critical Access Hosp Condition: Critical Functional capacity at discharge: bed bound Overall status at discharge: patient is not back to baseline - Discharge Instructions Follow Up With: Manish Sheth MD [Primary Care Provider] - - Hospital Course Hospital course: Ms. Gilmore is a 31 year old female with history of Down's syndrome who presented to the emergency department on 06/05/2016 with acute hypoxemic respiratory distress with worsening uRI symptoms over the past 48 hours. CXR revealed multifocal pneumonia found to be secondary to human metapneumovirus, all cultures on admission were negative. She was admitted to the floor and started on IV antibiotics. She was intermittently on BiPAP with out improvement and continued to deteriorate. As such, on 06/07/2016, patient was transferred to the ICU for intubation. Patient found to have ARDS and was started on ARDS network ventilatory recommendations. A right IJ central line was placed and a femoral arterial line was place. Patient was proned for about 3-4 days before returning to supine. Respiratory status continued to worsen and she required very high ventilatory settings. She developed TANNER and was started on Katina ultrafiltration. Creatinine improved however no real improvement was made wither her respiratory status over the next 2 weeks. Patient was unable to be weaned on the ventilator. ENT was consulted for possible trach. After evaluation, ENT did not feel comfortable proceeding with trach. Patient developed sepsis with elevated WBC, tachypnea, tachycardia and hypothermia. Urine, blood, sputum and line cultures were all negative to date. Despite empiric antibiotics, WBC continued to climb. At time of transfer on meropenem and vancomycin. CT abdomen/pelvis 06/12 showed possibility of colitis, c.diff negative. She completed 13 days of flagyl. Diarrhea output improved. Patient developed persistent hypotension secondary to her overall illness and the CVVH requiring vasopressors to maintain MAP. Hemoglobin also began to trend down and on 06/22 patient required a transfusion of 2 units pRBCs for a hemoglobin of 6.4. Family discussion with ICU team, palliative care and ENT today. ENT does not feel it is safe for the patient to undergo trach placement here. Explained to family that prognosis is poor and that we were doing everything medically possible. Family would like to peruse aggressive care and requested transfer to tertiary care facility. Patient accepted by [facility] and she will be transferred via mobile ICU. - Time Spent with Patient Total time spent providing and/or coordinating discharge services: Physical Examination Vital Signs: Vital Signs, Last 4 Hours Pulse Resp BP Pulse Ox 06/24/16 15:00 103 22 110/55 95 06/24/16 14:00 106 22 108/76 94 06/24/16 13:00 88 25 87/52 97 General appearance: other (Intubated and sedated) Eyes: nonicteric ENT: other (ET tube in place) Effort: mildly labored Auscultation: bilateral: diminished breath sounds, wheezes, rhonchi Cardiovascular: other (Tachycardia) Gastrointestinal: soft, non-tender, non-distended Extremities: no cyanosis, edema unable to assess due to mental status - VTE Documentation of Mechanical Device: Venous foot pump, device
[2016-06-24] MEDS ORDERED: Aminoglycoside Consult 1 EACH MC ONE (17:26)
== END 2016-06-24 17:27 | disposition critical access hospital (66) | DRG 870 ==
LOC: EMEROO 04:33 → 2NENU 10:57 → ICNU 06-07 08:06
PROVIDERS: ADMIT Internal Medicine; ATTEND Internal Medicine